=== PATIENT | female | born 1975 | race Caucasian/White ===

== ENCOUNTER → 2016-06-02 | Outpatient (CLI) | payer MEDICAID ==
[2016-06-02 13:28] LABS: ABSOLUTE BASOPHILS # (AUTO) 0.1 10^3/uL (0.0-0.2); ABSOLUTE EOSINOPHILS # (AUTO) 0.4 10^3/uL (0.0-0.6); ABSOLUTE LYMPHOCYTES (AUTO) 3.4 10^3/uL (0.5-4.7); ABSOLUTE MONOCYTES (AUTO) 0.5 10^3/uL (0.1-1.4); ABSOLUTE NEUT (AUTO) 9.7 10^3/uL (1.7-8.2); BASOPHILS % (AUTO) 0.6 % (0-2); EOSINOPHILS % (AUTO) 3.1 % (0-6); HEMOGLOBIN 16.4 g/dL (12.0-15.5); HGB HCT DIFFERENCE 1.2; LYMPHOCYTES % (AUTO) 24.1 % (13-45); MEAN CORPUSCULAR HEMOGLOBIN 29.2 pg (27.0-33.4); MEAN CORPUSCULAR HGB CONC 34.2 g/dL (32.0-36.0); MEAN CORPUSCULAR VOLUME 86 fl (80-97); MONOCYTES % (AUTO) 3.3 % (3-13); RED BLOOD COUNT 5.61 10^6/uL (3.72-5.28); RED CELL DISTRIBUTION WIDTH 12.8 % (11.5-14.0); SEGMENTED NEUTROPHILS % (AUTO) 68.9 % (42-78)
[2016-06-02 13:54] LABS: ALANINE AMINOTRANSFERASE 22 U/L (9-52); ALBUMIN 4.1 g/dL (3.5-5.0); ALKALINE PHOSPHATASE 110 U/L (38-126); ANION GAP 13 (5-19); ASPARTATE AMINO TRANSFERASE 19 U/L (14-36); BILIRUBIN,TOTAL 0.7 mg/dL (0.2-1.3); BLOOD UREA NITROGEN 10 mg/dL (7-20); C-REACTIVE PROTEIN 23.9 mg/L (<10.0); CALCIUM 9.7 mg/dL (8.4-10.2); CARBON DIOXIDE 27 mmol/L (22-30); CHLORIDE 99 mmol/L (98-107); CREATININE RESULT 0.47 mg/dL (0.52-1.25); GLUCOSE 275 mg/dL (75-110); POTASSIUM 4.2 mmol/L (3.6-5.0); TOTAL PROTEIN 7.5 g/dL (6.3-8.2)
[2016-06-02 14:06] LABS: ERYTHROCYTE SEDIMENTATION RATE 21 mm/hr (0-20)
== END ==
LOC: WC 12:36
PROVIDERS: ATTEND Surgery
DX: E11.621 Type 2 diabetes mellitus with foot ulcer (principal); L97.512 Non-pressure chronic ulcer of other part of right foot with fat layer exposed
CPT/HCPCS: 36415; 80053; 83036; 85025; 85652; 86140

== ENCOUNTER → 2016-12-25 | Outpatient (CLI) | payer MEDICAID ==
[2016-12-25 11:15] LABS: ABSOLUTE BASOPHILS # (AUTO) 0.2 10^3/uL (0.0-0.2); ABSOLUTE EOSINOPHILS # (AUTO) 0.1 10^3/uL (0.0-0.6); ABSOLUTE LYMPHOCYTES (AUTO) 2.8 10^3/uL (0.5-4.7); ABSOLUTE MONOCYTES (AUTO) 0.7 10^3/uL (0.1-1.4); ABSOLUTE NEUT (AUTO) 12.3 10^3/uL (1.7-8.2); EOSINOPHILS % (AUTO) 0.9 % (0-6); HEMATOCRIT 47.5 % (36.0-47.0); HEMOGLOBIN 16.4 g/dL (12.0-15.5); HGB HCT DIFFERENCE 1.7; LYMPHOCYTES % (AUTO) 17.2 % (13-45); MEAN CORPUSCULAR HEMOGLOBIN 30.4 pg (27.0-33.4); MEAN CORPUSCULAR HGB CONC 34.6 g/dL (32.0-36.0); MEAN CORPUSCULAR VOLUME 88 fl (80-97); MONOCYTES % (AUTO) 4.4 % (3-13); RED BLOOD COUNT 5.39 10^6/uL (3.72-5.28); RED CELL DISTRIBUTION WIDTH 13.4 % (11.5-14.0); SEGMENTED NEUTROPHILS % (AUTO) 76.5 % (42-78); WHITE BLOOD COUNT 16.1 10^3/uL (4.0-10.5)
[2016-12-25 11:46] LABS: ALANINE AMINOTRANSFERASE 26 U/L (9-52); ALBUMIN 4.1 g/dL (3.5-5.0); ALKALINE PHOSPHATASE 114 U/L (38-126); ANION GAP 17 (5-19); ASPARTATE AMINO TRANSFERASE 19 U/L (14-36); BILIRUBIN,DIRECT 0.4 mg/dL (0.0-0.4); BILIRUBIN,TOTAL 0.7 mg/dL (0.2-1.3); BLOOD UREA NITROGEN 9 mg/dL (7-20); C-REACTIVE PROTEIN 33.8 mg/L (<10.0); CALCIUM 9.7 mg/dL (8.4-10.2); CARBON DIOXIDE 21 mmol/L (22-30); CHLORIDE 101 mmol/L (98-107); CREATININE RESULT 0.47 mg/dL (0.52-1.25); GLUCOSE 319 mg/dL (75-110); POTASSIUM 4.3 mmol/L (3.6-5.0); SODIUM 138.6 mmol/L (137-145); TOTAL PROTEIN 7.1 g/dL (6.3-8.2)
[2016-12-25 11:58] LABS: ERYTHROCYTE SEDIMENTATION RATE 22 mm/hr (0-20)
--- NOTE | 2016-12-25 12:29 | RADIOLOGY REPORT (SQ) ---
EXAM DESCRIPTION: FOOT RIGHT COMPLETE COMPLETED DATE/TIME: 12/25/2016 12:00 pm REASON FOR STUDY: NON-PRS CHRONIC ULCER OTH PRT RIGHT FOOT W FAT LAYER EXPOSED L97.512 NON-PRS VICE [employer] FLOR ULCER OTH PRT RIGHT FOOT W FAT LAYER COMPARISON: 06/02/2016 NUMBER OF VIEWS: Three views. TECHNIQUE: AP, lateral and oblique radiographic images acquired of the right foot. LIMITATIONS: None. FINDINGS: MINERALIZATION: Normal. BONES: The forefoot is been amputated. There is no evidence of osteomyelitis. JOINTS: No effusions. SOFT TISSUES: An ulcer is present overlying the region of residual portion of 5th metatarsal. OTHER: No other significant finding. IMPRESSION: There is no evidence of osteomyelitis. TECHNICAL DOCUMENTATION: JOB ID: [id number] [employer]- All Rights Reserved
== END ==
LOC: OD 10:18
PROVIDERS: ATTEND Surgery
DX: E11.621 Type 2 diabetes mellitus with foot ulcer (principal); L97.512 Non-pressure chronic ulcer of other part of right foot with fat layer exposed
CPT/HCPCS: 36415; 80053; 83036; 85025; 85652; 86140

== ENCOUNTER 2017-03-27 15:23 | Emergency (ER) | payer MEDICAID ==
[2017-03-27 15:51] VITALS: BP 136/78
--- NOTE | 2017-03-27 17:14 | ER Document Report ---
HPI - HPI Patient complains to provider of: cast removal Pain Level: 4 Context: Patient is a 41-year-old female presents emergency department for cast removal. Patient states that she was due to follow-up with the wound clinic yesterday but they were close due to the weather she was told to come to the emergency department to have her cast removed. Patient has been going to wound care for a ulcer healing on the stump of her right foot from a previous amputation secondary to diabetes complications. She otherwise denies any other issues that she is here for cast to be removed. - CONSTITUTIONAL Constitutional: DENIES: Fever, Chills - REPRODUCTIVE Reproductive: DENIES: : - MUSCULOSKELETAL Musculoskeletal: REPORTS: Extremity pain - left leg cast removal Past Medical History - Social History Smoking Status: Current Every Day Smoker Chew tobacco use (# tins/day): No Frequency of alcohol use: None Drug Abuse: None Family History: Reviewed & Not Pertinent Patient has suicidal ideation: No Patient has homicidal ideation: No - Past Medical History Cardiac Medical History: Reports: Hx Hypercholesterolemia Pulmonary Medical History: Reports: Hx Bronchitis, Hx COPD Endocrine Medical History: Reports: Hx Diabetes Mellitus Type 1, Hx Diabetes Mellitus Type 2 Renal/ Medical History: Denies: Hx Peritoneal Dialysis GI Medical History: Reports: Hx Gastroesophageal Reflux Disease Musculoskeltal Medical History: Psychiatric Medical History: Reports: Hx Anxiety, Hx Bipolar Disorder, Hx Depression - anxiety, Hx Post Traumatic Stress Disorder Infectious Medical History: Past Surgical History: Reports: Hx Abdominal Surgery, Hx Appendectomy, Hx Section, Hx Cholecystectomy, Hx Orthopedic Surgery - Left toe amputation, right toe amputation with revision. Denies: Hx Pacemaker - Immunizations Hx Diphtheria, Pertussis, Tetanus Vaccination: Yes Vertical Provider Document - CONSTITUTIONAL Agree With Documented VS: Yes Notes: PHYSICAL EXAM GENERAL: Alert, interacts well. EXTREMITIES: Moves all 4 extremities spontaneously with a amputation of the right foot.. No edema, radial and dorsalis pedis pulses 2/4 bilaterally. No cyanosis. NEUROLOGICAL: Alert and oriented x4. Normal speech. PSYCH: Normal affect, normal mood. SKIN: Warm, dry, normal turgor. No rashes or lesions noted. Chronic healing ulcer on the distal end of the stump without any evidence of surrounding cellulitis. Nontender to palpation - INFECTION CONTROL TRAVEL OUTSIDE OF THE [place] IN LAST 30 DAYS: No - RESPIRATORY O2 Sat by Pulse Oximetry: 97 Course - Re-evaluation Re-evalutation: 03/27/17 17:15 patient is a 41-year-old female is hemodynamically stable, no acute distress and afebrile. Cast was removed at the bedside. chronic wound without any signs of purulent drainage or cellulitis. Patient to continue using her wet-to- dry dressings as instructed by the wound care clinic and will follow up with them as scheduled. - Vital Signs Vital signs: Temp Pulse Resp BP Pulse Ox 97.9 F 87 20 136/78 H 97 03/27/17 15:37 03/27/17 15:37 03/27/17 15:37 03/27/17 15:37 03/27/17 15:37 Discharge - Discharge Clinical Impression: Visit for cast removal Condition: Good Disposition: HOME, SELF-CARE Additional Instructions: Please dress your wound as instructed by the wound clinic and follow-up with them as scheduled. Please return to the emergency department with any worsening drainage, redness or pain. Referrals: Wound Care [Provider Group] - 03/29/17
== END 2017-03-27 18:15 | disposition home or self-care (01) ==
LOC: ER 15:23
DX: Z47.81 Encounter for orthopedic aftercare following surgical amputation (principal); F17.200 Nicotine dependence, unspecified, uncomplicated
CPT/HCPCS: 99282

== ENCOUNTER → 2017-04-12 | Outpatient (CLI) | payer MEDICAID ==
[2017-04-12 14:30] LABS: ABSOLUTE BASOPHILS # (AUTO) 0.1 10^3/uL (0.0-0.2); ABSOLUTE EOSINOPHILS # (AUTO) 0.2 10^3/uL (0.0-0.6); ABSOLUTE LYMPHOCYTES (AUTO) 4.7 10^3/uL (0.5-4.7); ABSOLUTE MONOCYTES (AUTO) 0.6 10^3/uL (0.1-1.4); ABSOLUTE NEUT (AUTO) 8.9 10^3/uL (1.7-8.2); BASOPHILS % (AUTO) 0.9 % (0-2); EOSINOPHILS % (AUTO) 1.5 % (0-6); HEMATOCRIT 45.9 % (36.0-47.0); HEMOGLOBIN 15.9 g/dL (12.0-15.5); LYMPHOCYTES % (AUTO) 32.6 % (13-45); MEAN CORPUSCULAR HEMOGLOBIN 30.2 pg (27.0-33.4); MEAN CORPUSCULAR HGB CONC 34.6 g/dL (32.0-36.0); MEAN CORPUSCULAR VOLUME 87 fl (80-97); PLATELET COUNT 201 10^3/uL (150-450); RED BLOOD COUNT 5.26 10^6/uL (3.72-5.28); TOTAL CELLS COUNTED % (AUTO) 100 %; WHITE BLOOD COUNT 14.6 10^3/uL (4.0-10.5)
--- NOTE | 2017-04-12 14:30 | RADIOLOGY REPORT (SQ) ---
EXAM DESCRIPTION: FOOT RIGHT COMPLETE COMPLETED DATE/TIME: 04/12/2017 1:45 pm REASON FOR STUDY: NON-PRESSURE ULCER RIGHT FOOT, FAT LAYER EXPOSED L97.512 NON-PRS CHRONIC ULCER OT H PRT RIGHT FOOT W FAT LAYER COMPARISON: Right foot plain films 11/22/2015, 06/02/2016, 12/25/2016 MRI right foot 02/24/2015 NUMBER OF VIEWS: Three views. TECHNIQUE: AP, lateral and oblique radiographic images acquired of the right foot. LIMITATIONS: Patient's right foot is immobilized in the fiberglass splint FINDINGS: MINERALIZATION: Osteopenic BONES: Patient is post transmetatarsal amputation of the forefoot. There is diffuse demineralization of the bones without definite periosteal new bone or gross areas of lytic destruction worrisome for osteomyelitis. JOINTS: No effusions. SOFT TISSUES: There is a soft tissue ulcer along the plantar aspect of the foot at about the level of the 3rd 4th and 5th metatarsals. OTHER: No other significant finding. IMPRESSION: Plantar ulcer without aggressive bony demineralization of the 3rd 4th or 5th metatarsal stumps TECHNICAL DOCUMENTATION: JOB ID: [id number]- All Rights Reserved
[2017-04-12 14:54] LABS: ALANINE AMINOTRANSFERASE 24 U/L (9-52); ALKALINE PHOSPHATASE 91 U/L (38-126); ANION GAP 10 (5-19); ASPARTATE AMINO TRANSFERASE 19 U/L (14-36); BILIRUBIN,DIRECT 0.3 mg/dL (0.0-0.4); BILIRUBIN,TOTAL 0.6 mg/dL (0.2-1.3); BLOOD UREA NITROGEN 10 mg/dL (7-20); C-REACTIVE PROTEIN 20.9 mg/L (<10.0); CALCIUM 9.4 mg/dL (8.4-10.2); CARBON DIOXIDE 24 mmol/L (22-30); CHLORIDE 102 mmol/L (98-107); GLUCOSE 239 mg/dL (75-110); POTASSIUM 4.3 mmol/L (3.6-5.0); SODIUM 136.4 mmol/L (137-145); TOTAL PROTEIN 6.8 g/dL (6.3-8.2)
[2017-04-12 15:17] LABS: ERYTHROCYTE SEDIMENTATION RATE 13 mm/hr (0-20)
== END ==
LOC: WC 12:59
PROVIDERS: ATTEND Surgery
DX: E11.621 Type 2 diabetes mellitus with foot ulcer (principal); L97.512 Non-pressure chronic ulcer of other part of right foot with fat layer exposed
CPT/HCPCS: 36415; 80053; 83036; 85025; 85652; 86140

== ENCOUNTER 2017-04-19 21:08 | Emergency (ER) | payer MEDICAID ==
[2017-04-19] MEDS ORDERED: ASPIRIN 81 MG TABLET, CHEWABLE PO ONE (23:39)
[2017-04-19] MEDS ORDERED: MAG HYDROX/AL HYDROX/SIMETH SUSP 30 ML UDCUP PO ONE (23:40)
[2017-04-19] MEDS ORDERED: METOCLOPRAMIDE HCL ORAL SOLN 10 MG/10 ML UDCUP PO ONE (23:40)
[2017-04-19] MEDS ORDERED: LIDOCAINE 2% VISCOUS SOLN 20 ML UDCUP PO ONE (23:40)
--- NOTE | 2017-04-19 23:40 | ER Document Report ---
ED General - General Chief Complaint: Chest Pain Stated Complaint: CHEST PAIN Time Seen by Provider: 04/19/17 23:11 Notes: Patient is a 41-year-old female who presents emergency department with a chief complaint of chest pain that started this morning. Patient states that she woke up and noticed epigastric discomfort that radiated up into her chest and the back of her throat. She states that it was a fleeting discomfort. She otherwise admits to dry cough with associated chest pressure throughout the day , this is with an associated productive cough for the past 3-4 days.. States that her pain is a 2 out of 5 in severity in her chest is an achy feeling. She denies any substernal pain, pressure, shortness of breath, dyspnea on exertion, orthopnea, left arm pain. She admits to one episode of emesis prior to arrival PCP is Dr. Villatoro Past medical history significant for Diabetes, GERD, COPD, anxiety, bipolar, PTSD, previous right foot amputation with osteomyelitis being managed by Dr. Jefferson. Patient currently on Augmentin for current infection. She follows up with him on Wednesday Social history significant for right foot amputation, seen section 1, appendectomy, cholecystectomy, Achilles tendon revisions, tubal ligation Social history significant for current tobacco user, marijuana use, denies any alcohol use. Home medications are Vicodin, aripiprazole, benztropine, Klonopin, Robaxin, prazosin, trazodone, Augmentin TRAVEL OUTSIDE OF THE [place] IN LAST 30 DAYS: No - Related Data Allergies/Adverse Reactions: adhesive [Adhesive] Allergy (Mild, Verified 04/20/17 01:36) skin breakdown, red, itching Past Medical History - Social History Smoking Status: Current Every Day Smoker Chew tobacco use (# tins/day): No Frequency of alcohol use: None Drug Abuse: None Family History: Reviewed & Not Pertinent Patient has suicidal ideation: No Patient has homicidal ideation: No - Past Medical History Cardiac Medical History: Reports: Hx Hypercholesterolemia Pulmonary Medical History: Reports: Hx Bronchitis, Hx COPD Endocrine Medical History: Reports: Hx Diabetes Mellitus Type 1, Hx Diabetes Mellitus Type 2 Renal/ Medical History: Denies: Hx Peritoneal Dialysis GI Medical History: Reports: Hx Gastroesophageal Reflux Disease Musculoskeltal Medical History: Psychiatric Medical History: Reports: Hx Anxiety, Hx Bipolar Disorder, Hx Depression - anxiety, Hx Post Traumatic Stress Disorder Infectious Medical History: Past Surgical History: Reports: Hx Abdominal Surgery, Hx Appendectomy, Hx Section, Hx Cholecystectomy, Hx Orthopedic Surgery - Left toe amputation, right toe amputation with revision. Denies: Hx Pacemaker - Immunizations Hx Diphtheria, Pertussis, Tetanus Vaccination: Yes Review of Systems - Review of Systems Constitutional: No symptoms reported Cardiovascular: See HPI Respiratory: See HPI Gastrointestinal: See HPI Genitourinary: No symptoms reported Musculoskeletal: No symptoms reported -: Yes All other systems reviewed and negative Physical Exam - Vital signs Vitals: Temp Pulse Resp BP Pulse Ox 98.5 F 70 24 H 114/70 97 04/19/17 21:48 04/19/17 21:48 04/19/17 21:48 04/19/17 21:48 04/19/17 21:48 - Notes Notes: PHYSICAL EXAM GENERAL: Alert, interacts well. HEAD: Normocephalic, atraumatic. EYES: Pupils equal, round, and reactive to light. Extraocular movements intact. ENT: Oral mucosa moist, tongue midline. NECK: Full range of motion. Supple. Trachea midline. LUNGS: Clear to auscultation bilaterally, no wheezes, rales, or rhonchi. No respiratory distress. HEART: Chest pain reproducible palpation at the anterior chest wall regular rate and rhythm. No murmurs, gallops, or rubs. ABDOMEN: Soft, nondistended, minimal tenderness palpation in the epigastric area. No guarding, rebound, or rigidity.. Bowel sounds present in all 4 quadrants. EXTREMITIES: Moves all 4 extremities spontaneously. No edema, radial and dorsalis pedis pulses 2/4 bilaterally. No cyanosis. NEUROLOGICAL: Alert and oriented x4. Face symmetric. Tongue protrudes midline. Extraocular motions intact. Pupils are 2 mm and equally reactive. Normal speech, normal gait. 5 out of 5 strength in both the distal and proximal upper and lower extremities bilaterally. Sensation is grossly intact throughout. Finger to nose testing normal. Pronator drift normal. PSYCH: Normal affect, normal mood. SKIN: Warm, dry, normal turgor. No rashes or lesions noted. Course - Re-evaluation Re-evalutation: 04/20/17 01:29 Patient is a 41-year-old female who is hemodynamically stable, no acute distress and afebrile. Patient is very well in appearance, vitals within normal limits. Low clinical suspicion for ACS given clinical history, exam, EKG without ST elevations or depressions, and negative initial troponin. HEART score less than or equal to 3. PE also seems unlikely given clinical history, absence of tachycardia or dyspnea. Well's score of 0. CXR without evidence of pneumothorax or pneumonia. No widened mediastinum. Aortic dissection also seems unlikely given history, symmetric pulses, CXR, and vitals. 04/20/17 02:05 Patient with complete chest heaviness resolution after 2 breathing treatments and a dose of her home Klonopin. At this time will discharge with return precautions and follow-up recommendations. Verbal discharge instructions given a the bedside and opportunity for questions given. Medication warnings reviewed. Patient is in agreement with this plan and has verbalized understanding of return precautions and the need for primary care follow-up in the next 24-72 hours. - Vital Signs Vital signs: Temp Pulse Resp BP Pulse Ox 97.8 F 88 16 110/59 L 97 04/20/17 03:13 04/20/17 03:13 04/20/17 03:13 04/20/17 03:13 04/20/17 03:13 - Laboratory Result Diagrams: 04/19/17 23:25 04/19/17 23:25 Laboratory results interpreted by wa: 04/19/17 04/19/17 23:25 23:25 WBC 18.3 H RBC 5.38 H Hgb 16.0 H Hct 47.1 H Absolute Neutrophils 13.5 H Creatinine 0.45 L Glucose 142 H - Diagnostic Test Radiology reviewed: Image reviewed, Reports reviewed - EKG Interpretation by Ms EKG shows normal: Sinus rhythm Rate: Normal Rhythm: NSR When compared to previous EKG there are: No significant change Discharge - Discharge Clinical Impression: Chest pain Qualifiers: Chest pain type: unspecified Qualified Code(s): R07.9 - Chest pain, unspecified Condition: Good Disposition: HOME, SELF-CARE Additional Instructions: BRONCHITIS WITH BRONCHOSPASM (WHEEZING): You have bronchitis with bronchospasm (wheezing). Sometimes people develop wheezing with a chest cold. This occurs either because of an underlying tendency toward asthma or because the virus itself irritates the bronchial tubes. This irritation causes cough, shortness of breath, and wheezing. Emergency treatment of bronchospasm may include adrenaline shots or bronchodilator aerosol. You may feel lightheaded and have a rapid pulse for an hour or two. Rest and get plenty of fluids. At home, we'll treat you with a bronchodilator inhaler. Corticosteroids may be required for some patients. Until you recover, avoid chemical fumes, dusts, pollens, and exercising in very cold or dry air. If you smoke, stop now! Most cases of bronchitis get better without antibiotics. We prescribe antibiotics when we believe bacteria are damaging your airways, or if there's high risk the bronchitis will worsen into pneumonia. Increase your fluid intake. A cool mist humidifier may make your lungs more comfortable. An expectorant (cough medicine that loosens phlegm) can help. Repeated episodes of bronchitis and bronchospasm may result in lung damage -- for example, chronic bronchitis, recurrent pneumonias, or emphysema. If you develop a fever, increased wheezing, chest pain, or severe shortness of breath, you should contact the doctor immediately. DECONGESTANT MEDICATION: A decongestant medicine has been prescribed. Often this medicine is combined in the same tablet with an antihistamine or expectorant. This type of medicine is helpful in treating a bad cold or sinus condition, as well as in treatment of the nasal congestion of hay fever. It is not of much benefit for lung infections. Decongestant medicines are related to stimulants. They can cause an increase in blood pressure and heart rate. Persons with heart disease and high blood pressure should not take decongestants without discussing this with the physician. If you develop palpitations, chest pain, headache, or tremors, stop the medicine and consult your physician. COUGH-SUPPRESSANT & EXPECTORANT MEDICATION: You are to use a cough medication as needed for relief of symptoms. This medicine is a combination of an expectorant (to make the mucous thinner and more easily "coughed up") and a cough suppressant (to reduce the frequency of coughing). The cough-suppressant medicine is related to narcotics. You may experience mild nausea and sleepiness. Some patients who are very sensitive to narcotics may have stomach pain from this medicine. Taking the medicine with food reduces these side effects. Do not drive or work with machinery until you know how this medicine affects you. The expectorant should have no side effects. Iodine-containing expectorants (such as organidin) should not be taken by persons with active thyroid disease unless approved by your doctor. Call the doctor if you develop shortness of breath, hives, rash, itching, lightheadedness, or severe nausea and vomiting. INHALED BRONCHODILATORS: You have received a treatment of and/or prescription for an inhaled bronchodilator -- a medication which stimulates the airways in the lung to dilate. This improves the flow of air in asthma, bronchitis, and emphysema. These medicines have some similarity to adrenaline, and can cause similar side effects: shakiness, racing heart, and a sense of nervousness. These side effects decrease with time. Contact your doctor if these side effects are severe. Do not over-use the medicine. Too-frequent use of the inhaler may make it ineffective. Call your doctor if the inhaler is not controlling your symptoms at the prescribed doses. USE OF ACETAMINOPHEN (Tylenol): Acetaminophen may be taken for pain relief or fever control. It's much safer than aspirin, offering a wider range of "safe" dosages. It is safe during . Some brand names are Tylenol, Panadol, Datril, Anacin 3, Tempra, and Liquiprin. Acetaminophen can be repeated every four hours. The following are maximum recommended dosages: >89 pounds or adults 650 mg to 900 mg Acetaminophen can be repeated every four hours. Maximum dose not to exceed 4000 mg a day. SMOKING: If you smoke, you should stop smoking. The tar and chemicals in cigarette smoke are harmful. Smoking has been shown to cause: emphysema chronic bronchitis lung cancer mouth and throat cancer stomach and pancreas cancer premature aging defects In addition, smoking increases ear and lung infections in children of smokers. FOLLOW-UP CARE: If you have been referred to a physician for follow-up care, call the physician s office for an appointment as you were instructed or within the next two days. If you experience worsening or a significant change in your symptoms, notify the physician immediately or return to the Emergency Department at any time for re-evaluation. Prescriptions: Albuterol Sulfate [Proair HFA Inhalation Aerosol 8.5 gm MDI] 2 puff IH Q4H PRN # 1 mdi PRN Reason: Omeprazole Magnesium [Prilosec Otc] 20 mg PO DAILY #30 tablet.dr Forms: Elevated Blood Pressure, Smoking Cessation Education Referrals: KWESI VILLATORO DO [Primary Care Provider] - Follow up in 1 week
[2017-04-19 23:50] LABS: ABSOLUTE BASOPHILS # (AUTO) 0.2 10^3/uL (0.0-0.2); ABSOLUTE EOSINOPHILS # (AUTO) 0.1 10^3/uL (0.0-0.6); ABSOLUTE MONOCYTES (AUTO) 0.6 10^3/uL (0.1-1.4); ABSOLUTE NEUT (AUTO) 13.5 10^3/uL (1.7-8.2); BASOPHILS % (AUTO) 0.9 % (0-2); EOSINOPHILS % (AUTO) 0.4 % (0-6); HEMATOCRIT 47.1 % (36.0-47.0); LYMPHOCYTES % (AUTO) 21.8 % (13-45); MEAN CORPUSCULAR HEMOGLOBIN 29.8 pg (27.0-33.4); MEAN CORPUSCULAR HGB CONC 34.1 g/dL (32.0-36.0); MEAN CORPUSCULAR VOLUME 87 fl (80-97); MONOCYTES % (AUTO) 3.5 % (3-13); PLATELET COUNT 217 10^3/uL (150-450); RED BLOOD COUNT 5.38 10^6/uL (3.72-5.28); RED CELL DISTRIBUTION WIDTH 13.3 % (11.5-14.0); SEGMENTED NEUTROPHILS % (AUTO) 73.4 % (42-78); TOTAL CELLS COUNTED % (AUTO) 100 %; WHITE BLOOD COUNT 18.3 10^3/uL (4.0-10.5)
[2017-04-20 00:05] LABS: ALANINE AMINOTRANSFERASE 22 U/L (9-52); ALBUMIN 4.4 g/dL (3.5-5.0); ALKALINE PHOSPHATASE 85 U/L (38-126); ANION GAP 13 (5-19); ASPARTATE AMINO TRANSFERASE 21 U/L (14-36); BILIRUBIN,DIRECT 0.4 mg/dL (0.0-0.4); BILIRUBIN,TOTAL 0.5 mg/dL (0.2-1.3); BLOOD UREA NITROGEN 10 mg/dL (7-20); CALCIUM 9.8 mg/dL (8.4-10.2); CARBON DIOXIDE 22 mmol/L (22-30); CHLORIDE 104 mmol/L (98-107); CREATINE KINASE 41 U/L (30-135); GLUCOSE 142 mg/dL (75-110); POTASSIUM 4.2 mmol/L (3.6-5.0); SODIUM 138.8 mmol/L (137-145); TOTAL PROTEIN 7.7 g/dL (6.3-8.2)
[2017-04-20 01:08] LABS: CREATINE KINASE MB < 0.22 ng/mL (<4.55); TROPONIN I < 0.012 ng/mL
[2017-04-20] MEDS ORDERED: ALBUTEROL SULFATE 0.083% NEB 2.5 MG/3 ML AMPUL NEB ONE ×2 (01:29→02:04)
[2017-04-20] MEDS ORDERED: CLONAZEPAM 1 MG TABLET PO ONE (02:05)
[2017-04-20 03:19] VITALS: BP 110/59
--- NOTE | 2017-04-20 07:50 | EKG REPORT ---
SEVERITY:- NORMAL ECG - SINUS RHYTHM : Confirmed by: Mandeep Rod MD 20-Apr-2017 07:49:26
--- NOTE | 2017-04-20 08:01 | RADIOLOGY REPORT (SQ) ---
EXAM DESCRIPTION: CHEST SINGLE VIEW COMPLETED DATE/TIME: 04/20/2017 12:04 am REASON FOR STUDY: chest pain COMPARISON: 02/19/2016. EXAM PARAMETERS: NUMBER OF VIEWS: One view. TECHNIQUE: Single frontal radiographic view of the chest acquired. RADIATION DOSE: NA LIMITATIONS: None. FINDINGS: LUNGS AND PLEURA: No infiltrate, masses or pneumothorax. No pleural effusion. MEDIASTINUM AND HILAR STRUCTURES: No masses. Contour normal. HEART AND VASCULAR STRUCTURES: Heart normal in size. Normal vasculature. BONES: No acute findings. HARDWARE: None in the chest. OTHER: Chest leads in place. IMPRESSION: NO ACUTE RADIOGRAPHIC FINDING IN THE CHEST. TECHNICAL DOCUMENTATION: JOB ID: [id number] [employer]- All Rights Reserved
== END 2017-04-20 03:15 | disposition home or self-care (01) ==
LOC: ER 21:08
DX: R07.9 Chest pain, unspecified (principal); R10.13 Epigastric pain; R05 Cough; F17.200 Nicotine dependence, unspecified, uncomplicated
CPT/HCPCS: 93005; 94640 ×2; 99285; 36415; 82553; 82550; 85025; 80053; 84484; 71045; 93010; J3490 ×4

== ENCOUNTER → 2017-10-04 | Outpatient (CLI) | payer MEDICAID ==
--- NOTE | 2017-10-04 16:49 | WOMENS IMAGING REPORT ---
EXAM DESCRIPTION: BILAT SCREENING MAMMO W/CAD COMPLETED DATE/TIME: 10/04/2017 11:57 am REASON FOR STUDY: BILATERAL SCREENING MAMMO/Z12.31 Z12.31 ENCNTR SCREEN MAMMOGRAM FOR MALIGNANT TRACEY PLASM OF BHAVANI COMPARISON: None. TECHNIQUE: Standard craniocaudal and mediolateral oblique views of each breast recorded using [place] l acquisition. LIMITATIONS: None. FINDINGS: No masses, calcifications or architectural distortion. No areas of suspicion. Read with the assistance of CAD. [facility] - R2 Cenova Version 1.3 .[facility] - R2 Cenova Version 1.3 .[facility] - R2 Cenova Version 2.4 .[facility] [place] R2 Cenova Version 2.4 .[facility] - R2 [place] Version 9.2 IMPRESSION: NORMAL MAMMOGRAM. BIRADS 1. BREAST DENSITY: b. There are scattered areas of fibroglandular density. BIRAD: 1 NEGATIVE RECOMMENDATION: ROUTINE SCREENING Please continue yearly bilateral screening mammography/tomosynthesis in September 2018 COMMENT: The patient has been notified of the results by letter per SA requirements. Additional no tification policies are in place for contacting patient with suspicious or incomplete findings. Quality ID #[id number]: The [employer] recommends an annual screening mammogram for women aged 40 years or over. This facility utilizes a reminder system to ensure that all patients receive reminder letters, and/or direct phone calls for appointments. This includes reminders for routine scr eening mammograms, diagnostic mammograms, or other Breast Imaging Interventions when appropriate. Th is patient will be placed in the appropriate reminder system. The [employer] (ACR) has developed recommendations for screening MRI of the breast s in certain patient populations, to be used in conjunction with mammography. Breast MRI surveillanc e may be appropriate for women with more than 20% lifetime risk of developing breast cancer as deter mined by genetic testing, significant family history of the disease, or history of mantle radiation f or Hodgkins Disease. ACR Practice Guidelines 2008. TECHNICAL DOCUMENTATION: FINDING NUMBER: (1) ASSESSMENT: (1) JOB ID: [id number] [employer]- All Rights Reserved Reading location - IP/workstation name: [email or web address]
== END ==
LOC: WI 11:41
PROVIDERS: ATTEND Family Medicine
DX: Z12.31 Encounter for screening mammogram for malignant neoplasm of breast (principal)
CPT/HCPCS: 77067

== ENCOUNTER → 2017-11-10 | Outpatient (CLI) | payer MEDICAID ==
--- NOTE | 2017-11-10 12:34 | RADIOLOGY REPORT (SQ) ---
EXAM DESCRIPTION: SACRUM AND COCCYX COMPLETED DATE/TIME: 11/10/2017 12:25 pm REASON FOR STUDY: COCCYGEAL PAIN,ACUTE M53.3 SACROCOCCYGEAL DISORDERS, NOT ELSEWHERE CLASSIFIED M25 .551 PAIN IN RIGHT HIP COMPARISON: None. NUMBER OF VIEWS: Three views. TECHNIQUE: AP, lateral, and tilt views of the sacrum and coccyx. LIMITATIONS: None. FINDINGS: MINERALIZATION: Normal. BONES: No acute fracture or dislocation. No worrisome bone lesions. SOFT TISSUES: No soft tissue swelling. No foreign body. OTHER: No other significant finding. IMPRESSION: NEGATIVE STUDY OF THE SACRUM AND COCCYX. TECHNICAL DOCUMENTATION: JOB ID: [id number] [employer]- All Rights Reserved Reading location - IP/workstation name: [email or web address]
--- NOTE | 2017-11-10 12:37 | RADIOLOGY REPORT (SQ) ---
EXAM DESCRIPTION: HIP RIGHT AP/LATERAL COMPLETED DATE/TIME: 11/10/2017 12:25 pm REASON FOR STUDY: COCCYGEAL PAIN,ACUTE; ACUTE RT HIP PAIN M53.3 SACROCOCCYGEAL DISORDERS, NOT ELSEW HERE CLASSIFIED M25.551 PAIN IN RIGHT HIP COMPARISON: None. NUMBER OF VIEWS: Two views. TECHNIQUE: AP pelvis and additional frog-leg view of the right hip. LIMITATIONS: None. FINDINGS: MINERALIZATION: Normal. RIGHT HIP: No fracture or dislocation. No worrisome bone lesions. No contour deformity. No joint sp gricelda narrowing. LEFT HIP: No fracture or dislocation. No worrisome bone lesions. PUBIS AND ISCHIUM: No fracture. PELVIS: No fracture. SACRUM: No fracture or dislocation. No worrisome bone lesions. LOWER LUMBAR SPINE: No fracture or dislocation. No worrisome bone lesions. No significant disc disea se. SOFT TISSUES: No findings. OTHER: No other significant finding. IMPRESSION: NEGATIVE STUDY OF THE RIGHT HIP. NO EXPLANATION FOR PAIN. TECHNICAL DOCUMENTATION: JOB ID: [id number] [employer]- All Rights Reserved Reading location - IP/workstation name: [facility][email or web address]
== END ==
LOC: OD 11:40
PROVIDERS: ATTEND Family Medicine
DX: M53.3 Sacrococcygeal disorders, not elsewhere classified (principal); M25.551 Pain in right hip
CPT/HCPCS: 72220

== ENCOUNTER 2017-11-18 19:44 | Inpatient (IN) | payer MEDICAID ==
--- NOTE | 2017-11-18 21:02 | ER Document Report ---
ED Medical Screen (RME) - General Chief Complaint: Wound Infection Stated Complaint: WOUND INFECTION Time Seen by Provider: 11/18/17 20:51 Mode of Arrival: Wheelchair Information source: Patient Notes: Patient is a 42-year-old diabetic female who presents with possible infection to her right foot. Patient reports she has been seen wound care for the last 24 months. Patient reports she was having the wound debrided today when they felt that they saw bone. Patient reports worsening pain through the day with increasing erythema. Patient reports that her ergonomic specialist advised her to come to the ER for possible "bone infection". Patient denies any fevers. Patient unsure if there is been increased drainage or foul odor as patient reports she has not taken off the bandage. Exam: Dressing in place to right foot, erythema across dorsal surface of foot. I have greeted and performed a rapid initial assessment of this patient. A comprehensive ED assessment and evaluation of the patient, analysis of test results and completion of the medical decision making process will be conducted by additional ED providers. Dictation of this chart was performed using voice recognition software; therefore, there may be some unintended grammatical errors. TRAVEL OUTSIDE OF THE [place] IN LAST 30 DAYS: No - Related Data Allergies/Adverse Reactions: adhesive [Adhesive] Allergy (Mild, Verified 04/20/17 01:36) skin breakdown, red, itching Past Medical History - Past Medical History Cardiac Medical History: Reports: Hx Hypercholesterolemia Pulmonary Medical History: Reports: Hx Bronchitis, Hx COPD Endocrine Medical History: Reports: Hx Diabetes Mellitus Type 1, Hx Diabetes Mellitus Type 2 Renal/ Medical History: Denies: Hx Peritoneal Dialysis GI Medical History: Reports: Hx Gastroesophageal Reflux Disease Musculoskeltal Medical History: Psychiatric Medical History: Reports: Hx Anxiety, Hx Bipolar Disorder, Hx Depression - anxiety, Hx Post Traumatic Stress Disorder Infectious Medical History: Past Surgical History: Reports: Hx Abdominal Surgery, Hx Appendectomy, Hx Section, Hx Cholecystectomy, Hx Orthopedic Surgery - Left toe amputation, right toe amputation with revision. Denies: Hx Pacemaker - Immunizations Hx Diphtheria, Pertussis, Tetanus Vaccination: Yes Physical Exam - Vital signs Vitals: Temp Pulse Resp BP Pulse Ox 99.2 F 81 17 117/73 96 11/18/17 19:54 11/18/17 19:54 11/18/17 19:54 11/18/17 19:54 11/18/17 19:54 Course - Vital Signs Vital signs: Temp Pulse Resp BP Pulse Ox 99.2 F 81 17 117/73 96 11/18/17 19:54 11/18/17 19:54 11/18/17 19:54 11/18/17 19:54 11/18/17 19:54 Doctor's Discharge - Discharge Referrals: KWESI BLOOM DO [Primary Care Provider] - Follow up as needed
--- NOTE | 2017-11-18 21:21 | RADIOLOGY REPORT (SQ) ---
EXAM DESCRIPTION: FOOT RIGHT COMPLETE COMPLETED DATE/TIME: 11/18/2017 9:12 pm REASON FOR STUDY: eval for osteomyelitis COMPARISON: 02/19/2016 NUMBER OF VIEWS: Three views. TECHNIQUE: AP, lateral and oblique radiographic images acquired of the right foot. LIMITATIONS: None. FINDINGS: MINERALIZATION: Normal. BONES: There is amputation of the forefoot. No acute osseous findings are seen. JOINTS: No effusions. SOFT TISSUES: No soft tissue swelling. No foreign body. OTHER: No other significant finding. IMPRESSION: Prior forefoot amputation. No evidence of osteomyelitis. TECHNICAL DOCUMENTATION: JOB ID: [id number] [employer]- All Rights Reserved Reading location - IP/workstation name: [email or web address]
[2017-11-18 21:55] LABS: ABSOLUTE BASOPHILS # (AUTO) 0.2 10^3/uL (0.0-0.2); ABSOLUTE EOSINOPHILS # (AUTO) 0.1 10^3/uL (0.0-0.6); ABSOLUTE LYMPHOCYTES (AUTO) 3.8 10^3/uL (0.5-4.7); ABSOLUTE NEUT (AUTO) 13.9 10^3/uL (1.7-8.2); BASOPHILS % (AUTO) 0.9 % (0-2); EOSINOPHILS % (AUTO) 0.5 % (0-6); HEMATOCRIT 45.4 % (36.0-47.0); HEMOGLOBIN 15.6 g/dL (12.0-15.5); LYMPHOCYTES % (AUTO) 20.2 % (13-45); MEAN CORPUSCULAR HEMOGLOBIN 30.2 pg (27.0-33.4); MEAN CORPUSCULAR HGB CONC 34.3 g/dL (32.0-36.0); MEAN CORPUSCULAR VOLUME 88 fl (80-97); MONOCYTES % (AUTO) 5.1 % (3-13); PLATELET COUNT 256 10^3/uL (150-450); RED BLOOD COUNT 5.16 10^6/uL (3.72-5.28); SEGMENTED NEUTROPHILS % (AUTO) 73.3 % (42-78); TOTAL CELLS COUNTED % (AUTO) 100 %
[2017-11-18 22:20] LABS: ALANINE AMINOTRANSFERASE 15 U/L (9-52); ALBUMIN 4.1 g/dL (3.5-5.0); ALKALINE PHOSPHATASE 99 U/L (38-126); ANION GAP 13 (5-19); ASPARTATE AMINO TRANSFERASE 26 U/L (14-36); BILIRUBIN,DIRECT 0.5 mg/dL (0.0-0.4); BILIRUBIN,TOTAL 0.6 mg/dL (0.2-1.3); BLOOD UREA NITROGEN 9 mg/dL (7-20); C-REACTIVE PROTEIN 51.5 mg/L (<10.0); CALCIUM 8.9 mg/dL (8.4-10.2); CARBON DIOXIDE 26 mmol/L (22-30); CHLORIDE 100 mmol/L (98-107); GLUCOSE 276 mg/dL (75-110); SODIUM 138.6 mmol/L (137-145); TOTAL PROTEIN 8.3 g/dL (6.3-8.2)
[2017-11-18 22:43] LABS: ERYTHROCYTE SEDIMENTATION RATE 46 mm/hr (0-20)
[2017-11-18] MEDS ORDERED: PIPERACILLIN/TAZOBACTAM 3.375 GM VIAL IV ONE (23:42)
[2017-11-18] MEDS ORDERED: ONDANSETRON HCL INJ/PF 4 MG/2 ML SDV IV ONE (23:42)
[2017-11-18] MEDS ORDERED: VANCOMYCIN HCL INJ 1000 MG VIAL IV ONE (23:53)
--- NOTE | 2017-11-18 23:57 | ER Document Report ---
ED General - General Chief Complaint: Wound Infection Stated Complaint: WOUND INFECTION Time Seen by Provider: 11/18/17 20:51 Mode of Arrival: Wheelchair Notes: Patient is a 42-year-old female with a past medical history of insulin- dependent diabetes, prior TMA of the right foot who presents with a rapidly spreading rash from her right foot up her right leg. The patient reports that the symptoms started approximately 24 hours ago and have rapidly worsened. She notes a throbbing, severe, aching pain to her right foot and the site of a chronic wound on the plantar surface of the foot. She has been following with wound management and was informed today that it appears that there has been development of an infection to the area. She was encouraged to come to the emergency department. She denies fever or constitutional symptoms. She denies a history of similar events in the past. Nothing improves or worsens her symptoms. TRAVEL OUTSIDE OF THE [place] IN LAST 30 DAYS: No - Related Data Allergies/Adverse Reactions: adhesive [Adhesive] Allergy (Mild, Verified 04/20/17 01:36) skin breakdown, red, itching Past Medical History - General Information source: Patient - Social History Smoking Status: Former Smoker Frequency of alcohol use: None Drug Abuse: None Lives with: Family Family History: Reviewed & Not Pertinent Patient has suicidal ideation: No Patient has homicidal ideation: No - Past Medical History Cardiac Medical History: Reports: Hx Hypercholesterolemia Pulmonary Medical History: Reports: Hx Bronchitis, Hx COPD Endocrine Medical History: Reports: Hx Diabetes Mellitus Type 1, Hx Diabetes Mellitus Type 2 Renal/ Medical History: Denies: Hx Peritoneal Dialysis GI Medical History: Reports: Hx Gastroesophageal Reflux Disease Musculoskeletal Medical History: Psychiatric Medical History: Reports: Hx Anxiety, Hx Bipolar Disorder, Hx Depression - anxiety, Hx Post Traumatic Stress Disorder Infectious Medical History: Past Surgical History: Reports: Hx Abdominal Surgery, Hx Appendectomy, Hx Section, Hx Cholecystectomy, Hx Orthopedic Surgery - Left toe amputation, right toe amputation with revision. Denies: Hx Pacemaker - Immunizations Hx Diphtheria, Pertussis, Tetanus Vaccination: Yes Review of Systems - Review of Systems Notes: Constitutional: Negative for fever. HENT: Negative for sore throat. Eyes: Negative for visual changes. Cardiovascular: Negative for chest pain. Respiratory: Negative for shortness of breath. Gastrointestinal: Negative for abdominal pain, vomiting or diarrhea. Genitourinary: Negative for dysuria. Musculoskeletal: Negative for back pain. Skin: Positive for right foot wound and rash Neurological: Negative for headaches, weakness or numbness. 10 point ROS negative except as marked above and in HPI. Physical Exam - Vital signs Vitals: Temp Pulse Resp BP Pulse Ox 99.2 F 81 17 117/73 96 11/18/17 19:54 11/18/17 19:54 11/18/17 19:54 11/18/17 19:54 11/18/17 19:54 Interpretation: Normal Notes: PHYSICAL EXAMINATION: GENERAL: Appears older than stated age but in no acute distress HEAD: Atraumatic, normocephalic. EYES: Pupils equal round and reactive to light, extraocular movements intact, sclera anicteric, conjunctiva are normal. ENT: nares patent, oropharynx clear without exudates. Moderately dry mucous membranes. NECK: Normal range of motion, supple without lymphadenopathy LUNGS: Breath sounds clear to auscultation bilaterally and equal. No wheezes rales or rhonchi. HEART: Regular rate and rhythm without murmurs ABDOMEN: Soft, nontender, normoactive bowel sounds. No guarding, no rebound. No masses appreciated. EXTREMITIES: Normal range of motion, no pitting or edema. No cyanosis. NEUROLOGICAL: No focal neurological deficits. Moves all extremities spontaneously and on command. PSYCH: Normal mood, normal affect. SKIN: Warm, Dry, normal turgor, there is a wound on the plantar surface below the level of where the great toe should be on the right foot that appears quite deep. There is a moderate amount of purulent drainage coming from the wound after removal of the dressing and packing. There is a trace of erythema over the entirety of the dorsum of the foot that extends up approximately one third the distance of the tibial plateau toward the knee. Course - Re-evaluation Re-evalutation: 11/18/17 23:53 Patient presents with a rapidly spreading cellulitis from her right foot that has had complete imitation of all digits. There is a deep 0.5 x 0.5 circular wound on the mid plantar surface below where the level of the great toe would be. The entirety of the remainder of the dorsum of the foot is erythematous, swollen with spreading erythema up to roughly 1/3 of the length of the distal lower extremity below the level of the knee. The patient has a marked leukocytosis, elevated ESR and CRP. X-ray without evidence of osteomyelitis although this is low sensitivity test. Patient was seen by her checker/stocker today Dr. Chang who reported to her that the bone appeared like "mush". Given the rapid spread of cellulitis, abnormalities in the labs, I have discussed with the surgeon patient coordinator front desk and will admit to the hospitalist. IV Zosyn, significant initiated. - Vital Signs Vital signs: Temp Pulse Resp BP Pulse Ox 98.1 F 95 16 119/71 98 11/19/17 01:26 11/19/17 02:45 11/19/17 02:45 11/19/17 01:26 11/19/17 02:45 - Laboratory Result Diagrams: 11/18/17 21:25 11/18/17 21:25 Laboratory results interpreted by me: 11/18/17 11/18/17 11/18/17 21:25 21:25 21:25 WBC 19.0 H Hgb 15.6 H Absolute Neutrophils 13.9 H ESR 46 H Glucose 276 H Hemoglobin A1c % 9.5 H Direct Bilirubin 0.5 H C-Reactive Protein 51.5 H Total Protein 8.3 H - Diagnostic Test Radiology reviewed: Reports reviewed Discharge - Discharge Clinical Impression: Right foot infection Sepsis Qualifiers: Sepsis type: sepsis due to unspecified organism Qualified Code(s): A41.9 - Sepsis, unspecified organism Foot ulcer, right Qualifiers: Non-pressure ulcer stage: with necrosis of muscle Qualified Code(s): L97.513 - Non-pressure chronic ulcer of other part of right foot with necrosis of muscle Condition: Fair Disposition: ADMITTED INPATIENT Admitting Provider: Hospitalist Unit Admitted: Medical Floor
[2017-11-19] MEDS ORDERED: DEXTROSE 50%-WATER 25 GM/50 ML DISP.SYRIN IV PRN ×2 (00:09)
[2017-11-19] MEDS ORDERED: IPRATROPIUM/ALBUTEROL 0.5-2.5 MG/3 ML AMPUL NEB PRN (00:09)
[2017-11-19] MEDS ORDERED: DEXTROSE 40% GEL 15 GM TUBE PO PRN ×2 (00:09)
[2017-11-19] MEDS ORDERED: MAG HYDROX/AL HYDROX/SIMETH SUSP 30 ML UDCUP PO PRN (00:09)
[2017-11-19] MEDS ORDERED: GLUCAGON,HUMAN RECOMB 1 MG INJ IM PRN (00:09)
[2017-11-19] MEDS ORDERED: VANCOMYCIN HCL 0 MG in DEXTROSE 5%-WATER 250 ML IV NR (00:15)
[2017-11-19] MEDS ORDERED: NORMAL SALINE 1000 ML 1,000 ML IV SCH (00:15)
[2017-11-19] MEDS: MORPHINE SULFATE 10 MG/ML INJ IV PRN ×5 (00:17→22:54)
--- NOTE | 2017-11-19 00:20 | PDOC CONSULTATION ---
Consultation Consult Date: 11/19/17 Consult reason:: right foot ulcer History of Present Illness Admission Date/PCP: KWESI BLOOM DO History of Present Illness: ALMITA WILLARD is a 42 year old female with diabetes, status post right TMA 9 years ago. According to the patient, she went to the [facility] the past week as she developed a small ulcer on the right TMA stump suture line; today she was seen by her Pool Technician who has explored the wound in the clinic and has identified exposed bone just below the TMA suture line. As the Pool Technician has become concerned about the exposed bone and the possibility of right foot osteomyelitis, she was recommended to come to the ER. Currently, she appears to be very frustrated with her condition, the necessary hospitalization, and her right foot TMA stump pain. Past Medical History Cardiac Medical History: Reports: Hyperlipidema Pulmonary Medical History: Reports: Bronchitis, Chronic Obstructive Pulmonary Disease (COPD) Endocrine Medical History: Reports: Diabetes Mellitus Type 1, Diabetes Mellitus Type 2 GI Medical History: Reports: Gastroesophageal Reflux Disease Psychiatric Medical History: Reports: Bipolar Disorder, Depression - anxiety, Post Traumatic Stress Disorder Hematology: Denies: Anemia Past Surgical History Past Surgical History: Reports: Amputation, Appendectomy, Section, Cholecystectomy, Orthopedic Surgery - Left toe amputation, right toe amputation with revision Denies: Pacemaker Social History Smoking Status: Former Smoker Frequency of Alcohol Use: None Hx Recreational Drug Use: Yes Drugs: Marijuana Hx Prescription Drug Abuse: No Family History Family History: Reviewed & Not Pertinent Parental Family History Reviewed: No Children Family History Reviewed: No Sibling(s) Family History Reviewed.: No Medication/Allergy Home Medications: Aripiprazole [Abilify 10 mg Tablet] 10 mg PO DAILY 07/23/11 Benzotropine 1 mg PO QHS 07/23/11 Zolpidem Tartrate [Ambien 10 mg Tablet] 10 mg PO QHS PRN 07/23/11 Clonazepam [Klonopin 1 mg Tablet] 1 mg PO TID 10/26/11 Insulin Lispro [Humalog] 1 unit SQ ASDIR PRN 06/22/14 Trazodone HCl 150 mg PO QHS 06/22/14 Cetirizine HCl [Zyrtec] 10 mg PO DAILY #7 tablet 12/22/14 Cephalexin Monohydrate [Keflex 500 mg Capsule] 500 mg PO QID #28 capsule Methocarbamol [Robaxin] 500 mg PO BID PRN #20 tablet 04/06/15 Albuterol Sulfate [Proair HFA Inhalation Aerosol 8.5 gm MDI] 2 puff IH Q4H PRN 11/23/15 Insulin Glargine,Hum.rec.anlog [Lantus Insulin 100 Unit/1 ml 10 ml] 14 unit SUBCUT QHS 11/23/15 Clindamycin HCl 300 mg PO Q6 #40 capsule 02/19/16 Hydrocodone/Acetaminophen [[place] 5-325 mg Tablet] 1 tab PO Q6 #10 tablet Albuterol Sulfate [Proair HFA Inhalation Aerosol 8.5 gm MDI] 2 puff IH Q4H PRN # 1 mdi 04/20/17 Omeprazole Magnesium [Prilosec Otc] 20 mg PO DAILY #30 tablet. 04/20/17 Allergies/Adverse Reactions: adhesive [Adhesive] Allergy (Mild, Verified 04/20/17 01:36) skin breakdown, red, itching Physical Exam Vital Signs: Temp Pulse Resp BP Pulse Ox 99.2 F 81 17 117/73 96 11/18/17 19:54 11/18/17 19:54 11/18/17 19:54 11/18/17 19:54 11/18/17 19:54 Intake & Output 11/17/17 11/18/17 11/19/17 06:59 06:59 06:59 Weight 84.368 kg General appearance: PRESENT: mild distress Head exam: PRESENT: atraumatic Eye exam: PRESENT: EOMI Mouth exam: PRESENT: moist, neck supple Neck exam: PRESENT: full ROM Respiratory exam: PRESENT: clear to auscultation too Cardiovascular exam: PRESENT: RRR Pulses: PRESENT: +1 pedal pulses bilateral GI/Abdominal exam: PRESENT: soft Rectal exam: PRESENT: deferred Musculoskeletal exam: PRESENT: deformity - at the right foot, with valgismus of right lokesh, other - 2 cm round deep ulcer of suture line of right TMA stump with some old bloos, surrounding redness Neurological exam: PRESENT: other - maintained sensation of both right and left foot Results Laboratory Results: 11/18/17 21:25 11/18/17 21:25 11/18/17 11/18/17 21:25 21:25 WBC 19.0 H RBC 5.16 Hgb 15.6 H Hct 45.4 MCV 88 MCH 30.2 MCHC 34.3 RDW 13.0 Plt Count 256 Seg Neutrophils % 73.3 Lymphocytes % 20.2 Monocytes % 5.1 Eosinophils % 0.5 Basophils % 0.9 Absolute Neutrophils 13.9 H Absolute Lymphocytes 3.8 Absolute Monocytes 1.0 Absolute Eosinophils 0.1 Absolute Basophils 0.2 Sodium 138.6 Potassium 4.0 Chloride 100 Carbon Dioxide 26 Anion Gap 13 BUN 9 Creatinine 0.56 Est GFR ( Amer) > 60 Est GFR (Non-Af Amer) > 60 Glucose 276 H Calcium 8.9 Total Bilirubin 0.6 AST 26 ALT 15 Alkaline Phosphatase 99 C-Reactive Protein 51.5 H Total Protein 8.3 H Albumin 4.1 Impressions: Foot X-Ray 11/18/17 21:00 IMPRESSION: Prior forefoot amputation. No evidence of osteomyelitis. Assessment & Plan - Diagnosis (1) Foot ulcer, right Qualifiers: Non-pressure ulcer stage: with necrosis of muscle Qualified Code(s): L97.513 - Non-pressure chronic ulcer of other part of right foot with necrosis of muscle Is this a current diagnosis for this admission?: Yes (2) Right foot infection Is this a current diagnosis for this admission?: Yes - Plan Summary Plan Summary: A/ Diabetic female with deep ulcer of old right TMA stump suture line Old blood draining from ulcer with surrounding cellulitis Leukocytosis (19k) P/ Keep NPO IVF Continue broad spectrum antibiotic coverage (Levaquin/Flagyl or Vanco/Zoayn are two good choices) MRI right foot with IV contrast to identify possible osteomyelitis Further debridment or amputation will depend on the MRI results and response to antibiotics.
[2017-11-19] MEDS ORDERED: VANCOMYCIN HCL INJ 1000 MG VIAL IV PRN (00:43)
[2017-11-19] MEDS ORDERED: ZOLPIDEM TARTRATE 5 MG TABLET PO PRN (00:45)
[2017-11-19] MEDS ORDERED: TRAZODONE HCL 50 MG TABLET PO ONE (01:00)
[2017-11-19] MEDS: IPRATROPIUM/ALBUTEROL 0.5-2.5 MG/3 ML AMPUL NEB SCH ×4 (02:46→20:09)
[2017-11-19] MEDS ORDERED: VANCOMYCIN HCL INJ 1000 MG VIAL ONE (03:58)
[2017-11-19] MEDS: INSULIN LISPRO 100 UNIT/ML 3 ML VIAL SUBCUT PRN ×3 (06:15→18:22)
--- NOTE | 2017-11-19 06:16 | PDOC H&P ---
History of Present Illness Admission Date/PCP: 11/19/17 00:18 KWESI BLOOM DO Patient complains of: Right foot cellulitis History of Present Illness: ALMITA WILLARD is a 42 year old female with a past medical history of tobacco, chronic bronchitis, COPD, GERD, bipolar disorder, poorly controlled insulin- dependent diabetes and prior transmetatarsal amputation of the right foot. She is a patient of lunchroom monitor Dr. Chang and the wound care clinic for chronic ulceration of the right foot wound. Over the last 24 hours she has had significant throbbing and pain prompting evaluation emergency room where she is found to have copious necrotic tissue with purulent drainage and erythema of the leg to the knee. She started on empiric antibiotics, evaluated by surgery, ordered MRI and refer to the hospitalist for admission. Patient admits ongoing poor hyperglycemic control. Past Medical History Cardiac Medical History: Reports: Hyperlipidema Pulmonary Medical History: Reports: Bronchitis, Chronic Obstructive Pulmonary Disease (COPD) Endocrine Medical History: Reports: Diabetes Mellitus Type 1, Diabetes Mellitus Type 2 GI Medical History: Reports: Gastroesophageal Reflux Disease Psychiatric Medical History: Reports: Bipolar Disorder, Depression - anxiety, Post Traumatic Stress Disorder, Tobacco Dependency Hematology: Denies: Anemia Past Surgical History Past Surgical History: Reports: Amputation, Appendectomy, Section, Cholecystectomy, Orthopedic Surgery - Left toe amputation, right toe amputation with revision Denies: Pacemaker Social History Information Source: Patient, [facility] Records Lives with: Family Smoking Status: Former Smoker Frequency of Alcohol Use: None Hx Recreational Drug Use: Yes Drugs: Marijuana Hx Prescription Drug Abuse: No - Advance Directive Resuscitation Status: Full Code Family History Family History: DM, Hypertension Parental Family History Reviewed: Yes Children Family History Reviewed: Yes Sibling(s) Family History Reviewed.: Yes Medication/Allergy Home Medications: Aripiprazole [Abilify 10 mg Tablet] 10 mg PO DAILY 07/23/11 Benzotropine 1 mg PO QHS 07/23/11 Zolpidem Tartrate [Ambien 10 mg Tablet] 10 mg PO QHS PRN 07/23/11 Clonazepam [Klonopin 1 mg Tablet] 1 mg PO TID 10/26/11 Insulin Lispro [Humalog] 1 unit SQ ASDIR PRN 06/22/14 Trazodone HCl 150 mg PO QHS 06/22/14 Cetirizine HCl [Zyrtec] 10 mg PO DAILY #7 tablet 12/22/14 Cephalexin Monohydrate [Keflex 500 mg Capsule] 500 mg PO QID #28 capsule Methocarbamol [Robaxin] 500 mg PO BID PRN #20 tablet 04/06/15 Albuterol Sulfate [Proair HFA Inhalation Aerosol 8.5 gm MDI] 2 puff IH Q4H PRN 11/23/15 Insulin Glargine,Hum.rec.anlog [Lantus Insulin 100 Unit/1 ml 10 ml] 14 unit SUBCUT QHS 11/23/15 Clindamycin HCl 300 mg PO Q6 #40 capsule 02/19/16 Hydrocodone/Acetaminophen [[place] 5-325 mg Tablet] 1 tab PO Q6 #10 tablet Albuterol Sulfate [Proair HFA Inhalation Aerosol 8.5 gm MDI] 2 puff IH Q4H PRN # 1 mdi 04/20/17 Omeprazole Magnesium [Prilosec Otc] 20 mg PO DAILY #30 tablet. 04/20/17 Allergies/Adverse Reactions: adhesive [Adhesive] Allergy (Mild, Verified 04/20/17 01:36) skin breakdown, red, itching Review of Systems Constitutional: PRESENT: as per HPI, chills, fatigue, weakness Eyes: ABSENT: visual disturbances Cardiovascular: ABSENT: chest pain, dyspnea on exertion, edema, orthropnea, palpitations Respiratory: ABSENT: cough, hemoptysis Gastrointestinal: ABSENT: abdominal pain, constipation, diarrhea, hematemesis, hematochezia, nausea, vomiting Genitourinary: ABSENT: dysuria, hematuria Musculoskeletal: PRESENT: as per HPI. ABSENT: back pain Integumentary: PRESENT: as per HPI, erythema, pruritus, wounds Neurological: ABSENT: abnormal gait, abnormal speech, confusion, dizziness, focal weakness, syncope Psychiatric: ABSENT: anxiety, depression, homidical ideation, suicidal ideation Endocrine: ABSENT: cold intolerance, heat intolerance, polydipsia, polyuria Hematologic/Lymphatic: ABSENT: easy bleeding, easy bruising Physical Exam Vital Signs: Temp Pulse Resp BP Pulse Ox 98.2 F 68 17 99/57 L 96 11/19/17 04:09 11/19/17 04:09 11/19/17 04:09 11/19/17 04:09 11/19/17 04:09 Intake & Output 11/17/17 11/18/17 11/19/17 11:59 11:59 11:59 Weight 67.1 kg General appearance: PRESENT: cooperative, mild distress. ABSENT: disheveled, hard of hearing, obese, severe distress Head exam: PRESENT: atraumatic, normocephalic Eye exam: PRESENT: conjunctiva pink, EOMI, PERRLA. ABSENT: scleral icterus Ear exam: PRESENT: normal external ear exam Mouth exam: PRESENT: moist, tongue midline Neck exam: ABSENT: carotid bruit, JVD, lymphadenopathy, thyromegaly Respiratory exam: PRESENT: clear to auscultation too. ABSENT: rales, rhonchi, wheezes Cardiovascular exam: PRESENT: RRR. ABSENT: diastolic murmur, rubs, systolic murmur Pulses: PRESENT: normal carotid pulses, normal radial pulses, normal femoral pulses. ABSENT: normal dorsalis pedis pul Vascular exam: PRESENT: pallor. ABSENT: normal capillary refill GI/Abdominal exam: PRESENT: normal bowel sounds, soft. ABSENT: distended, guarding, mass, organolmegaly, rebound, tenderness Rectal exam: PRESENT: deferred Extremities exam: PRESENT: joint swelling, pedal edema, tenderness, +1 edema, other - Right sided transmetatarsal wound open with necrotic and purulent drainage Neurological exam: PRESENT: alert, awake, oriented to person, oriented to place , oriented to time, oriented to situation, CN II-XII grossly intact. ABSENT: motor sensory deficit Psychiatric exam: PRESENT: appropriate affect, normal mood. ABSENT: homicidal ideation, suicidal ideation Skin exam: PRESENT: other - Right foot transmetatarsal wound with open ulcer and necrotic drainage Results Impressions: Foot X-Ray 11/18/17 21:00 IMPRESSION: Prior forefoot amputation. No evidence of osteomyelitis. Assessment & Plan - Diagnosis (1) Foot ulcer, right Qualifiers: Non-pressure ulcer stage: with necrosis of muscle Qualified Code(s): L97.513 - Non-pressure chronic ulcer of other part of right foot with necrosis of muscle Is this a current diagnosis for this admission?: Yes Plan: Empiric antibiotics initiated, follow-up CBC, blood culture, MRI and surgical consult (2) Sepsis Qualifiers: Sepsis type: sepsis due to unspecified organism Qualified Code(s): A41.9 - Sepsis, unspecified organism Is this a current diagnosis for this admission?: Yes Plan: Secondary to #1 (3) Diabetes Is this a current diagnosis for this admission?: Yes Plan: Outpatient regiment with Humalog sliding scale every 6 hours while n.p.o. - Time Time Spent: 50 to 70 Minutes - Inpatient Certification Medical Necessity: Need Close Monitoring Due to Risk of Patient Decompensation
[2017-11-19] MEDS: HEPARIN SOD (PORCINE) 5,000 UNIT/ML 1 ML SYRINGE SUBCUT SCH ×3 (06:17→21:07)
[2017-11-19] MEDS ORDERED: LORAZEPAM INJ 2 MG/1 ML VIAL IV PRN (08:57)
--- NOTE | 2017-11-19 09:04 | PDOC PROGRESS REPORT ---
Subjective Progress Note for:: 11/19/17 Subjective:: Patient is still complaining of pain and swelling in her right metatarsal stump Wound is still draining She is afebrile She is claustrophobic and anxious about the MRI and wants something for anxiety Reason For Visit: DM FOOT ULCER, CELLULITIS SIRS Physical Exam Vital Signs: Temp Pulse Resp BP Pulse Ox 98.2 F 68 17 99/57 L 96 11/19/17 04:09 11/19/17 04:09 11/19/17 04:09 11/19/17 04:09 11/19/17 04:09 Intake & Output 11/18/17 11/19/17 11/20/17 06:59 06:59 06:59 Weight 147 lb 14.883 oz General appearance: PRESENT: no acute distress, well-developed, well-nourished Head exam: PRESENT: atraumatic, normocephalic Eye exam: PRESENT: conjunctiva pink, EOMI, PERRLA. ABSENT: scleral icterus Ear exam: PRESENT: normal external ear exam Mouth exam: PRESENT: moist, tongue midline Neck exam: ABSENT: carotid bruit, JVD, lymphadenopathy, thyromegaly Respiratory exam: PRESENT: clear to auscultation too. ABSENT: rales, rhonchi, wheezes Cardiovascular exam: PRESENT: RRR. ABSENT: diastolic murmur, rubs, systolic murmur Pulses: PRESENT: normal radial pulses Vascular exam: PRESENT: normal capillary refill GI/Abdominal exam: PRESENT: normal bowel sounds, soft. ABSENT: distended, guarding, mass, organolmegaly, rebound, tenderness Rectal exam: PRESENT: deferred Extremities exam: PRESENT: full ROM, other - Right mid metatarsal amputation with infection at the stump and deep ulcer was drainage at the plantar surface. ABSENT: calf tenderness, clubbing, pedal edema Neurological exam: PRESENT: alert, awake, oriented to person, oriented to place , oriented to time, oriented to situation, CN II-XII grossly intact. ABSENT: motor sensory deficit Psychiatric exam: PRESENT: anxious. ABSENT: homicidal ideation, suicidal ideation Results Impressions: Foot X-Ray 11/18/17 21:00 IMPRESSION: Prior forefoot amputation. No evidence of osteomyelitis. Assessment & Plan - Diagnosis (1) Diabetes Qualifiers: Diabetes mellitus type: type 2 Diabetes mellitus damper fitter insulin use: with damper fitter use Is this a current diagnosis for this admission?: Yes Plan: Continue current insulin regimen Monitor glucose levels very carefully Adjust insulin dose as needed to maintain good blood glucose control (2) Foot ulcer, right Is this a current diagnosis for this admission?: Yes Plan: Deep ulcer surrounded with severe cellulitis Questionable osteomyelitis MRI ordered for today Surgery and podiatry consult (3) Right foot infection Is this a current diagnosis for this admission?: Yes Plan: Continue IV vancomycin and IV Zosyn Very high suspicious of osteomyelitis Very high risk of amputation Patient is very nervous about amputation and likely would not agree to it She prefers medical treatment which may not be sufficient (4) Sepsis Qualifiers: Sepsis type: sepsis due to unspecified organism Qualified Code(s): A41.9 - Sepsis, unspecified organism Is this a current diagnosis for this admission?: Yes Plan: Continue IV vancomycin and IV Zosyn This is a high risk very sick patient
--- NOTE | 2017-11-19 12:10 | RADIOLOGY REPORT (SQ) ---
EXAM DESCRIPTION: MRI RT LOWER EXTREMITY COMBO COMPLETED DATE/TIME: 11/19/2017 11:00 am REASON FOR STUDY: r/o osteomyelitis of right TMA stump COMPARISON: Right foot films 11/18/2017 Right foot MRI 02/25/2016 TECHNIQUE: Multiplanar imaging of the right foot to include T1-weighted, postcontrast T1-weighted, a nd T2-weighted images. CONTRAST TYPE AND DOSE: 15 mL Dotarem. RENAL FUNCTION: GFR > 60. LIMITATIONS: None. FINDINGS: Patient is post prior transmetatarsal amputation of the foot. Along the plantar/lateral a spect of the foot, a 4 cm transverse by 4 cm AP x 1.5 cm craniocaudad ulcer is present with periphera l rim enhancement. Air bubbles are present in the soft tissues along the anterior edge of the ulcer. Adjacent edema and abnormal enhancement of the base 5th metatarsal and cuboid bone adjacent to the ulcer is present worrisome for osteomyelitis. These changes are best shown on sagittal images 10-14. There is diffuse skin thickening and subcutaneous edema with mild contrast enhancement from celluliti s. No well circumscribed abscess is identified. No ankle joint effusion or subtalar joint effusion IMPRESSION: Left plantar/lateral ulcer at the level of the 5th metatarsal amputation. There is ester cent enhancement and edema at the base of the 5th metatarsal and cuboid bone worrisome for osteomyeli tis. No well circumscribed abscess. TECHNICAL DOCUMENTATION: JOB ID: [id number] [employer]- All Rights Reserved Reading location - IP/workstation name: [email or web address]
[2017-11-19] MEDS: PIPERACILLIN SODIUM/TAZOBACTAM 3.375 GM in NORMAL SALINE 100 ML IV SCH ×3 (12:42→21:11)
[2017-11-19] MEDS: ARIPIPRAZOLE 5 MG TABLET PO SCH (12:57)
[2017-11-19] MEDS: CETIRIZINE 10 MG TABLET PO SCH (12:58)
--- NOTE | 2017-11-19 13:45 | PDOC PROGRESS REPORT ---
Subjective Progress Note for:: 11/19/17 Subjective:: This is a 42-year-old diabetic female with a long-standing history of an open ulcer to her right TMA site. She reports pain in the area after bedside debridement was performed several days ago at the wound clinic. She presents with cellulitis, pain, and swelling of the foot. The patient denies chest pain , shortness of breath, abdominal pain, headache, dizziness, fatigue, malaise. Reason For Visit: DM FOOT ULCER, CELLULITIS SIRS Physical Exam Vital Signs: Temp Pulse Resp BP Pulse Ox 98.1 F 70 16 96/56 L 98 11/19/17 08:00 11/19/17 08:46 11/19/17 08:46 11/19/17 08:00 11/19/17 08:46 Intake & Output 11/18/17 11/19/17 11/20/17 06:59 06:59 06:59 Weight 67.1 kg General appearance: PRESENT: no acute distress Head exam: PRESENT: atraumatic, normocephalic Eye exam: PRESENT: EOMI, PERRLA Mouth exam: PRESENT: neck supple Teeth exam: PRESENT: poor dentation Neck exam: ABSENT: lymphadenopathy, meningismus, tenderness, thyromegaly, tracheal deviation Respiratory exam: PRESENT: clear to auscultation too. ABSENT: accessory muscle use, chest wall tenderness Cardiovascular exam: PRESENT: RRR Pulses: PRESENT: normal radial pulses GI/Abdominal exam: PRESENT: soft. ABSENT: distended, tenderness Rectal exam: PRESENT: deferred Extremities exam: PRESENT: other - Ulcer to the right TMA site. No active purulence. There is erythema and tenderness present. Musculoskeletal exam: PRESENT: tenderness - At right TMA site. Neurological exam: PRESENT: alert, awake, oriented to person, oriented to place , oriented to time, oriented to situation, CN II-XII grossly intact Psychiatric exam: PRESENT: agitated. ABSENT: anxious, depressed Focused psych exam: ABSENT: delusional Skin exam: PRESENT: erythema - Right TMA site.. ABSENT: jaundice Results Impressions: Foot X-Ray 11/18/17 21:00 IMPRESSION: Prior forefoot amputation. No evidence of osteomyelitis. Lower Extremity MRI 11/19/17 00:00 IMPRESSION: Left plantar/lateral ulcer at the level of the 5th metatarsal amputation. There is adjacent enhancement and edema at the base of the 5th metatarsal and cuboid bone worrisome for osteomyelitis. No well circumscribed abscess. Assessment & Plan - Diagnosis (1) Osteomyelitis due to type 2 diabetes mellitus Is this a current diagnosis for this admission?: Yes (2) Diabetes Qualifiers: Diabetes mellitus type: type 2 Diabetes mellitus prison insulin use: with termite renewal inspector use Diabetes mellitus complication status: with skin complications Diabetes mellitus complication detail: with foot ulcer Qualified Code(s): E11.621 - Type 2 diabetes mellitus with foot ulcer; L97.509 - Non-pressure chronic ulcer of other part of unspecified foot with unspecified severity; L97.509 - Non-pressure chronic ulcer of other part of unspecified foot with unspecified severity; L97.509 - Non-pressure chronic ulcer of other part of unspecified foot with unspecified severity; L97.509 - Non-pressure chronic ulcer of other part of unspecified foot with unspecified severity; Z79.4 - [facility]PC (current) use of insulin; Z79.4 - equipment operator intermodal yard (current) use of insulin; Z79.4 - [facility] (current) use of insulin; Z79.4 - equipment operator intermodal yard (current ) use of insulin Is this a current diagnosis for this admission?: Yes (3) Foot ulcer, right Qualifiers: Non-pressure ulcer stage: with necrosis of bone Qualified Code(s): L97.514 - Non-pressure chronic ulcer of other part of right foot with necrosis of bone Is this a current diagnosis for this admission?: Yes - Plan Summary Plan Summary: This is a 42-year-old female with an ulcer of her right TMA site. Patient had an MRI today that is consistent with osteomyelitis. Patient is distrustful of surgeons and has refused any and all surgical intervention. The patient reports that her wound care doctor is caring for her foot. She does not want any further amputations. She wishes to use antibiotics to treat her osteomyelitis. I will see the patient again on an as-needed basis. Please renotify with any questions or concerns.
[2017-11-19] MEDS: DOCUSATE SODIUM 100 MG CAPSULE PO SCH ×2 (14:04→18:08)
[2017-11-19] MEDS: CLONAZEPAM 1 MG TABLET PO SCH ×2 (14:04→18:09)
[2017-11-19] MEDS: VANCOMYCIN HCL 750 MG in DEXTROSE 5%-WATER 250 ML IV SCH ×2 (15:35→22:54)
--- NOTE | 2017-11-19 16:53 | PDOC CONSULTATION ---
Consultation Consult Date: 11/18/17 Attending physician:: JASMYNE SUE Consult reason:: Diabetic foot ulcer with Osteomyelitis of the right foot. History of Present Illness Admission Date/PCP: 11/19/17 00:18 KWESI BLOOM DO Patient complains of: Pain in the right foot with ulceration on plantar aspect. History of Present Illness: NIKKI WILLARD is a 42 year old female diabetic, with re-ulceration of plantar aspect of the right foot. Patient had a previous trans-metatarsal amputation of this foot several years ago. She has had recurrent ulcerations of this foot the last few years. This current ulceration has been present approximately 4 months and she was progressing well until recent exacerbation in this past week. She was seen at the wound care center on 11/18/2017 which time a bone debridement was performed and a bone biopsy was obtained from the protruding bone presumably the fifth metatarsal. Biopsy was sent to microbiology for culture. Past Medical History Cardiac Medical History: Reports: Hyperlipidema Pulmonary Medical History: Reports: Bronchitis, Chronic Obstructive Pulmonary Disease (COPD) Endocrine Medical History: Reports: Diabetes Mellitus Type 1, Diabetes Mellitus Type 2 GI Medical History: Reports: Gastroesophageal Reflux Disease Psychiatric Medical History: Reports: Bipolar Disorder, Depression - anxiety, Post Traumatic Stress Disorder, Tobacco Dependency Hematology: Denies: Anemia Past Surgical History Past Surgical History: Reports: Amputation, Appendectomy, Section, Cholecystectomy, Orthopedic Surgery - Left toe amputation, right toe amputation with revision Denies: Pacemaker Social History Lives with: Family Smoking Status: Former Smoker Frequency of Alcohol Use: None Hx Recreational Drug Use: Yes Drugs: Marijuana Hx Prescription Drug Abuse: No - Advance Directive Resuscitation Status: Full Code Family History Family History: DM, Hypertension Parental Family History Reviewed: Yes Children Family History Reviewed: Yes Sibling(s) Family History Reviewed.: Yes Medication/Allergy Home Medications: Albuterol Sulfate [Proair HFA] 2 puff IH Q6HP PRN 11/19/17 Aripiprazole [Abilify 15 mg Tablet] 15 mg PO Q12 11/19/17 Atorvastatin Calcium [Lipitor 20 mg Tablet] 20 mg PO DAILY 11/19/17 Benztropine Mesylate [Cogentin 1 mg Tablet] 1 mg PO Q12 11/19/17 Diazepam [Valium 5 mg Tablet] 5 mg PO Q8HP PRN 11/19/17 Doxepin HCl 50 mg PO QHS 11/19/17 Gabapentin [Neurontin 300 mg Capsule] 900 mg PO Q8 11/19/17 Hydrocodone Bit/Acetaminophen [Hydrocodon-Acetaminophen 5-325] 1 each PO Q6HP PRN 11/19/17 Insulin Aspart [Novolog Flexpen] 6 unit SUBCUT AC 11/19/17 Insulin Glargine,Hum.rec.anlog [Lantus Solostar] 40 unit SQ QHS 11/19/17 Oxcarbazepine [Trileptal] 600 mg PO Q12 11/19/17 Prazosin HCl [Minipress] 2 mg PO QHS 11/19/17 Allergies/Adverse Reactions: adhesive [Adhesive] Allergy (Mild, Verified 04/20/17 01:36) skin breakdown, red, itching Physical Exam Vital Signs: Temp Pulse Resp BP Pulse Ox 98.1 F 60 14 96/56 L 100 11/19/17 08:00 11/19/17 14:08 11/19/17 14:08 11/19/17 08:00 11/19/17 14:08 Intake & Output 11/18/17 11/19/17 11/20/17 06:59 06:59 06:59 Intake Total 100 Balance 100 Weight 147 lb 14.883 oz Cardiovascular exam: PRESENT: other - Pedal pulses are palpable on the right. Neurological exam: PRESENT: other - Diabetic neuropathy of both feet with partial loss of protective sensation. Patient does have some nerve pain in the plantar aspect of the right foot. Skin exam: PRESENT: other - There is ulceration on the plantar lateral aspect of the patient's right forefoot that measures 1.7 cm x 1.5 cm x 2 cm deep. There is mild cellulitis, serosanguineous drainage, no necrotic tissue because wound was debrided yesterday. There is persistent mild edema in the right rearfoot. Results Impressions: Foot X-Ray 11/18/17 21:00 IMPRESSION: Prior forefoot amputation. No evidence of osteomyelitis. Lower Extremity MRI 11/19/17 00:00 IMPRESSION: Left plantar/lateral ulcer at the level of the 5th metatarsal amputation. There is adjacent enhancement and edema at the base of the 5th metatarsal and cuboid bone worrisome for osteomyelitis. No well circumscribed abscess. Reviewed MRI with Dr. Maldonado, I concur the remaining portion of the fifth metatarsal is grossly infected and needs to be removed. Things are less dramatic in the cuboid bone which could be left in place and treated with IV antibiotics, hyperbaric oxygen therapy and local wound care. Assessment & Plan - Diagnosis (1) Diabetes Qualifiers: Diabetes mellitus type: type 2 Diabetes mellitus mcfp insulin use: with mcfp use Diabetes mellitus complication status: with skin complications Diabetes mellitus complication detail: with foot ulcer Qualified Code(s): E11.621 - Type 2 diabetes mellitus with foot ulcer; L97.509 - Non-pressure chronic ulcer of other part of unspecified foot with unspecified severity; L97.509 - Non-pressure chronic ulcer of other part of unspecified foot with unspecified severity; L97.509 - Non-pressure chronic ulcer of other part of unspecified foot with unspecified severity; L97.509 - Non-pressure chronic ulcer of other part of unspecified foot with unspecified severity; Z79.4 - half-way (current) use of insulin; Z79.4 - half-way (current) use of insulin; Z79.4 - half-way (current) use of insulin; Z79.4 - half-way (current ) use of insulin Is this a current diagnosis for this admission?: Yes (2) Foot ulcer, right Qualifiers: Non-pressure ulcer stage: with necrosis of bone Qualified Code(s): L97.514 - Non-pressure chronic ulcer of other part of right foot with necrosis of bone Is this a current diagnosis for this admission?: Yes (3) Osteomyelitis due to type 2 diabetes mellitus Is this a current diagnosis for this admission?: Yes (4) Right foot infection Is this a current diagnosis for this admission?: Yes (5) Sepsis Qualifiers: Sepsis type: sepsis due to unspecified organism Qualified Code(s): A41.9 - Sepsis, unspecified organism Is this a current diagnosis for this admission?: Yes - Plan Summary Plan Summary: I examined the wound, measured, felt no debridement was required at this time. I packed the wound with Acticoat Flex and cover with 4 x 4 gauze Kerlix and Coban. Plan to continue the IV antibiotics and no weightbearing on the right foot. Will start local wound care to include packing wound with Acticoat flex and changing every three days. Plan to excise remaining portion of the fifth metatarsal bone. However I would like to wait until bacteria is identified from the bone culture so the appropriate antibiotics can be incorporated into antibiotic beads which can be inserted into the wound when the remaining portion of the fifth metatarsal is excised in the OR. I discussed this treatment plan with Nikki at length and the need for a PICC line and long- term IV antibiotics, wound vac, hyperbaric oxygen therapy and aggressive offloading. She is amenable to this treatment would like to try and keep her foot and leg as long as possible. Also I explained the if this plan of treatment fails, and the cuboid becomes grossly infected that a BK amputation would be required.
[2017-11-19 19:29] LABS: URINE AMPHETAMINES SCREEN NEGATIVE; URINE BARBITURATES SCREEN NEGATIVE; URINE COCAINE SCREEN NEGATIVE; URINE METHADONE SCREEN NEGATIVE; URINE PHENCYCLIDINE SCREEN NEGATIVE
[2017-11-19 19:43] LABS: URINE BENZODIAZEPINES SCREEN UNCONFIRMED POSITIVE; URINE MARIJUANA (THC) SCREEN UNCONFIRMED POSITIVE
[2017-11-19] MEDS: TRAZODONE HCL 50 MG TABLET PO SCH (21:11)
[2017-11-19] MEDS ORDERED: INSULIN GLARGINE,HUM.REC.ANLOG 1,000 UNIT/10 ML UNIT SUBCUT SCH ×2 (22:00)
[2017-11-20] MEDS: IPRATROPIUM/ALBUTEROL 0.5-2.5 MG/3 ML AMPUL NEB SCH ×4 (01:58→20:09)
[2017-11-20] MEDS: PIPERACILLIN SODIUM/TAZOBACTAM 3.375 GM in NORMAL SALINE 100 ML IV SCH ×4 (03:53→21:57)
[2017-11-20] MEDS: HEPARIN SOD (PORCINE) 5,000 UNIT/ML 1 ML SYRINGE SUBCUT SCH ×3 (05:10→21:55)
[2017-11-20] MEDS: VANCOMYCIN HCL 750 MG in DEXTROSE 5%-WATER 250 ML IV SCH (05:55)
[2017-11-20 06:45] LABS: ABSOLUTE BASOPHILS # (AUTO) 0.1 10^3/uL (0.0-0.2); ABSOLUTE EOSINOPHILS # (AUTO) 0.2 10^3/uL (0.0-0.6); ABSOLUTE MONOCYTES (AUTO) 0.6 10^3/uL (0.1-1.4); ABSOLUTE NEUT (AUTO) 8.9 10^3/uL (1.7-8.2); BASOPHILS % (AUTO) 0.7 % (0-2); EOSINOPHILS % (AUTO) 1.2 % (0-6); HEMATOCRIT 39.4 % (36.0-47.0); LYMPHOCYTES % (AUTO) 23.8 % (13-45); MEAN CORPUSCULAR HEMOGLOBIN 29.6 pg (27.0-33.4); MEAN CORPUSCULAR HGB CONC 33.5 g/dL (32.0-36.0); MEAN CORPUSCULAR VOLUME 89 fl (80-97); MONOCYTES % (AUTO) 4.5 % (3-13); PLATELET COUNT 211 10^3/uL (150-450); RED BLOOD COUNT 4.45 10^6/uL (3.72-5.28); RED CELL DISTRIBUTION WIDTH 12.8 % (11.5-14.0); SEGMENTED NEUTROPHILS % (AUTO) 69.8 % (42-78); TOTAL CELLS COUNTED % (AUTO) 100 %; WHITE BLOOD COUNT 12.8 10^3/uL (4.0-10.5)
[2017-11-20 07:00] LABS: HEMOGLOBIN 13.2 g/dL (12.0-15.5)
[2017-11-20 07:02] LABS: ANION GAP 9 (5-19); BLOOD UREA NITROGEN 7 mg/dL (7-20); CALCIUM 8.6 mg/dL (8.4-10.2); CARBON DIOXIDE 26 mmol/L (22-30); CHLORIDE 103 mmol/L (98-107); GLUCOSE 263 mg/dL (75-110); POTASSIUM 3.6 mmol/L (3.6-5.0); SODIUM 138.1 mmol/L (137-145)
[2017-11-20 07:06] LABS: VANCOMYCIN,TROUGH 9.2 ug/mL (5.0-20.0)
[2017-11-20] MEDS ORDERED: INSULIN GLARGINE,HUM.REC.ANLOG 1,000 UNIT/10 ML UNIT SUBCUT SCH (08:38)
--- NOTE | 2017-11-20 09:02 | PDOC PROGRESS REPORT ---
Subjective Progress Note for:: 11/20/17 Subjective:: Patient is afebrile White count improved MRI is suspicious for osteomyelitis Wound culture still pending Glucose levels are elevated Reason For Visit: DM FOOT ULCER, CELLULITIS SIRS Physical Exam Vital Signs: Temp Pulse Resp BP Pulse Ox 98.2 F 68 16 135/67 H 96 11/20/17 00:00 11/20/17 02:00 11/20/17 02:00 11/20/17 00:00 11/20/17 02:00 Intake & Output 11/19/17 11/20/17 11/21/17 06:59 06:59 06:59 Intake Total 2063 250 Output Total 1500 Balance 563 250 Weight 147 lb 14.883 oz 150 lb 2.157 oz General appearance: PRESENT: no acute distress, well-developed, well-nourished Head exam: PRESENT: atraumatic, normocephalic Eye exam: PRESENT: conjunctiva pink, EOMI, PERRLA. ABSENT: scleral icterus Ear exam: PRESENT: normal external ear exam Mouth exam: PRESENT: moist, tongue midline Neck exam: ABSENT: carotid bruit, JVD, lymphadenopathy, thyromegaly Respiratory exam: PRESENT: clear to auscultation too. ABSENT: rales, rhonchi, wheezes Cardiovascular exam: PRESENT: RRR. ABSENT: diastolic murmur, rubs, systolic murmur Pulses: PRESENT: normal dorsalis pedis pul Vascular exam: PRESENT: normal capillary refill GI/Abdominal exam: PRESENT: normal bowel sounds, soft. ABSENT: distended, guarding, mass, organolmegaly, rebound, tenderness Rectal exam: PRESENT: deferred Extremities exam: PRESENT: full ROM, other - Status post right mid metatarsal amputation. Wound stump is covered with dressing.. ABSENT: calf tenderness, clubbing, pedal edema Neurological exam: PRESENT: alert, awake, oriented to person, oriented to place , oriented to time, oriented to situation, CN II-XII grossly intact. ABSENT: motor sensory deficit Psychiatric exam: PRESENT: appropriate affect, normal mood. ABSENT: homicidal ideation, suicidal ideation Results Laboratory Results: 11/20/17 05:48 11/20/17 05:48 11/20/17 11/20/17 05:48 05:48 WBC 12.8 H RBC 4.45 Hgb 13.2 D Hct 39.4 MCV 89 MCH 29.6 MCHC 33.5 RDW 12.8 Plt Count 211 Seg Neutrophils % 69.8 Lymphocytes % 23.8 Monocytes % 4.5 Eosinophils % 1.2 Basophils % 0.7 Absolute Neutrophils 8.9 H Absolute Lymphocytes 3.0 Absolute Monocytes 0.6 Absolute Eosinophils 0.2 Absolute Basophils 0.1 Sodium 138.1 Potassium 3.6 Chloride 103 Carbon Dioxide 26 Anion Gap 9 BUN 7 Creatinine 0.48 L Est GFR ( Amer) > 60 Est GFR (Non-Af Amer) > 60 Glucose 263 H Calcium 8.6 Impressions: Foot X-Ray 11/18/17 21:00 IMPRESSION: Prior forefoot amputation. No evidence of osteomyelitis. Lower Extremity MRI 11/19/17 00:00 IMPRESSION: Left plantar/lateral ulcer at the level of the 5th metatarsal amputation. There is adjacent enhancement and edema at the base of the 5th metatarsal and cuboid bone worrisome for osteomyelitis. No well circumscribed abscess. Assessment & Plan - Diagnosis (1) Diabetes Qualifiers: Diabetes mellitus type: type 2 Diabetes mellitus care home insulin use: with termite technician use Diabetes mellitus complication status: with skin complications Diabetes mellitus complication detail: with foot ulcer Qualified Code(s): E11.621 - Type 2 diabetes mellitus with foot ulcer; L97.509 - Non-pressure chronic ulcer of other part of unspecified foot with unspecified severity; L97.509 - Non-pressure chronic ulcer of other part of unspecified foot with unspecified severity; L97.509 - Non-pressure chronic ulcer of other part of unspecified foot with unspecified severity; L97.509 - Non-pressure chronic ulcer of other part of unspecified foot with unspecified severity; Z79.4 - emt intermediate (current) use of insulin; Z79.4 - [facility] (current) use of insulin; Z79.4 - emt intermediate (current) use of insulin; Z79.4 - emt intermediate (current ) use of insulin Is this a current diagnosis for this admission?: Yes Plan: Increase Lantus from 14-25 units Monitor glucose levels very carefully Continue insulin scale (2) Foot ulcer, right Qualifiers: Non-pressure ulcer stage: with necrosis of bone Qualified Code(s): L97.514 - Non-pressure chronic ulcer of other part of right foot with necrosis of bone Is this a current diagnosis for this admission?: Yes Plan: Deep ulcer surrounded with severe cellulitis and osteomyelitis Continue IV vancomycin and Zosyn Follow wound culture Plans for bone and wound debridement once culture results are finalized (3) Sepsis Qualifiers: Sepsis type: sepsis due to unspecified organism Qualified Code(s): A41.9 - Sepsis, unspecified organism Is this a current diagnosis for this admission?: Yes (4) Osteomyelitis Qualifiers: Osteomyelitis location: foot Is this a current diagnosis for this admission?: Yes Plan: To new IV antibiotics Follow wound culture Bone debridement when culture is finalized
[2017-11-20] MEDS: DOCUSATE SODIUM 100 MG CAPSULE PO SCH ×2 (09:48→17:26)
[2017-11-20] MEDS: CLONAZEPAM 1 MG TABLET PO SCH ×3 (09:48→21:56)
[2017-11-20] MEDS: ARIPIPRAZOLE 5 MG TABLET PO SCH (09:49)
[2017-11-20] MEDS: CETIRIZINE 10 MG TABLET PO SCH (09:49)
[2017-11-20] MEDS: MORPHINE SULFATE 10 MG/ML INJ IV PRN ×3 (10:45→19:36)
[2017-11-20] MEDS: VANCOMYCIN HCL 1,000 MG in DEXTROSE 5%-WATER 250 ML IV SCH ×2 (15:35→22:50)
[2017-11-20] MEDS: INSULIN LISPRO 100 UNIT/ML 3 ML VIAL SUBCUT PRN ×2 (17:27→22:02)
[2017-11-20] MEDS: TRAZODONE HCL 50 MG TABLET PO SCH (22:01)
[2017-11-21] MEDS: MORPHINE SULFATE 10 MG/ML INJ IV PRN ×3 (00:59→20:36)
[2017-11-21] MEDS: IPRATROPIUM/ALBUTEROL 0.5-2.5 MG/3 ML AMPUL NEB SCH ×4 (02:02→20:17)
[2017-11-21] MEDS: PIPERACILLIN SODIUM/TAZOBACTAM 3.375 GM in NORMAL SALINE 100 ML IV SCH (02:03)
[2017-11-21] MEDS: HEPARIN SOD (PORCINE) 5,000 UNIT/ML 1 ML SYRINGE SUBCUT SCH ×3 (05:24→22:01)
[2017-11-21 06:08] LABS: ABSOLUTE BASOPHILS # (AUTO) 0.1 10^3/uL (0.0-0.2); ABSOLUTE EOSINOPHILS # (AUTO) 0.2 10^3/uL (0.0-0.6); ABSOLUTE LYMPHOCYTES (AUTO) 3.3 10^3/uL (0.5-4.7); ABSOLUTE MONOCYTES (AUTO) 0.6 10^3/uL (0.1-1.4); ABSOLUTE NEUT (AUTO) 5.4 10^3/uL (1.7-8.2); BASOPHILS % (AUTO) 0.8 % (0-2); EOSINOPHILS % (AUTO) 1.8 % (0-6); HEMOGLOBIN 12.9 g/dL (12.0-15.5); LYMPHOCYTES % (AUTO) 34.6 % (13-45); MEAN CORPUSCULAR VOLUME 88 fl (80-97); MONOCYTES % (AUTO) 5.9 % (3-13); PLATELET COUNT 215 10^3/uL (150-450); RED BLOOD COUNT 4.31 10^6/uL (3.72-5.28); RED CELL DISTRIBUTION WIDTH 12.6 % (11.5-14.0); SEGMENTED NEUTROPHILS % (AUTO) 56.9 % (42-78); TOTAL CELLS COUNTED % (AUTO) 100 %; WHITE BLOOD COUNT 9.5 10^3/uL (4.0-10.5)
[2017-11-21] MEDS: VANCOMYCIN HCL 1,000 MG in DEXTROSE 5%-WATER 250 ML IV SCH (06:15)
[2017-11-21] MEDS: CLONAZEPAM 1 MG TABLET PO SCH (06:17)
[2017-11-21 06:21] LABS: ANION GAP 8 (5-19); BLOOD UREA NITROGEN 7 mg/dL (7-20); CALCIUM 8.6 mg/dL (8.4-10.2); CARBON DIOXIDE 28 mmol/L (22-30); CHLORIDE 105 mmol/L (98-107); GLUCOSE 221 mg/dL (75-110); POTASSIUM 3.8 mmol/L (3.6-5.0); SODIUM 140.8 mmol/L (137-145)
[2017-11-21] MEDS: INSULIN LISPRO 100 UNIT/ML 3 ML VIAL SUBCUT PRN ×2 (07:30→12:28)
--- NOTE | 2017-11-21 08:30 | PDOC PROGRESS REPORT ---
Subjective Progress Note for:: 11/21/17 Subjective:: Patient is afebrile White count normalized MRI is suspicious for osteomyelitis Wound culture positive for MSSA Glucose levels are still elevated above 200 Reason For Visit: DM FOOT ULCER, CELLULITIS SIRS Physical Exam Vital Signs: Temp Pulse Resp BP Pulse Ox 97.7 F 74 16 138/58 H 99 11/21/17 08:00 11/21/17 08:00 11/21/17 08:00 11/21/17 08:00 11/21/17 08:00 Intake & Output 11/20/17 11/21/17 11/22/17 06:59 06:59 06:59 Intake Total 2063 2407 Output Total 1500 2500 Balance 563 -93 Weight 150 lb 2.157 oz 152 lb 5.431 oz General appearance: PRESENT: no acute distress, well-developed, well-nourished Head exam: PRESENT: atraumatic, normocephalic Eye exam: PRESENT: conjunctiva pink, EOMI, PERRLA. ABSENT: scleral icterus Ear exam: PRESENT: normal external ear exam Mouth exam: PRESENT: moist, tongue midline Throat exam: ABSENT: tonsillar exudate, tonsillogmegaly Neck exam: ABSENT: carotid bruit, JVD, lymphadenopathy, thyromegaly Respiratory exam: PRESENT: clear to auscultation too. ABSENT: rales, rhonchi, wheezes Cardiovascular exam: PRESENT: RRR. ABSENT: diastolic murmur, rubs, systolic murmur Pulses: PRESENT: normal radial pulses Vascular exam: PRESENT: normal capillary refill GI/Abdominal exam: PRESENT: normal bowel sounds, soft. ABSENT: distended, guarding, mass, organolmegaly, rebound, tenderness Rectal exam: PRESENT: deferred Extremities exam: PRESENT: other - Right foot is status post mid metatarsal amputation and covered with dressing Neurological exam: PRESENT: alert, awake, oriented to person, oriented to place , oriented to time, oriented to situation, CN II-XII grossly intact. ABSENT: motor sensory deficit Psychiatric exam: PRESENT: appropriate affect, normal mood. ABSENT: homicidal ideation, suicidal ideation Results Laboratory Results: 11/21/17 04:36 11/21/17 04:36 11/21/17 11/21/17 04:36 04:36 WBC 9.5 RBC 4.31 Hgb 12.9 Hct 38.0 MCV 88 MCH 30.0 MCHC 34.0 RDW 12.6 Plt Count 215 Seg Neutrophils % 56.9 Lymphocytes % 34.6 Monocytes % 5.9 Eosinophils % 1.8 Basophils % 0.8 Absolute Neutrophils 5.4 Absolute Lymphocytes 3.3 Absolute Monocytes 0.6 Absolute Eosinophils 0.2 Absolute Basophils 0.1 Sodium 140.8 Potassium 3.8 Chloride 105 Carbon Dioxide 28 Anion Gap 8 BUN 7 Creatinine 0.49 L Est GFR ( Amer) > 60 Est GFR (Non-Af Amer) > 60 Glucose 221 H Calcium 8.6 Impressions: Foot X-Ray 11/18/17 21:00 IMPRESSION: Prior forefoot amputation. No evidence of osteomyelitis. Lower Extremity MRI 11/19/17 00:00 IMPRESSION: Left plantar/lateral ulcer at the level of the 5th metatarsal amputation. There is adjacent enhancement and edema at the base of the 5th metatarsal and cuboid bone worrisome for osteomyelitis. No well circumscribed abscess. Assessment & Plan - Diagnosis (1) Diabetes Qualifiers: Diabetes mellitus type: type 2 Diabetes mellitus long-term insulin use: with long-term use Diabetes mellitus complication status: with skin complications Diabetes mellitus complication detail: with foot ulcer Qualified Code(s): E11.621 - Type 2 diabetes mellitus with foot ulcer; L97.509 - Non-pressure chronic ulcer of other part of unspecified foot with unspecified severity; L97.509 - Non-pressure chronic ulcer of other part of unspecified foot with unspecified severity; L97.509 - Non-pressure chronic ulcer of other part of unspecified foot with unspecified severity; L97.509 - Non-pressure chronic ulcer of other part of unspecified foot with unspecified severity; Z79.4 - correction (current) use of insulin; Z79.4 - watermaster (current) use of insulin; Z79.4 - correction (current) use of insulin; Z79.4 - correction (current ) use of insulin Is this a current diagnosis for this admission?: Yes Plan: Glucose levels are still elevated above 200 Increase Lantus to 40 units and start scheduled NovoLog 7 units before meals Monitor glucose levels very carefully Continue with insulin scale (2) Foot ulcer, right Qualifiers: Non-pressure ulcer stage: with necrosis of bone Qualified Code(s): L97.514 - Non-pressure chronic ulcer of other part of right foot with necrosis of bone Is this a current diagnosis for this admission?: Yes Plan: Deep ulcer surrounded with severe cellulitis and osteomyelitis Wound culture positive for MSSA Switch from IV Vanco and Zosyn to IV Unasyn Plans for bone and wound debridement per podiatry (3) Sepsis Qualifiers: Sepsis type: sepsis due to unspecified organism Qualified Code(s): A41.9 - Sepsis, unspecified organism Is this a current diagnosis for this admission?: Yes Plan: Continue IV antibiotics (4) Osteomyelitis Qualifiers: Osteomyelitis location: foot Is this a current diagnosis for this admission?: Yes Plan: Continue IV antibiotics Bone debridement planned Will likely need prolonged course of IV antibiotics May need PICC line
[2017-11-21] MEDS ORDERED: AMPICILLIN SOD/SULBACTAM 3 GM VIAL IV SCH (09:00)
[2017-11-21] MEDS: AMPICILLIN SODIUM/SULBACTAM NA 3 GM in NORMAL SALINE 100 ML IV SCH ×3 (09:49→20:17)
[2017-11-21] MEDS: KETOROLAC TROMETHAMINE INJ/PF 30 MG/1 ML SDV IV PRN ×2 (09:49→17:35)
[2017-11-21] MEDS: INSULIN GLARGINE,HUM.REC.ANLOG 1,000 UNIT/10 ML UNIT SUBCUT SCH (09:52)
[2017-11-21] MEDS: DOCUSATE SODIUM 100 MG CAPSULE PO SCH ×2 (10:55→19:21)
[2017-11-21] MEDS: CETIRIZINE 10 MG TABLET PO SCH (10:55)
[2017-11-21] MEDS: ARIPIPRAZOLE 5 MG TABLET PO SCH (10:55)
[2017-11-21] MEDS: INSULIN LISPRO 100 UNIT/ML 3 ML VIAL SUBCUT SCH ×2 (12:27→17:35)
[2017-11-21] MEDS ORDERED: INSULIN GLARGINE,HUM.REC.ANLOG 1,000 UNIT/10 ML UNIT SUBCUT ONE (22:00)
[2017-11-21] MEDS: TRAZODONE HCL 50 MG TABLET PO SCH (22:01)
[2017-11-22] MEDS: IPRATROPIUM/ALBUTEROL 0.5-2.5 MG/3 ML AMPUL NEB SCH ×3 (02:23→14:17)
[2017-11-22] MEDS: AMPICILLIN SODIUM/SULBACTAM NA 3 GM in NORMAL SALINE 100 ML IV SCH ×4 (02:38→22:11)
[2017-11-22] MEDS: HEPARIN SOD (PORCINE) 5,000 UNIT/ML 1 ML SYRINGE SUBCUT SCH ×3 (05:00→22:12)
[2017-11-22] MEDS: MORPHINE SULFATE 10 MG/ML INJ IV PRN ×3 (06:12→20:05)
[2017-11-22 06:43] LABS: ABSOLUTE BASOPHILS # (AUTO) 0.1 10^3/uL (0.0-0.2); ABSOLUTE EOSINOPHILS # (AUTO) 0.2 10^3/uL (0.0-0.6); ABSOLUTE MONOCYTES (AUTO) 0.5 10^3/uL (0.1-1.4); ABSOLUTE NEUT (AUTO) 7.4 10^3/uL (1.7-8.2); BASOPHILS % (AUTO) 1.3 % (0-2); EOSINOPHILS % (AUTO) 1.4 % (0-6); HEMATOCRIT 39.5 % (36.0-47.0); HEMOGLOBIN 13.5 g/dL (12.0-15.5); LYMPHOCYTES % (AUTO) 26.7 % (13-45); MEAN CORPUSCULAR HGB CONC 34.2 g/dL (32.0-36.0); MEAN CORPUSCULAR VOLUME 88 fl (80-97); MONOCYTES % (AUTO) 4.5 % (3-13); PLATELET COUNT 206 10^3/uL (150-450); RED CELL DISTRIBUTION WIDTH 12.9 % (11.5-14.0); SEGMENTED NEUTROPHILS % (AUTO) 66.1 % (42-78); TOTAL CELLS COUNTED % (AUTO) 100 %; WHITE BLOOD COUNT 11.2 10^3/uL (4.0-10.5)
[2017-11-22 07:02] LABS: ANION GAP 10 (5-19); BLOOD UREA NITROGEN 9 mg/dL (7-20); CALCIUM 8.4 mg/dL (8.4-10.2); CARBON DIOXIDE 24 mmol/L (22-30); CHLORIDE 105 mmol/L (98-107); GLUCOSE 183 mg/dL (75-110); SODIUM 138.8 mmol/L (137-145)
[2017-11-22] MEDS: KETOROLAC TROMETHAMINE INJ/PF 30 MG/1 ML SDV IV PRN ×3 (08:26→23:41)
[2017-11-22] MEDS: INSULIN LISPRO 100 UNIT/ML 3 ML VIAL SUBCUT SCH ×3 (08:27→16:56)
[2017-11-22] MEDS: INSULIN LISPRO 100 UNIT/ML 3 ML VIAL SUBCUT PRN ×2 (08:28→22:12)
[2017-11-22] MEDS: CETIRIZINE 10 MG TABLET PO SCH (09:51)
[2017-11-22] MEDS: ARIPIPRAZOLE 5 MG TABLET PO SCH (09:51)
[2017-11-22] MEDS: ACETAMINOPHEN 325 MG TABLET PO PRN (09:51)
[2017-11-22] MEDS: DOCUSATE SODIUM 100 MG CAPSULE PO SCH ×3 (09:53→20:05)
[2017-11-22] MEDS ORDERED: IPRATROPIUM/ALBUTEROL 0.5-2.5 MG/3 ML AMPUL NEB PRN (14:31)
--- NOTE | 2017-11-22 15:19 | PDOC PROGRESS REPORT ---
Subjective Progress Note for:: 11/22/17 - seen on rounds this morning Reason For Visit: DM FOOT ULCER, CELLULITIS SIRS Physical Exam Vital Signs: Temp Pulse Resp BP Pulse Ox 97.9 F 69 16 145/75 H 96 11/22/17 11:34 11/22/17 14:17 11/22/17 14:17 11/22/17 11:34 11/22/17 14:17 Intake & Output 11/21/17 11/22/17 11/23/17 06:59 06:59 06:59 Intake Total 2407 1991 Output Total 2500 1800 Balance -93 1991 -110 Weight 152 lb 5.431 oz 153 lb 0.013 oz General appearance: PRESENT: mild distress Head exam: PRESENT: atraumatic, normocephalic Eye exam: PRESENT: EOMI, PERRLA Ear exam: PRESENT: normal external ear exam Mouth exam: PRESENT: tongue midline Neck exam: ABSENT: tracheal deviation Respiratory exam: PRESENT: clear to auscultation too, symmetrical Cardiovascular exam: PRESENT: +S1, +S2 GI/Abdominal exam: PRESENT: normal bowel sounds, soft. ABSENT: tenderness Extremities exam: PRESENT: tenderness - Right lower extremity is wrapped in dressing-it was just wrapped after surgery had evaluated. Tender to touch on the dressing but otherwise clean/dry/intact-I did not unwrap the dressing today Skin exam: PRESENT: dry, warm Results Laboratory Results: 11/22/17 06:26 11/22/17 06:26 11/22/17 11/22/17 06:26 06:26 WBC 11.2 H RBC 4.50 Hgb 13.5 Hct 39.5 MCV 88 MCH 30.0 MCHC 34.2 RDW 12.9 Plt Count 206 Seg Neutrophils % 66.1 Lymphocytes % 26.7 Monocytes % 4.5 Eosinophils % 1.4 Basophils % 1.3 Absolute Neutrophils 7.4 Absolute Lymphocytes 3.0 Absolute Monocytes 0.5 Absolute Eosinophils 0.2 Absolute Basophils 0.1 Sodium 138.8 Potassium 4.0 Chloride 105 Carbon Dioxide 24 Anion Gap 10 BUN 9 Creatinine 0.43 L Est GFR ( Amer) > 60 Est GFR (Non-Af Amer) > 60 Glucose 183 H Calcium 8.4 Impressions: Foot X-Ray 11/18/17 21:00 IMPRESSION: Prior forefoot amputation. No evidence of osteomyelitis. Lower Extremity MRI 11/19/17 00:00 IMPRESSION: Left plantar/lateral ulcer at the level of the 5th metatarsal amputation. There is adjacent enhancement and edema at the base of the 5th metatarsal and cuboid bone worrisome for osteomyelitis. No well circumscribed abscess. Assessment & Plan - Diagnosis (1) Osteomyelitis due to type 2 diabetes mellitus Is this a current diagnosis for this admission?: Yes Plan: Right foot bone biopsy was done outpatient by podiatry along with foot biopsy. Iraheta sensitivity for the most part. Currently she is on IV Unasyn every 6 hours. Patient is very upset and wants to go home. Patient states that she has done IV antibiotics at home many many times in the past. States she knows all about it. She would like to get a PICC line and go home. I spoke with pharmacy and plan is to have IV antibiotics for at least 6 weeks. She will follow up outpatient with her stripping machine operator. I spoken with the surgeon that evaluated her and they do not recommend any debridement at this time. Dressing changes and wound care is recommended by surgery and recommendations are left in the chart on the prognosis. We will get her a PICC line tomorrow and I will talk with case management/discharge planning about IV antibiotics at home. (2) Sepsis Qualifiers: Sepsis type: sepsis due to unspecified organism Qualified Code(s): A41.9 - Sepsis, unspecified organism Is this a current diagnosis for this admission?: Yes Plan: Likely secondary to her osteomyelitis. Blood cultures remain negative. See plan above. (3) Right foot infection Is this a current diagnosis for this admission?: Yes Plan: See plan above for osteomyelitis - Plan Summary Plan Summary: If he can get a PICC line and talk with case management about IV antibiotics at home we can discharge patient with 6 weeks of IV antibiotic for her ostia follow -up with podiatry
--- NOTE | 2017-11-22 16:30 | PDOC PROGRESS REPORT ---
Subjective Progress Note for:: 11/22/17 Subjective:: Patient is resting comfortably, no complaint of pain in her right foot. She does have questions about planned treatment from here. Reason For Visit: DM FOOT ULCER, CELLULITIS SIRS Physical Exam Vital Signs: Temp Pulse Resp BP Pulse Ox 97.9 F 69 16 145/75 H 96 11/22/17 11:34 11/22/17 14:17 11/22/17 14:17 11/22/17 11:34 11/22/17 14:17 Intake & Output 11/21/17 11/22/17 11/23/17 06:59 06:59 06:59 Intake Total 2407 1991 69 Output Total 2500 1800 Balance -93 1991 -1107 Weight 152 lb 5.431 oz 153 lb 0.013 oz Skin exam: PRESENT: other - Diabetic foot ulcer plantar lateral aspect of the right foot. Cellulitis is is minimal, drainage is serous greatly decreased from prior visit. Wound measurements are improved at 1.4 cm in length by 0.8 cm width by 1.8 cm in depth. Temperature is normal and edema has decreased. The remainder of the fifth metatarsal is palpable in the wound. Results Laboratory Results: 11/22/17 06:26 11/22/17 06:26 11/22/17 11/22/17 06:26 06:26 WBC 11.2 H RBC 4.50 Hgb 13.5 Hct 39.5 MCV 88 MCH 30.0 MCHC 34.2 RDW 12.9 Plt Count 206 Seg Neutrophils % 66.1 Lymphocytes % 26.7 Monocytes % 4.5 Eosinophils % 1.4 Basophils % 1.3 Absolute Neutrophils 7.4 Absolute Lymphocytes 3.0 Absolute Monocytes 0.5 Absolute Eosinophils 0.2 Absolute Basophils 0.1 Sodium 138.8 Potassium 4.0 Chloride 105 Carbon Dioxide 24 Anion Gap 10 BUN 9 Creatinine 0.43 L Est GFR ( Amer) > 60 Est GFR (Non-Af Amer) > 60 Glucose 183 H Calcium 8.4 Impressions: Foot X-Ray 11/18/17 21:00 IMPRESSION: Prior forefoot amputation. No evidence of osteomyelitis. Lower Extremity MRI 11/19/17 00:00 IMPRESSION: Left plantar/lateral ulcer at the level of the 5th metatarsal amputation. There is adjacent enhancement and edema at the base of the 5th metatarsal and cuboid bone worrisome for osteomyelitis. No well circumscribed abscess. Assessment & Plan - Diagnosis (1) Diabetes Qualifiers: Diabetes mellitus type: type 2 Diabetes mellitus half-way insulin use: with oven drier tender use Diabetes mellitus complication status: with skin complications Diabetes mellitus complication detail: with foot ulcer Qualified Code(s): E11.621 - Type 2 diabetes mellitus with foot ulcer; L97.509 - Non-pressure chronic ulcer of other part of unspecified foot with unspecified severity; L97.509 - Non-pressure chronic ulcer of other part of unspecified foot with unspecified severity; L97.509 - Non-pressure chronic ulcer of other part of unspecified foot with unspecified severity; L97.509 - Non-pressure chronic ulcer of other part of unspecified foot with unspecified severity; Z79.4 - senior care (current) use of insulin; Z79.4 - net software developer (current) use of insulin; Z79.4 - senior care (current) use of insulin; Z79.4 - senior care (current ) use of insulin Is this a current diagnosis for this admission?: Yes (2) Foot ulcer, right Qualifiers: Non-pressure ulcer stage: with necrosis of bone Qualified Code(s): L97.514 - Non-pressure chronic ulcer of other part of right foot with necrosis of bone Is this a current diagnosis for this admission?: Yes (3) Osteomyelitis due to type 2 diabetes mellitus Is this a current diagnosis for this admission?: Yes (4) Right foot infection Is this a current diagnosis for this admission?: Yes (5) Sepsis Qualifiers: Sepsis type: sepsis due to unspecified organism Qualified Code(s): A41.9 - Sepsis, unspecified organism Is this a current diagnosis for this admission?: Yes - Plan Summary Plan Summary: Patient will be scheduled for debridement and excision of fifth metatarsal bone in the OR for Wednesday evening or Wednesday afternoon whenever surgery department can accommodate. Patient will need a PICC line. Would anticipate discharge on or Wednesday if patient is doing okay post debridement. The plan would include home infusion of antibiotics on a daily basis for 6 weeks and refer patient back to the wound center for follow-up wound care and possibly hyperbaric oxygen treatment. We discussed surgical debridement and anticipated results and the fact the patient may require [id number] amputation of this procedure fails to eradicate her infection. Consent was explained and signed all questions were answered.
--- NOTE | 2017-11-22 19:23 | Progress Note ---
Provider Note Provider Note: spoke with Dr Chang later in the day about patient. Plan is to have PICC line placed- then have surgical intervention Wednesday or Wednesday based on OR time- then possible d/c on Wednesday to home on IV antibiotics for [address] Chang's note for full assessment and plan. I appreciate his assistance
[2017-11-22] MEDS: INSULIN GLARGINE,HUM.REC.ANLOG 1,000 UNIT/10 ML UNIT SUBCUT SCH (22:11)
[2017-11-22] MEDS: TRAZODONE HCL 50 MG TABLET PO SCH (22:12)
[2017-11-23] MEDS: AMPICILLIN SODIUM/SULBACTAM NA 3 GM in NORMAL SALINE 100 ML IV SCH ×4 (03:51→20:34)
[2017-11-23] MEDS: MORPHINE SULFATE 10 MG/ML INJ IV PRN ×4 (04:04→22:34)
[2017-11-23] MEDS: HEPARIN SOD (PORCINE) 5,000 UNIT/ML 1 ML SYRINGE SUBCUT SCH ×3 (05:05→22:24)
[2017-11-23] MEDS: INSULIN LISPRO 100 UNIT/ML 3 ML VIAL SUBCUT SCH ×3 (08:52→17:47)
[2017-11-23] MEDS: INSULIN LISPRO 100 UNIT/ML 3 ML VIAL SUBCUT PRN ×2 (08:53→17:48)
[2017-11-23] MEDS: DOCUSATE SODIUM 100 MG CAPSULE PO SCH ×2 (09:59→17:49)
[2017-11-23] MEDS: ARIPIPRAZOLE 5 MG TABLET PO SCH (10:00)
[2017-11-23] MEDS: CETIRIZINE 10 MG TABLET PO SCH (10:00)
--- NOTE | 2017-11-23 10:38 | RADIOLOGY REPORT (SQ) ---
EXAM DESCRIPTION: PICC INSERTION; FLUORO/CV PLACEMENT; U/S GUIDE FOR VASCULAR ACCESS COMPLETED DATE/TIME: 11/23/2017 9:54 am REASON FOR STUDY: HOME ANTIBIOTIC USE; ABX COMPARISON: 04/20/2017 FLUOROSCOPY TIME: 1 minutes 30 seconds Foot digital fluoro and 1 ultrasound image saved to PACS. TECHNIQUE: Fluoroscopic and ultrasound guided PICC placement. LIMITATIONS: None. PROCEDURE: After written consent and assessment were obtained, the patient was brought into the fluo roscopy room and place supine on the table. Ultrasound evaluation of potential access sites were perf ormed. After successfully identifying a patent left basilic vein, the left arm was prepped and draped in a sterile fashion along with the ultrasound probe. The entry site was anesthetized with 1% lidoca ine. A 21 gauge 7 cm needle was advanced through the skin and into the basilic vein under live ultras ound guidance. An ultrasound image was saved to PACS confirming access site. A .018 guide wire was then inserted through the needle and into the venous system. The needle was the removed and an 11 terri de scalpel was used to make a 1cm skin incision. A 5 fr peel-away sheath was advanced over the wire and into the venous system. A measurement was then made using the existing wire and live fluoroscopic guidance. The wire was then removed and the trimmed. The PICC was advanced through the peel-away she ath and into the venous system. The peel-away sheath was removed and the catheter was adhered to the patients arm with a stat lock. The catheter was then aspirated and flushed and a sterile bandage was placed over the access site. A fluoroscopic spot image was saved to PACS confirming the catheter tip within the superior vena cava. IMPRESSION: SUCCESSFUL PLACEMENT OF A 5 FR DUAL LUMEN 40 CM PICC IN THE LEFT BASILIC VEIN. COMMENT: Patient medication list reviewed: Yes- Quality ID# 130:Eligible professional attests to doc umenting in the medical record they obtained, updated, or reviewed the patient's current medications. . Quality ID 145: Final reports for procedures using fluoroscopy that document radiation exposure lalo maureen, or exposure time and number of fluorographic images (if radiation exposure indices are not avail able) Quality ID #76: The patient was prepped and draped using maximum sterile barrier technique including cap, mask, sterile gown, sterile gloves, a large sterile sheet, hand hygiene, and 2% Chlorhexidine fo r cutaneous antisepsis. When ultrasound is used, sterile ultrasound techniques are followed requiring sterile gel and sterile probes. TECHNICAL DOCUMENTATION: JOB ID: [id number] [employer]- All Rights Reserved rev-08/06 Reading location - IP/workstation name: [email or web address]
--- NOTE | 2017-11-23 14:34 | PDOC PROGRESS REPORT ---
Subjective Progress Note for:: 11/23/17 - Seen on rounds this morning Subjective:: Patient apologized today for being very rude to me yesterday. States she is very frustrated with her situation and hence she was upset yesterday. She tells me she still has some pain but is tolerable. She is awaiting plans for surgery/debridement today versus tomorrow dependent on surgical OR openings 42-year-old female with past medical history of diabetes and multiple episodes of osteomyelitis in the past-admitted for recurrent episode of osteomyelitis of the right foot. Started on IV antibiotics and later switched to Unasyn IV currently. She does follow-up with wound center outside hospital with Dr. Chang. Dr. Chang has agreed to take her to the OR possibly today versus tomorrow. Outpatient bone biopsy done at the end of October prior to admission shows Enterococcus faecalis and staph aureus-sensitivities are on chart. Currently she is on Unasyn. After her surgical procedure she will need likely 6 weeks of IV antibiotics-case management is aware. Reason For Visit: DM FOOT ULCER, CELLULITIS SIRS Physical Exam Vital Signs: Temp Pulse Resp BP Pulse Ox 97.9 F 70 16 138/73 H 94 11/23/17 11:15 11/23/17 11:15 11/23/17 11:15 11/23/17 11:15 11/23/17 11:15 Intake & Output 11/22/17 11/23/17 11/24/17 06:59 06:59 06:59 Intake Total 1991 2011 100 Output Total 2592 Balance 1991 -580 100 Weight 153 lb 0.013 oz 150 lb 12.739 oz General appearance: PRESENT: no acute distress Head exam: PRESENT: atraumatic, normocephalic Eye exam: PRESENT: EOMI, PERRLA. ABSENT: scleral icterus Ear exam: PRESENT: normal external ear exam Mouth exam: PRESENT: tongue midline Teeth exam: PRESENT: poor dentation Neck exam: ABSENT: tracheal deviation Respiratory exam: PRESENT: clear to auscultation too, symmetrical Cardiovascular exam: PRESENT: +S1, +S2 Pulses: PRESENT: other - Unable to palpate right pedal pulse GI/Abdominal exam: PRESENT: normal bowel sounds, soft. ABSENT: tenderness Extremities exam: PRESENT: tenderness - right foot completely wrapped with dressing by surgeon- did not unwrap it- TTP- unable to assess pulses Neurological exam: PRESENT: alert, awake, oriented to person, oriented to place , oriented to time, oriented to situation, CN II-XII grossly intact Results Laboratory Results: 11/22/17 06:26 11/22/17 06:26 Impressions: Foot X-Ray 11/18/17 21:00 IMPRESSION: Prior forefoot amputation. No evidence of osteomyelitis. Lower Extremity MRI 11/19/17 00:00 IMPRESSION: Left plantar/lateral ulcer at the level of the 5th metatarsal amputation. There is adjacent enhancement and edema at the base of the 5th metatarsal and cuboid bone worrisome for osteomyelitis. No well circumscribed abscess. Guidance Fluoroscopy 11/23/17 00:00 IMPRESSION: SUCCESSFUL PLACEMENT OF A 5 FR DUAL LUMEN 40 CM PICC IN THE LEFT BASILIC VEIN. Interventional Vascular Procedure 11/23/17 00:00 IMPRESSION: SUCCESSFUL PLACEMENT OF A 5 FR DUAL LUMEN 40 CM PICC IN THE LEFT BASILIC VEIN. PICC Line Insertion 11/23/17 00:00 IMPRESSION: SUCCESSFUL PLACEMENT OF A 5 FR DUAL LUMEN 40 CM PICC IN THE LEFT BASILIC VEIN. Assessment & Plan - Diagnosis (1) Osteomyelitis due to type 2 diabetes mellitus Is this a current diagnosis for this admission?: Yes Plan: Right foot bone biopsy was done outpatient by podiatry along with foot biopsy. Iraheta sensitivity for the most part. Currently she is on IV Unasyn every 6 hours. Patient states that she has done IV antibiotics at home many many times in the past. States she knows all about it. She would like to get a PICC line and go home. She will follow up outpatient with her water technician Dr Chang. Evaluated by Dr Chang yesterday night- she plans to take patient to OR for surgical intervention and/or debridement. Likely she will be discharged on IV antibiotics after that. after her procedure we need to call ID at [facility] to discuss appropriate antibiotic choice- we need to wait and see what Dr Chang has to say after his procedure. (2) Sepsis Qualifiers: Sepsis type: sepsis due to unspecified organism Qualified Code(s): A41.9 - Sepsis, unspecified organism Is this a current diagnosis for this admission?: Yes Plan: Likely secondary to her osteomyelitis. Blood cultures remain negative. See plan above. (3) Right foot infection Is this a current diagnosis for this admission?: Yes Plan: See plan above for osteomyelitis - Plan Summary Plan Summary: planned intervention by Dr Chang for surgery/debridement of the right foot- need to call [facility] ID tomorrow to talk about Antibiotic choice for next 6 weeks
[2017-11-23] MEDS: KETOROLAC TROMETHAMINE INJ/PF 30 MG/1 ML SDV IV PRN (20:33)
[2017-11-23] MEDS: INSULIN GLARGINE,HUM.REC.ANLOG 1,000 UNIT/10 ML UNIT SUBCUT SCH (22:24)
[2017-11-23] MEDS: NORMAL SALINE 10 ML SDV (SCHEDULED) IV SCH (22:26)
[2017-11-23] MEDS: NORMAL SALINE 10 ML SDV (AFTER EACH USE) IV PRN (22:27)
[2017-11-24] MEDS: TRAZODONE HCL 50 MG TABLET PO SCH ×2 (00:18→21:53)
[2017-11-24] MEDS: AMPICILLIN SODIUM/SULBACTAM NA 3 GM in NORMAL SALINE 100 ML IV SCH ×4 (03:07→22:04)
[2017-11-24] MEDS: MORPHINE SULFATE 10 MG/ML INJ IV PRN ×5 (04:42→23:54)
[2017-11-24] MEDS: HEPARIN SOD (PORCINE) 5,000 UNIT/ML 1 ML SYRINGE SUBCUT SCH ×3 (06:10→22:08)
[2017-11-24] MEDS: ACETAMINOPHEN 325 MG TABLET PO PRN ×2 (06:12→17:07)
[2017-11-24] MEDS: INSULIN LISPRO 100 UNIT/ML 3 ML VIAL SUBCUT SCH ×3 (08:25→17:10)
[2017-11-24] MEDS: DOCUSATE SODIUM 100 MG CAPSULE PO SCH ×2 (10:01→18:26)
[2017-11-24] MEDS: ARIPIPRAZOLE 5 MG TABLET PO SCH (10:02)
[2017-11-24] MEDS: NORMAL SALINE 10 ML SDV (SCHEDULED) IV SCH ×2 (10:03→22:04)
[2017-11-24] MEDS: CETIRIZINE 10 MG TABLET PO SCH (10:05)
[2017-11-24] MEDS ORDERED: FENTANYL CITRATE INJ/PF 100 MCG/2 ML AMPUL ONE (12:02)
[2017-11-24] MEDS ORDERED: MIDAZOLAM 2 MG/2 ML INJ ONE (12:02)
[2017-11-24] MEDS ORDERED: PROPOFOL INJ 200 MG/20 ML VIAL IV ONE (12:03)
[2017-11-24] MEDS ORDERED: LIDOCAINE 0.5% INJ-PF (5 MG/ML) 50 ML SDV ONE (13:34)
[2017-11-24] MEDS ORDERED: BUPIVACAINE HCL 0.5 % INJ/PF 30 ML SDV ONE (13:34)
--- NOTE | 2017-11-24 17:07 | XCELERA REPORT ---
[address] [address] Lower Extremity Arterial Evaluation Name: ALMITA WILLARD Age: 42 yrs Gender: Female : 1975 Patient Status: Inpatient Patient Location: [address] [place], [place] [address] Study Date: 11/23/2017 10:13 AM Procedure: A color flow and duplex scan of the lower extremity arteries was performed on the right with velocity and waveform anaylsis. Reason For Study: DIABETIC FOOT ULCER Ordering Physician: DES MUNGUIA Performed By: Yasmin Ledesma Measurements and Calculations Right Left Prox PFA PSV 141.2 cm/sec Prox SFA PSV 145.2 cm/sec Mid SFA PSV 93.4 cm/sec Dist SFA PSV 162.6 cm/sec Mid KYREE PSV 46.1 cm/sec Mid INVESTIGATOR PSV 87.3 cm/sec Right Side Arterial Evaluation Normal velocity and triphasic waveforms noted from the Common Femoral artery to the Popliteal. Biphasic with reduced velocities in infrageniculate vessels. 20-49 % stenosis at the infrageniculate level. Ankle Brachial index not done due to dressings in place. Interpretation Summary Moderate hemodynamically significant lesions in the right lower extremity only, on duplex imaging, at rest. : DES MUNGUIA > Mat Jefferson
--- NOTE | 2017-11-24 18:16 | PDOC PROGRESS REPORT ---
Subjective Progress Note for:: 11/24/17 Subjective:: Nikki states that she has been doing quite well today. She feels that she will be ready to go home on Wednesday per her current plan. She will require numerous things including a prescription for her IV antibiotics in including an inscription for medical equipment and lab testing per the protocol of the home health agency. She states that all things are going well for her right now and she is quite anxious to return home for her recovery. Reason For Visit: DM FOOT ULCER, CELLULITIS SIRS Physical Exam Vital Signs: Temp Pulse Resp BP Pulse Ox 97.8 F 70 16 132/70 H 99 11/24/17 15:28 11/24/17 16:57 11/24/17 16:57 11/24/17 15:28 11/24/17 16:57 Intake & Output 11/23/17 11/24/17 11/25/17 06:59 06:59 06:59 Intake Total 2011 1612 1785 Output Total 2592 Balance -580 1612 1785 Weight 68.4 kg 68.8 kg General appearance: PRESENT: no acute distress, cooperative, well-developed, well-nourished Head exam: PRESENT: atraumatic, normocephalic Eye exam: PRESENT: conjunctiva pink. ABSENT: nystagmus, scleral icterus Ear exam: PRESENT: normal external ear exam. ABSENT: bleeding, drainage Mouth exam: PRESENT: moist, neck supple, tongue midline Respiratory exam: PRESENT: clear to auscultation too, symmetrical, unlabored Cardiovascular exam: PRESENT: RRR. ABSENT: clicks, diastolic murmur, gallop, rubs, systolic murmur Pulses: PRESENT: +1 pedal pulses bilateral Vascular exam: PRESENT: normal capillary refill. ABSENT: pallor GI/Abdominal exam: PRESENT: normal bowel sounds, soft. ABSENT: distended, tenderness Extremities exam: PRESENT: full ROM, other - Status post amputation of the right forefoot. ABSENT: clubbing, joint swelling Musculoskeletal exam: PRESENT: full ROM. ABSENT: deformity, dislocation Neurological exam: PRESENT: alert, awake, oriented to person, oriented to place , oriented to time, oriented to situation, CN II-XII grossly intact. ABSENT: motor sensory deficit Psychiatric exam: PRESENT: appropriate affect, normal mood Skin exam: ABSENT: jaundice, rash, urticaria Results Laboratory Results: 11/22/17 06:26 09/03/18 06:26 Impressions: Foot X-Ray 11/18/17 21:00 IMPRESSION: Prior forefoot amputation. No evidence of osteomyelitis. Lower Extremity MRI 11/19/17 00:00 IMPRESSION: Left plantar/lateral ulcer at the level of the 5th metatarsal amputation. There is adjacent enhancement and edema at the base of the 5th metatarsal and cuboid bone worrisome for osteomyelitis. No well circumscribed abscess. Guidance Fluoroscopy 11/23/17 00:00 IMPRESSION: SUCCESSFUL PLACEMENT OF A 5 FR DUAL LUMEN 40 CM PICC IN THE LEFT BASILIC VEIN. Interventional Vascular Procedure 11/23/17 00:00 IMPRESSION: SUCCESSFUL PLACEMENT OF A 5 FR DUAL LUMEN 40 CM PICC IN THE LEFT BASILIC VEIN. PICC Line Insertion 11/23/17 00:00 IMPRESSION: SUCCESSFUL PLACEMENT OF A 5 FR DUAL LUMEN 40 CM PICC IN THE LEFT BASILIC VEIN. Assessment & Plan - Diagnosis (1) Diabetes Qualifiers: Diabetes mellitus type: type 2 Diabetes mellitus chcf insulin use: with chcf use Diabetes mellitus complication status: with skin complications Diabetes mellitus complication detail: with foot ulcer Qualified Code(s): E11.621 - Type 2 diabetes mellitus with foot ulcer; L97.509 - Non-pressure chronic ulcer of other part of unspecified foot with unspecified severity; L97.509 - Non-pressure chronic ulcer of other part of unspecified foot with unspecified severity; L97.509 - Non-pressure chronic ulcer of other part of unspecified foot with unspecified severity; L97.509 - Non-pressure chronic ulcer of other part of unspecified foot with unspecified severity; Z79.4 - detention (current) use of insulin; Z79.4 - detention (current) use of insulin; Z79.4 - security intern (current) use of insulin; Z79.4 - detention (current ) use of insulin Is this a current diagnosis for this admission?: Yes Plan: Current plan is to continue her medications as presently ordered. (2) Foot ulcer, right Qualifiers: Non-pressure ulcer stage: with necrosis of bone Qualified Code(s): L97.514 - Non-pressure chronic ulcer of other part of right foot with necrosis of bone Is this a current diagnosis for this admission?: Yes Plan: Right foot ulcer is essentially been resolved by the surgical intervention to amputate the right forefoot. (3) Osteomyelitis Qualifiers: Osteomyelitis location: foot Is this a current diagnosis for this admission?: Yes Plan: Continue current antibiotic therapy even after discharge per recommendations of her surgeon. - Time Time Spent with patient: 35 or more minutes
[2017-11-24] MEDS ORDERED: LIDOCAINE 2% INJ (20 MG/ML) 20 ML MDV ONE (19:50)
[2017-11-24] MEDS ORDERED: LIDOCAINE 1%/EPINEPHRINE INJ 20 ML VIAL ONE (19:56)
[2017-11-24] MEDS ORDERED: LIDOCAINE 1% INJ-PF (10 MG/ML) 30 ML SDV ONE (19:56)
[2017-11-24] MEDS ORDERED: PROMETHAZINE HCL INJ 25 MG/1 ML VIAL IV PRN (20:25)
[2017-11-24] MEDS ORDERED: ONDANSETRON HCL INJ/PF 4 MG/2 ML SDV IV PRN (20:25)
[2017-11-24] MEDS ORDERED: DIPHENHYDRAMINE HCL 50 MG/ML VIAL IV PRN (20:25)
[2017-11-24] MEDS ORDERED: FENTANYL CITRATE INJ/PF 100 MCG/2 ML AMPUL IV PRN ×2 (20:25)
--- NOTE | 2017-11-24 21:19 | Operative Report ---
Operative Report DATE OF SURGERY: 11/24/17 Operative Report: Excision of fifth metatarsal metatarsal stump and debridement of diabetic foot ulcer. PREOPERATIVE DIAGNOSIS: Osteomyelitis of the fifth metatarsal stump of the right foot. POSTOPERATIVE DIAGNOSIS: Same. OPERATION: Procedure: Following induction of sedation with local anesthesia patient's right foot and leg were prepped and draped in a sterile manner. Surgical timeout was performed. Attention is directed to the dorsal aspect of the patient's right foot, There is a 2 cm diameter diabetic foot ulcer on the distal plantar aspect of the right foot. Fluoroscopic study was used to identify a proper surgical incision location. At that time incision made over the dorsal lateral aspect of the patient's right foot approximately 5 cm in length and connecting to the dorsal aspect of the wound. The incision was deepened through subcutaneous tissue and superficial fascia, all bleeding vessels were clamped ligated and bovied as necessary for hemostasis. The incision was further deepened via sharp and blunt dissection down to the remaining fifth metatarsal stump which is identified and freed from the surrounding soft tissue attachments and removed from the wound in toto. Specimen was preserved and sent to microbiology. The wound was debrided of all remaining necrotic tissue to include any tendon and capsular tissue. Wound was further palpated for any remaining bony fragments which were identified and removed from the wound in toto. Additional fluoroscopic study was performed to ensure all bony fragments were removed. The wound was then flushed with copious amounts of sterile saline all bleeding vessels were cauterized as needed. It was felt that adequate debridement had been performed at this time. The incision was then coaptated and maintained with interrupted horizontal mattress suture of 4-0 nylon. The distal wound could not be closed primarily and the wound was packed with Surgicel and Betadine gauze and covered with Xeroform 4x4 gauze, Kerlix and Coban. Patient tolerated anesthesia and surgery well and was taken to recovery room further by by anesthesia department. SURGEON: DES MUNGUIA ANESTHESIA: LMAC TISSUE REMOVED OR ALTERED: Fifth metatarsal bone. COMPLICATIONS: None
[2017-11-24] MEDS: INSULIN GLARGINE,HUM.REC.ANLOG 1,000 UNIT/10 ML UNIT SUBCUT SCH (22:07)
[2017-11-25] MEDS: AMPICILLIN SODIUM/SULBACTAM NA 3 GM in NORMAL SALINE 100 ML IV SCH ×5 (03:29→21:40)
[2017-11-25] MEDS: MORPHINE SULFATE 10 MG/ML INJ IV PRN ×2 (03:29→21:39)
[2017-11-25] MEDS: ACETAMINOPHEN 325 MG TABLET PO PRN ×2 (08:20→18:59)
--- NOTE | 2017-11-25 08:27 | RADIOLOGY REPORT (SQ) ---
EXAM DESCRIPTION: FOOT RIGHT 2 VIEWS; NO CHG FLUORO COMPLETED DATE/TIME: 11/24/2017 8:58 pm REASON FOR STUDY: RT FOOT DEBRIDEMENT COMPARISON: Plain films 11/18/2017, 04/12/2017 MRI right foot 11/19/2017 FLUOROSCOPY TIME: 12 seconds 3 digital C-arm images saved to PACS. TECHNIQUE: Intra-operative images acquired during surgical procedure to evaluate progress. NUMBER OF IMAGES: 3 digital C-arm images LIMITATIONS: None. FINDINGS: Intraoperative fluoro and imaging during removal of the remnant, base 5th metatarsal from the right foot. Soft tissue wound over the cuboid is noted. IMPRESSION: Intra procedural imaging and fluoro. COMMENT: Quality ID 145: Final reports for procedures using fluoroscopy that document radiation exp osure indices, or exposure time and number of fluorographic images (if radiation exposure indices are not available) Please consult full operative report of the attending physician for description of the procedure. TECHNICAL DOCUMENTATION: JOB ID: [id number] [employer]- All Rights Reserved Reading location - IP/workstation name: [email or web address]
--- NOTE | 2017-11-25 08:27 | RADIOLOGY REPORT (SQ) ---
EXAM DESCRIPTION: FOOT RIGHT 2 VIEWS; NO CHG FLUORO COMPLETED DATE/TIME: 11/24/2017 8:58 pm REASON FOR STUDY: RT FOOT DEBRIDEMENT COMPARISON: Plain films 11/18/2017, 04/12/2017 MRI right foot 11/19/2017 FLUOROSCOPY TIME: 12 seconds 3 digital C-arm images saved to PACS. TECHNIQUE: Intra-operative images acquired during surgical procedure to evaluate progress. NUMBER OF IMAGES: 3 digital C-arm images LIMITATIONS: None. FINDINGS: Intraoperative fluoro and imaging during removal of the remnant, base 5th metatarsal from the right foot. Soft tissue wound over the cuboid is noted. IMPRESSION: Intra procedural imaging and fluoro. COMMENT: Quality ID 145: Final reports for procedures using fluoroscopy that document radiation exp osure indices, or exposure time and number of fluorographic images (if radiation exposure indices are not available) Please consult full operative report of the attending physician for description of the procedure. TECHNICAL DOCUMENTATION: JOB ID: [id number] [employer]- All Rights Reserved Reading location - IP/workstation name: [email or web address]
[2017-11-25] MEDS: HEPARIN SOD (PORCINE) 5,000 UNIT/ML 1 ML SYRINGE SUBCUT SCH ×3 (09:22→21:39)
[2017-11-25] MEDS: INSULIN LISPRO 100 UNIT/ML 3 ML VIAL SUBCUT SCH ×3 (09:27→17:14)
[2017-11-25] MEDS: CETIRIZINE 10 MG TABLET PO SCH (09:30)
[2017-11-25] MEDS: ARIPIPRAZOLE 5 MG TABLET PO SCH (09:30)
[2017-11-25] MEDS: DOCUSATE SODIUM 100 MG CAPSULE PO SCH ×2 (09:30→17:14)
[2017-11-25] MEDS: NORMAL SALINE 10 ML SDV (SCHEDULED) IV SCH ×2 (09:31→21:40)
[2017-11-25] MEDS: KETOROLAC TROMETHAMINE INJ/PF 30 MG/1 ML SDV IV PRN ×2 (11:31→18:17)
[2017-11-25] MEDS: NORMAL SALINE 10 ML SDV (AFTER EACH USE) IV PRN ×2 (12:11→18:27)
--- NOTE | 2017-11-25 16:39 | PDOC PROGRESS REPORT ---
Subjective Progress Note for:: 11/25/17 Subjective:: Patient is resting comfortably, no complaint of pain in her right foot. She did say that she banged her foot while going to the bathroom but not on the surgical site area. Reason For Visit: DM FOOT ULCER, CELLULITIS SIRS Physical Exam Vital Signs: Temp Pulse Resp BP Pulse Ox 98.5 F 73 16 123/53 L 95 11/25/17 11:30 11/25/17 11:30 11/25/17 11:30 11/25/17 11:30 11/25/17 11:30 Intake & Output 11/24/17 11/25/17 11/26/17 06:59 06:59 06:59 Intake Total 1612 2696 200 Output Total 110 Balance 1612 2586 200 Weight 151 lb 10.848 oz 158 lb 15.253 oz Skin exam: PRESENT: other - Removed surgical dressing from the right foot, minimal drainage noted, cellulitis is about resolved. Capillary refill is normal in the periwound area. Site is warm and appears to be well perfused. Wound packing intact. The packing was removed from the wound, which was inspected, no pus, minimal drainage. Sutures are dry and intact. No pain with palpation of the surgical area. Impression is a normal surgical postop course. New dressing consisting of Acticoat flex was packed into the wound, which was then covered with 4 x 4's, Kerlix and Coban. Results Laboratory Results: 11/22/17 06:26 11/22/17 06:26 Impressions: Lower Extremity MRI 11/19/17 00:00 IMPRESSION: Left plantar/lateral ulcer at the level of the 5th metatarsal amputation. There is adjacent enhancement and edema at the base of the 5th metatarsal and cuboid bone worrisome for osteomyelitis. No well circumscribed abscess. Guidance Fluoroscopy 11/23/17 00:00 IMPRESSION: SUCCESSFUL PLACEMENT OF A 5 FR DUAL LUMEN 40 CM PICC IN THE LEFT BASILIC VEIN. Interventional Vascular Procedure 11/23/17 00:00 IMPRESSION: SUCCESSFUL PLACEMENT OF A 5 FR DUAL LUMEN 40 CM PICC IN THE LEFT BASILIC VEIN. PICC Line Insertion 11/23/17 00:00 IMPRESSION: SUCCESSFUL PLACEMENT OF A 5 FR DUAL LUMEN 40 CM PICC IN THE LEFT BASILIC VEIN. Fluoroscopy 11/24/17 00:00 IMPRESSION: Intra procedural imaging and fluoro. Foot X-Ray 11/24/17 00:00 IMPRESSION: Intra procedural imaging and fluoro. Assessment & Plan - Diagnosis (1) Diabetes Qualifiers: Diabetes mellitus type: type 2 Diabetes mellitus custodial insulin use: with long distance operator use Diabetes mellitus complication status: with skin complications Diabetes mellitus complication detail: with foot ulcer Qualified Code(s): E11.621 - Type 2 diabetes mellitus with foot ulcer; L97.509 - Non-pressure chronic ulcer of other part of unspecified foot with unspecified severity; L97.509 - Non-pressure chronic ulcer of other part of unspecified foot with unspecified severity; L97.509 - Non-pressure chronic ulcer of other part of unspecified foot with unspecified severity; L97.509 - Non-pressure chronic ulcer of other part of unspecified foot with unspecified severity; Z79.4 - salvage determiner (current) use of insulin; Z79.4 - salvage determiner (current) use of insulin; Z79.4 - salvage determiner (current) use of insulin; Z79.4 - [facility] (current ) use of insulin Is this a current diagnosis for this admission?: Yes (2) Foot ulcer, right Qualifiers: Non-pressure ulcer stage: with necrosis of bone Qualified Code(s): L97.514 - Non-pressure chronic ulcer of other part of right foot with necrosis of bone Is this a current diagnosis for this admission?: Yes (3) Osteomyelitis due to type 2 diabetes mellitus Is this a current diagnosis for this admission?: Yes (4) Right foot infection Is this a current diagnosis for this admission?: Yes (5) Sepsis Qualifiers: Sepsis type: sepsis due to unspecified organism Qualified Code(s): A41.9 - Sepsis, unspecified organism Is this a current diagnosis for this admission?: Yes - Plan Summary Plan Summary: Plan is to follow patient in the wound care center for continued diabetic foot ulcer care. Patient is to leave the current bandage on her right foot until she is seen at the wound care center. She is to keep the bandage dry. Patient has a PICC line placed and will receive home infusion of antibiotics for the next 6 weeks. Patient has a Darco wedge shoe which needs to be worn whenever she is ambulating and she needs to be careful to only place weight on her heel whenever she is up. Patient is cleared from a podiatry standpoint for discharge from [facility]. Patient has a appointment scheduled the wound care center for Wednesday, November 29, 2017. Please contact wound center verify what time her appointment is.
--- NOTE | 2017-11-25 21:14 | PDOC PROGRESS REPORT ---
Subjective Progress Note for:: 11/25/17 Subjective:: Nikki states that she has been doing quite well again today. She feels that she will be ready to go home tomorrow per her current plan. She will require numerous things including a prescription for her IV antibiotics in including an inscription for medical equipment and lab testing per the protocol of the home health agency. She states that all things are going well for her right now and she is quite anxious to return home for her recovery. She reports that her surgery yesterday went well and that the surgeon has commented that she should still be able to go home tomorrow. Reason For Visit: DM FOOT ULCER, CELLULITIS SIRS Physical Exam Vital Signs: Temp Pulse Resp BP Pulse Ox 98.5 F 78 17 136/76 H 100 11/25/17 14:49 11/25/17 14:49 11/25/17 14:49 11/25/17 14:49 11/25/17 14:49 Intake & Output 11/24/17 11/25/17 11/26/17 06:59 06:59 06:59 Intake Total 1612 2696 300 Output Total 110 Balance 1612 2586 300 Weight 68.8 kg 72.1 kg General appearance: PRESENT: no acute distress, cooperative Head exam: PRESENT: atraumatic, normocephalic Eye exam: PRESENT: conjunctiva pink. ABSENT: nystagmus, scleral icterus Ear exam: PRESENT: normal external ear exam. ABSENT: drainage Mouth exam: PRESENT: neck supple, tongue midline Neck exam: PRESENT: full ROM. ABSENT: tracheal deviation Respiratory exam: PRESENT: clear to auscultation too, symmetrical, unlabored Cardiovascular exam: PRESENT: RRR. ABSENT: clicks, gallop, rubs Pulses: PRESENT: normal carotid pulses, normal radial pulses Vascular exam: PRESENT: normal capillary refill, pallor GI/Abdominal exam: PRESENT: normal bowel sounds, soft. ABSENT: distended, mass , tenderness Rectal exam: PRESENT: deferred Extremities exam: ABSENT: joint swelling, pedal edema Musculoskeletal exam: PRESENT: full ROM, other - There is post amputation of the right forefoot. Neurological exam: PRESENT: alert, awake, oriented to person, oriented to place , oriented to time, oriented to situation, CN II-XII grossly intact. ABSENT: motor sensory deficit Psychiatric exam: PRESENT: appropriate affect, normal mood Skin exam: ABSENT: jaundice, rash, urticaria Results Laboratory Results: 11/22/17 06:26 11/22/17 06:26 Impressions: Lower Extremity MRI 11/19/17 00:00 IMPRESSION: Left plantar/lateral ulcer at the level of the 5th metatarsal amputation. There is adjacent enhancement and edema at the base of the 5th metatarsal and cuboid bone worrisome for osteomyelitis. No well circumscribed abscess. Guidance Fluoroscopy 11/23/17 00:00 IMPRESSION: SUCCESSFUL PLACEMENT OF A 5 FR DUAL LUMEN 40 CM PICC IN THE LEFT BASILIC VEIN. Interventional Vascular Procedure 11/23/17 00:00 IMPRESSION: SUCCESSFUL PLACEMENT OF A 5 FR DUAL LUMEN 40 CM PICC IN THE LEFT BASILIC VEIN. PICC Line Insertion 11/23/17 00:00 IMPRESSION: SUCCESSFUL PLACEMENT OF A 5 FR DUAL LUMEN 40 CM PICC IN THE LEFT BASILIC VEIN. Fluoroscopy 11/24/17 00:00 IMPRESSION: Intra procedural imaging and fluoro. Foot X-Ray 11/24/17 00:00 IMPRESSION: Intra procedural imaging and fluoro. Assessment & Plan - Diagnosis (1) Diabetes Qualifiers: Diabetes mellitus type: type 2 Diabetes mellitus computer terminal operator insulin use: with custodial use Diabetes mellitus complication status: with skin complications Diabetes mellitus complication detail: with foot ulcer Qualified Code(s): E11.621 - Type 2 diabetes mellitus with foot ulcer; L97.509 - Non-pressure chronic ulcer of other part of unspecified foot with unspecified severity; L97.509 - Non-pressure chronic ulcer of other part of unspecified foot with unspecified severity; L97.509 - Non-pressure chronic ulcer of other part of unspecified foot with unspecified severity; L97.509 - Non-pressure chronic ulcer of other part of unspecified foot with unspecified severity; Z79.4 - assisted (current) use of insulin; Z79.4 - computer terminal operator (current) use of insulin; Z79.4 - computer terminal operator (current) use of insulin; Z79.4 - computer terminal operator (current ) use of insulin Is this a current diagnosis for this admission?: Yes Plan: Current plan is to continue her medications as presently ordered. Continue monitoring with before meals and at bedtime blood sugars and sliding scale for correction. 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 (3) Osteomyelitis Qualifiers: Osteomyelitis location: foot Is this a current diagnosis for this admission?: Yes Plan: Continue current antibiotic therapy even after discharge per recommendations of her surgeon. - Time Time Spent with patient: 25-34 minutes Medications reviewed and adjusted accordingly: Yes Within: within 24 hours
[2017-11-25] MEDS: TRAZODONE HCL 50 MG TABLET PO SCH (21:22)
[2017-11-25] MEDS: INSULIN GLARGINE,HUM.REC.ANLOG 1,000 UNIT/10 ML UNIT SUBCUT SCH (21:41)
[2017-11-26] MEDS: AMPICILLIN SODIUM/SULBACTAM NA 3 GM in NORMAL SALINE 100 ML IV SCH ×3 (03:25→14:41)
[2017-11-26] MEDS: MORPHINE SULFATE 10 MG/ML INJ IV PRN ×2 (03:25→10:54)
[2017-11-26] MEDS: HEPARIN SOD (PORCINE) 5,000 UNIT/ML 1 ML SYRINGE SUBCUT SCH ×2 (05:14→14:44)
[2017-11-26] MEDS: KETOROLAC TROMETHAMINE INJ/PF 30 MG/1 ML SDV IV PRN ×2 (06:30→13:33)
[2017-11-26] MEDS: ACETAMINOPHEN 325 MG TABLET PO PRN (08:30)
[2017-11-26] MEDS: INSULIN LISPRO 100 UNIT/ML 3 ML VIAL SUBCUT SCH ×3 (08:31→16:56)
[2017-11-26] MEDS: CETIRIZINE 10 MG TABLET PO SCH (09:35)
[2017-11-26] MEDS: DOCUSATE SODIUM 100 MG CAPSULE PO SCH (09:35)
[2017-11-26] MEDS: ARIPIPRAZOLE 5 MG TABLET PO SCH (09:35)
[2017-11-26] MEDS: NORMAL SALINE 10 ML SDV (AFTER EACH USE) IV PRN ×3 (10:11→16:50)
[2017-11-26] MEDS: NORMAL SALINE 10 ML SDV (SCHEDULED) IV SCH (10:11)
[2017-11-26] MEDS ORDERED: ERTAPENEM SODIUM INJ 1 GM VIAL IV ONE (13:10)
[2017-11-26] MEDS ORDERED: ERTAPENEM SODIUM 1 GM in NORMAL SALINE 50 ML IV ONE (15:00)
[2017-11-26 16:01] VITALS: BP 132/60
--- NOTE | 2017-11-26 22:31 | PDOC DISCHARGE SUMMARY ---
General - Admit/Disc Date/PCP Admission Date/Primary Care Provider: 11/19/17 00:18 KWESI BLOOM, DO Discharge Date: 11/26/17 - Discharge Diagnosis (1) Diabetes Is this a current diagnosis for this admission?: Yes Summary: Chronic problem without significant complication during this hospital course. (2) Foot ulcer, right Is this a current diagnosis for this admission?: Yes Summary: The ulceration has been debrided several times during her course and is showing adequate response to treatment at the time if her discharge. (3) Osteomyelitis Is this a current diagnosis for this admission?: Yes Summary: Present in the right cuboid bone of the ankle on MRI. treatment with IV antibiotics is continuing post hospitalization woith infusion therapy. - Additional Information Resuscitation Status: Full Code Discharge Diet: Diabetic Discharge Activity: Activity As Tolerated, Balance Activity w/Rest Prescriptions: Ertapenem Sodium [Ertapenem] 1 gm IV-INFUSE DAILY 14 Days #14 vial MDD 1 gram Insulin Glargine,Hum.rec.anlog [Lantus Solostar] 40 unit SQ QHS 30 Days #4 insuln.pen Insulin Aspart [Novolog Flexpen] 6 unit SUBCUT AC 30 Days #2 insuln.pen Trazodone HCl [Desyrel 50 mg Tablet] 150 mg PO QHS 30 Days #30 tablet Home Medications: Albuterol Sulfate [Proair HFA] 2 puff IH Q6HP PRN 11/19/17 Atorvastatin Calcium [Lipitor 20 mg Tablet] 20 mg PO DAILY 11/19/17 Diazepam [Valium 5 mg Tablet] 5 mg PO Q8HP PRN 11/19/17 Aripiprazole [Abilify 15 mg Tablet] 15 mg PO DAILY #0 11/26/17 Cetirizine HCl [Zyrtec 10 mg Tablet] 10 mg PO DAILY tablet 11/26/17 Docusate Sodium [Colace 100 mg Capsule] 100 mg PO BID capsule 11/26/17 Ertapenem Sodium [Ertapenem] 1 gm IV-INFUSE DAILY 14 Days #14 vial MDD 1 gram Insulin Aspart [Novolog Flexpen] 6 unit SUBCUT AC 30 Days #2 insuln.pen Insulin Glargine,Hum.rec.anlog [Lantus Solostar] 40 unit SQ QHS 30 Days #4 insuln.pen 11/26/17 Trazodone HCl [Desyrel 50 mg Tablet] 150 mg PO QHS 30 Days #30 tablet 11/26/17 History of Present Illness History of Present Illness: NIKKI WILLARD is a 42 year old female with a past medical history of tobacco, chronic bronchitis, COPD, GERD, bipolar disorder, poorly controlled insulin- dependent diabetes and prior transmetatarsal amputation of the right foot. She is a patient of responder Dr. Chang and the wound care clinic for chronic ulceration of the right foot wound. Over the last 24 hours she has had significant throbbing and pain prompting evaluation emergency room where she was found to have copious necrotic tissue with purulent drainage and erythema of the leg to the knee. She started on empiric antibiotics, evaluated by surgery, ordered MRI and referred to the hospitalist for admission. Hospital Course Hospital Course: Nikki was treated with broad spectrum antibiotic therapy during her hospital course and this will be continued on an outpatient basis with infusion therapy. She underwent several debridement procedures of her right foot ulcer and her surgeon felt that her wound appeared satisfactory and showed evidence of healing thus allowing for discharge to outpatient wound clinic and infusion therapy follow up. Her chronic multiple chronic medical problems were managed by the hospitalist service throughout the hospitalization. Physical Exam Vital Signs: Temp Pulse Resp BP Pulse Ox 97.9 F 73 16 132/60 H 99 11/26/17 17:04 11/26/17 17:04 11/26/17 17:04 11/26/17 17:04 11/26/17 17:04 Intake & Output 11/25/17 11/26/17 11/27/17 06:59 06:59 06:59 Intake Total 2696 1000 100 Output Total 110 Balance 2586 1000 100 Weight 72.1 kg 71.5 kg General appearance: PRESENT: no acute distress, cooperative Head exam: PRESENT: atraumatic, normocephalic Eye exam: PRESENT: conjunctiva pink. ABSENT: scleral icterus Ear exam: PRESENT: normal external ear exam. ABSENT: bleeding Mouth exam: PRESENT: neck supple, tongue midline Neck exam: PRESENT: full ROM. ABSENT: tracheal deviation Respiratory exam: PRESENT: clear to auscultation too, symmetrical, unlabored Cardiovascular exam: PRESENT: RRR. ABSENT: clicks, diastolic murmur, gallop, rubs, systolic murmur Vascular exam: PRESENT: normal capillary refill. ABSENT: pallor GI/Abdominal exam: PRESENT: distended, normal bowel sounds, soft. ABSENT: tenderness Extremities exam: PRESENT: other - S/P right forefoot amputation. ABSENT: clubbing, joint swelling Musculoskeletal exam: ABSENT: deformity, dislocation Neurological exam: PRESENT: alert, awake, oriented to person, oriented to place , oriented to time, oriented to situation, CN II-XII grossly intact. ABSENT: motor sensory deficit Psychiatric exam: PRESENT: appropriate affect, normal mood Skin exam: ABSENT: jaundice, rash, urticaria Results Laboratory Results: 11/22/17 06:26 11/22/17 06:26 Impressions: Lower Extremity MRI 11/19/17 00:00 IMPRESSION: Left plantar/lateral ulcer at the level of the 5th metatarsal amputation. There is adjacent enhancement and edema at the base of the 5th metatarsal and cuboid bone worrisome for osteomyelitis. No well circumscribed abscess. Guidance Fluoroscopy 11/23/17 00:00 IMPRESSION: SUCCESSFUL PLACEMENT OF A 5 FR DUAL LUMEN 40 CM PICC IN THE LEFT BASILIC VEIN. Interventional Vascular Procedure 11/23/17 00:00 IMPRESSION: SUCCESSFUL PLACEMENT OF A 5 FR DUAL LUMEN 40 CM PICC IN THE LEFT BASILIC VEIN. PICC Line Insertion 11/23/17 00:00 IMPRESSION: SUCCESSFUL PLACEMENT OF A 5 FR DUAL LUMEN 40 CM PICC IN THE LEFT BASILIC VEIN. Fluoroscopy 11/24/17 00:00 IMPRESSION: Intra procedural imaging and fluoro. Foot X-Ray 11/24/17 00:00 IMPRESSION: Intra procedural imaging and fluoro. Qualifiers - * PATIENT BEING DISCHARGED WITH ANY OF THE FOLLOWING DIAGNOSIS: No Plan Time Spent: Greater than 30 Minutes
== END 2017-11-26 17:25 | disposition home health service (06) | DRG 854 ==
LOC: ER 19:44 → EH 11-19 00:18 → 2N 11-19 01:05 → 4S 11-19 04:15
PROVIDERS: ADMIT Internal Medicine; ATTEND Internal Medicine
PROC: 02HV33Z Insertion of Infusion Device into Superior Vena Cava, Percutaneous Approach (ICD-10-PCS; 2017-11-23)
PROC: B518ZZA Fluoroscopy of Superior Vena Cava, Guidance (ICD-10-PCS; 2017-11-23)
PROC: B548ZZA Ultrasonography of Superior Vena Cava, Guidance (ICD-10-PCS; 2017-11-23)
PROC: 0QBN0ZZ Excision of Right Metatarsal, Open Approach (ICD-10-PCS; principal; 2017-11-24 20:30)
DX: A41.9 Sepsis, unspecified organism (principal); L03.115 Cellulitis of right lower limb; M86.9 Osteomyelitis, unspecified; T87.43 Infection of amputation stump, right lower extremity; E11.621 Type 2 diabetes mellitus with foot ulcer; L97.513 Non-pressure chronic ulcer of other part of right foot with necrosis of muscle; E11.69 Type 2 diabetes mellitus with other specified complication; E11.628 Type 2 diabetes mellitus with other skin complications; J44.9 Chronic obstructive pulmonary disease, unspecified; F31.9 Bipolar disorder, unspecified; E78.5 Hyperlipidemia, unspecified; K21.9 Gastro-esophageal reflux disease without esophagitis; E11.40 Type 2 diabetes mellitus with diabetic neuropathy, unspecified; B95.61 Methicillin susceptible Staphylococcus aureus infection as the cause of diseases classified elsewhere; F43.10 Post-traumatic stress disorder, unspecified; Z90.49 Acquired absence of other specified parts of digestive tract; Z89.422 Acquired absence of other left toe(s); Z87.891 Personal history of nicotine dependence; Z83.3 Family history of diabetes mellitus; Z82.49 Family history of ischemic heart disease and other diseases of the circulatory system; Z79.4 Long term (current) use of insulin; Z89.421 Acquired absence of other right toe(s)
CPT/HCPCS: 01480; 36415; 36569; 76937; 77001; 80048; 80053; 80202; 80307; 82962; 83036; 85025; 85652; 86140; 87040; 87070; 87075; 87205; 93926; 94640; 96374; 99285; A9576; C1769; J0295; J1335; J1642; J1644; J1815; J1885; J2060; J2250; J2270; J2405; J2543; J2704; J3010; J3370; J3490; J7060; J7620

== ENCOUNTER 2018-06-22 09:17 | Day surgery (SDC) | payer MEDICAID ==
[~2018-06-22 09:17] MED LIST: KETOROLAC TROMETHAMINE 0.45% 4 DROP/0.4 ML DROPERETTE OD PRN
[2018-06-22] MEDS: TROPICAMIDE 1% OPH SOLN 3 ML OD PRN ×3 (10:03→10:26)
[2018-06-22] MEDS: CYCLOPENTOLATE 0.2%/PHENYLEPHRINE 1% OPH SOLN 2 ML OD PRN ×3 (10:03→10:26)
[2018-06-22] MEDS: BESIFLOXACIN HCL 0.6% OPH SUSP 5 ML BOTTLE OD PRN ×4 (10:04→10:47)
[2018-06-22] MEDS: TETRACAINE HCL 0.5% OPH SOLN 0.6 ML DROPERETTE OD PRN ×3 (10:05→10:29)
[2018-06-22] MEDS ORDERED: MIDAZOLAM 2 MG/2 ML INJ ONE (10:24)
[2018-06-22] MEDS: LIDOCAINE 1% INJ-PF (10 MG/ML) 30 ML SDV ONE ×2 (10:38)
[2018-06-22] MEDS: EPINEPHRINE INJ/PF 1 MG/1 ML AMPULE ONE ×2 (10:38)
[2018-06-22] MEDS: CHONDR SU A NA/HYALUR INTRAOC KIT (SURGICARE) ONE ×2 (10:38)
[2018-06-22] MEDS: TOBRAMYCIN SULFATE/DEXAMETH OPH OINTMENT 3.5 GM ONE ×2 (10:47)
== END 2018-06-22 11:12 | disposition home or self-care (01) ==
LOC: SC 09:17
PROVIDERS: ATTEND Ophthalmology
DX: H25.11 Age-related nuclear cataract, right eye (principal); H40.1131 Primary open-angle glaucoma, bilateral, mild stage; E11.9 Type 2 diabetes mellitus without complications; I10 Essential (primary) hypertension; J44.9 Chronic obstructive pulmonary disease, unspecified; F17.210 Nicotine dependence, cigarettes, uncomplicated; Z86.73 Personal history of transient ischemic attack (TIA), and cerebral infarction without residual deficits; Z79.51 Long term (current) use of inhaled steroids; Z79.899 Other long term (current) drug therapy; Z79.4 Long term (current) use of insulin
CPT/HCPCS: 66984; 82962; V2632; J2250; J3490 ×5; J0171; 142

== ENCOUNTER 2018-07-06 11:08 | Day surgery (SDC) | payer MEDICAID ==
[~2018-07-06 11:08] MED LIST changes: -KETOROLAC TROMETHAMINE 0.45% 4 DROP/0.4 ML DROPERETTE OD PRN; +KETOROLAC TROMETHAMINE 0.45% 4 DROP/0.4 ML DROPERETTE OS PRN
[2018-07-06] MEDS: BESIFLOXACIN HCL 0.6% OPH SUSP 5 ML BOTTLE OS PRN ×4 (11:40→12:32)
[2018-07-06] MEDS: CYCLOPENTOLATE 0.2%/PHENYLEPHRINE 1% OPH SOLN 2 ML OS PRN ×3 (11:40→12:00)
[2018-07-06] MEDS: TROPICAMIDE 1% OPH SOLN 3 ML OS PRN ×3 (11:40→12:00)
[2018-07-06] MEDS: TETRACAINE HCL 0.5% OPH SOLN 0.6 ML DROPERETTE OS PRN ×3 (11:41→12:17)
[2018-07-06] MEDS ORDERED: MIDAZOLAM 2 MG/2 ML INJ ONE (12:07)
[2018-07-06] MEDS: EPINEPHRINE INJ/PF 1 MG/1 ML AMPULE ONE ×2 (12:24)
[2018-07-06] MEDS: LIDOCAINE 1% INJ-PF (10 MG/ML) 30 ML SDV ONE ×2 (12:24)
[2018-07-06] MEDS: CHONDR SU A NA/HYALUR INTRAOC KIT (SURGICARE) ONE ×2 (12:24)
[2018-07-06] MEDS: TOBRAMYCIN SULFATE/DEXAMETH OPH OINTMENT 3.5 GM ONE ×2 (12:32)
== END 2018-07-06 13:05 | disposition home or self-care (01) ==
LOC: SC 11:08
PROVIDERS: ATTEND Ophthalmology
DX: H25.12 Age-related nuclear cataract, left eye (principal); Z98.41 Cataract extraction status, right eye; E11.9 Type 2 diabetes mellitus without complications; I10 Essential (primary) hypertension; F17.210 Nicotine dependence, cigarettes, uncomplicated; E66.9 Obesity, unspecified; Z79.51 Long term (current) use of inhaled steroids; Z79.4 Long term (current) use of insulin; Z79.899 Other long term (current) drug therapy; Z68.30 Body mass index [BMI] 30.0-30.9, adult; Z86.14 Personal history of Methicillin resistant Staphylococcus aureus infection
CPT/HCPCS: 82962; 66984; V2632; J2250; J3490 ×5; J0171; 142

== ENCOUNTER 2018-07-18 15:42 | Inpatient (IN) | payer MEDICAID ==
--- NOTE | 2018-07-18 17:10 | ER Document Report ---
ED Medical Screen (RME) - General Chief Complaint: Foot Pain Stated Complaint: FOOT PAIN Time Seen by Provider: 07/18/18 16:59 Primary Care Provider: KWESI BLOOM DO [Primary Care Provider] - Follow up as needed Mode of Arrival: Wheelchair Information source: Patient Notes: Patient is a 42-year-old female emergency department with a wound to the plantar surface of her right foot. Patient reports that she had all 5 toes amputated and was in wound therapy up until February when she lost her transportation so she stopped going. Patient states today she went to see the wound care doctor who directed her to the ER as he states that her foot has gangrene. Patient denies any fevers but reports some nausea and diarrhea. Exam: Patient alert, answering all questions appropriately. Wound is wrapped extensively, will defer until patient is in room to have patient unwrap this wound. I have greeted and performed a rapid initial assessment of this patient. A co mprehensive ED assessment and evaluation of the patient, analysis of test results and completion of the medical decision making process will be conducted by additional ED providers. Dictation of this chart was performed using voice recognition software; therefore, there may be some unintended grammatical errors. TRAVEL OUTSIDE OF THE [place] IN LAST 30 DAYS: No - Related Data Allergies/Adverse Reactions: adhesive [Adhesive] Allergy (Mild, Verified 07/18/18 15:57) skin breakdown, red, itching Past Medical History - Social History Frequency of alcohol use: None Drug Abuse: Marijuana - Past Medical History Cardiac Medical History: Reports: Hx Hypercholesterolemia Denies: Hx Heart Attack, Hx Hypertension Pulmonary Medical History: Reports: Hx Bronchitis, Hx COPD Denies: Hx Asthma Neurological Medical History: Denies: Hx Cerebrovascular Accident, Hx Seizures Endocrine Medical History: Reports: Hx Diabetes Mellitus Type 1, Hx Diabetes Mellitus Type 2 Renal/ Medical History: Denies: Hx Peritoneal Dialysis GI Medical History: Reports: Hx Gastroesophageal Reflux Disease, Hx Ulcer. Denies: Hx Hepatitis, Hx Hiatal Hernia Musculoskeltal Medical History: Psychiatric Medical History: Reports: Hx Anxiety, Hx Bipolar Disorder, Hx Depression - anxiety, Hx Post Traumatic Stress Disorder Infectious Medical History: Denies: Hx Hepatitis Past Surgical History: Reports: Hx Abdominal Surgery, Hx Appendectomy, Hx Section, Hx Cholecystectomy, Hx Orthopedic Surgery - right foot 5 toes amputation, 3 toes amputation left foot. Denies: Hx Mastectomy, Hx Open Heart Surgery, Hx Pacemaker - Immunizations Hx Diphtheria, Pertussis, Tetanus Vaccination: Yes Physical Exam - Vital signs Vitals: Temp Pulse Resp BP Pulse Ox 98.2 F 99 16 118/67 97 07/18/18 16:07 07/18/18 16:07 07/18/18 16:07 07/18/18 16:07 07/18/18 16:07 Course - Vital Signs Vital signs: Temp Pulse Resp BP Pulse Ox 98.2 F 99 16 118/67 97 07/18/18 16:07 07/18/18 16:07 07/18/18 16:07 07/18/18 16:07 07/18/18 16:07 Doctor's Discharge - Discharge Referrals: KWESI BLOOM DO [Primary Care Provider] - Follow up as needed
--- NOTE | 2018-07-18 17:44 | RADIOLOGY REPORT (SQ) ---
EXAM DESCRIPTION: FOOT RIGHT COMPLETE COMPLETED DATE/TIME: 07/18/2018 5:22 pm REASON FOR STUDY: eval for osteomyelitis COMPARISON: None. NUMBER OF VIEWS: Three views. TECHNIQUE: AP, lateral and oblique radiographic images acquired of the right foot. LIMITATIONS: None. FINDINGS: MINERALIZATION: Normal. BONES: Forefoot amputation. Anterior wound. No evidence of osteomyelitis. JOINTS: No effusions. SOFT TISSUES: No soft tissue swelling. No foreign body. OTHER: No other significant finding. IMPRESSION: No evidence of osteomyelitis. TECHNICAL DOCUMENTATION: JOB ID: [id number] [employer]- All Rights Reserved Reading location - IP/workstation name: [email or web address]
[2018-07-18 18:08] LABS: ABSOLUTE BASOPHILS # (AUTO) 0.1 10^3/uL (0.0-0.2); ABSOLUTE EOSINOPHILS # (AUTO) 0.2 10^3/uL (0.0-0.6); ABSOLUTE MONOCYTES (AUTO) 0.8 10^3/uL (0.1-1.4); ABSOLUTE NEUT (AUTO) 11.2 10^3/uL (1.7-8.2); BASOPHILS % (AUTO) 0.9 % (0-2); EOSINOPHILS % (AUTO) 0.9 % (0-6); HEMATOCRIT 46.3 % (36.0-47.0); HEMOGLOBIN 15.8 g/dL (12.0-15.5); LYMPHOCYTES % (AUTO) 24.5 % (13-45); MEAN CORPUSCULAR HEMOGLOBIN 29.7 pg (27.0-33.4); MEAN CORPUSCULAR HGB CONC 34.1 g/dL (32.0-36.0); MEAN CORPUSCULAR VOLUME 87 fl (80-97); MONOCYTES % (AUTO) 4.7 % (3-13); PLATELET COUNT 255 10^3/uL (150-450); RED BLOOD COUNT 5.33 10^6/uL (3.72-5.28); TOTAL CELLS COUNTED % (AUTO) 100 %; WHITE BLOOD COUNT 16.3 10^3/uL (4.0-10.5)
[2018-07-18] MEDS ORDERED: VANCOMYCIN HCL INJ 1000 MG VIAL IV ONE (18:38)
[2018-07-18] MEDS ORDERED: PIPERACILLIN/TAZOBACTAM 3.375 GM VIAL IV ONE (18:38)
[2018-07-18] MEDS ORDERED: HYDROMORPHONE HCL INJ/PF 2 MG/ML AMPULE IV ONE (18:38)
[2018-07-18] MEDS ORDERED: RINGERS SOLUTION,LACTATED 1,000 ML IV ONE (18:39)
[2018-07-18 18:40] LABS: ALANINE AMINOTRANSFERASE 11 U/L (9-52); ALBUMIN 3.7 g/dL (3.5-5.0); ALKALINE PHOSPHATASE 128 U/L (38-126); ANION GAP 11 (5-19); ASPARTATE AMINO TRANSFERASE 11 U/L (14-36); BILIRUBIN,DIRECT 0.2 mg/dL (0.0-0.4); BILIRUBIN,TOTAL 0.5 mg/dL (0.2-1.3); BLOOD UREA NITROGEN 9 mg/dL (7-20); C-REACTIVE PROTEIN 59.8 mg/L (<10.0); CALCIUM 9.2 mg/dL (8.4-10.2); CARBON DIOXIDE 28 mmol/L (22-30); CHLORIDE 98 mmol/L (98-107); GLUCOSE 327 mg/dL (75-110); POTASSIUM 4.2 mmol/L (3.6-5.0); SODIUM 136.8 mmol/L (137-145); TOTAL PROTEIN 7.2 g/dL (6.3-8.2)
[2018-07-18 18:47] LABS: ERYTHROCYTE SEDIMENTATION RATE 72 mm/hr (0-20)
--- NOTE | 2018-07-18 20:49 | ER Document Report ---
ED General - General Chief Complaint: Foot Pain Stated Complaint: FOOT PAIN Time Seen by Provider: 07/18/18 16:59 Primary Care Provider: KWESI BLOOM DO [Primary Care Provider] - Follow up as needed Mode of Arrival: Wheelchair Information source: Patient, Relative, [facility] Records Notes: 42-year-old female with type 1 diabetes,, COPD, history of right toe amputation presents with concern for infected diabetic foot wound. Patient states that she has been undergoing wound management for several years and when she saw Dr. Chnag today he stated that he was concerned that the patient's foot was now infected. Patient denies any fever, chills, nausea, vomiting. She does admit to increased pain in the right foot. TRAVEL OUTSIDE OF THE [place] IN LAST 30 DAYS: No - HPI Onset: Other Onset/Duration: Gradual, Persistent, Worse Quality of pain: Throbbing Severity: Moderate Associated symptoms: Body/muscle aches. denies: Chest pain, Fever, Nausea, Vomiting, Shortness of breath Exacerbated by: Walking Relieved by: Denies Similar symptoms previously: Yes Recently seen / treated by doctor: Yes - Dr. Chang at wound care - Related Data Allergies/Adverse Reactions: adhesive [Adhesive] Allergy (Mild, Verified 07/18/18 15:57) skin breakdown, red, itching Past Medical History - General Information source: Patient - Social History Smoking Status: Current Every Day Smoker Frequency of alcohol use: None Drug Abuse: Marijuana Lives with: Family Family History: DM, Hypertension Patient has suicidal ideation: No Patient has homicidal ideation: No - Past Medical History Cardiac Medical History: Reports: Hx Hypercholesterolemia Denies: Hx Heart Attack, Hx Hypertension Pulmonary Medical History: Reports: Hx Bronchitis, Hx COPD Denies: Hx Asthma Neurological Medical History: Denies: Hx Cerebrovascular Accident, Hx Seizures Endocrine Medical History: Reports: Hx Diabetes Mellitus Type 1, Hx Diabetes Mellitus Type 2 Renal/ Medical History: Denies: Hx Peritoneal Dialysis GI Medical History: Reports: Hx Gastroesophageal Reflux Disease, Hx Ulcer. Denies: Hx Hepatitis, Hx Hiatal Hernia Musculoskeletal Medical History: Psychiatric Medical History: Reports: Hx Anxiety, Hx Bipolar Disorder, Hx Depression - anxiety, Hx Post Traumatic Stress Disorder Infectious Medical History: Denies: Hx Hepatitis Past Surgical History: Reports: Hx Abdominal Surgery, Hx Appendectomy, Hx Section, Hx Cholecystectomy, Hx Orthopedic Surgery - right foot 5 toes amputation, 3 toes amputation left foot. Denies: Hx Mastectomy, Hx Open Heart Surgery, Hx Pacemaker - Immunizations Hx Diphtheria, Pertussis, Tetanus Vaccination: Yes Review of Systems - Review of Systems Notes: REVIEW OF SYSTEMS: CONSTITUTIONAL : Denies fever, chills, or sweats. Denies recent illness. Denies weight loss, recent hospitalizations. EENT: Denies visual changes, eye pain. Denies sore throat, oral lesions, difficulty swallowing. CARDIOVASCULAR: Denies chest pain. Denies palpitations. Denies lower extremity edema. RESPIRATORY: Denies cough. Denies shortness of breath, wheezing. GASTROINTESTINAL: Denies abdominal pain or distention. Denies vomiting, or diarrhea. Denies blood in vomitus, stools, or per rectum. Denies black, tarry stools. Denies constipation. GENITOURINARY: Denies difficulty urinating, painful urination, frequency, blood in urine, or vaginal discharge. MUSCULOSKELETAL: Denies back or neck pain or stiffness. SKIN: Denies rash, lesions + right foot wound. HEMATOLOGIC : Denies easy bruising or bleeding. LYMPHATIC: Denies swollen glands. NEUROLOGICAL: Denies confusion or altered mental status. Denies loss of consciousness. Denies dizziness or lightheadedness. Denies headache. Denies weakness or paralysis. Denies problems difficulty with ambulation, slurred speech. Denies sensory loss, numbness, or tingling. Denies seizures. PSYCHIATRIC: Denies anxiety or stress. Denies depression, suicidal ideation, or homicidal ideation. Denies visual or auditory hallucinations. Physical Exam - Vital signs Vitals: Temp Pulse Resp BP Pulse Ox 98.2 F 99 16 118/67 97 07/18/18 16:07 07/18/18 16:07 07/18/18 16:07 07/18/18 16:07 07/18/18 16:07 - Notes Notes: PHYSICAL EXAMINATION: GENERAL: Well-appearing, well-nourished and in no acute distress. HEAD: Atraumatic, normocephalic. EYES: Pupils equal round and reactive to light, extraocular movements intact, conjunctiva are normal. ENT: Nares patent, oropharynx clear without exudates. Moist mucous membranes. NECK: Normal range of motion, supple without lymphadenopathy LUNGS: Breath sounds clear to auscultation bilaterally and equal. No wheezes rales or rhonchi. HEART: Regular rate and rhythm without murmurs ABDOMEN: Soft, nontender, nondistended abdomen. No guarding, no rebound. No masses appreciated. Female : deferred Musculoskeletal: Normal range of motion, no pitting or edema. No cyanosis. Right foot with all toes amputated and a large 5 x 5 cm wound on the plantar aspect of the right foot with foul smelling purulent drainage. NEUROLOGICAL: Cranial nerves grossly intact. Normal speech, normal gait. Normal sensory, motor exams PSYCH: Normal mood, normal affect. SKIN: 5 x 5 cm wound on the plantar aspect of the right foot with foul smelling purulent drainage. Course - Re-evaluation Re-evalutation: 07/18/18 21:00 Laboratory 07/18/18 07/18/18 17:40 17:40 WBC 16.3 H RBC 5.33 H Hgb 15.8 H Hct 46.3 MCV 87 MCH 29.7 MCHC 34.1 RDW 13.0 Plt Count 255 Seg Neutrophils % 69.0 Lymphocytes % 24.5 Monocytes % 4.7 Eosinophils % 0.9 Basophils % 0.9 Absolute Neutrophils 11.2 H Absolute Lymphocytes 4.0 Absolute Monocytes 0.8 Absolute Eosinophils 0.2 Absolute Basophils 0.1 ESR 72 H Sodium 136.8 L Potassium 4.2 Chloride 98 Carbon Dioxide 28 Anion Gap 11 BUN 9 Creatinine 0.46 L Est GFR ( Amer) > 60 Est GFR (Non-Af Amer) > 60 Glucose 327 H Calcium 9.2 Total Bilirubin 0.5 Direct Bilirubin 0.2 Neonat Total Bilirubin Not Reportable Neonat Direct Bilirubin Not Reportable Neonat Indirect Bili Not Reportable AST 11 L ALT 11 Alkaline Phosphatase 128 H C-Reactive Protein 59.8 H Total Protein 7.2 Albumin 3.7 Foot X-Ray 07/18/18 17:03 IMPRESSION: No evidence of osteomyelitis. Temp Pulse Resp BP Pulse Ox 98.2 F 99 16 118/67 97 07/18/18 16:07 07/18/18 16:07 07/18/18 16:07 07/18/18 16:07 07/18/18 16:07 42-year-old female with type 1 diabetes presents with concern for infection of h er right foot. Vital signs reviewed and patient is afebrile, normotensive. Patient does not appear toxic or dehydrated. She is in no acute distress. Previous medical records and nursing notes reviewed. CBC shows a leukocytosis of 16. CRP, ESR are elevated. X-rays of the right foot were obtained and showed no evidence of osteomyelitis. Patient was started on Vanco, Zosyn. Surgery consulted for debridement and agreed to be consulted but would like a medicine admission. Dr. Becerra consulted and is refusing admission but has agreed to consult. Dr. Bustos made aware of his refusal of admission but states that this needs to be a medical admission. Nursing trash collector supervisor contacted help assist with the the patient's disposition. 07/18/18 21:52 Per nursing trash collector supervisor patient will be held in the emergency department until surgery takes her to the OR. - Vital Signs Vital signs: Temp Pulse Resp BP Pulse Ox 98.2 F 99 16 118/67 97 07/18/18 16:07 07/18/18 16:07 07/18/18 16:07 07/18/18 16:07 07/18/18 16:07 - Laboratory Result Diagrams: 07/18/18 17:40 07/18/18 17:40 Laboratory results interpreted by me: 07/18/18 07/18/18 17:40 17:40 WBC 16.3 H RBC 5.33 H Hgb 15.8 H Absolute Neutrophils 11.2 H ESR 72 H Sodium 136.8 L Creatinine 0.46 L Glucose 327 H AST 11 L Alkaline Phosphatase 128 H C-Reactive Protein 59.8 H - Diagnostic Test Radiology reviewed: Image reviewed, Reports reviewed Discharge - Discharge Clinical Impression: Right foot infection Foot ulcer, right Qualifiers: Non-pressure ulcer stage: unspecified non-pressure ulcer stage Qualified Code(s): L97.519 - Non-pressure chronic ulcer of other part of right foot with unspecified severity Diabetes Qualifiers: Diabetes mellitus type: type 1 Diabetes mellitus complication status: with unspecified complications Qualified Code(s): E10.8 - Type 1 diabetes mellitus with unspecified complications Condition: Good Disposition: OTHER Unit Admitted: OR Referrals: KWESI BLOOM DO [Primary Care Provider] - Follow up as needed
[2018-07-18] MEDS ORDERED: DEXTROSE 50%-WATER 25 GM/50 ML DISP.SYRIN IV PRN ×2 (20:53)
[2018-07-18] MEDS ORDERED: HYDRALAZINE HCL INJ/PF 20 MG/1 ML SDV IV PRN (20:53)
[2018-07-18] MEDS ORDERED: GLUCAGON,HUMAN RECOMB 1 MG INJ IM PRN (20:53)
[2018-07-18] MEDS ORDERED: DEXTROSE 40% GEL 15 GM TUBE PO PRN ×2 (20:53)
[2018-07-18] MEDS ORDERED: IPRATROPIUM/ALBUTEROL 0.5-2.5 MG/3 ML AMPUL NEB PRN (20:53)
[2018-07-18] MEDS: INSULIN LISPRO 100 UNIT/ML 3 ML VIAL SUBCUT SCH (22:07)
[2018-07-19] MEDS: INSULIN GLARGINE,HUM.REC.ANLOG 1,000 UNIT/10 ML VIAL SUBCUT SCH ×2 (00:08→21:30)
[2018-07-19] MEDS: GABAPENTIN 300 MG CAPSULE PO SCH ×4 (00:08→21:30)
[2018-07-19] MEDS: INSULIN LISPRO 100 UNIT/ML 3 ML VIAL SUBCUT SCH ×5 (00:08→21:28)
--- NOTE | 2018-07-19 02:14 | PDOC CONSULTATION ---
Consultation Consult Date: 07/18/18 Attending physician:: KAEL BUSTOS Consult reason:: COPD and diabetes History of Present Illness Admission Date/PCP: KWESI BLOOM DO Patient complains of: Right foot necrosis History of Present Illness: ALMITA WILLARD is a 42 year old female with a past medical history of tobacco, COPD with chronic bronchitis, bipolar disorder, insulin-dependent diabetes with peripheral vascular disease, status post transmetatarsal amputation with persistent nonhealing ulcer. Patient was seen by her shoe repair supervisor Dr. Chang and referred to the emergency department for worsening infection and debridement. Emergency department attending Dr. So consults general surgeon Dr. Bustos for admission with planned "surgery in the morning", hospitalist consulted for medical management. Patient seen in the emergency room with mild distress and a pprehension to surgery otherwise without sepsis, decompensated COPD or metabolic derangement. She admits compliance with diabetic regiment home Accu-Cheks ranging from 130-200, using nebulizers on a regular basis. Unfortunately admits to persistent tobacco dependence but declines transdermal nicotine. Past Medical History Cardiac Medical History: Reports: Hyperlipidema Denies: Myocardial Infarction, Hypertension Pulmonary Medical History: Reports: Bronchitis, Chronic Obstructive Pulmonary Disease (COPD) Denies: Asthma Neurological Medical History: Denies: Seizures Endocrine Medical History: Reports: Diabetes Mellitus Type 1, Diabetes Mellitus Type 2 GI Medical History: Reports: Gastroesophageal Reflux Disease Denies: Hepatitis, Hiatal Hernia Psychiatric Medical History: Reports: Bipolar Disorder, Depression - anxiety, Post Traumatic Stress Disorder, Tobacco Dependency Hematology: Denies: Anemia, Sickle Cell Disease Past Surgical History Past Surgical History: Reports: Amputation - TOES ON RT FEET, 3 ON LEFT FOOT, Appendectomy, Section, Cholecystectomy, Orthopedic Surgery - right foot 5 toes amputation, 3 toes amputation left foot Denies: Mastectomy, Pacemaker Social History Information Source: Patient Lives with: Family Smoking Status: Current Every Day Smoker Frequency of Alcohol Use: None Hx Recreational Drug Use: Yes Drugs: Marijuana Hx Prescription Drug Abuse: No Family History Family History: DM, Hypertension Parental Family History Reviewed: Yes Children Family History Reviewed: Yes Sibling(s) Family History Reviewed.: Yes Medication/Allergy Home Medications: Albuterol Sulfate [Proair HFA] 2 puff IH Q6HP PRN 11/19/17 Diazepam [Valium 5 mg Tablet] 5 mg PO Q8HP PRN 11/19/17 Insulin Aspart [Novolog Flexpen] 6 unit SUBCUT AC 30 Days #2 insuln.pen 11/26/17 Insulin Glargine,Hum.rec.anlog [Lantus Solostar] 40 unit SQ QHS 30 Days #4 insuln.pen 11/26/17 Gabapentin [Neurontin 300 mg Capsule] 900 mg PO Q8 06/17/18 Allergies/Adverse Reactions: adhesive [Adhesive] Allergy (Mild, Verified 07/18/18 15:57) skin breakdown, red, itching Physical Exam Vital Signs: Temp Pulse Resp BP Pulse Ox 100.4 F 96 19 115/57 L 96 07/19/18 00:11 07/19/18 00:11 07/19/18 00:11 07/19/18 00:11 07/19/18 00:11 Intake & Output 07/17/18 07/18/18 07/19/18 11:59 11:59 11:59 Weight 80.9 kg General appearance: PRESENT: cooperative, mild distress, well-developed, well- nourished. ABSENT: disheveled Head exam: PRESENT: atraumatic, normocephalic Eye exam: PRESENT: conjunctiva pink, EOMI, PERRLA. ABSENT: scleral icterus Ear exam: PRESENT: normal external ear exam Mouth exam: PRESENT: moist, tongue midline Neck exam: ABSENT: carotid bruit, JVD, lymphadenopathy, thyromegaly Respiratory exam: PRESENT: clear to auscultation too. ABSENT: rales, rhonchi, w heezes Cardiovascular exam: PRESENT: RRR. ABSENT: diastolic murmur, rubs, systolic murmur Pulses: PRESENT: normal dorsalis pedis pul Vascular exam: PRESENT: normal capillary refill GI/Abdominal exam: PRESENT: normal bowel sounds, soft. ABSENT: distended, guarding, mass, organolmegaly, rebound, tenderness Rectal exam: PRESENT: deferred Extremities exam: PRESENT: full ROM, other - Right sided transmetatarsal ulcer with malodorous, serosanguineous and necrotic discharge.. ABSENT: calf tenderness, clubbing, pedal edema Neurological exam: PRESENT: alert, awake, oriented to person, oriented to place, oriented to time, oriented to situation, CN II-XII grossly intact. ABSENT: motor sensory deficit Psychiatric exam: PRESENT: appropriate affect, normal mood. ABSENT: homicidal ideation, suicidal ideation Skin exam: PRESENT: dry, intact, warm. ABSENT: cyanosis, rash Results Laboratory Results: 07/18/18 17:40 07/18/18 17:40 07/18/18 07/18/18 17:40 17:40 WBC 16.3 H RBC 5.33 H Hgb 15.8 H Hct 46.3 MCV 87 MCH 29.7 MCHC 34.1 RDW 13.0 Plt Count 255 Seg Neutrophils % 69.0 Lymphocytes % 24.5 Monocytes % 4.7 Eosinophils % 0.9 Basophils % 0.9 Absolute Neutrophils 11.2 H Absolute Lymphocytes 4.0 Absolute Monocytes 0.8 Absolute Eosinophils 0.2 Absolute Basophils 0.1 Sodium 136.8 L Potassium 4.2 Chloride 98 Carbon Dioxide 28 Anion Gap 11 BUN 9 Creatinine 0.46 L Est GFR ( Amer) > 60 Est GFR (Non-Af Amer) > 60 Glucose 327 H Calcium 9.2 Total Bilirubin 0.5 AST 11 L ALT 11 Alkaline Phosphatase 128 H C-Reactive Protein 59.8 H Total Protein 7.2 Albumin 3.7 Impressions: Foot X-Ray 07/18/18 17:03 IMPRESSION: No evidence of osteomyelitis. Assessment and Plan - Diagnosis (1) Foot ulcer, right Qualifiers: Non-pressure ulcer stage: unspecified non-pressure ulcer stage Qualified Code(s): L97.519 - Non-pressure chronic ulcer of other part of right foot with unspecified severity Is this a current diagnosis for this admission?: Yes Plan: Defer to surgery (2) Osteomyelitis Qualifiers: Osteomyelitis location: foot Is this a current diagnosis for this admission?: Yes Plan: Defer to surgery (3) COPD (chronic obstructive pulmonary disease) Is this a current diagnosis for this admission?: Yes Plan: Compensated, incentive spirometry, flutter valve, scheduled DuoNeb. (4) Diabetes Qualifiers: Diabetes mellitus type: type 1 Diabetes mellitus complication status: with unspecified complications Qualified Code(s): E10.8 - Type 1 diabetes mellitus with unspecified complications Is this a current diagnosis for this admission?: Yes Plan: Resume one half long-acting insulin dose with Humalog sliding scale coverage as needed (5) Tobacco abuse Is this a current diagnosis for this admission?: Yes Plan: Tobacco Dependence patient received tobacco cessation counseling and offered nicotine replacement options
[2018-07-19] MEDS: KETOROLAC TROMETHAMINE INJ/PF 30 MG/1 ML SDV IV PRN ×4 (02:42→20:35)
--- NOTE | 2018-07-19 06:44 | CONSULTATION REPORT E ---
Consultation Report NAME: ALMITA WILLARD : 1975 AGE: 42Y DATE: 07/18/2018 TO: KAEL BUSTOS M.D. FROM: Bennett RAMSAY, Requesting Physician The patient is seen at the request of the emergency department at approximately 9 p.m. CHIEF COMPLAINT: Infected right foot. HISTORY OF PRESENT ILLNESS: The patient is a 42-year-old white female, well known to the general surgeons of [facility] with a long history of smoking abuse, uncontrolled diabetes mellitus, noncompliance, status post right transmetatarsal amputation and left toe amputations 1 through 3. The patient is seen in the emergency department at the request of Jerrod Chang, ethnology professor, who has been caring for the patient at the [facility] for years. The patient is felt to have an infected right transmetatarsal stump and was evaluated in the emergency department and found to have a foul-smelling right foot, uncontrolled diabetes, and smelled of cigarette smoke. Surgery and hospitalist services were consulted. The patient was evaluated by Dr. Bustos, felt to require admission to the hospital for intravenous antibiotics, and a serious discussion regarding the definitive management of her right leg. PAST MEDICAL AND SURGICAL HISTORY: Can be found on the history and physical document as well as previous medical records. REVIEW OF SYSTEMS: As per HPI; The patient has been in her usual state of fair health. She has been wearing surgical sandals, but due to noncompliance, poor transportation, social situation, ongoing smoking, and inadequate diabetes care, the patient has a chronic nonhealing right hemifoot. ALLERGIES: ADHESIVE TAPE. PHYSICAL EXAMINATION: GENERAL: Patient seen in the emergency department. She is in no acute distress. She does smell of cigarette smoke. PSYCHIATRIC: Alert and oriented x4. NEUROLOGIC: Grossly intact in upper and lower extremities. HEENT: Eyes without icterus. NECK: No adenopathy. LUNGS: Diminished in the bases bilaterally with expiratory wheezes. ABDOMEN: Soft. HEART: Without murmur or gallop. EXTREMITIES: Lower extremity is examined. The patient does have femoral, popliteal pulses bilaterally. Difficult to palpate pulses of the right foot. The left foot has a dorsalis pedis pulse. Toes 1, 2, and 3 on the left side are surgically absent. There are no active wounds on the left foot. The right foot is half a foot consistent with transmetatarsal amputation with a heaped up area of granulation tissue, chronic biofilm, and a thick callus on the perimeter of the amputation site. There is erythema to the forefoot. LABORATORY PROFILE: Significant for a sodium of 136, blood sugar of 327, C-reactive protein of 59. White blood cell count is 16,000, hemoglobin of 15.8. IMPRESSION: Chronic diabetic right foot infection, with thick biofilm, nonhealing x3 years and noncompliance, smoking, diabetic female. RECOMMENDATIONS: The patient deserves admission to the hospitalist service for intravenous antibiotics, IV fluids, management of hyperglycemia. With regards to her right foot, a serious discussion will be conducted regarding the nonviability of her right and the eventuality of her needing a right [id number] amputation. DICTATING PHYSICIAN: KAEL BUSTOS M.D. [id number] PHY#: [id number] ID: [id number] JOB#: [id number] ACCT: [id number] cc:KAEL BUSTOS M.D. >
[2018-07-19] MEDS: IPRATROPIUM/ALBUTEROL 0.5-2.5 MG/3 ML AMPUL NEB SCH ×2 (08:56→19:52)
[2018-07-19] MEDS: FLUTICASONE/VILANTEROL 100-25 MCG/DOSE IH SCH (10:02)
[2018-07-19] MEDS: ACETAMINOPHEN 325 MG TABLET PO PRN (11:26)
[2018-07-19] MEDS: HEPARIN SOD (PORCINE) 5,000 UNIT/ML 1 ML SYRINGE SUBCUT SCH ×2 (13:08→21:30)
--- NOTE | 2018-07-19 18:47 | PDOC PROGRESS REPORT ---
Subjective Progress Note for:: 07/19/18 Subjective:: This is a 42-year-old diabetic, noncompliant female with a large, necrotic ulcer on the right foot. The patient reports that she has not been seeing her doctors for many months. She reports that she began to notice a foul smell and increasing redness of the right foot. She has had a previous transmetatarsal amputation on the right. She has also undergone amputations on the left foot as well. Currently the patient denies chest pain, shortness of breath, nausea, vomiting, fevers, chills. She does report pain in the right lower extremity. Reason For Visit: NECROTIC TMA SITE Physical Exam Vital Signs: Temp Pulse Resp BP Pulse Ox 97.8 F 78 16 118/59 L 94 07/19/18 16:21 07/19/18 16:21 07/19/18 16:21 07/19/18 16:21 07/19/18 16:21 Intake & Output 07/18/18 07/19/18 07/20/18 06:59 06:59 06:59 Intake Total 1000 360 Balance 1000 360 Weight 80.9 kg 80.9 kg General appearance: PRESENT: no acute distress Head exam: PRESENT: atraumatic, normocephalic Eye exam: PRESENT: EOMI, PERRLA Mouth exam: PRESENT: moist, neck supple Neck exam: ABSENT: meningismus, tenderness, thyromegaly, tracheal deviation Respiratory exam: PRESENT: unlabored. ABSENT: chest wall tenderness, tachypnea GI/Abdominal exam: PRESENT: soft. ABSENT: distended, firm, tenderness Rectal exam: PRESENT: deferred Extremities exam: PRESENT: other - Large, necrotic appearing ulcer to the right plantar foot. There is exposed fatty tissue. There is no exposed bone. Neurological exam: PRESENT: alert, awake, oriented to person, oriented to place Psychiatric exam: PRESENT: agitated, anxious Focused psych exam: ABSENT: delusional Skin exam: PRESENT: erythema. ABSENT: cyanosis, jaundice Results Laboratory Results: 07/18/18 17:40 07/18/18 17:40 07/18/18 17:40 Sodium 136.8 L Potassium 4.2 Chloride 98 Carbon Dioxide 28 Anion Gap 11 BUN 9 Creatinine 0.46 L Est GFR ( Amer) > 60 Est GFR (Non-Af Amer) > 60 Glucose 327 H Calcium 9.2 Total Bilirubin 0.5 AST 11 L ALT 11 Alkaline Phosphatase 128 H C-Reactive Protein 59.8 H Total Protein 7.2 Albumin 3.7 Impressions: Foot X-Ray 07/18/18 17:03 IMPRESSION: No evidence of osteomyelitis. Assessment & Plan - Diagnosis (1) Diabetes Qualifiers: Diabetes mellitus type: type 1 Diabetes mellitus complication status: with unspecified complications Qualified Code(s): E10.8 - Type 1 diabetes mellitus with unspecified complications Is this a current diagnosis for this admission?: Yes (2) Foot ulcer, right Qualifiers: Non-pressure ulcer stage: unspecified non-pressure ulcer stage Qualified Code(s): L97.519 - Non-pressure chronic ulcer of other part of right foot with unspecified severity Is this a current diagnosis for this admission?: Yes (3) Right foot infection Is this a current diagnosis for this admission?: Yes - Plan Summary Plan Summary: This is a 42-year-old female with a large, necrotic, foul-smelling, erythematous ulcer to the right foot. She has had a previous transmetatarsal amputation. There appears to be reasonably significant amount of infection. The patient is a noncompliant diabetic. I have recommended below-knee amputation, and she has refused. The patient is demanding an MRI of the foot to "look for osteomyelitis". The patient reports that she has been cured from osteomyelitis in the past, and is refusing surgical intervention. I will order this MRI for the patient. My professional medical opinion has not changed. The patient has a nonsalvageable right foot, and will require a below-knee amputation. At present she does not exhibit systemic sepsis, and no emergent surgical intervention is necessary. Will follow.
[2018-07-19] MEDS: DIAZEPAM 5 MG TABLET PO PRN (21:31)
[2018-07-19] MEDS: MONTELUKAST SODIUM 10 MG TABLET PO SCH (21:31)
--- NOTE | 2018-07-19 23:32 | RADIOLOGY REPORT (SQ) ---
EXAM DESCRIPTION: MR LOWER EXTREMITY WITHOUT IV CONTRAST COMPLETED DATE/TME: 07/19/2018 00:00 CLINICAL HISTORY: 42 years, Female, right foot infection, possible osteo COMPARISON: Prior MRI 11/19/2017 TECHNIQUE: 177 Images stored on PACS. LIMITATIONS: None. FINDINGS: Motion artifact degrades image quality and limits the exam. There is resection of the distal foot, as before. Subcutaneous edema and inflammation consistent with cellulitis. A more focal fluid collection measuring 2.27 x 1.39 x 1.54 cm along the lateral aspect of the foot is suspicious for abscess. There is some underlying bone marrow edema and irregularity of the cuboid bone, suspicious for osteomyelitis. Ankle mortise appears intact. IMPRESSION: Findings suspicious for abscess along the distal lateral aspect of the remaining foot with underlying bone marrow edema and cortical irregularity of the cuboid bone, suspicious for osteomyelitis at this site. Diffuse subcutaneous edema consistent with cellulitis copyright 2010 [employer]- All Rights Reserved
[2018-07-20] MEDS: KETOROLAC TROMETHAMINE INJ/PF 30 MG/1 ML SDV IV PRN ×3 (03:28→22:03)
[2018-07-20] MEDS: HEPARIN SOD (PORCINE) 5,000 UNIT/ML 1 ML SYRINGE SUBCUT SCH ×3 (06:23→22:02)
[2018-07-20] MEDS: GABAPENTIN 300 MG CAPSULE PO SCH ×3 (06:24→22:02)
[2018-07-20 06:58] LABS: ABSOLUTE BASOPHILS # (AUTO) 0.1 10^3/uL (0.0-0.2); ABSOLUTE EOSINOPHILS # (AUTO) 0.3 10^3/uL (0.0-0.6); ABSOLUTE LYMPHOCYTES (AUTO) 4.1 10^3/uL (0.5-4.7); ABSOLUTE MONOCYTES (AUTO) 0.7 10^3/uL (0.1-1.4); ABSOLUTE NEUT (AUTO) 6.4 10^3/uL (1.7-8.2); BASOPHILS % (AUTO) 1.3 % (0-2); HEMATOCRIT 43.2 % (36.0-47.0); HEMOGLOBIN 14.6 g/dL (12.0-15.5); LYMPHOCYTES % (AUTO) 34.9 % (13-45); MEAN CORPUSCULAR HEMOGLOBIN 29.2 pg (27.0-33.4); MEAN CORPUSCULAR HGB CONC 33.8 g/dL (32.0-36.0); MEAN CORPUSCULAR VOLUME 86 fl (80-97); PLATELET COUNT 205 10^3/uL (150-450); RED BLOOD COUNT 5.01 10^6/uL (3.72-5.28); RED CELL DISTRIBUTION WIDTH 12.7 % (11.5-14.0); SEGMENTED NEUTROPHILS % (AUTO) 54.8 % (42-78); TOTAL CELLS COUNTED % (AUTO) 100 %; WHITE BLOOD COUNT 11.7 10^3/uL (4.0-10.5)
[2018-07-20 07:19] LABS: ANION GAP 10 (5-19); BLOOD UREA NITROGEN 11 mg/dL (7-20); CARBON DIOXIDE 28 mmol/L (22-30); CHLORIDE 101 mmol/L (98-107); GLUCOSE 190 mg/dL (75-110); POTASSIUM 3.7 mmol/L (3.6-5.0); SODIUM 138.5 mmol/L (137-145)
[2018-07-20] MEDS: INSULIN LISPRO 100 UNIT/ML 3 ML VIAL SUBCUT SCH ×4 (07:44→22:01)
[2018-07-20] MEDS: IPRATROPIUM/ALBUTEROL 0.5-2.5 MG/3 ML AMPUL NEB SCH ×2 (08:00→21:27)
[2018-07-20] MEDS ORDERED: PIPERACILLIN/TAZOBACTAM 3.375 GM VIAL IV ONE (09:02)
--- NOTE | 2018-07-20 09:02 | PDOC PROGRESS REPORT ---
Subjective Progress Note for:: 07/20/18 Subjective:: osteomylitis and diabetic foot infection rt foot Reason For Visit: NECROTIC TMA SITE Physical Exam Vital Signs: Temp Pulse Resp BP Pulse Ox 97.9 F 68 18 141/81 H 96 07/19/18 23:00 07/20/18 08:04 07/20/18 08:04 07/19/18 23:00 07/20/18 08:04 Intake & Output 07/19/18 07/20/18 07/21/18 06:59 06:59 06:59 Intake Total 1000 1210 Balance 1000 1210 Weight 80.9 kg 83.1 kg General appearance: PRESENT: no acute distress Head exam: PRESENT: normocephalic Eye exam: PRESENT: EOMI Neck exam: PRESENT: full ROM Respiratory exam: PRESENT: clear to auscultation too Cardiovascular exam: PRESENT: RRR Pulses: PRESENT: normal radial pulses, normal femoral pulses, +1 pedal pulses bilateral GI/Abdominal exam: PRESENT: soft Rectal exam: PRESENT: deferred Extremities exam: PRESENT: other - rt foot with posterior lateral abscess with necrosis extending to midfoot with purulent drainage lateral foot swollen with obvious abscess Skin exam: PRESENT: dry Results Laboratory Results: 07/20/18 06:40 07/20/18 06:40 07/20/18 07/20/18 06:40 06:40 WBC 11.7 H RBC 5.01 Hgb 14.6 Hct 43.2 MCV 86 MCH 29.2 MCHC 33.8 RDW 12.7 Plt Count 205 Seg Neutrophils % 54.8 Lymphocytes % 34.9 Monocytes % 6.0 Eosinophils % 3.0 Basophils % 1.3 Absolute Neutrophils 6.4 Absolute Lymphocytes 4.1 Absolute Monocytes 0.7 Absolute Eosinophils 0.3 Absolute Basophils 0.1 Sodium 138.5 Potassium 3.7 Chloride 101 Carbon Dioxide 28 Anion Gap 10 BUN 11 Creatinine 0.49 L Est GFR ( Amer) > 60 Est GFR (Non-Af Amer) > 60 Glucose 190 H Calcium 9.0 Impressions: Foot X-Ray 07/18/18 17:03 IMPRESSION: No evidence of osteomyelitis. Lower Extremity MRI 07/19/18 00:00 IMPRESSION: Findings suspicious for abscess along the distal lateral aspect of the remaining foot with underlying bone marrow edema and cortical irregularity of the cuboid bone, suspicious for osteomyelitis at this site. Diffuse subcutaneous edema consistent with cellulitis copyright 2010 [employer]- All Rights Reserved Assessment & Plan - Plan Summary Plan Summary: nonhealing diabetic foot with open wound on plantar aspect approx 1.3 of foot with open wound now with lateral plantar abscess and osteo Recommended rt BKA after long discussion with pt and discussing mri findings pt seems more willing to undergo a bka pt will discuss with her daughter. I explained we could do surgery in next couple of days when she feels ready would not wait more than a two days as she currenlty has an abscess will restart iv abx.
[2018-07-20] MEDS ORDERED: VANCOMYCIN HCL 0 MG in DEXTROSE 5%-WATER 250 ML IV NR (09:15)
[2018-07-20] MEDS: FLUTICASONE/VILANTEROL 100-25 MCG/DOSE IH SCH (10:29)
[2018-07-20] MEDS: VANCOMYCIN HCL 1,250 MG in DEXTROSE 5%-WATER 250 ML IV SCH ×2 (10:38→17:39)
[2018-07-20] MEDS: DIAZEPAM 5 MG TABLET PO PRN (11:27)
[2018-07-20] MEDS: PIPERACILLIN SODIUM/TAZOBACTAM 3.375 GM in NORMAL SALINE 100 ML IV SCH ×2 (13:01→17:04)
[2018-07-20] MEDS ORDERED: DIPHENHYDRAMINE HCL 25 MG CAPSULE PO PRN (18:25)
[2018-07-20] MEDS ORDERED: DIPHENHYDRAMINE HCL 25 MG CAPSULE ONE (18:28)
[2018-07-20] MEDS: INSULIN GLARGINE,HUM.REC.ANLOG 1,000 UNIT/10 ML VIAL SUBCUT SCH (22:02)
[2018-07-20] MEDS: MONTELUKAST SODIUM 10 MG TABLET PO SCH (22:02)
[2018-07-21] MEDS: PIPERACILLIN SODIUM/TAZOBACTAM 3.375 GM in NORMAL SALINE 100 ML IV SCH ×4 (00:12→20:49)
[2018-07-21] MEDS: VANCOMYCIN HCL 1,250 MG in DEXTROSE 5%-WATER 250 ML IV SCH ×3 (01:08→20:50)
[2018-07-21] MEDS: KETOROLAC TROMETHAMINE INJ/PF 30 MG/1 ML SDV IV PRN ×3 (06:18→21:41)
[2018-07-21] MEDS: GABAPENTIN 300 MG CAPSULE PO SCH ×3 (06:19→21:42)
[2018-07-21] MEDS: HEPARIN SOD (PORCINE) 5,000 UNIT/ML 1 ML SYRINGE SUBCUT SCH ×3 (06:19→21:41)
[2018-07-21 06:48] LABS: ABSOLUTE BASOPHILS # (AUTO) 0.1 10^3/uL (0.0-0.2); ABSOLUTE EOSINOPHILS # (AUTO) 0.3 10^3/uL (0.0-0.6); ABSOLUTE LYMPHOCYTES (AUTO) 3.5 10^3/uL (0.5-4.7); ABSOLUTE MONOCYTES (AUTO) 0.5 10^3/uL (0.1-1.4); ABSOLUTE NEUT (AUTO) 3.8 10^3/uL (1.7-8.2); BASOPHILS % (AUTO) 1.3 % (0-2); EOSINOPHILS % (AUTO) 3.4 % (0-6); HEMATOCRIT 40.4 % (36.0-47.0); HEMOGLOBIN 13.6 g/dL (12.0-15.5); LYMPHOCYTES % (AUTO) 42.7 % (13-45); MEAN CORPUSCULAR HEMOGLOBIN 29.1 pg (27.0-33.4); MEAN CORPUSCULAR HGB CONC 33.6 g/dL (32.0-36.0); MEAN CORPUSCULAR VOLUME 87 fl (80-97); MONOCYTES % (AUTO) 6.2 % (3-13); PLATELET COUNT 190 10^3/uL (150-450); RED BLOOD COUNT 4.67 10^6/uL (3.72-5.28); RED CELL DISTRIBUTION WIDTH 12.9 % (11.5-14.0); SEGMENTED NEUTROPHILS % (AUTO) 46.4 % (42-78); TOTAL CELLS COUNTED % (AUTO) 100 %; WHITE BLOOD COUNT 8.3 10^3/uL (4.0-10.5)
[2018-07-21 07:38] LABS: ANION GAP 10 (5-19); BLOOD UREA NITROGEN 11 mg/dL (7-20); CALCIUM 8.7 mg/dL (8.4-10.2); CARBON DIOXIDE 26 mmol/L (22-30); CHLORIDE 105 mmol/L (98-107); GLUCOSE 174 mg/dL (75-110); POTASSIUM 3.9 mmol/L (3.6-5.0); SODIUM 141.4 mmol/L (137-145)
[2018-07-21] MEDS: INSULIN LISPRO 100 UNIT/ML 3 ML VIAL SUBCUT SCH ×4 (08:41→21:42)
[2018-07-21] MEDS: IPRATROPIUM/ALBUTEROL 0.5-2.5 MG/3 ML AMPUL NEB SCH ×2 (09:29→20:22)
[2018-07-21] MEDS: FLUTICASONE/VILANTEROL 100-25 MCG/DOSE IH SCH (10:17)
[2018-07-21 10:20] LABS: VANCOMYCIN,TROUGH 15.2 ug/mL (5.0-20.0)
--- NOTE | 2018-07-21 15:13 | PDOC PROGRESS REPORT ---
Subjective Progress Note for:: 07/21/18 Subjective:: Patient eating has no new complaints. Patient is excepted right below the knee amputation this weekend. Reason For Visit: NECROTIC TMA SITE Physical Exam Vital Signs: Temp Pulse Resp BP Pulse Ox 97.7 F 60 12 141/83 H 100 07/21/18 12:07 07/21/18 12:07 07/21/18 12:07 07/21/18 12:07 07/21/18 12:07 Intake & Output 07/20/18 07/21/18 07/22/18 06:59 06:59 06:59 Intake Total 1210 4306 Output Total 650 Balance 1210 3656 Weight 83.1 kg 87.8 kg General appearance: PRESENT: no acute distress Musculoskeletal exam: PRESENT: other - The right foot is wrapped. Results Laboratory Results: 07/21/18 05:40 07/21/18 05:40 07/21/18 07/21/18 05:40 05:40 WBC 8.3 RBC 4.67 Hgb 13.6 Hct 40.4 MCV 87 MCH 29.1 MCHC 33.6 RDW 12.9 Plt Count 190 Seg Neutrophils % 46.4 Lymphocytes % 42.7 Monocytes % 6.2 Eosinophils % 3.4 Basophils % 1.3 Absolute Neutrophils 3.8 Absolute Lymphocytes 3.5 Absolute Monocytes 0.5 Absolute Eosinophils 0.3 Absolute Basophils 0.1 Sodium 141.4 Potassium 3.9 Chloride 105 Carbon Dioxide 26 Anion Gap 10 BUN 11 Creatinine 0.50 L Est GFR ( Amer) > 60 Est GFR (Non-Af Amer) > 60 Glucose 174 H Calcium 8.7 Impressions: Foot X-Ray 07/18/18 17:03 IMPRESSION: No evidence of osteomyelitis. Lower Extremity MRI 07/19/18 00:00 IMPRESSION: Findings suspicious for abscess along the distal lateral aspect of the remaining foot with underlying bone marrow edema and cortical irregularity of the cuboid bone, suspicious for osteomyelitis at this site. Diffuse subcutaneous edema consistent with cellulitis copyright 2010 [employer]- All Rights Reserved Assessment & Plan - Diagnosis (1) Right foot infection Is this a current diagnosis for this admission?: Yes Plan: Impression: Stabilizing right foot sepsis secondary to transmetatarsal amputation site; patient growing gram-negative rods. Leukocytosis has normalized. Recommendations 1. Continue local wound care, IV antibiotics. 2. Plan for right below the knee amputation [address] Fink
[2018-07-21] MEDS: INSULIN GLARGINE,HUM.REC.ANLOG 1,000 UNIT/10 ML VIAL SUBCUT SCH (21:42)
[2018-07-21] MEDS: MONTELUKAST SODIUM 10 MG TABLET PO SCH (21:42)
[2018-07-22] MEDS: PIPERACILLIN SODIUM/TAZOBACTAM 3.375 GM in NORMAL SALINE 100 ML IV SCH ×5 (00:24→23:01)
[2018-07-22] MEDS: KETOROLAC TROMETHAMINE INJ/PF 30 MG/1 ML SDV IV PRN ×3 (03:46→20:03)
[2018-07-22] MEDS: VANCOMYCIN HCL 1,250 MG in DEXTROSE 5%-WATER 250 ML IV SCH ×3 (03:46→17:03)
[2018-07-22] MEDS: GABAPENTIN 300 MG CAPSULE PO SCH ×3 (06:21→21:41)
[2018-07-22] MEDS: HEPARIN SOD (PORCINE) 5,000 UNIT/ML 1 ML SYRINGE SUBCUT SCH ×2 (06:21→14:05)
[2018-07-22 07:06] LABS: ABSOLUTE BASOPHILS # (AUTO) 0.1 10^3/uL (0.0-0.2); ABSOLUTE EOSINOPHILS # (AUTO) 0.3 10^3/uL (0.0-0.6); ABSOLUTE LYMPHOCYTES (AUTO) 3.8 10^3/uL (0.5-4.7); ABSOLUTE MONOCYTES (AUTO) 0.6 10^3/uL (0.1-1.4); ABSOLUTE NEUT (AUTO) 6.4 10^3/uL (1.7-8.2); EOSINOPHILS % (AUTO) 2.5 % (0-6); HEMATOCRIT 40.1 % (36.0-47.0); HEMOGLOBIN 13.6 g/dL (12.0-15.5); LYMPHOCYTES % (AUTO) 33.6 % (13-45); MEAN CORPUSCULAR HEMOGLOBIN 29.3 pg (27.0-33.4); MEAN CORPUSCULAR VOLUME 86 fl (80-97); MONOCYTES % (AUTO) 5.6 % (3-13); PLATELET COUNT 129 10^3/uL (150-450); RED BLOOD COUNT 4.65 10^6/uL (3.72-5.28); RED CELL DISTRIBUTION WIDTH 12.8 % (11.5-14.0); SEGMENTED NEUTROPHILS % (AUTO) 57.3 % (42-78); TOTAL CELLS COUNTED % (AUTO) 100 %; WHITE BLOOD COUNT 11.2 10^3/uL (4.0-10.5)
[2018-07-22 07:15] LABS: ANION GAP 7 (5-19); BLOOD UREA NITROGEN 18 mg/dL (7-20); CALCIUM 8.8 mg/dL (8.4-10.2); CARBON DIOXIDE 27 mmol/L (22-30); CHLORIDE 103 mmol/L (98-107); GLUCOSE 218 mg/dL (75-110); POTASSIUM 4.6 mmol/L (3.6-5.0); SODIUM 136.9 mmol/L (137-145)
[2018-07-22] MEDS: IPRATROPIUM/ALBUTEROL 0.5-2.5 MG/3 ML AMPUL NEB SCH ×2 (08:40→20:04)
--- NOTE | 2018-07-22 08:40 | PDOC H&P ---
History of Present Illness Admission Date/PCP: 07/19/18 09:18 KWESI BLOOM DO Patient complains of: Nonhealing gangrenous foot ulcer History of Present Illness: See Dr. Becerra's consult note for history of present illness Past Medical History Cardiac Medical History: Reports: Hyperlipidema Denies: Myocardial Infarction, Hypertension Pulmonary Medical History: Reports: Bronchitis, Chronic Obstructive Pulmonary Disease (COPD) Denies: Asthma Neurological Medical History: Denies: Seizures Endocrine Medical History: Reports: Diabetes Mellitus Type 1, Diabetes Mellitus Type 2 GI Medical History: Reports: Gastroesophageal Reflux Disease Denies: Hepatitis, Hiatal Hernia Psychiatric Medical History: Reports: Bipolar Disorder, Depression - anxiety, Post Traumatic Stress Disorder, Tobacco Dependency Hematology: Denies: Anemia, Sickle Cell Disease Past Surgical History Past Surgical History: Reports: Amputation - TOES ON RT FEET, 3 ON LEFT FOOT, Appendectomy, Section, Cholecystectomy, Orthopedic Surgery - right foot 5 toes amputation, 3 toes amputation left foot Denies: Mastectomy, Pacemaker Social History Information Source: Patient, [facility] Records Lives with: Family Smoking Status: Former Smoker Frequency of Alcohol Use: None Hx Recreational Drug Use: Yes Drugs: Marijuana Hx Prescription Drug Abuse: No - Advance Directive Resuscitation Status: Full Code Surrogate healthcare decision maker:: No healthcare proxy documentation in place Family History Family History: DM, Hypertension Parental Family History Reviewed: Yes Children Family History Reviewed: Yes Sibling(s) Family History Reviewed.: Yes Medication/Allergy Home Medications: Albuterol Sulfate [Proair HFA] 2 puff IH Q6HP PRN 11/19/17 Diazepam [Valium 5 mg Tablet] 5 mg PO Q8HP PRN 11/19/17 Insulin Aspart [Novolog Flexpen] 6 unit SUBCUT AC 30 Days #2 insuln.pen 11/26/17 Gabapentin [Neurontin 300 mg Capsule] 900 mg PO Q8 06/17/18 Aripiprazole [Abilify 15 mg Tablet] 15 mg PO BID 07/19/18 Benztropine Mesylate [Cogentin 1 mg Tablet] 1 tab PO BID 07/19/18 Doxepin HCl 1 - 2 cap PO QHS 07/19/18 Insulin Glargine,Hum.rec.anlog [Lantus Solostar] 45 unit SQ QHS 07/19/18 Oxcarbazepine [Trileptal] 600 mg PO BID 07/19/18 Prazosin HCl [Minipress] 2 mg PO QHS 07/19/18 Allergies/Adverse Reactions: adhesive [Adhesive] Allergy (Mild, Verified 07/18/18 15:57) skin breakdown, red, itching Review of Systems All systems: reviewed and no additional remarkable complaints except as stated Constitutional: PRESENT: weakness Musculoskeletal: PRESENT: deformity - Right transmetatarsal amputation with dressing in place Integumentary: PRESENT: wounds - As above Neurological: PRESENT: abnormal gait Psychiatric: PRESENT: anxiety Physical Exam Vital Signs: Temp Pulse Resp BP Pulse Ox 97.9 F 68 18 141/81 H 96 07/19/18 23:00 07/20/18 08:04 07/20/18 08:04 07/19/18 23:00 07/20/18 08:04 Intake & Output 07/19/18 07/20/18 07/21/18 06:59 06:59 06:59 Intake Total 1000 1210 Balance 1000 1210 Weight 80.9 kg 83.1 kg General appearance: PRESENT: cooperative, mild distress, well-developed Head exam: PRESENT: atraumatic Eye exam: PRESENT: conjunctiva pink. ABSENT: scleral icterus Ear exam: PRESENT: normal external ear exam Mouth exam: PRESENT: moist, tongue midline Teeth exam: PRESENT: poor dentation Respiratory exam: PRESENT: clear to auscultation too, symmetrical, unlabored. ABSENT: rales, rhonchi, tachypnea, wheezes Cardiovascular exam: PRESENT: RRR, +S1, +S2. ABSENT: diastolic murmur, systolic murmur, tachycardia GI/Abdominal exam: PRESENT: normal bowel sounds, soft. ABSENT: distended, tende rness Rectal exam: PRESENT: deferred Gentrourinary exam: ABSENT: indwelling catheter Extremities exam: PRESENT: other - Dressing on right foot. Transmetatarsal amputation. Musculoskeletal exam: PRESENT: normal inspection - Other than right foot Neurological exam: PRESENT: alert, awake, oriented to person, oriented to place, oriented to time, oriented to situation, CN II-XII grossly intact Psychiatric exam: PRESENT: anxious. ABSENT: agitated Focused psych exam: ABSENT: delusional, restlessness Skin exam: PRESENT: dry, warm, other - Foot ulceration. Dressing in place.. ABSENT: rash Results Laboratory Results: 07/20/18 06:40 07/20/18 06:40 07/20/18 07/20/18 06:40 06:40 WBC 11.7 H RBC 5.01 Hgb 14.6 Hct 43.2 MCV 86 MCH 29.2 MCHC 33.8 RDW 12.7 Plt Count 205 Seg Neutrophils % 54.8 Lymphocytes % 34.9 Monocytes % 6.0 Eosinophils % 3.0 Basophils % 1.3 Absolute Neutrophils 6.4 Absolute Lymphocytes 4.1 Absolute Monocytes 0.7 Absolute Eosinophils 0.3 Absolute Basophils 0.1 Sodium 138.5 Potassium 3.7 Chloride 101 Carbon Dioxide 28 Anion Gap 10 BUN 11 Creatinine 0.49 L Est GFR ( Amer) > 60 Est GFR (Non-Af Amer) > 60 Glucose 190 H Calcium 9.0 Impressions: Foot X-Ray 07/18/18 17:03 IMPRESSION: No evidence of osteomyelitis. Lower Extremity MRI 07/19/18 00:00 IMPRESSION: Findings suspicious for abscess along the distal lateral aspect of the remaining foot with underlying bone marrow edema and cortical irregularity of the cuboid bone, suspicious for osteomyelitis at this site. Diffuse subcutaneous edema consistent with cellulitis copyright 2010 [employer]- All Rights Reserved Assessment and Plan - Diagnosis (1) Foot ulcer, right Qualifiers: Non-pressure ulcer stage: with necrosis of bone Qualified Code(s): L97.519 - Non-pressure chronic ulcer of other part of right foot with unspecified severity Is this a current diagnosis for this admission?: Yes Plan: Surgery consulted. Below-knee amputation recommended. Patient struggling with decision. Antibiotic therapy for now. (2) Osteomyelitis Qualifiers: Osteomyelitis type: subacute Osteomyelitis location: foot Is this a current diagnosis for this admission?: Yes Plan: This wound has been a problem for some time. I believe the skin broke down not long after the transmetatarsal amputation. With ambulation there is direct pressure on the area. Antibiotic therapy at this point however below-knee amputation is recommended. (3) COPD (chronic obstructive pulmonary disease) Is this a current diagnosis for this admission?: Yes Plan: Continue inhaler regimen at this time. Incentive spirometer and flutter valve. 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 Fingerstick glucose checks with sliding scale Humalog. Adjust Lantus based on sliding scale requirements. (5) Tobacco abuse Is this a current diagnosis for this admission?: Yes - Time Time Spent with patient: 35 or more minutes Smoking Cessation Education: 3 to 10 minutes Medications reviewed and adjusted accordingly: Yes - Inpatient Certification Based on my medical assessment, after consideration of the patient's comorbidities, presenting symptoms, or acuity I expect that the services needed warrant INPATIENT care.: Yes I certify that my determination is in accordance with my understanding of Medicare's requirements for reasonable and necessary INPATIENT services [42 CFR 412.3e].: Yes Medical Necessity: Failure to Improve With Outpatient Therapy, Significant Comorbidiites Make Outpatient Treatment Too Risky, Need for Pain Control, Need for IV Antibiotics, Need for Surgery
--- NOTE | 2018-07-22 08:44 | PDOC PROGRESS REPORT ---
Subjective Progress Note for:: 07/20/18 Subjective:: The patient is upset this morning. She had a discussion with surgery. She does realize that she needs a below-knee amputation. Upon entry into the room she is speaking with her daughter about this subject. Reason For Visit: NECROTIC TMA SITE Physical Exam Vital Signs: Temp Pulse Resp BP Pulse Ox 97.9 F 68 18 133/64 H 96 07/20/18 07:00 07/20/18 08:04 07/20/18 08:04 07/20/18 07:00 07/20/18 08:04 Intake & Output 07/19/18 07/20/18 07/21/18 06:59 06:59 06:59 Intake Total 1000 1210 Balance 1000 1210 Weight 80.9 kg 83.1 kg General appearance: PRESENT: cooperative, severe distress - Very shaken. Just made decision for right below-knee amputation, well-developed Head exam: PRESENT: atraumatic, normocephalic Ear exam: PRESENT: normal external ear exam Neck exam: ABSENT: carotid bruit, JVD Respiratory exam: PRESENT: clear to auscultation too, symmetrical, unlabored. ABSENT: accessory muscle use, rales, rhonchi, tachypnea, wheezes Cardiovascular exam: PRESENT: RRR, +S1, +S2 Extremities exam: PRESENT: other - Right foot dressing Musculoskeletal exam: ABSENT: ambulatory Neurological exam: PRESENT: alert, oriented to person, oriented to place, oriented to time, oriented to situation, CN II-XII grossly intact Psychiatric exam: PRESENT: anxious, other - Very stressed and anxious about the decision. She realizes that it is necessary but is still struggling with the thought of the amputation.. ABSENT: agitated Focused psych exam: ABSENT: delusional, restlessness Skin exam: PRESENT: other - Dressing on right foot. Results Laboratory Results: 07/20/18 06:40 07/20/18 06:40 07/20/18 07/20/18 06:40 06:40 WBC 11.7 H RBC 5.01 Hgb 14.6 Hct 43.2 MCV 86 MCH 29.2 MCHC 33.8 RDW 12.7 Plt Count 205 Seg Neutrophils % 54.8 Lymphocytes % 34.9 Monocytes % 6.0 Eosinophils % 3.0 Basophils % 1.3 Absolute Neutrophils 6.4 Absolute Lymphocytes 4.1 Absolute Monocytes 0.7 Absolute Eosinophils 0.3 Absolute Basophils 0.1 Sodium 138.5 Potassium 3.7 Chloride 101 Carbon Dioxide 28 Anion Gap 10 BUN 11 Creatinine 0.49 L Est GFR ( Amer) > 60 Est GFR (Non-Af Amer) > 60 Glucose 190 H Calcium 9.0 Impressions: Foot X-Ray 07/18/18 17:03 IMPRESSION: No evidence of osteomyelitis. Lower Extremity MRI 07/19/18 00:00 IMPRESSION: Findings suspicious for abscess along the distal lateral aspect of the remaining foot with underlying bone marrow edema and cortical irregularity of the cuboid bone, suspicious for osteomyelitis at this site. Diffuse subcutaneous edema consistent with cellulitis copyright 2010 [employer]- All Rights Reserved Assessment and Plan - Diagnosis (1) Foot ulcer, right Qualifiers: Non-pressure ulcer stage: with necrosis of bone Qualified Code(s): L97.519 - Non-pressure chronic ulcer of other part of right foot with unspecified severity Is this a current diagnosis for this admission?: Yes Plan: She was seen by Dr. Fink today. She in fact reports to this provider that she agrees to surgery. She is struggling with the date. She is trying to coordinate so that family can be here and supportive. (2) Osteomyelitis Qualifiers: Osteomyelitis type: subacute Osteomyelitis location: foot Is this a current diagnosis for this admission?: Yes Plan: Continue antibiotic therapy until and shortly after surgery. (3) COPD (chronic obstructive pulmonary disease) Is this a current diagnosis for this admission?: Yes Plan: Breathing is stable. Continue current regimen. 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 Adjust Lantus based on sliding scale. Diabetic diet. (5) Tobacco abuse Is this a current diagnosis for this admission?: Yes Plan: Discussed the significant adverse effects of smoking especially with her current situation. Nicotine patch available. - Time Time Spent with patient: 25-34 minutes Smoking Cessation Education: 3 to 10 minutes Medications reviewed and adjusted accordingly: Yes Anticipated discharge: SNF - Will need SNF after amputation.
[2018-07-22] MEDS ORDERED: NICOTINE 14 MG/24 HR PATCH.TD24 TD PRN (08:49)
--- NOTE | 2018-07-22 08:50 | PDOC PROGRESS REPORT ---
Subjective Progress Note for:: 07/21/18 Subjective:: Still having difficulty accepting the amputation. Reason For Visit: NECROTIC TMA SITE Physical Exam Vital Signs: Temp Pulse Resp BP Pulse Ox 98.4 F 62 18 131/81 H 99 07/21/18 19:32 07/21/18 20:25 07/21/18 20:25 07/21/18 19:32 07/21/18 20:25 Intake & Output 07/21/18 07/22/18 07/23/18 06:59 06:59 06:59 Intake Total 4306 1150 Output Total 650 Balance 3656 1150 Weight 87.8 kg 60.6 kg General appearance: PRESENT: cooperative, mild distress, well-developed Head exam: PRESENT: normocephalic Ear exam: PRESENT: normal external ear exam Respiratory exam: PRESENT: clear to auscultation too, symmetrical, unlabored. ABSENT: rales, rhonchi, tachypnea, wheezes Cardiovascular exam: PRESENT: RRR, +S1, +S2, systolic murmur - 1/6 systolic murmur GI/Abdominal exam: PRESENT: normal bowel sounds, soft. ABSENT: distended, tenderness Rectal exam: PRESENT: deferred Gentrourinary exam: ABSENT: indwelling catheter Extremities exam: PRESENT: other - Dressing on right foot. Transmetatarsal amputation. Neurological exam: PRESENT: alert, awake, oriented to person, oriented to place, oriented to time, oriented to situation, CN II-XII grossly intact Psychiatric exam: PRESENT: anxious - Still anxious about her medical situation, appropriate affect. ABSENT: agitated Focused psych exam: ABSENT: delusional, restlessness Results Laboratory Results: 07/22/18 06:10 07/22/18 06:10 07/22/18 07/22/18 06:10 06:10 WBC 11.2 H RBC 4.65 Hgb 13.6 Hct 40.1 MCV 86 MCH 29.3 MCHC 34.0 RDW 12.8 Plt Count 129 L Seg Neutrophils % 57.3 Lymphocytes % 33.6 Monocytes % 5.6 Eosinophils % 2.5 Basophils % 1.0 Absolute Neutrophils 6.4 Absolute Lymphocytes 3.8 Absolute Monocytes 0.6 Absolute Eosinophils 0.3 Absolute Basophils 0.1 Sodium 136.9 L Potassium 4.6 Chloride 103 Carbon Dioxide 27 Anion Gap 7 BUN 18 Creatinine 0.55 Est GFR ( Amer) > 60 Est GFR (Non-Af Amer) > 60 Glucose 218 H Calcium 8.8 Impressions: Foot X-Ray 07/18/18 17:03 IMPRESSION: No evidence of osteomyelitis. Lower Extremity MRI 07/19/18 00:00 IMPRESSION: Findings suspicious for abscess along the distal lateral aspect of the remaining foot with underlying bone marrow edema and cortical irregularity of the cuboid bone, suspicious for osteomyelitis at this site. Diffuse subcutaneous edema consistent with cellulitis copyright 2011 [employer]- All Rights Reserved Assessment and Plan - Diagnosis (1) Foot ulcer, right Qualifiers: Non-pressure ulcer stage: with necrosis of bone Qualified Code(s): L97.519 - Non-pressure chronic ulcer of other part of right foot with unspecified severity Is this a current diagnosis for this admission?: Yes Plan: She has agreed to surgery. I believe the surgery will be on Wednesday. Continue antibiotics for now. (2) Osteomyelitis Qualifiers: Osteomyelitis type: subacute Osteomyelitis location: foot Is this a current diagnosis for this admission?: Yes Plan: Continue antibiotics for now. These will likely be discontinued several days postop. (3) COPD (chronic obstructive pulmonary disease) Is this a current diagnosis for this admission?: Yes Plan: Stable on current regimen. Continue same. (4) Diabetes Qualifiers: Diabetes mellitus type: type 1 Diabetes mellitus complication status: with circulatory complication Diabetes mellitus complication detail: with peripheral angiopathy with gangrene Qualified Code(s): E10.52 - Type 1 diabetes mellitus with diabetic peripheral angiopathy with gangrene Is this a current diagnosis for this admission?: Yes Plan: Continue to monitor Accu-Cheks. Adjust Lantus based on sliding scale requirements. Continue diabetic diet. (5) Tobacco abuse Is this a current diagnosis for this admission?: Yes Plan: Nicotine patch available. - Time Time Spent with patient: 15-24 minutes Medications reviewed and adjusted accordingly: Yes Anticipated discharge: SNF
[2018-07-22] MEDS ORDERED: DEXTROSE 40% GEL 15 GM TUBE PO PRN ×2 (09:02)
[2018-07-22] MEDS ORDERED: DEXTROSE 50%-WATER 25 GM/50 ML DISP.SYRIN IV PRN (09:02)
--- NOTE | 2018-07-22 09:02 | PDOC PROGRESS REPORT ---
Subjective Progress Note for:: 07/22/18 Subjective:: rt foot infection Reason For Visit: NECROTIC TMA SITE Physical Exam Vital Signs: Temp Pulse Resp BP Pulse Ox 98.4 F 62 18 131/81 H 99 07/21/18 19:32 07/21/18 20:25 07/21/18 20:25 07/21/18 19:32 07/21/18 20:25 Intake & Output 07/21/18 07/22/18 07/23/18 06:59 06:59 06:59 Intake Total 4306 1150 Output Total 650 Balance 3656 1150 Weight 87.8 kg 60.6 kg General appearance: PRESENT: no acute distress Head exam: PRESENT: normocephalic Eye exam: PRESENT: EOMI Mouth exam: PRESENT: moist Teeth exam: PRESENT: poor dentation Neck exam: PRESENT: full ROM Respiratory exam: PRESENT: clear to auscultation too Cardiovascular exam: PRESENT: RRR Pulses: PRESENT: normal femoral pulses Vascular exam: PRESENT: normal capillary refill GI/Abdominal exam: PRESENT: soft Rectal exam: PRESENT: deferred Extremities exam: PRESENT: full ROM, +1 edema Musculoskeletal exam: PRESENT: full ROM Neurological exam: PRESENT: alert, awake, oriented to person, oriented to place Psychiatric exam: PRESENT: appropriate affect Skin exam: PRESENT: dry Results Laboratory Results: 07/22/18 06:10 07/22/18 06:10 07/22/18 07/22/18 06:10 06:10 WBC 11.2 H RBC 4.65 Hgb 13.6 Hct 40.1 MCV 86 MCH 29.3 MCHC 34.0 RDW 12.8 Plt Count 129 L Seg Neutrophils % 57.3 Lymphocytes % 33.6 Monocytes % 5.6 Eosinophils % 2.5 Basophils % 1.0 Absolute Neutrophils 6.4 Absolute Lymphocytes 3.8 Absolute Monocytes 0.6 Absolute Eosinophils 0.3 Absolute Basophils 0.1 Sodium 136.9 L Potassium 4.6 Chloride 103 Carbon Dioxide 27 Anion Gap 7 BUN 18 Creatinine 0.55 Est GFR ( Amer) > 60 Est GFR (Non-Af Amer) > 60 Glucose 218 H Calcium 8.8 Impressions: Foot X-Ray 07/18/18 17:03 IMPRESSION: No evidence of osteomyelitis. Lower Extremity MRI 07/19/18 00:00 IMPRESSION: Findings suspicious for abscess along the distal lateral aspect of the remaining foot with underlying bone marrow edema and cortical irregularity of the cuboid bone, suspicious for osteomyelitis at this site. Diffuse subcutaneous edema consistent with cellulitis copyright 2010 [email or web address]- All Rights Reserved Assessment & Plan - Diagnosis (1) Foot ulcer, right Qualifiers: Non-pressure ulcer stage: with necrosis of bone Qualified Code(s): L97.519 - Non-pressure chronic ulcer of other part of right foot with unspecified severity Is this a current diagnosis for this admission?: Yes (2) Right foot infection Is this a current diagnosis for this admission?: Yes - Plan Summary Plan Summary: pt will have surgery tomorrow for right bka does not want surgery due to family issues will plan on right bka in am discussed risks and benifits including bleeding, infection, cva,PE. . mi, non healing stump need for additional surgery, phamtom pain pt understands and agrees to proceed.
[2018-07-22] MEDS: INSULIN LISPRO 100 UNIT/ML 3 ML VIAL SUBCUT SCH ×4 (09:06→21:43)
[2018-07-22] MEDS: FLUTICASONE/VILANTEROL 100-25 MCG/DOSE IH SCH (09:07)
[2018-07-22] MEDS: DIAZEPAM 5 MG TABLET PO PRN ×2 (14:06→23:45)
--- NOTE | 2018-07-22 15:28 | PDOC PROGRESS REPORT ---
Subjective Progress Note for:: 07/22/18 Subjective:: Patient is sitting on the edge of the bed. She states that she is still anxious but she looks less anxious than yesterday. Reason For Visit: NECROTIC TMA SITE Physical Exam Vital Signs: Temp Pulse Resp BP Pulse Ox 97.8 F 59 L 16 127/76 H 99 07/22/18 11:16 07/22/18 11:16 07/22/18 11:16 07/22/18 11:16 07/22/18 11:16 Intake & Output 07/21/18 07/22/18 07/23/18 06:59 06:59 06:59 Intake Total 4306 1150 350 Output Total 650 Balance 3656 1150 350 Weight 87.8 kg 60.6 kg General appearance: PRESENT: no acute distress, cooperative, well-developed Head exam: PRESENT: atraumatic, normocephalic Respiratory exam: PRESENT: clear to auscultation too, symmetrical, unlabored. ABSENT: rales, rhonchi, tachypnea, wheezes Cardiovascular exam: PRESENT: RRR, +S1, +S2 GI/Abdominal exam: PRESENT: normal bowel sounds, soft, other - Ecchymotic lesion right side of abdomen. ABSENT: distended, tenderness Rectal exam: PRESENT: deferred Extremities exam: PRESENT: other - Dressing on right foot covering foot ulcer.. ABSENT: pedal edema Neurological exam: PRESENT: alert, awake, oriented to person, oriented to place, oriented to time, oriented to situation, CN II-XII grossly intact Psychiatric exam: PRESENT: appropriate affect. ABSENT: agitated, anxious Focused psych exam: ABSENT: delusional, restlessness Results Laboratory Results: 07/22/18 06:10 07/22/18 06:10 07/22/18 07/22/18 06:10 06:10 WBC 11.2 H RBC 4.65 Hgb 13.6 Hct 40.1 MCV 86 MCH 29.3 MCHC 34.0 RDW 12.8 Plt Count 129 L Seg Neutrophils % 57.3 Lymphocytes % 33.6 Monocytes % 5.6 Eosinophils % 2.5 Basophils % 1.0 Absolute Neutrophils 6.4 Absolute Lymphocytes 3.8 Absolute Monocytes 0.6 Absolute Eosinophils 0.3 Absolute Basophils 0.1 Sodium 136.9 L Potassium 4.6 Chloride 103 Carbon Dioxide 27 Anion Gap 7 BUN 18 Creatinine 0.55 Est GFR ( Amer) > 60 Est GFR (Non-Af Amer) > 60 Glucose 218 H Calcium 8.8 07/20/18 06:12 Foot - Diabetic Ulcer Gram Stain - Final 07/20/18 06:12 Foot - Diabetic Ulcer Wound Culture - Final Proteus Mirabilis Bacteroides Fragilis Group Skin Lia Impressions: Foot X-Ray 07/18/18 17:03 IMPRESSION: No evidence of osteomyelitis. Lower Extremity MRI 07/19/18 00:00 IMPRESSION: Findings suspicious for abscess along the distal lateral aspect of the remaining foot with underlying bone marrow edema and cortical irregularity of the cuboid bone, suspicious for osteomyelitis at this site. Diffuse subcutaneous edema consistent with cellulitis copyright 2011 [employer]- All Rights Reserved Assessment and Plan - Diagnosis (1) Foot ulcer, right Qualifiers: Non-pressure ulcer stage: with necrosis of bone Qualified Code(s): L97.519 - Non-pressure chronic ulcer of other part of right foot with unspecified severity Is this a current diagnosis for this admission?: Yes Plan: Continue antibiotics. Below-knee amputation tomorrow. (2) Osteomyelitis Qualifiers: Osteomyelitis type: subacute Osteomyelitis location: foot Is this a current diagnosis for this admission?: Yes Plan: As above. (3) COPD (chronic obstructive pulmonary disease) Is this a current diagnosis for this admission?: Yes Plan: Stable on current treatment regimen. Continue same. 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 after midnight. I will give her 20 units of Lantus tonight. Postoperatively I am going to increase the Lantus to likely 36 or 38 units. Her fingerstick glucoses are mostly above 200 still. (5) Tobacco abuse Is this a current diagnosis for this admission?: Yes Plan: Encourage tobacco cessation - Time Time Spent with patient: 15-24 minutes Medications reviewed and adjusted accordingly: Yes
--- NOTE | 2018-07-22 15:53 | RADIOLOGY REPORT (SQ) ---
EXAM DESCRIPTION: FLUORO/CV PLACEMENT; PICC INSERTION; U/S GUIDE FOR VASCULAR ACCESS COMPLETED DATE/TIME: 07/22/2018 3:20 pm REASON FOR STUDY: IV ACCESS; Poor venous access. COMPARISON: None. FLUOROSCOPY TIME: 0.6 minutes of fluoroscopy was used 1 images saved to PACS. TECHNIQUE: Fluoroscopic and ultrasound guided PICC placement. LIMITATIONS: None. PROCEDURE: After written consent and assessment were obtained, the patient was brought into the fluo roscopy room and placed supine on the table. Ultrasound evaluation of potential access sites were per formed. After successfully identifying a patent left basilic vein, the left arm was prepped and drape d in a sterile fashion along with the ultrasound probe. The entry site was anesthetized with 1% lidoc jnaet. A 21 gauge 7 cm needle was advanced through the skin and into the basilic vein under live ultra sound guidance. An ultrasound image was saved to PACS confirming access site. A .018 guide wire was then inserted through the needle and into the venous system. The needle was then removed and an 11 b lade scalpel was used to make a 1cm skin incision. A 5 fr peel-away sheath was advanced over the wir e and into the venous system. A measurement was then made using the existing wire and live fluoroscop ic guidance. The wire was then removed and trimmed. The PICC was advanced through the peel-away sheat h and into the venous system. The peel-away sheath was removed and the catheter was adhered to the pa tients arm with a stat lock. The catheter was then aspirated and flushed and a sterile bandage was pl aced over the access site. A fluoroscopic spot image was saved to PACS confirming the catheter tip w ithin the superior vena cava. IMPRESSION: SUCCESSFUL PLACEMENT OF A 5 FR DUAL LUMEN 40 CM PICC IN THE LEFT BASILIC VEIN. COMMENT: Patient medication list reviewed: Yes- Quality ID# [id number]:Eligible professional attests to doc umenting in the medical record they obtained, updated, or reviewed the patient's current medications. . Quality ID 145: Final reports for procedures using fluoroscopy that document radiation exposure lalo maureen, or exposure time and number of fluorographic images (if radiation exposure indices are not avail able) Quality ID #76: The patient was prepped and draped using maximum sterile barrier technique including cap, mask, sterile gown, sterile gloves, a large sterile sheet, hand hygiene, and 2% Chlorhexidine fo r cutaneous antisepsis. When ultrasound is used, sterile ultrasound techniques are followed requiring sterile gel and sterile probes. TECHNICAL DOCUMENTATION: JOB ID: [id number] [employer]- All Rights Reserved rev-08/06 Reading location - IP/workstation name: [email or web address] [id number]
[2018-07-22] MEDS ORDERED: NORMAL SALINE 10 ML SDV (AFTER EACH USE) IV PRN (16:00)
[2018-07-22] MEDS: MONTELUKAST SODIUM 10 MG TABLET PO SCH (21:42)
[2018-07-22] MEDS: NORMAL SALINE 10 ML SDV (SCHEDULED) IV SCH (21:43)
[2018-07-22] MEDS ORDERED: INSULIN GLARGINE,HUM.REC.ANLOG 1,000 UNIT/10 ML VIAL SUBCUT SCH (22:00)
[2018-07-23] MEDS: VANCOMYCIN HCL 1,250 MG in DEXTROSE 5%-WATER 250 ML IV SCH ×3 (02:10→18:03)
[2018-07-23] MEDS: KETOROLAC TROMETHAMINE INJ/PF 30 MG/1 ML SDV IV PRN ×2 (02:55→13:27)
[2018-07-23] MEDS: GABAPENTIN 300 MG CAPSULE PO SCH ×3 (05:11→22:22)
[2018-07-23 05:16] LABS: ABSOLUTE BASOPHILS # (AUTO) 0.1 10^3/uL (0.0-0.2); ABSOLUTE EOSINOPHILS # (AUTO) 0.3 10^3/uL (0.0-0.6); ABSOLUTE LYMPHOCYTES (AUTO) 3.5 10^3/uL (0.5-4.7); ABSOLUTE MONOCYTES (AUTO) 0.5 10^3/uL (0.1-1.4); ABSOLUTE NEUT (AUTO) 5.5 10^3/uL (1.7-8.2); BASOPHILS % (AUTO) 1.3 % (0-2); HEMATOCRIT 38.1 % (36.0-47.0); LYMPHOCYTES % (AUTO) 35.1 % (13-45); MEAN CORPUSCULAR HEMOGLOBIN 29.7 pg (27.0-33.4); MEAN CORPUSCULAR VOLUME 87 fl (80-97); MONOCYTES % (AUTO) 4.9 % (3-13); PLATELET COUNT 194 10^3/uL (150-450); RED BLOOD COUNT 4.37 10^6/uL (3.72-5.28); RED CELL DISTRIBUTION WIDTH 12.5 % (11.5-14.0); SEGMENTED NEUTROPHILS % (AUTO) 55.7 % (42-78); TOTAL CELLS COUNTED % (AUTO) 100 %; WHITE BLOOD COUNT 9.8 10^3/uL (4.0-10.5)
[2018-07-23] MEDS: PIPERACILLIN SODIUM/TAZOBACTAM 3.375 GM in NORMAL SALINE 100 ML IV SCH ×3 (05:22→17:26)
[2018-07-23 05:35] LABS: ANION GAP 8 (5-19); BLOOD UREA NITROGEN 16 mg/dL (7-20); CALCIUM 8.6 mg/dL (8.4-10.2); CARBON DIOXIDE 28 mmol/L (22-30); CHLORIDE 102 mmol/L (98-107); GLUCOSE 269 mg/dL (75-110); POTASSIUM 4.5 mmol/L (3.6-5.0); SODIUM 137.5 mmol/L (137-145)
[2018-07-23] MEDS: INSULIN LISPRO 100 UNIT/ML 3 ML VIAL SUBCUT SCH ×4 (08:15→22:19)
[2018-07-23] MEDS: IPRATROPIUM/ALBUTEROL 0.5-2.5 MG/3 ML AMPUL NEB SCH ×2 (08:18→19:33)
[2018-07-23] MEDS ORDERED: FENTANYL CITRATE INJ/PF 100 MCG/2 ML AMPUL ONE (08:25)
[2018-07-23] MEDS ORDERED: KETOROLAC TROMETHAMINE 60 MG/2 ML SDV ONE (08:25)
[2018-07-23] MEDS ORDERED: DEXAMETHASONE SOD PHOSPHATE INJ 4 MG/1 ML VIAL ONE (08:26)
[2018-07-23] MEDS ORDERED: MIDAZOLAM 2 MG/2 ML INJ ONE (08:26)
[2018-07-23] MEDS ORDERED: PROPOFOL INJ 200 MG/20 ML VIAL IV ONE ×2 (08:26→08:47)
[2018-07-23] MEDS ORDERED: ACETAMINOPHEN 1,000 MG/100 ML RTUPB IV ONE (08:26)
[2018-07-23] MEDS ORDERED: ONDANSETRON HCL INJ/PF 4 MG/2 ML SDV ONE (08:26)
[2018-07-23] MEDS ORDERED: LIDOCAINE 1% INJ-PF (10 MG/ML) 30 ML SDV ONE (08:27)
[2018-07-23] MEDS ORDERED: FENTANYL CITRATE INJ/PF 100 MCG/2 ML AMPUL IV PRN ×3 (09:36)
[2018-07-23] MEDS ORDERED: MORPHINE SULFATE 10 MG/ML INJ IV PRN (09:36)
[2018-07-23] MEDS ORDERED: PROMETHAZINE HCL INJ 25 MG/1 ML VIAL IV PRN ×2 (09:36)
[2018-07-23] MEDS ORDERED: MEPERIDINE HCL/PF INJ 25 MG/1 ML DISP.SYRIN IV PRN (09:36)
[2018-07-23] MEDS ORDERED: DIPHENHYDRAMINE HCL 50 MG/ML VIAL IV PRN (09:36)
[2018-07-23] MEDS ORDERED: OXYCODONE-ACETAMINOPHEN 5-325 MG TABLET PO PRN ×2 (09:36)
[2018-07-23] MEDS ORDERED: ONDANSETRON HCL INJ/PF 4 MG/2 ML SDV IV PRN (09:36)
[2018-07-23] MEDS ORDERED: GLYCOPYRROLATE 1 MG/5 ML SYRINGE ONE (10:06)
[2018-07-23] MEDS: FLUTICASONE/VILANTEROL 100-25 MCG/DOSE IH SCH (11:41)
[2018-07-23] MEDS: NORMAL SALINE 10 ML SDV (SCHEDULED) IV SCH ×2 (11:42→22:22)
[2018-07-23] MEDS: OXYCODONE-ACETAMINOPHEN 5-325 MG TABLET PO PRN ×2 (15:46→20:25)
--- NOTE | 2018-07-23 16:48 | OPERATIVE REPORT E ---
Operative Report NAME: ALMITA WILLARD : 1975 AGE: 42Y DATE OF SURGERY: 07/23/2018 ROOM: 414 PREOPERATIVE DIAGNOSES: 1. DEEP SOFT TISSUE INFECTION RIGHT FOOT. 2. DIABETES. 3. OSTEOMYELITIS. POSTOPERATIVE DIAGNOSES: 1. DEEP SOFT TISSUE INFECTION RIGHT FOOT. 2. DIABETES. 3. OSTEOMYELITIS. OPERATION: Right below the knee amputation. SURGEON: PIERRE LEONARD M.D. PROCEDURE IN DETAIL: The patient was brought to the operating in an awake, alert, and stable condition. Placed on the operating room table. A spinal anesthetic was placed. The right lower extremity was prepped and draped in the usual sterile fashion. After appropriate time out and site verification, markings were made on the right mid thigh for below the knee amputation. The skin was incised with a 10 blade and superficial veins were ligated with 2-0 and 0-Vicryl sutures. Muscles were divided with Bovie cautery laterally and medially. The anterior tibia artery and vein were isolated, ligated with 0-Vicryl sutures. We then used a periosteal elevator to lift the periosteum off the tibia and divided it on a slight bias proximal to the wound site. Similarly the fibula was divided. We continued our dissection down through the gastrocnemius muscle and soleus muscle with Bovie cautery. Small bleeders were controlled with 2-0 and 3-0 Vicryl suture or the Bovie cautery. Once we reached the soleus muscle we divided that with Bovie cautery on a BioSeal, used that for the flap. After the specimen was then removed we obtained hemostasis with small suture ligatures of 2-0 Vicryl suture or Bovie cautery. Once the hemostasis was intact we closed the wound in 2 layers. The first layer was a single closure between the soleus muscle and the anterior fascial layer with interrupted 2-0 Vicryl sutures. We then closed the second layer subcutaneous layer with interrupted 3-0 Vicryl sutures and then closed the skin with standard skin clips. Xeroform dressing was applied and the leg was wrapped with a Conform dressing, which completed the procedure. Estimated blood loss was 150 mL. Sponge and needle counts were correct x2. The patient was transferred to the recovery room in stable condition. DICTATING PHYSICIAN: PIERRE LEONARD M.D. [id number] PHY#: [id number] ID: [id number] JOB#: [id number] ACCT: [id number] cc:PIERRE LEONARD M.D. >
[2018-07-23] MEDS ORDERED: MORPHINE SULFATE 10 MG/ML INJ ONE (17:17)
--- NOTE | 2018-07-23 20:34 | PDOC PROGRESS REPORT ---
Subjective Progress Note for:: 07/23/18 Subjective:: The patient had her right below-knee amputation this morning. She had an epidural. She is quite comfortable. Reason For Visit: NECROTIC TMA SITE Physical Exam Vital Signs: Temp Pulse Resp BP Pulse Ox 97.5 F 74 16 116/58 L 98 07/23/18 11:25 07/23/18 11:25 07/23/18 11:25 07/23/18 11:25 07/23/18 11:25 Intake & Output 07/22/18 07/23/18 07/24/18 06:59 06:59 06:59 Intake Total 1150 1400 1700 Output Total 650 Balance 1150 1400 1050 Weight 60.6 kg 80.739 kg General appearance: PRESENT: no acute distress, cooperative, well-developed Head exam: PRESENT: atraumatic, normocephalic Eye exam: PRESENT: conjunctiva pink Ear exam: PRESENT: normal external ear exam Mouth exam: PRESENT: moist, tongue midline Teeth exam: PRESENT: poor dentation Respiratory exam: PRESENT: clear to auscultation too, symmetrical, unlabored. ABSENT: accessory muscle use, rales, rhonchi, tachypnea, wheezes Cardiovascular exam: PRESENT: RRR, +S1, +S2 GI/Abdominal exam: PRESENT: normal bowel sounds, soft. ABSENT: distended, guar ding, tenderness Rectal exam: PRESENT: deferred Gentrourinary exam: ABSENT: indwelling catheter Extremities exam: ABSENT: joint swelling, pedal edema Musculoskeletal exam: PRESENT: other - New right below-knee amputation Neurological exam: PRESENT: alert, awake, oriented to person, oriented to place, oriented to time, oriented to situation, CN II-XII grossly intact Psychiatric exam: PRESENT: appropriate affect. ABSENT: agitated, anxious Focused psych exam: ABSENT: delusional, restlessness Skin exam: PRESENT: other - Dressing on right stump Results Laboratory Results: 07/23/18 04:40 07/23/18 04:40 07/23/18 07/23/18 07/23/18 04:40 04:40 07:42 WBC 9.8 RBC 4.37 Hgb 13.0 Hct 38.1 MCV 87 MCH 29.7 MCHC 34.0 RDW 12.5 Plt Count 194 Seg Neutrophils % 55.7 Lymphocytes % 35.1 Monocytes % 4.9 Eosinophils % 3.0 Basophils % 1.3 Absolute Neutrophils 5.5 Absolute Lymphocytes 3.5 Absolute Monocytes 0.5 Absolute Eosinophils 0.3 Absolute Basophils 0.1 Sodium 137.5 Potassium 4.5 Chloride 102 Carbon Dioxide 28 Anion Gap 8 BUN 16 Creatinine 0.55 Est GFR ( Amer) > 60 Est GFR (Non-Af Amer) > 60 Glucose 269 H Calcium 8.6 Serum HCG, Qual NEGATIVE 07/20/18 06:12 Foot - Diabetic Ulcer Gram Stain - Final 07/20/18 06:12 Foot - Diabetic Ulcer Wound Culture - Final Proteus Mirabilis Bacteroides Fragilis Group Skin Lia Impressions: Foot X-Ray 07/18/18 17:03 IMPRESSION: No evidence of osteomyelitis. Lower Extremity MRI 07/19/18 00:00 IMPRESSION: Findings suspicious for abscess along the distal lateral aspect of the remaining foot with underlying bone marrow edema and cortical irregularity of the cuboid bone, suspicious for osteomyelitis at this site. Diffuse subcutaneous edema consistent with cellulitis copyright 2010 [employer]- All Rights Reserved Guidance Fluoroscopy 07/22/18 00:00 IMPRESSION: SUCCESSFUL PLACEMENT OF A 5 FR DUAL LUMEN 40 CM PICC IN THE LEFT BASILIC VEIN. Interventional Vascular Procedure 07/22/18 00:00 IMPRESSION: SUCCESSFUL PLACEMENT OF A 5 FR DUAL LUMEN 40 CM PICC IN THE LEFT BASILIC VEIN. PICC Line Insertion 07/22/18 00:00 IMPRESSION: SUCCESSFUL PLACEMENT OF A 5 FR DUAL LUMEN 40 CM PICC IN THE LEFT BASILIC VEIN. Assessment and Plan - Diagnosis (1) Foot ulcer, right Qualifiers: Non-pressure ulcer stage: with necrosis of bone Qualified Code(s): L97.514 - Non-pressure chronic ulcer of other part of right foot with necrosis of bone Is this a current diagnosis for this admission?: Yes Plan: Status post successful right below-knee amputation this morning. No reported adverse issues during her surgery. She tolerated the epidural anesthesia without difficulty. We will likely continue the antibiotics for 1 or 2 more days and then discontinue since the infected necrotic tissue is now removed. (2) Osteomyelitis Qualifiers: Osteomyelitis type: subacute Osteomyelitis location: foot Is this a current diagnosis for this admission?: Yes Plan: As above (3) COPD (chronic obstructive pulmonary disease) Is this a current diagnosis for this admission?: Yes Plan: Continue current nebulizer regimen. 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 I told her I will return to 40 units for tonight and continue sliding scale. She likely has a better diabetic diet as an inpatient also. (5) Tobacco abuse Is this a current diagnosis for this admission?: Yes Plan: Continue to encourage tobacco cessation. - Time Time Spent with patient: 15-24 minutes Medications reviewed and adjusted accordingly: Yes Anticipated discharge: Acute Rehab - For new amputation
[2018-07-23] MEDS ORDERED: (PENDING PHARMACY ID) (Prazosin Hcl [Minipress] 2 MG) PO SCH (22:00)
[2018-07-23] MEDS: INSULIN GLARGINE,HUM.REC.ANLOG 1,000 UNIT/10 ML VIAL SUBCUT SCH (22:20)
[2018-07-23] MEDS: HEPARIN SOD (PORCINE) 5,000 UNIT/ML 1 ML SYRINGE SUBCUT SCH (22:21)
[2018-07-23] MEDS: MONTELUKAST SODIUM 10 MG TABLET PO SCH (22:22)
[2018-07-23] MEDS: MORPHINE SULFATE 10 MG/ML INJ IV PRN (23:09)
[2018-07-23] MEDS: DIAZEPAM 5 MG TABLET PO PRN (23:10)
[2018-07-24] MEDS: PIPERACILLIN SODIUM/TAZOBACTAM 3.375 GM in NORMAL SALINE 100 ML IV SCH ×4 (00:44→17:37)
[2018-07-24] MEDS: OXYCODONE-ACETAMINOPHEN 5-325 MG TABLET PO PRN ×3 (02:31→22:06)
[2018-07-24] MEDS: VANCOMYCIN HCL 1,250 MG in DEXTROSE 5%-WATER 250 ML IV SCH ×3 (02:32→18:11)
[2018-07-24] MEDS: GABAPENTIN 300 MG CAPSULE PO SCH ×3 (05:35→22:04)
[2018-07-24] MEDS: HEPARIN SOD (PORCINE) 5,000 UNIT/ML 1 ML SYRINGE SUBCUT SCH ×3 (05:36→22:04)
[2018-07-24 06:51] LABS: ABSOLUTE BASOPHILS # (AUTO) 0.1 10^3/uL (0.0-0.2); ABSOLUTE EOSINOPHILS # (AUTO) 0.4 10^3/uL (0.0-0.6); ABSOLUTE LYMPHOCYTES (AUTO) 3.1 10^3/uL (0.5-4.7); ABSOLUTE MONOCYTES (AUTO) 0.7 10^3/uL (0.1-1.4); ABSOLUTE NEUT (AUTO) 7.4 10^3/uL (1.7-8.2); BASOPHILS % (AUTO) 0.9 % (0-2); EOSINOPHILS % (AUTO) 3.3 % (0-6); HEMATOCRIT 37.4 % (36.0-47.0); HEMOGLOBIN 12.3 g/dL (12.0-15.5); LYMPHOCYTES % (AUTO) 26.7 % (13-45); MEAN CORPUSCULAR HGB CONC 32.8 g/dL (32.0-36.0); MEAN CORPUSCULAR VOLUME 88 fl (80-97); MONOCYTES % (AUTO) 6.2 % (3-13); PLATELET COUNT 206 10^3/uL (150-450); RED BLOOD COUNT 4.23 10^6/uL (3.72-5.28); RED CELL DISTRIBUTION WIDTH 13.1 % (11.5-14.0); SEGMENTED NEUTROPHILS % (AUTO) 62.9 % (42-78); TOTAL CELLS COUNTED % (AUTO) 100 %; WHITE BLOOD COUNT 11.7 10^3/uL (4.0-10.5)
[2018-07-24 07:15] LABS: ANION GAP 9 (5-19); BLOOD UREA NITROGEN 14 mg/dL (7-20); CALCIUM 8.4 mg/dL (8.4-10.2); CARBON DIOXIDE 26 mmol/L (22-30); CHLORIDE 102 mmol/L (98-107); GLUCOSE 201 mg/dL (75-110); POTASSIUM 4.4 mmol/L (3.6-5.0); SODIUM 136.8 mmol/L (137-145)
[2018-07-24] MEDS: INSULIN LISPRO 100 UNIT/ML 3 ML VIAL SUBCUT SCH ×4 (08:12→22:03)
[2018-07-24] MEDS: MORPHINE SULFATE 10 MG/ML INJ IV PRN ×3 (08:13→18:11)
[2018-07-24] MEDS: IPRATROPIUM/ALBUTEROL 0.5-2.5 MG/3 ML AMPUL NEB SCH (08:31)
--- NOTE | 2018-07-24 08:51 | PDOC PROGRESS REPORT ---
Subjective Progress Note for:: 07/24/18 Reason For Visit: NECROTIC TMA SITE feels ok Physical Exam Vital Signs: Temp Pulse Resp BP Pulse Ox 97.8 F 72 17 141/88 H 100 07/24/18 08:00 07/24/18 08:00 07/24/18 08:00 07/24/18 08:00 07/24/18 08:00 Intake & Output 07/23/18 07/24/18 07/25/18 06:59 06:59 06:59 Intake Total 1400 5418 350 Output Total 650 Balance 1400 4768 350 Weight 61 kg General appearance: PRESENT: no acute distress Head exam: PRESENT: normocephalic Eye exam: PRESENT: EOMI Mouth exam: PRESENT: moist Neck exam: PRESENT: full ROM Respiratory exam: PRESENT: clear to auscultation too Cardiovascular exam: PRESENT: RRR Pulses: PRESENT: normal radial pulses, normal femoral pulses Vascular exam: PRESENT: normal capillary refill GI/Abdominal exam: PRESENT: soft Rectal exam: PRESENT: deferred Extremities exam: PRESENT: full ROM, other - rt bka stump dressing dry' some flexion at knee on rt lower ext Neurological exam: PRESENT: alert, awake, oriented to person Psychiatric exam: PRESENT: appropriate affect Skin exam: PRESENT: dry Results Laboratory Results: 07/24/18 05:40 07/24/18 05:40 07/24/18 07/24/18 05:40 05:40 WBC 11.7 H RBC 4.23 Hgb 12.3 Hct 37.4 MCV 88 MCH 29.0 MCHC 32.8 RDW 13.1 Plt Count 206 Seg Neutrophils % 62.9 Lymphocytes % 26.7 Monocytes % 6.2 Eosinophils % 3.3 Basophils % 0.9 Absolute Neutrophils 7.4 Absolute Lymphocytes 3.1 Absolute Monocytes 0.7 Absolute Eosinophils 0.4 Absolute Basophils 0.1 Sodium 136.8 L Potassium 4.4 Chloride 102 Carbon Dioxide 26 Anion Gap 9 BUN 14 Creatinine 0.62 Est GFR ( Amer) > 60 Est GFR (Non-Af Amer) > 60 Glucose 201 H Calcium 8.4 07/18/18 21:50 Blood Blood Culture - Final NO GROWTH IN 5 DAYS 07/18/18 20:18 Blood Blood Culture - Final NO GROWTH IN 5 DAYS Impressions: Foot X-Ray 07/18/18 17:03 IMPRESSION: No evidence of osteomyelitis. Lower Extremity MRI 07/19/18 00:00 IMPRESSION: Findings suspicious for abscess along the distal lateral aspect of the remaining foot with underlying bone marrow edema and cortical irregularity of the cuboid bone, suspicious for osteomyelitis at this site. Diffuse subcutaneous edema consistent with cellulitis copyright 2010 [employer]- All Rights Reserved Guidance Fluoroscopy 07/22/18 00:00 IMPRESSION: SUCCESSFUL PLACEMENT OF A 5 FR DUAL LUMEN 40 CM PICC IN THE LEFT BASILIC VEIN. Interventional Vascular Procedure 07/22/18 00:00 IMPRESSION: SUCCESSFUL PLACEMENT OF A 5 FR DUAL LUMEN 40 CM PICC IN THE LEFT BASILIC VEIN. PICC Line Insertion 07/22/18 00:00 IMPRESSION: SUCCESSFUL PLACEMENT OF A 5 FR DUAL LUMEN 40 CM PICC IN THE LEFT BASILIC VEIN. Assessment & Plan - Diagnosis (1) Foot ulcer, right Qualifiers: Non-pressure ulcer stage: with necrosis of bone Qualified Code(s): L97.514 - Non-pressure chronic ulcer of other part of right foot with necrosis of bone Is this a current diagnosis for this admission?: Yes (2) Right foot infection Is this a current diagnosis for this admission?: Yes - Plan Summary Plan Summary: s/p rt bka doing well 'min pain some flexion at rt knee will as pt to eval knee immobilizer.
[2018-07-24] MEDS: ARIPIPRAZOLE 5 MG TABLET PO SCH ×2 (09:56→17:38)
[2018-07-24] MEDS: BENZTROPINE MESYLATE 1 MG TABLET PO SCH ×2 (09:56→17:38)
[2018-07-24] MEDS: FLUTICASONE/VILANTEROL 100-25 MCG/DOSE IH SCH (09:56)
[2018-07-24] MEDS: OXCARBAZEPINE 150 MG TABLET PO SCH ×2 (09:56→17:38)
[2018-07-24] MEDS: NORMAL SALINE 10 ML SDV (SCHEDULED) IV SCH ×2 (09:57→22:05)
[2018-07-24] MEDS: ONDANSETRON HCL INJ/PF 4 MG/2 ML SDV IV PRN ×2 (13:39→20:46)
[2018-07-24] MEDS: DIAZEPAM 5 MG TABLET PO PRN (16:46)
[2018-07-24] MEDS ORDERED: IPRATROPIUM/ALBUTEROL 0.5-2.5 MG/3 ML AMPUL NEB PRN (17:03)
--- NOTE | 2018-07-24 17:08 | PDOC PROGRESS REPORT ---
Subjective Progress Note for:: 07/24/18 Subjective:: The patient is reporting of severe foot pain. I explained that this is phantom pain. The pain is also at the stump site. Reason For Visit: NECROTIC TMA SITE Physical Exam Vital Signs: Temp Pulse Resp BP Pulse Ox 97.8 F 72 17 141/88 H 100 07/24/18 08:00 07/24/18 08:00 07/24/18 08:00 07/24/18 08:00 07/24/18 08:00 Intake & Output 07/23/18 07/24/18 07/25/18 06:59 06:59 06:59 Intake Total 1400 5418 600 Output Total 650 Balance 1400 4768 600 Weight 61 kg General appearance: PRESENT: cooperative, mild distress, well-developed Head exam: PRESENT: atraumatic, normocephalic Teeth exam: PRESENT: poor dentation Respiratory exam: PRESENT: clear to auscultation too, symmetrical, unlabored. ABSENT: rales, rhonchi, tachypnea, wheezes Cardiovascular exam: PRESENT: RRR, +S1, +S2 GI/Abdominal exam: PRESENT: normal bowel sounds, soft. ABSENT: distended, tenderness Rectal exam: PRESENT: deferred Musculoskeletal exam: PRESENT: other - New right below-knee amputation Neurological exam: PRESENT: alert, awake, oriented to person, oriented to place, oriented to time, oriented to situation, CN II-XII grossly intact Psychiatric exam: PRESENT: flat affect. ABSENT: agitated, anxious Focused psych exam: ABSENT: delusional, restlessness Results Laboratory Results: 07/24/18 05:40 07/24/18 05:40 07/24/18 07/24/18 05:40 05:40 WBC 11.7 H RBC 4.23 Hgb 12.3 Hct 37.4 MCV 88 MCH 29.0 MCHC 32.8 RDW 13.1 Plt Count 206 Seg Neutrophils % 62.9 Lymphocytes % 26.7 Monocytes % 6.2 Eosinophils % 3.3 Basophils % 0.9 Absolute Neutrophils 7.4 Absolute Lymphocytes 3.1 Absolute Monocytes 0.7 Absolute Eosinophils 0.4 Absolute Basophils 0.1 Sodium 136.8 L Potassium 4.4 Chloride 102 Carbon Dioxide 26 Anion Gap 9 BUN 14 Creatinine 0.62 Est GFR ( Amer) > 60 Est GFR (Non-Af Amer) > 60 Glucose 201 H Calcium 8.4 07/18/18 21:50 Blood Blood Culture - Final NO GROWTH IN 5 DAYS 07/18/18 20:18 Blood Blood Culture - Final NO GROWTH IN 5 DAYS Impressions: Foot X-Ray 07/18/18 17:03 IMPRESSION: No evidence of osteomyelitis. Lower Extremity MRI 07/19/18 00:00 IMPRESSION: Findings suspicious for abscess along the distal lateral aspect of the remaining foot with underlying bone marrow edema and cortical irregularity of the cuboid bone, suspicious for osteomyelitis at this site. Diffuse subcutaneous edema consistent with cellulitis copyright 2010 [employer]- All Rights Reserved Guidance Fluoroscopy 07/22/18 00:00 IMPRESSION: SUCCESSFUL PLACEMENT OF A 5 FR DUAL LUMEN 40 CM PICC IN THE LEFT BASILIC VEIN. Interventional Vascular Procedure 07/22/18 00:00 IMPRESSION: SUCCESSFUL PLACEMENT OF A 5 FR DUAL LUMEN 40 CM PICC IN THE LEFT BASILIC VEIN. PICC Line Insertion 07/22/18 00:00 IMPRESSION: SUCCESSFUL PLACEMENT OF A 5 FR DUAL LUMEN 40 CM PICC IN THE LEFT BASILIC VEIN. Assessment and Plan - Diagnosis (1) Foot ulcer, right Qualifiers: Non-pressure ulcer stage: with necrosis of bone Qualified Code(s): L97.514 - Non-pressure chronic ulcer of other part of right foot with necrosis of bone Is this a current diagnosis for this admission?: Yes Plan: Underwent successful right below-knee amputation yesterday. Will likely be able to discontinue antibiotics in another 24 hours. (2) Osteomyelitis Qualifiers: Osteomyelitis type: subacute Osteomyelitis location: foot Is this a current diagnosis for this admission?: Yes Plan: Amputation has removed the infected damaged tissue. Consider discontinuing antibiotics in the next 24 to 48 hours. (3) COPD (chronic obstructive pulmonary disease) Is this a current diagnosis for this admission?: Yes Plan: The patient has been stable. She is on minimal as scheduled meds. She was not on any inhaler therapy at home. I will change her nebulized treatments to as needed only as she is tolerating the Brio Ellipta.. (4) Diabetes Qualifiers: Diabetes mellitus type: type 1 Diabetes mellitus complication status: with circulatory complication Diabetes mellitus complication detail: with peripheral angiopathy with gangrene Qualified Code(s): E10.52 - Type 1 diabetes mellitus with diabetic peripheral angiopathy with gangrene Is this a current diagnosis for this admission?: Yes Plan: Patient informed me that she normally takes 45 units of Lantus at home. Postop I administered 40 units and the sliding scale. Most glucose readings are below 200. She is on a carbohydrate consistent diet. No changes in treatment at this time. (5) Phantom pain after amputation of lower extremity Is this a current diagnosis for this admission?: Yes Plan: The patient reported gabapentin 300 mg 3 times a day however she is actually on gabapentin 900 mg 3 times a day. I will hold on increasing the dose at this time. She also has analgesia available as well. If the phantom pain persists consider 1200 mg of gabapentin 3 times a day. (6) Tobacco abuse Is this a current diagnosis for this admission?: Yes Plan: Continue to encourage tobacco cessation. - Time Time Spent with patient: 25-34 minutes Medications reviewed and adjusted accordingly: Yes - Plan Summary Plan Summary: Increase Neurontin
[2018-07-24] MEDS: INSULIN GLARGINE,HUM.REC.ANLOG 1,000 UNIT/10 ML VIAL SUBCUT SCH (22:03)
[2018-07-24] MEDS: MONTELUKAST SODIUM 10 MG TABLET PO SCH (22:04)
[2018-07-25] MEDS: PIPERACILLIN SODIUM/TAZOBACTAM 3.375 GM in NORMAL SALINE 100 ML IV SCH ×2 (01:45→06:04)
[2018-07-25] MEDS: VANCOMYCIN HCL 1,250 MG in DEXTROSE 5%-WATER 250 ML IV SCH (04:33)
[2018-07-25] MEDS: MORPHINE SULFATE 10 MG/ML INJ IV PRN ×4 (04:51→20:14)
[2018-07-25] MEDS: GABAPENTIN 300 MG CAPSULE PO SCH ×3 (06:03→22:03)
[2018-07-25] MEDS: HEPARIN SOD (PORCINE) 5,000 UNIT/ML 1 ML SYRINGE SUBCUT SCH ×3 (06:04→22:03)
[2018-07-25 06:44] LABS: ABSOLUTE BASOPHILS # (AUTO) 0.1 10^3/uL (0.0-0.2); ABSOLUTE EOSINOPHILS # (AUTO) 0.1 10^3/uL (0.0-0.6); ABSOLUTE LYMPHOCYTES (AUTO) 2.9 10^3/uL (0.5-4.7); ABSOLUTE MONOCYTES (AUTO) 0.6 10^3/uL (0.1-1.4); ABSOLUTE NEUT (AUTO) 9.4 10^3/uL (1.7-8.2); BASOPHILS % (AUTO) 0.7 % (0-2); HEMATOCRIT 36.4 % (36.0-47.0); HEMOGLOBIN 12.3 g/dL (12.0-15.5); LYMPHOCYTES % (AUTO) 21.9 % (13-45); MEAN CORPUSCULAR HEMOGLOBIN 29.6 pg (27.0-33.4); MEAN CORPUSCULAR HGB CONC 33.8 g/dL (32.0-36.0); MEAN CORPUSCULAR VOLUME 87 fl (80-97); MONOCYTES % (AUTO) 4.5 % (3-13); PLATELET COUNT 197 10^3/uL (150-450); RED BLOOD COUNT 4.17 10^6/uL (3.72-5.28); SEGMENTED NEUTROPHILS % (AUTO) 71.9 % (42-78); TOTAL CELLS COUNTED % (AUTO) 100 %; WHITE BLOOD COUNT 13.1 10^3/uL (4.0-10.5)
[2018-07-25 06:45] LABS: ANION GAP 9 (5-19); BLOOD UREA NITROGEN 7 mg/dL (7-20); CALCIUM 8.7 mg/dL (8.4-10.2); CARBON DIOXIDE 30 mmol/L (22-30); CHLORIDE 100 mmol/L (98-107); GLUCOSE 132 mg/dL (75-110); SODIUM 138.8 mmol/L (137-145)
[2018-07-25] MEDS: INSULIN LISPRO 100 UNIT/ML 3 ML VIAL SUBCUT SCH ×4 (09:09→22:02)
[2018-07-25] MEDS: ARIPIPRAZOLE 5 MG TABLET PO SCH ×2 (09:10→17:14)
[2018-07-25] MEDS: BENZTROPINE MESYLATE 1 MG TABLET PO SCH ×2 (09:11→17:15)
[2018-07-25] MEDS: OXCARBAZEPINE 150 MG TABLET PO SCH ×2 (09:11→17:15)
[2018-07-25] MEDS: FLUTICASONE/VILANTEROL 100-25 MCG/DOSE IH SCH (09:11)
[2018-07-25] MEDS: NORMAL SALINE 10 ML SDV (SCHEDULED) IV SCH ×2 (09:12→22:04)
--- NOTE | 2018-07-25 11:24 | PDOC PROGRESS REPORT ---
Subjective Progress Note for:: 07/25/18 Subjective:: Patient doing well,, getting up with assistance. Reason For Visit: NECROTIC TMA SITE Physical Exam Vital Signs: Temp Pulse Resp BP Pulse Ox 97.7 F 75 17 151/55 H 100 07/25/18 08:00 07/25/18 08:00 07/25/18 08:00 07/25/18 08:00 07/25/18 08:00 Intake & Output 07/24/18 07/25/18 07/26/18 06:59 06:59 06:59 Intake Total 5418 4046 Output Total 650 1000 Balance 4768 3046 Weight 61 kg 63.8 kg General appearance: PRESENT: no acute distress Musculoskeletal exam: PRESENT: other - Dressing right BKA stump removed. Flaps look good, warm, well-perfused. No evidence of infection, hematoma Results Laboratory Results: 07/25/18 04:30 07/25/18 04:30 07/25/18 07/25/18 04:30 04:30 WBC 13.1 H RBC 4.17 Hgb 12.3 Hct 36.4 MCV 87 MCH 29.6 MCHC 33.8 RDW 13.0 Plt Count 197 Seg Neutrophils % 71.9 Lymphocytes % 21.9 Monocytes % 4.5 Eosinophils % 1.0 Basophils % 0.7 Absolute Neutrophils 9.4 H Absolute Lymphocytes 2.9 Absolute Monocytes 0.6 Absolute Eosinophils 0.1 Absolute Basophils 0.1 Sodium 138.8 Potassium 4.0 Chloride 100 Carbon Dioxide 30 Anion Gap 9 BUN 7 Creatinine 0.51 L Est GFR ( Amer) > 60 Est GFR (Non-Af Amer) > 60 Glucose 132 H Calcium 8.7 Magnesium 2.1 Impressions: Foot X-Ray 07/18/18 17:03 IMPRESSION: No evidence of osteomyelitis. Lower Extremity MRI 07/19/18 00:00 IMPRESSION: Findings suspicious for abscess along the distal lateral aspect of the remaining foot with underlying bone marrow edema and cortical irregularity of the cuboid bone, suspicious for osteomyelitis at this site. Diffuse subcutaneous edema consistent with cellulitis copyright 2011 [employer]- All Rights Reserved Guidance Fluoroscopy 07/22/18 00:00 IMPRESSION: SUCCESSFUL PLACEMENT OF A 5 FR DUAL LUMEN 40 CM PICC IN THE LEFT BASILIC VEIN. Interventional Vascular Procedure 07/22/18 00:00 IMPRESSION: SUCCESSFUL PLACEMENT OF A 5 FR DUAL LUMEN 40 CM PICC IN THE LEFT BASILIC VEIN. PICC Line Insertion 07/22/18 00:00 IMPRESSION: SUCCESSFUL PLACEMENT OF A 5 FR DUAL LUMEN 40 CM PICC IN THE LEFT BASILIC VEIN. Assessment & Plan - Diagnosis (1) Right foot infection Is this a current diagnosis for this admission?: Yes Plan: Impression: Patient is 2 days status post right below the knee amputation, doing well, no immediate problems. Recommendations: 1. We will dressing changes which can be performed every other day 2. Suggest PT and rehab consultation. 3. We will sign off for now; can return to [facility] in 1 to 2 weeks for progressive staple removal. 4. Can discontinue intravenous antibiotics.
[2018-07-25] MEDS: OXYCODONE-ACETAMINOPHEN 5-325 MG TABLET PO PRN (16:33)
--- NOTE | 2018-07-25 18:19 | PDOC PROGRESS REPORT ---
Subjective Progress Note for:: 07/25/18 Subjective:: This is 42 years old female patient was past medical history of hyperlipidemia, hypertension, COPD, tobacco dependence, type 2 diabetes mellitus, gastroesophageal reflux disease, bipolar depression presented with persistent nonhealing right foot ulcer. Patient referred to [facility] ER by her primary statistical geneticist Dr. Chang since her wound is worsening. Her MRI of right foot reported as findings suspicious for abscess along the distal lateral aspect of the remaining foot with underlying bone marrow edema and cortical irregularity of the cuboid bone which is suspicious for osteomyelitis. Surgical consultation was made to Dr. Fink who performed which right BKA. Also managed with antibiotics including Zosyn and vancomycin. This morning patient reevaluated by Dr. Bustos who cleared her for discharge to rehab. Antibiotics are discontinued. This morning I seen patient resting on recliner. She is awake alert oriented and she is not in pain or distress. Reason For Visit: NECROTIC TMA SITE Physical Exam Vital Signs: Temp Pulse Resp BP Pulse Ox 98.0 F 87 17 135/68 H 97 07/25/18 16:00 07/25/18 16:00 07/25/18 16:00 07/25/18 16:00 07/25/18 16:00 Intake & Output 07/24/18 07/25/18 07/26/18 06:59 06:59 06:59 Intake Total 5418 4046 Output Total 650 1000 Balance 4768 3046 Weight 61 kg 63.8 kg General appearance: PRESENT: no acute distress Head exam: PRESENT: atraumatic Eye exam: PRESENT: conjunctiva pink Neck exam: ABSENT: carotid bruit, JVD, lymphadenopathy, thyromegaly Respiratory exam: PRESENT: clear to auscultation too. ABSENT: rales, rhonchi, wheezes Cardiovascular exam: PRESENT: RRR. ABSENT: diastolic murmur, rubs, systolic m urmur Pulses: PRESENT: normal dorsalis pedis pul GI/Abdominal exam: PRESENT: normal bowel sounds, soft. ABSENT: distended, guarding, mass, organolmegaly, rebound, tenderness Neurological exam: PRESENT: alert, awake, oriented to time, oriented to situation Results Laboratory Results: 07/25/18 04:30 07/25/18 04:30 07/25/18 07/25/18 04:30 04:30 WBC 13.1 H RBC 4.17 Hgb 12.3 Hct 36.4 MCV 87 MCH 29.6 MCHC 33.8 RDW 13.0 Plt Count 197 Seg Neutrophils % 71.9 Lymphocytes % 21.9 Monocytes % 4.5 Eosinophils % 1.0 Basophils % 0.7 Absolute Neutrophils 9.4 H Absolute Lymphocytes 2.9 Absolute Monocytes 0.6 Absolute Eosinophils 0.1 Absolute Basophils 0.1 Sodium 138.8 Potassium 4.0 Chloride 100 Carbon Dioxide 30 Anion Gap 9 BUN 7 Creatinine 0.51 L Est GFR ( Amer) > 60 Est GFR (Non-Af Amer) > 60 Glucose 132 H Calcium 8.7 Magnesium 2.1 Impressions: Foot X-Ray 07/18/18 17:03 IMPRESSION: No evidence of osteomyelitis. Lower Extremity MRI 07/19/18 00:00 IMPRESSION: Findings suspicious for abscess along the distal lateral aspect of the remaining foot with underlying bone marrow edema and cortical irregularity of the cuboid bone, suspicious for osteomyelitis at this site. Diffuse subcutaneous edema consistent with cellulitis copyright 2011 [employer]- All Rights Reserved Guidance Fluoroscopy 07/22/18 00:00 IMPRESSION: SUCCESSFUL PLACEMENT OF A 5 FR DUAL LUMEN 40 CM PICC IN THE LEFT BASILIC VEIN. Interventional Vascular Procedure 07/22/18 00:00 IMPRESSION: SUCCESSFUL PLACEMENT OF A 5 FR DUAL LUMEN 40 CM PICC IN THE LEFT BASILIC VEIN. PICC Line Insertion 07/22/18 00:00 IMPRESSION: SUCCESSFUL PLACEMENT OF A 5 FR DUAL LUMEN 40 CM PICC IN THE LEFT BASILIC VEIN. Assessment and Plan - Diagnosis (1) Nonhealing right diabetic foot ulcer Is this a current diagnosis for this admission?: Yes Plan: Status post right BKA. Patient qualified for inpatient short-term acute rehab. Lives in 30 days. (2) Subacute osteomyelitis of right foot Is this a current diagnosis for this admission?: Yes Plan: Dalila patient has been treated with antibiotics and lethargy under good right BKA. Antibiotics discontinued after 24 hours. (3) COPD (chronic obstructive pulmonary disease) Qualifiers: Emphysema type: unspecified Is this a current diagnosis for this admission?: Yes Plan: PRN bronchodilators. (4) Type 2 diabetes mellitus Is this a current diagnosis for this admission?: Yes Plan: Continue current regimen. (5) Tobacco dependence Is this a current diagnosis for this admission?: Yes Plan: Patient encouraged and counseled to quit smoking. (6) Hyperlipidemia and hypertension Is this a current diagnosis for this admission?: Yes Plan: Continue current regimen.
[2018-07-25] MEDS: INSULIN GLARGINE,HUM.REC.ANLOG 1,000 UNIT/10 ML VIAL SUBCUT SCH (22:03)
[2018-07-25] MEDS: MONTELUKAST SODIUM 10 MG TABLET PO SCH (22:03)
[2018-07-26] MEDS: OXYCODONE-ACETAMINOPHEN 5-325 MG TABLET PO PRN ×4 (02:44→21:09)
[2018-07-26] MEDS: ACETAMINOPHEN 325 MG TABLET PO PRN ×2 (06:59→17:17)
[2018-07-26] MEDS: GABAPENTIN 300 MG CAPSULE PO SCH ×3 (06:59→21:10)
[2018-07-26] MEDS: INSULIN LISPRO 100 UNIT/ML 3 ML VIAL SUBCUT SCH ×4 (08:41→21:37)
[2018-07-26] MEDS: BENZTROPINE MESYLATE 1 MG TABLET PO SCH ×2 (09:33→17:17)
[2018-07-26] MEDS: ARIPIPRAZOLE 5 MG TABLET PO SCH ×2 (09:34→17:17)
[2018-07-26] MEDS: OXCARBAZEPINE 150 MG TABLET PO SCH ×2 (09:35→17:17)
[2018-07-26] MEDS: FLUTICASONE/VILANTEROL 100-25 MCG/DOSE IH SCH (09:35)
[2018-07-26] MEDS: NORMAL SALINE 10 ML SDV (SCHEDULED) IV SCH ×2 (09:36→21:40)
--- NOTE | 2018-07-26 13:19 | Physical Med & Rehab Consult ---
Consultation Consult Date: 07/26/18 Consult reason:: Evaluation for admission to acute inpatient rehabilitation History of Present Illness Admission Date/PCP: 07/19/18 09:18 KWESI BLOOM DO Patient complains of: Right lower extremity pain History of Present Illness: NIKKI QUINTERO is a 42-year-old female with past medical history of tobacco abuse, COPD with chronic bronchitis, bipolar disorder, insulin-dependent diabetes mellitus, peripheral vascular disease, hyperlipidemia, GERD, transmetatarsal amputation with persistent nonhealing ulcer on the right, recent bilateral cataract surgery, and multiple toe amputations on the left admitted to [facility] on 07/18/2018 after being evaluated by second operator Dr. Chang as an outpatient and referred to the emergency department. The patient was evaluated by general surgery Dr. Mauri Bustos, who determined that the patient had a right foot ulcer and osteomyelitis and ultimately performed a right below the knee amputation on or about 07/23/2018. There is no operative report available in the chart. Physical medicine and rehabilitation consultation was requested to evaluate the patient for admission to acute inpatient rehabilitation. Today, the patient was seen and examined in her room. She complains of right lower extremity pain, especially with active range of motion, as well as phantom sensation and pain. Her last bowel movement was this morning, and she denies trouble with urination. Past Medical History Cardiac Medical History: Reports: Hyperlipidema Denies: Myocardial Infarction, Hypertension Pulmonary Medical History: Reports: Bronchitis, Chronic Obstructive Pulmonary Disease (COPD) Denies: Asthma Neurological Medical History: Denies: Seizures Endocrine Medical History: Reports: Diabetes Mellitus Type 1, Diabetes Mellitus Type 2 GI Medical History: Reports: Gastroesophageal Reflux Disease Denies: Hepatitis, Hiatal Hernia Psychiatric Medical History: Reports: Bipolar Disorder, Depression - anxiety, Post Traumatic Stress Disorder, Tobacco Dependency Hematology: Denies: Anemia, Sickle Cell Disease Past Surgical History Past Surgical History: Reports: Amputation - TOES ON RT FEET, 3 ON LEFT FOOT, Appendectomy, Section, Cholecystectomy, Orthopedic Surgery - right foot 5 toes amputation, 3 toes amputation left foot Denies: Mastectomy, Pacemaker Social History Lives with: Family Smoking Status: Former Smoker Frequency of Alcohol Use: None Hx Recreational Drug Use: Yes Drugs: Marijuana Hx Prescription Drug Abuse: No Past Social History Note: Nikki Quintero lives with her 17-year-old daughter in a 1 level home with 4 steps to enter and 0 steps to the bedroom and bathroom. She admits to smoking cigarettes occasionally and smoking marijuana on a regular basis. She reports that she was homeless until recently and is living in a trailer that her friend is allowing her to stay in. She states that the 4 steps to enter are not secure, and her daughter works during the daytime. She does not have any other support. Prior Functional Status: She was mostly at the wheelchair level for mobility with a power wheelchair inside the home and a manual wheelchair outside the home. She did ambulate short household distances. Current Functional Status: Per therapy notes, the patient currently requires standby assistance for bed mobility, contact-guard assistance for transfers, minimum assistance for hopping 35 feet +25 feet with a rolling walker, minimum assistance for lower body dressing, and moderate assistance for bathing. - Advance Directive Resuscitation Status: Full Code Family History Family History: DM, Hypertension Parental Family History Reviewed: Yes Children Family History Reviewed: No Sibling(s) Family History Reviewed.: No Medication/Allergy Home Medications: Albuterol Sulfate [Proair HFA] 2 puff IH Q6HP PRN 11/19/17 Diazepam [Valium 5 mg Tablet] 5 mg PO Q8HP PRN 11/19/17 Insulin Aspart [Novolog Flexpen] 6 unit SUBCUT AC 30 Days #2 insuln.pen 11/26/17 Gabapentin [Neurontin 300 mg Capsule] 900 mg PO Q8 06/17/18 Aripiprazole [Abilify 15 mg Tablet] 15 mg PO BID 07/19/18 Benztropine Mesylate [Cogentin 1 mg Tablet] 1 tab PO BID 07/19/18 Doxepin HCl 1 - 2 cap PO QHS 07/19/18 Insulin Glargine,Hum.rec.anlog [Lantus Solostar] 45 unit SQ QHS 07/19/18 Oxcarbazepine [Trileptal] 600 mg PO BID 07/19/18 Prazosin HCl [Minipress] 2 mg PO QHS 07/19/18 Allergies/Adverse Reactions: adhesive [Adhesive] Allergy (Mild, Verified 07/18/18 15:57) skin breakdown, red, itching Review of Systems Review of Systems: Constitutional: No fevers, chills, sweats, weight loss Eye: No recent visual problems, no blurry vision, no double vision ENMT: No ear pain, nasal congestion, sore throat Respiratory: No shortness of breath, cough, sputum production Cardiovascular: No chest pain, palpitations, syncope Gastrointestinal: No nausea, vomiting, diarrhea, abdominal pain Genitourinary: No hematuria, dysuria, flank or suprapubic pain Madan/Lymph: Negative for bruising tendency, swollen lymph glands Endocrine: Negative for excessive thirst, excessive hunger, extreme fatigue Musculoskeletal: Positive for right lower extremity pain. Integumentary: No rash, pruritus, abrasions Neurologic: No headaches, focal weakness, numbness, speech problems. Psychiatric: Positive for history of bipolar disorder. Physical Exam Vital Signs: Temp Pulse Resp BP Pulse Ox 97.4 F 86 21 H 148/84 H 96 07/26/18 12:00 07/26/18 12:00 07/26/18 12:00 07/26/18 12:00 07/26/18 12:00 Intake & Output 07/25/18 07/26/18 07/27/18 06:59 06:59 06:59 Intake Total 4046 3480 Output Total 1000 Balance 3046 3480 Weight 63.8 kg 65.7 kg Exam: General: Awake and Alert. No acute distress. Resting comfortably in chair. Head: Normocephalic. Atraumatic. Eyes: Pupils equal, round, and reactive to light. EOMI. Sclera white. Ears: No drainage noted. Nose: Nares normal & without exudate. Oropharynx: Moist mucous membranes. Neck: Supple movements. Cardiovascular: Regular rate & rhythm. No murmurs, rubs, or gallops appreciated. Pulmonary: Lungs clear to auscultation bilaterally. No increased work of breathing. Gastrointestinal: Abdomen soft, non-tender, non-distended. Normoactive bowel sounds. Skin: Texture and turgor normal. Warm and dry. Surgical dressing on the right lower extremity is clean, dry, and intact. Status post amputation of the first 3 digits on the left foot. Psychiatric: Judgement and insight appear to be good. Patient is oriented to date, location, and situation. Affect appropriate. Extremities: Status post right BKA. Neurological: CN III-XII grossly intact. Sensation to light touch is grossly intact. Speech is fluent with good content and without dysarthria. Muscle Strength: Full 5/5 strength in all available major muscle groups of the 4 extremities; right knee flexors/extensors were not tested. Results Laboratory Results: 07/25/18 04:30 07/25/18 04:30 Impressions: Foot X-Ray 07/18/18 17:03 IMPRESSION: No evidence of osteomyelitis. Lower Extremity MRI 07/19/18 00:00 IMPRESSION: Findings suspicious for abscess along the distal lateral aspect of the remaining foot with underlying bone marrow edema and cortical irregularity of the cuboid bone, suspicious for osteomyelitis at this site. Diffuse subcutaneous edema consistent with cellulitis copyright 2010 [employer]- All Rights Reserved Guidance Fluoroscopy 07/22/18 00:00 IMPRESSION: SUCCESSFUL PLACEMENT OF A 5 FR DUAL LUMEN 40 CM PICC IN THE LEFT BASILIC VEIN. Interventional Vascular Procedure 07/22/18 00:00 IMPRESSION: SUCCESSFUL PLACEMENT OF A 5 FR DUAL LUMEN 40 CM PICC IN THE LEFT BASILIC VEIN. PICC Line Insertion 07/22/18 00:00 IMPRESSION: SUCCESSFUL PLACEMENT OF A 5 FR DUAL LUMEN 40 CM PICC IN THE LEFT BASILIC VEIN. Assessment and Plan - Plan Summary Plan Summary: 42-year-old female with osteomyelitis status post right below the knee amputation. 1. Gait and ADL Dysfunction secondary to osteomyelitis status post right below the knee amputation. - Continue PT and OT to maximize mobility, safety, endurance, and self-care. 2. Osteomyelitis status post right below the knee amputation - Performed on 07/23/2018 - Nonweightbearing on the right lower extremity Recommend continued PT & OT for pre-prosthetic training including: - ROM of joints proximal to amputation (avoid pillow behind knee to prevent knee flexion contracture) - Strengthening gluteus brittnee & medius as well as hamstrings & quads - Mobility, transfers, and ADLs. - Consult Bottle Washer for evaluation and teaching. Post-Prosthetic Training will include: - ROM of joints proximal to amputation - strengthen gluteus brittnee & medius as well as hamstrings & quads - mobility, transfers, ADLS - gait with prosthesis on all surfaces - improving balance on all surfaces - ascending/descending stairs, curbs & ramps - prosthetic & skin care - proper donning & doffing of prosthesis Pain Management - For post-operative pain, use narcotics as tolerated. - For phantom pain, use Gabapentin, topical anesthetics, Beta Blockers, or a rigging slinger. 3. Diabetes mellitus type 2 - Continue management per hospitalist medicine 4. COPD with chronic bronchitis - Appears to be stable - Continue management per hospitalist medicine 5. Disposition - Based on the patient's diagnosis, medical co-morbidities, and current functional status, she is not a candidate for Acute Inpatient Rehabilitation as she does not have an appropriate disposition for after a short course of intensive rehabilitation. The patient would benefit from a prolonged, less intensive rehabilitation course that can be provided at the subacute level prior to transitioning home with her daughter. She may follow-up with the amputee clinic at [facility] in [place] after she is cleared for weightbearing on the right lower extremity. This case was discussed with the patient's acute care therapists, nurse on the floor, and materials planner/production planner. Thank you for allowing us to participate in the care of this patient. Please call with any questions. A total of 70 minutes was spent on [id number] communication with the patient and coordination of care.
[2018-07-26] MEDS: HEPARIN SOD (PORCINE) 5,000 UNIT/ML 1 ML SYRINGE SUBCUT SCH ×3 (14:11→21:39)
--- NOTE | 2018-07-26 15:42 | PDOC PROGRESS REPORT ---
Subjective Progress Note for:: 07/26/18 Subjective:: I seen patient sitting on recliner. She reports this is that she is able to participate with physical therapy. Patient evaluated by Dr. Ferguson and states "Based on the patient's diagnosis, medical co-morbidities, and current functional status, she is not a candidate for Acute Inpatient Rehabilitation as she does not have an appropriate disposition for after a short course of intensive rehabilitation. The patient would benefit from a prolonged, less intensive rehabilitation course that can be provided at the subacute level prior to transitioning home with her daughter. She may follow-up with the amputee clinic at [facility] in [place] after she is cleared for weightbearing on the right lower extremity". Reason For Visit: NECROTIC TMA SITE Physical Exam Vital Signs: Temp Pulse Resp BP Pulse Ox 97.4 F 86 21 H 148/84 H 96 07/26/18 12:00 07/26/18 12:00 07/26/18 12:00 07/26/18 12:00 07/26/18 12:00 Intake & Output 07/25/18 07/26/18 07/27/18 06:59 06:59 06:59 Intake Total 4046 3480 837 Output Total 1000 Balance 3046 3480 837 Weight 63.8 kg 65.7 kg General appearance: PRESENT: no acute distress Eye exam: PRESENT: conjunctiva pink Neck exam: ABSENT: carotid bruit, JVD, lymphadenopathy, thyromegaly Respiratory exam: PRESENT: clear to auscultation too. ABSENT: rales, rhonchi, wheezes Cardiovascular exam: PRESENT: RRR. ABSENT: diastolic murmur, rubs, systolic murmur GI/Abdominal exam: PRESENT: normal bowel sounds, soft. ABSENT: distended, guarding, mass, organolmegaly, rebound, tenderness Extremities exam: PRESENT: other - Right BKA. Surgical sites clean Neurological exam: PRESENT: alert, awake, oriented to time, oriented to situation Results Laboratory Results: 07/25/18 04:30 07/25/18 04:30 Impressions: Foot X-Ray 07/18/18 17:03 IMPRESSION: No evidence of osteomyelitis. Lower Extremity MRI 07/19/18 00:00 IMPRESSION: Findings suspicious for abscess along the distal lateral aspect of the remaining foot with underlying bone marrow edema and cortical irregularity of the cuboid bone, suspicious for osteomyelitis at this site. Diffuse subcutaneous edema consistent with cellulitis copyright 2010 [employer]- All Rights Reserved Guidance Fluoroscopy 07/22/18 00:00 IMPRESSION: SUCCESSFUL PLACEMENT OF A 5 FR DUAL LUMEN 40 CM PICC IN THE LEFT BASILIC VEIN. Interventional Vascular Procedure 07/22/18 00:00 IMPRESSION: SUCCESSFUL PLACEMENT OF A 5 FR DUAL LUMEN 40 CM PICC IN THE LEFT BASILIC VEIN. PICC Line Insertion 07/22/18 00:00 IMPRESSION: SUCCESSFUL PLACEMENT OF A 5 FR DUAL LUMEN 40 CM PICC IN THE LEFT BASILIC VEIN. Assessment and Plan - Diagnosis (1) Nonhealing right diabetic foot ulcer Is this a current diagnosis for this admission?: Yes Plan: Status post right BKA. Patient qualified for inpatient short-term acute rehab. Lives in 30 days. (2) Subacute osteomyelitis of right foot Is this a current diagnosis for this admission?: Yes Plan: Dalila patient has been treated with antibiotics and lethargy under good right BKA. Antibiotics discontinued after 24 hours. (3) COPD (chronic obstructive pulmonary disease) Qualifiers: Emphysema type: unspecified Is this a current diagnosis for this admission?: Yes Plan: PRN bronchodilators. (4) Type 2 diabetes mellitus Is this a current diagnosis for this admission?: Yes Plan: Continue current regimen. (5) Tobacco dependence Is this a current diagnosis for this admission?: Yes Plan: Patient encouraged and counseled to quit smoking. (6) Hyperlipidemia and hypertension Is this a current diagnosis for this admission?: Yes Plan: Continue current regimen.
[2018-07-26] MEDS: MONTELUKAST SODIUM 10 MG TABLET PO SCH (21:09)
[2018-07-26] MEDS: MORPHINE SULFATE 10 MG/ML INJ IV PRN (21:36)
[2018-07-26] MEDS: INSULIN GLARGINE,HUM.REC.ANLOG 1,000 UNIT/10 ML VIAL SUBCUT SCH (21:40)
[2018-07-27] MEDS: GABAPENTIN 300 MG CAPSULE PO SCH ×3 (05:59→21:26)
[2018-07-27] MEDS: ACETAMINOPHEN 325 MG TABLET PO PRN ×2 (06:10→19:46)
[2018-07-27] MEDS: HEPARIN SOD (PORCINE) 5,000 UNIT/ML 1 ML SYRINGE SUBCUT SCH ×3 (07:13→21:20)
--- NOTE | 2018-07-27 07:32 | PDOC PROGRESS REPORT ---
Subjective Progress Note for:: 07/27/18 Reason For Visit: NECROTIC TMA SITE Physical Exam Vital Signs: Temp Pulse Resp BP Pulse Ox 97.8 F 78 16 134/64 H 98 07/26/18 23:27 07/26/18 23:27 07/26/18 23:27 07/26/18 23:27 07/26/18 23:27 Intake & Output 07/26/18 07/27/18 07/28/18 06:59 06:59 06:59 Intake Total 3480 1554 Balance 3480 1554 Weight 65.7 kg 65.7 kg General appearance: PRESENT: no acute distress Eye exam: PRESENT: EOMI Mouth exam: PRESENT: moist Neck exam: PRESENT: full ROM Respiratory exam: PRESENT: clear to auscultation too Cardiovascular exam: PRESENT: RRR Pulses: PRESENT: normal femoral pulses GI/Abdominal exam: PRESENT: soft Rectal exam: PRESENT: deferred Extremities exam: PRESENT: full ROM Musculoskeletal exam: PRESENT: full ROM Neurological exam: PRESENT: alert, awake, oriented to person, oriented to place Psychiatric exam: PRESENT: appropriate affect Skin exam: PRESENT: dry Results Laboratory Results: 07/25/18 04:30 07/25/18 04:30 Impressions: Foot X-Ray 07/18/18 17:03 IMPRESSION: No evidence of osteomyelitis. Lower Extremity MRI 07/19/18 00:00 IMPRESSION: Findings suspicious for abscess along the distal lateral aspect of the remaining foot with underlying bone marrow edema and cortical irregularity of the cuboid bone, suspicious for osteomyelitis at this site. Diffuse subcutaneous edema consistent with cellulitis copyright 2011 [employer]- All Rights Reserved Guidance Fluoroscopy 07/22/18 00:00 IMPRESSION: SUCCESSFUL PLACEMENT OF A 5 FR DUAL LUMEN 40 CM PICC IN THE LEFT BA SILIC VEIN. Interventional Vascular Procedure 07/22/18 00:00 IMPRESSION: SUCCESSFUL PLACEMENT OF A 5 FR DUAL LUMEN 40 CM PICC IN THE LEFT BASILIC VEIN. PICC Line Insertion 07/22/18 00:00 IMPRESSION: SUCCESSFUL PLACEMENT OF A 5 FR DUAL LUMEN 40 CM PICC IN THE LEFT BASILIC VEIN. Assessment & Plan - Diagnosis (1) Foot ulcer, right Qualifiers: Non-pressure ulcer stage: with necrosis of bone Qualified Code(s): L97.514 - Non-pressure chronic ulcer of other part of right foot with necrosis of bone Is this a current diagnosis for this admission?: Yes (2) Right foot infection Is this a current diagnosis for this admission?: Yes - Plan Summary Plan Summary: s/p rt bka wound clean dry pt recieving pt able to amblate and pivot iwth walker ok from surgery stanpt for discharge.
[2018-07-27] MEDS: INSULIN LISPRO 100 UNIT/ML 3 ML VIAL SUBCUT SCH ×4 (08:29→21:36)
[2018-07-27] MEDS: OXYCODONE-ACETAMINOPHEN 5-325 MG TABLET PO PRN ×3 (08:30→21:26)
[2018-07-27] MEDS: FLUTICASONE/VILANTEROL 100-25 MCG/DOSE IH SCH (10:34)
[2018-07-27] MEDS: OXCARBAZEPINE 150 MG TABLET PO SCH ×2 (10:34→17:14)
[2018-07-27] MEDS: BENZTROPINE MESYLATE 1 MG TABLET PO SCH ×2 (10:34→17:13)
[2018-07-27] MEDS: ARIPIPRAZOLE 5 MG TABLET PO SCH ×2 (10:34→17:13)
[2018-07-27] MEDS: NORMAL SALINE 10 ML SDV (SCHEDULED) IV SCH ×2 (10:35→21:29)
--- NOTE | 2018-07-27 15:03 | PDOC PROGRESS REPORT ---
Subjective Progress Note for:: 07/27/18 Subjective:: Patient seen sitting up in bed. She complains of pain at her BKA stump which is most probably phantom pain. Patient has been awaiting placement to [facility]. Reason For Visit: NECROTIC TMA SITE Physical Exam Vital Signs: Temp Pulse Resp BP Pulse Ox 97.9 F 85 18 129/81 H 100 07/27/18 12:46 07/27/18 12:46 07/27/18 12:46 07/27/18 12:46 07/27/18 12:46 Intake & Output 07/26/18 07/27/18 07/28/18 06:59 06:59 06:59 Intake Total 3480 1554 673 Balance 3480 1554 673 Weight 65.7 kg 65.7 kg General appearance: PRESENT: no acute distress Eye exam: PRESENT: conjunctiva pink Neck exam: ABSENT: carotid bruit, JVD, lymphadenopathy, thyromegaly Respiratory exam: PRESENT: clear to auscultation too. ABSENT: rales, rhonchi, wheezes Cardiovascular exam: PRESENT: RRR. ABSENT: diastolic murmur, rubs, systolic m urmur GI/Abdominal exam: PRESENT: normal bowel sounds, soft. ABSENT: distended, guarding, mass, organolmegaly, rebound, tenderness Neurological exam: PRESENT: alert, awake, oriented to time, oriented to situation Results Laboratory Results: 07/25/18 04:30 07/25/18 04:30 Impressions: Foot X-Ray 07/18/18 17:03 IMPRESSION: No evidence of osteomyelitis. Lower Extremity MRI 07/19/18 00:00 IMPRESSION: Findings suspicious for abscess along the distal lateral aspect of the remaining foot with underlying bone marrow edema and cortical irregularity of the cuboid bone, suspicious for osteomyelitis at this site. Diffuse subcutaneous edema consistent with cellulitis copyright 2010 [employer]- All Rights Reserved Guidance Fluoroscopy 07/22/18 00:00 IMPRESSION: SUCCESSFUL PLACEMENT OF A 5 FR DUAL LUMEN 40 CM PICC IN THE LEFT BASILIC VEIN. Interventional Vascular Procedure 07/22/18 00:00 IMPRESSION: SUCCESSFUL PLACEMENT OF A 5 FR DUAL LUMEN 40 CM PICC IN THE LEFT BASILIC VEIN. PICC Line Insertion 07/22/18 00:00 IMPRESSION: SUCCESSFUL PLACEMENT OF A 5 FR DUAL LUMEN 40 CM PICC IN THE LEFT BASILIC VEIN. Assessment and Plan - Diagnosis (1) Nonhealing right diabetic foot ulcer Is this a current diagnosis for this admission?: Yes Plan: Status post right BKA. Patient qualified for inpatient short-term acute rehab. Lives in 30 days. (2) Subacute osteomyelitis of right foot Is this a current diagnosis for this admission?: Yes Plan: Dalila patient has been treated with antibiotics and lethargy under good right BKA. Antibiotics discontinued after 24 hours. (3) COPD (chronic obstructive pulmonary disease) Qualifiers: Emphysema type: unspecified Is this a current diagnosis for this admission?: Yes Plan: PRN bronchodilators. (4) Type 2 diabetes mellitus Is this a current diagnosis for this admission?: Yes Plan: Continue current regimen. (5) Tobacco dependence Is this a current diagnosis for this admission?: Yes Plan: Patient encouraged and counseled to quit smoking. (6) Hyperlipidemia and hypertension Is this a current diagnosis for this admission?: Yes Plan: Continue current regimen.
[2018-07-27] MEDS: MORPHINE SULFATE 10 MG/ML INJ IV PRN (17:14)
[2018-07-27] MEDS: MONTELUKAST SODIUM 10 MG TABLET PO SCH (21:26)
[2018-07-27] MEDS: INSULIN GLARGINE,HUM.REC.ANLOG 1,000 UNIT/10 ML VIAL SUBCUT SCH (21:27)
[2018-07-28] MEDS: MORPHINE SULFATE 10 MG/ML INJ IV PRN ×2 (02:31→15:50)
[2018-07-28] MEDS: HEPARIN SOD (PORCINE) 5,000 UNIT/ML 1 ML SYRINGE SUBCUT SCH ×3 (05:58→22:13)
[2018-07-28] MEDS: GABAPENTIN 300 MG CAPSULE PO SCH ×3 (06:09→22:14)
[2018-07-28] MEDS: OXYCODONE-ACETAMINOPHEN 5-325 MG TABLET PO PRN ×4 (06:10→22:15)
[2018-07-28] MEDS: OXCARBAZEPINE 150 MG TABLET PO SCH ×2 (09:09→17:19)
[2018-07-28] MEDS: ARIPIPRAZOLE 5 MG TABLET PO SCH ×2 (09:09→17:20)
[2018-07-28] MEDS: FLUTICASONE/VILANTEROL 100-25 MCG/DOSE IH SCH (09:09)
[2018-07-28] MEDS: BENZTROPINE MESYLATE 1 MG TABLET PO SCH ×2 (09:09→17:20)
[2018-07-28] MEDS: INSULIN LISPRO 100 UNIT/ML 3 ML VIAL SUBCUT SCH ×4 (09:10→22:16)
[2018-07-28] MEDS: NORMAL SALINE 10 ML SDV (SCHEDULED) IV SCH ×2 (09:30→22:18)
--- NOTE | 2018-07-28 15:02 | PDOC PROGRESS REPORT ---
Subjective Progress Note for:: 07/28/18 Subjective:: Patient seen while sitting up in bed. She reports her BKA stump pain is subsiding. Patient has been awaiting placement to detention. Reason For Visit: NECROTIC TMA SITE Physical Exam Vital Signs: Temp Pulse Resp BP Pulse Ox 98.6 F 83 16 122/70 98 07/28/18 11:06 07/28/18 11:06 07/28/18 11:06 07/28/18 11:06 07/28/18 11:06 Intake & Output 07/27/18 07/28/18 07/29/18 06:59 06:59 06:59 Intake Total 1554 1764 1080 Balance 1554 1764 1080 Weight 65.7 kg 65.7 kg General appearance: PRESENT: no acute distress Neck exam: ABSENT: carotid bruit, JVD, lymphadenopathy, thyromegaly Respiratory exam: PRESENT: clear to auscultation too. ABSENT: rales, rhonchi, wheezes Neurological exam: PRESENT: alert, awake, oriented to time, oriented to situation Results Laboratory Results: 07/25/18 04:30 07/25/18 04:30 Impressions: Foot X-Ray 07/18/18 17:03 IMPRESSION: No evidence of osteomyelitis. Lower Extremity MRI 07/19/18 00:00 IMPRESSION: Findings suspicious for abscess along the distal lateral aspect of the remaining foot with underlying bone marrow edema and cortical irregularity of the cuboid bone, suspicious for osteomyelitis at this site. Diffuse subcutaneous edema consistent with cellulitis copyright 2010 [employer]- All Rights Reserved Guidance Fluoroscopy 07/22/18 00:00 IMPRESSION: SUCCESSFUL PLACEMENT OF A 5 FR DUAL LUMEN 40 CM PICC IN THE LEFT BASILIC VEIN. Interventional Vascular Procedure 07/22/18 00:00 IMPRESSION: SUCCESSFUL PLACEMENT OF A 5 FR DUAL LUMEN 40 CM PICC IN THE LEFT BASILIC VEIN. PICC Line Insertion 07/22/18 00:00 IMPRESSION: SUCCESSFUL PLACEMENT OF A 5 FR DUAL LUMEN 40 CM PICC IN THE LEFT BASILIC VEIN. Assessment and Plan - Diagnosis (1) Nonhealing right diabetic foot ulcer Is this a current diagnosis for this admission?: Yes Plan: Status post right BKA. Patient qualified for inpatient short-term acute rehab. Lives in 30 days. (2) Subacute osteomyelitis of right foot Is this a current diagnosis for this admission?: Yes Plan: Dalila patient has been treated with antibiotics and lethargy under good right BKA. Antibiotics discontinued after 24 hours. (3) COPD (chronic obstructive pulmonary disease) Qualifiers: Emphysema type: unspecified Is this a current diagnosis for this admission?: Yes Plan: PRN bronchodilators. (4) Type 2 diabetes mellitus Is this a current diagnosis for this admission?: Yes Plan: Continue current regimen. (5) Tobacco dependence Is this a current diagnosis for this admission?: Yes Plan: Patient encouraged and counseled to quit smoking. (6) Hyperlipidemia and hypertension Is this a current diagnosis for this admission?: Yes Plan: Continue current regimen.
[2018-07-28] MEDS: ONDANSETRON HCL INJ/PF 4 MG/2 ML SDV IV PRN (17:19)
--- NOTE | 2018-07-28 17:41 | PDOC PROGRESS REPORT ---
Subjective Progress Note for:: 07/28/18 Subjective:: pains right BKA stump Reason For Visit: NECROTIC TMA SITE Physical Exam Vital Signs: Temp Pulse Resp BP Pulse Ox 97.1 F 71 18 101/68 98 07/28/18 16:00 07/28/18 16:00 07/28/18 16:00 07/28/18 16:00 07/28/18 16:00 Intake & Output 07/27/18 07/28/18 07/29/18 06:59 06:59 06:59 Intake Total 1554 1764 1320 Balance 1554 1764 1320 Weight 65.7 kg 65.7 kg Exam: Right BKA stump erythematous on medial upper flap but no drainage Results Laboratory Results: 07/25/18 04:30 07/25/18 04:30 Impressions: Foot X-Ray 07/18/18 17:03 IMPRESSION: No evidence of osteomyelitis. Lower Extremity MRI 07/19/18 00:00 IMPRESSION: Findings suspicious for abscess along the distal lateral aspect of the remaining foot with underlying bone marrow edema and cortical irregularity of the cuboid bone, suspicious for osteomyelitis at this site. Diffuse subcutaneous edema consistent with cellulitis copyright 2011 [employer]- All Rights Reserved Guidance Fluoroscopy 07/22/18 00:00 IMPRESSION: SUCCESSFUL PLACEMENT OF A 5 FR DUAL LUMEN 40 CM PICC IN THE LEFT BASILIC VEIN. Interventional Vascular Procedure 07/22/18 00:00 IMPRESSION: SUCCESSFUL PLACEMENT OF A 5 FR DUAL LUMEN 40 CM PICC IN THE LEFT BASILIC VEIN. PICC Line Insertion 07/22/18 00:00 IMPRESSION: SUCCESSFUL PLACEMENT OF A 5 FR DUAL LUMEN 40 CM PICC IN THE LEFT BASILIC VEIN. Assessment & Plan - Time Time Spent with patient: 15-24 minutes - Inpatient Certification Medical Necessity: Need for IV Antibiotics - Plan Summary Plan Summary: Resume IV Cipro for developing cellulitis BKA stump OK to recheck WBC in am
[2018-07-28] MEDS: MONTELUKAST SODIUM 10 MG TABLET PO SCH (22:14)
[2018-07-28] MEDS: INSULIN GLARGINE,HUM.REC.ANLOG 1,000 UNIT/10 ML VIAL SUBCUT SCH (22:16)
[2018-07-28] MEDS: CIPROFLOXACIN 400 MG/D5W RTU 400 MG/200 ML RTUPB IV SCH (22:19)
[2018-07-29] MEDS: OXYCODONE-ACETAMINOPHEN 5-325 MG TABLET PO PRN ×3 (03:31→20:39)
[2018-07-29] MEDS: HEPARIN SOD (PORCINE) 5,000 UNIT/ML 1 ML SYRINGE SUBCUT SCH ×2 (05:54→13:43)
[2018-07-29] MEDS: GABAPENTIN 300 MG CAPSULE PO SCH ×2 (05:57→13:47)
[2018-07-29 06:39] LABS: ABSOLUTE BASOPHILS # (AUTO) 0.2 10^3/uL (0.0-0.2); ABSOLUTE EOSINOPHILS # (AUTO) 0.4 10^3/uL (0.0-0.6); ABSOLUTE LYMPHOCYTES (AUTO) 5.1 10^3/uL (0.5-4.7); ABSOLUTE MONOCYTES (AUTO) 0.9 10^3/uL (0.1-1.4); ABSOLUTE NEUT (AUTO) 6.7 10^3/uL (1.7-8.2); BASOPHILS % (AUTO) 1.3 % (0-2); EOSINOPHILS % (AUTO) 2.7 % (0-6); HEMATOCRIT 40.2 % (36.0-47.0); LYMPHOCYTES % (AUTO) 38.5 % (13-45); MEAN CORPUSCULAR HGB CONC 34.7 g/dL (32.0-36.0); MEAN CORPUSCULAR VOLUME 87 fl (80-97); MONOCYTES % (AUTO) 6.7 % (3-13); PLATELET COUNT 255 10^3/uL (150-450); RED BLOOD COUNT 4.65 10^6/uL (3.72-5.28); RED CELL DISTRIBUTION WIDTH 13.1 % (11.5-14.0); SEGMENTED NEUTROPHILS % (AUTO) 50.8 % (42-78); TOTAL CELLS COUNTED % (AUTO) 100 %; WHITE BLOOD COUNT 13.3 10^3/uL (4.0-10.5)
[2018-07-29] MEDS: MORPHINE SULFATE 10 MG/ML INJ IV PRN ×3 (06:42→16:00)
[2018-07-29] MEDS: INSULIN LISPRO 100 UNIT/ML 3 ML VIAL SUBCUT SCH ×3 (07:48→16:28)
--- NOTE | 2018-07-29 08:17 | PDOC TRANSFER SUMMARY ---
General - Admit/Disc Date/PCP Admission Date/Primary Care Provider: 07/19/18 09:18 KWESI BLOOM DO Discharge Date: 07/29/18 - Discharge Diagnosis (1) Nonhealing right diabetic foot ulcer Is this a current diagnosis for this admission?: Yes (2) Subacute osteomyelitis of right foot Is this a current diagnosis for this admission?: Yes (3) COPD (chronic obstructive pulmonary disease) Is this a current diagnosis for this admission?: Yes (4) Type 2 diabetes mellitus Is this a current diagnosis for this admission?: Yes (5) Tobacco dependence Is this a current diagnosis for this admission?: Yes (6) Hyperlipidemia and hypertension Is this a current diagnosis for this admission?: Yes - Additional Information Resuscitation Status: Full Code Home Medications: Albuterol Sulfate [Proair HFA] 2 puff IH Q6HP PRN 11/19/17 Diazepam [Valium 5 mg Tablet] 5 mg PO Q8HP PRN 11/19/17 Insulin Aspart [Novolog Flexpen] 6 unit SUBCUT AC 30 Days #2 insuln.pen 11/26/17 Gabapentin [Neurontin 300 mg Capsule] 900 mg PO Q8 06/17/18 Aripiprazole [Abilify 15 mg Tablet] 15 mg PO BID 07/19/18 Benztropine Mesylate [Cogentin 1 mg Tablet] 1 tab PO BID 07/19/18 Doxepin HCl 1 - 2 cap PO QHS 07/19/18 Insulin Glargine,Hum.rec.anlog [Lantus Solostar] 45 unit SQ QHS 07/19/18 Oxcarbazepine [Trileptal] 600 mg PO BID 07/19/18 Prazosin HCl [Minipress] 2 mg PO QHS 07/19/18 History of Present Illness Admission Date/PCP: 07/19/18 09:18 KWESI BLOOM DO History of Present Illness: ALMITA WILLARD is a 42 year old female with a past medical history of tobacco, COPD with chronic bronchitis, bipolar disorder, insulin-dependent diabetes with peripheral vascular disease, status post transmetatarsal amputation with persistent nonhealing ulcer. Patient was seen by her central scheduler Dr. Chang and referred to the emergency department for worsening infection and debridement. Emergency department attending Dr. So consults general surgeon Dr. Bustos for admission with planned "surgery in the morning", hospitalist consulted for medical management. Patient seen in the emergency room with mild distress and apprehension to surgery otherwise without sepsis, decompensated COPD or metabolic derangement. She admits compliance with diabetic regiment home Accu- Cheks ranging from 130-200, using nebulizers on a regular basis. Unfortunately admits to persistent tobacco dependence but declines transdermal nicotine. Hospital Course Hospital Course: This is 42 years old female patient was past medical history of hyperlipidemia, hypertension, COPD, tobacco dependence, type 2 diabetes mellitus, gastroesophageal reflux disease, bipolar depression presented with persistent nonhealing right foot ulcer. [facility] by her primary central scheduler Dr. Chang since her wound is worsening. Her MRI of right foot reported as findings suspicious for abscess along the distal lateral aspect of the remaining foot with underlying bone marrow edema a nd cortical irregularity of the cuboid bone which is suspicious for osteomyelitis. Surgical consultation was made to Dr. Fink who performed which right BKA. Also managed with antibiotics including Zosyn and vancomycin. This morning patient reevaluated by Dr. Bustos who cleared her for discharge to rehab. Antibiotics are discontinued. This morning I seen patient resting on recliner. She is awake alert oriented and she is not in pain or distress. Physical Exam Vital Signs: Temp Pulse Resp BP Pulse Ox 98.2 F 68 15 99/55 L 99 07/28/18 23:46 07/28/18 23:46 07/28/18 23:46 07/28/18 23:46 07/28/18 23:46 Intake & Output 07/28/18 07/29/18 07/30/18 06:59 06:59 06:59 Intake Total 1764 2160 Balance 1764 2160 Weight 65.7 kg 64.2 kg General appearance: PRESENT: no acute distress Head exam: PRESENT: atraumatic Eye exam: PRESENT: conjunctiva pink Teeth exam: PRESENT: dental caries Neck exam: ABSENT: carotid bruit, JVD, lymphadenopathy, thyromegaly Respiratory exam: PRESENT: clear to auscultation too. ABSENT: rales, rhonchi, wheezes Cardiovascular exam: PRESENT: RRR. ABSENT: diastolic murmur, rubs, systolic murmur GI/Abdominal exam: PRESENT: normal bowel sounds, soft. ABSENT: distended, guarding, mass, organolmegaly, rebound, tenderness Neurological exam: PRESENT: alert, awake, oriented to time, oriented to situation Results Laboratory Results: 07/29/18 06:30 07/25/18 04:30 07/29/18 06:30 WBC 13.3 H RBC 4.65 Hgb 14.0 Hct 40.2 MCV 87 MCH 30.0 MCHC 34.7 RDW 13.1 Plt Count 255 Seg Neutrophils % 50.8 Lymphocytes % 38.5 Monocytes % 6.7 Eosinophils % 2.7 Basophils % 1.3 Absolute Neutrophils 6.7 Absolute Lymphocytes 5.1 H Absolute Monocytes 0.9 Absolute Eosinophils 0.4 Absolute Basophils 0.2 Impressions: Foot X-Ray 07/18/18 17:03 IMPRESSION: No evidence of osteomyelitis. Lower Extremity MRI 07/19/18 00:00 IMPRESSION: Findings suspicious for abscess along the distal lateral aspect of the remaining foot with underlying bone marrow edema and cortical irregularity of the cuboid bone, suspicious for osteomyelitis at this site. Diffuse subcutaneous edema consistent with cellulitis copyright 2011 [employer]- All Rights Reserved Guidance Fluoroscopy 07/22/18 00:00 IMPRESSION: SUCCESSFUL PLACEMENT OF A 5 FR DUAL LUMEN 40 CM PICC IN THE LEFT BASILIC VEIN. Interventional Vascular Procedure 07/22/18 00:00 IMPRESSION: SUCCESSFUL PLACEMENT OF A 5 FR DUAL LUMEN 40 CM PICC IN THE LEFT BASILIC VEIN. PICC Line Insertion 07/22/18 00:00 IMPRESSION: SUCCESSFUL PLACEMENT OF A 5 FR DUAL LUMEN 40 CM PICC IN THE LEFT BASILIC VEIN. Qualifiers - * PATIENT BEING DISCHARGED WITH ANY OF THE FOLLOWING DIAGNOSIS: No Acute Heart Failure Is this a Heart Failure Patient?: No
[2018-07-29] MEDS: BENZTROPINE MESYLATE 1 MG TABLET PO SCH ×2 (09:39→17:05)
[2018-07-29] MEDS: ARIPIPRAZOLE 5 MG TABLET PO SCH ×2 (09:39→17:04)
[2018-07-29] MEDS: FLUTICASONE/VILANTEROL 100-25 MCG/DOSE IH SCH (09:39)
[2018-07-29] MEDS: OXCARBAZEPINE 150 MG TABLET PO SCH ×2 (09:39→17:04)
[2018-07-29] MEDS: CIPROFLOXACIN 400 MG/D5W RTU 400 MG/200 ML RTUPB IV SCH (09:40)
[2018-07-29] MEDS: NORMAL SALINE 10 ML SDV (SCHEDULED) IV SCH (09:54)
[2018-07-29] MEDS ORDERED: ALPRAZOLAM 0.5 MG TABLET PO ONE (10:00)
--- NOTE | 2018-07-29 12:29 | PDOC PROGRESS REPORT ---
Subjective Progress Note for:: 07/29/18 Reason For Visit: NECROTIC TMA SITE Physical Exam Vital Signs: Temp Pulse Resp BP Pulse Ox 97.5 F 67 18 129/84 H 97 07/29/18 07:44 07/29/18 07:44 07/29/18 07:44 07/29/18 07:44 07/29/18 07:44 Intake & Output 07/28/18 07/29/18 07/30/18 06:59 06:59 06:59 Intake Total 1764 2160 Balance 1764 2160 Weight 65.7 kg 64.2 kg Exam: Right BKA stump still with erythema on the lateral upper flap. Apparently fell on her stump yesterday. C/O pain and mild tenderness at the bottom of the stump. Results Laboratory Results: 07/29/18 06:30 07/25/18 04:30 07/29/18 06:30 WBC 13.3 H RBC 4.65 Hgb 14.0 Hct 40.2 MCV 87 MCH 30.0 MCHC 34.7 RDW 13.1 Plt Count 255 Seg Neutrophils % 50.8 Lymphocytes % 38.5 Monocytes % 6.7 Eosinophils % 2.7 Basophils % 1.3 Absolute Neutrophils 6.7 Absolute Lymphocytes 5.1 H Absolute Monocytes 0.9 Absolute Eosinophils 0.4 Absolute Basophils 0.2 Impressions: Foot X-Ray 07/18/18 17:03 IMPRESSION: No evidence of osteomyelitis. Lower Extremity MRI 07/19/18 00:00 IMPRESSION: Findings suspicious for abscess along the distal lateral aspect of the remaining foot with underlying bone marrow edema and cortical irregularity of the cuboid bone, suspicious for osteomyelitis at this site. Diffuse subcutaneous edema consistent with cellulitis copyright 2011 [employer]- All Rights Reserved Guidance Fluoroscopy 07/22/18 00:00 IMPRESSION: SUCCESSFUL PLACEMENT OF A 5 FR DUAL LUMEN 40 CM PICC IN THE LEFT BASILIC VEIN. Interventional Vascular Procedure 07/22/18 00:00 IMPRESSION: SUCCESSFUL PLACEMENT OF A 5 FR DUAL LUMEN 40 CM PICC IN THE LEFT BASILIC VEIN. PICC Line Insertion 07/22/18 00:00 IMPRESSION: SUCCESSFUL PLACEMENT OF A 5 FR DUAL LUMEN 40 CM PICC IN THE LEFT BASILIC VEIN. Assessment & Plan - Time Time Spent with patient: 15-24 minutes - Plan Summary Plan Summary: OK to transfer to Rehab Gave a prescription for Cipro 500 mgs BID x 5 days. F/U surgical clinic in 2 weeks
--- NOTE | 2018-07-29 14:28 | PDOC PROGRESS REPORT ---
Subjective Progress Note for:: 07/29/18 Subjective:: Patient seen awake alert oriented. She asks for sedative for her anxiety. Reason For Visit: NECROTIC TMA SITE Physical Exam Vital Signs: Temp Pulse Resp BP Pulse Ox 97.8 F 77 18 113/68 98 07/29/18 11:40 07/29/18 11:40 07/29/18 11:40 07/29/18 11:40 07/29/18 11:40 Intake & Output 07/28/18 07/29/18 07/30/18 06:59 06:59 06:59 Intake Total 1764 2160 200 Balance 1764 2160 200 Weight 65.7 kg 64.2 kg General appearance: PRESENT: no acute distress Head exam: PRESENT: atraumatic Eye exam: PRESENT: conjunctiva pink Respiratory exam: PRESENT: clear to auscultation too. ABSENT: rales, rhonchi, wheezes Cardiovascular exam: PRESENT: RRR. ABSENT: diastolic murmur, rubs, systolic murmur Neurological exam: PRESENT: alert, awake, oriented to time, oriented to situation Results Laboratory Results: 07/29/18 06:30 07/25/18 04:30 07/29/18 06:30 WBC 13.3 H RBC 4.65 Hgb 14.0 Hct 40.2 MCV 87 MCH 30.0 MCHC 34.7 RDW 13.1 Plt Count 255 Seg Neutrophils % 50.8 Lymphocytes % 38.5 Monocytes % 6.7 Eosinophils % 2.7 Basophils % 1.3 Absolute Neutrophils 6.7 Absolute Lymphocytes 5.1 H Absolute Monocytes 0.9 Absolute Eosinophils 0.4 Absolute Basophils 0.2 Impressions: Foot X-Ray 07/18/18 17:03 IMPRESSION: No evidence of osteomyelitis. Lower Extremity MRI 07/19/18 00:00 IMPRESSION: Findings suspicious for abscess along the distal lateral aspect of the remaining foot with underlying bone marrow edema and cortical irregularity of the cuboid bone, suspicious for osteomyelitis at this site. Diffuse subcutaneous edema consistent with cellulitis copyright 2011 [employer]- All Rights Reserved Guidance Fluoroscopy 07/22/18 00:00 IMPRESSION: SUCCESSFUL PLACEMENT OF A 5 FR DUAL LUMEN 40 CM PICC IN THE LEFT BASILIC VEIN. Interventional Vascular Procedure 07/22/18 00:00 IMPRESSION: SUCCESSFUL PLACEMENT OF A 5 FR DUAL LUMEN 40 CM PICC IN THE LEFT BASILIC VEIN. PICC Line Insertion 07/22/18 00:00 IMPRESSION: SUCCESSFUL PLACEMENT OF A 5 FR DUAL LUMEN 40 CM PICC IN THE LEFT BASILIC VEIN. Assessment and Plan - Diagnosis (1) Nonhealing right diabetic foot ulcer Is this a current diagnosis for this admission?: Yes Plan: Status post right BKA. Patient qualified for inpatient short-term acute rehab. Lives in 30 days. (2) Subacute osteomyelitis of right foot Is this a current diagnosis for this admission?: Yes Plan: Dalila patient has been treated with antibiotics and lethargy under good right BKA. Antibiotics discontinued after 24 hours. (3) COPD (chronic obstructive pulmonary disease) Qualifiers: Emphysema type: unspecified Is this a current diagnosis for this admission?: Yes Plan: PRN bronchodilators. (4) Type 2 diabetes mellitus Is this a current diagnosis for this admission?: Yes Plan: Continue current regimen. (5) Tobacco dependence Is this a current diagnosis for this admission?: Yes Plan: Patient encouraged and counseled to quit smoking. (6) Hyperlipidemia and hypertension Is this a current diagnosis for this admission?: Yes Plan: Continue current regimen.
[2018-07-29 16:46] VITALS: BP 149/82
--- NOTE | 2018-08-12 16:26 | Physician Advisory Note ---
Physician Advisor ProgressNote .: Pursuant to the plan for Tim Vazquez, I have reviewed the medical record for this patient. Physician Advisor Statement: Need clarification of dx OM (osteomyelitis) in DCS to explain/clarify what some could consider "conflicting documentation" - need to indicate: 1. whether or not attending is aware of the conflicting documentation & how he resolves their apparent contradiction, 2. based on review of all the evidence available,does attg feel pt had OM or that OM was ruled out, & 3. explanation of how final dx (of whether OM was ruled in or out) was achieved : Points for & against: H&P, PNs state (+)OM. xray 07/18 states no OM. MRI 07/19 states "suspicious for OM". BKA 07/21/18 Op Report states (+)OM & deep soft tissue infxn Rt foot. Pathol report of 07/27 states "no OM seen; (+) ulcer w/granulation tissue ..." DCS states "(+) OM" & "nonhealing Rt diabetic foot ulcer", tx'd w/abx x 24 hrs (& amputation of affected leg), doesn't make it clear what the attg thought of the negative path report results, or whether they were noticed. Thx, CK
== END 2018-07-29 21:45 | DRG 617 ==
LOC: ER 15:42 → EH 07-19 09:18 → 4N 07-19 11:21
PROVIDERS: ADMIT Hospitalist; ATTEND Hospitalist
PROC: 02HV33Z Insertion of Infusion Device into Superior Vena Cava, Percutaneous Approach (ICD-10-PCS; 2018-07-22)
PROC: 3E0F3GC Introduction of Other Therapeutic Substance into Respiratory Tract, Percutaneous Approach (ICD-10-PCS; 2018-07-23)
PROC: 0Y6H0Z2 Detachment at Right Lower Leg, Mid, Open Approach (ICD-10-PCS; principal; 2018-07-23 09:00)
DX: E10.621 Type 1 diabetes mellitus with foot ulcer (principal); M86.271 Subacute osteomyelitis, right ankle and foot; E10.52 Type 1 diabetes mellitus with diabetic peripheral angiopathy with gangrene; L97.414 Non-pressure chronic ulcer of right heel and midfoot with necrosis of bone; G54.6 Phantom limb syndrome with pain; E10.69 Type 1 diabetes mellitus with other specified complication; Z79.4 Long term (current) use of insulin; J44.9 Chronic obstructive pulmonary disease, unspecified; E78.5 Hyperlipidemia, unspecified; I10 Essential (primary) hypertension; K21.9 Gastro-esophageal reflux disease without esophagitis; F31.9 Bipolar disorder, unspecified; F41.9 Anxiety disorder, unspecified; F43.10 Post-traumatic stress disorder, unspecified; B96.4 Proteus (mirabilis) (morganii) as the cause of diseases classified elsewhere; F12.10 Cannabis abuse, uncomplicated; F17.210 Nicotine dependence, cigarettes, uncomplicated; Z89.422 Acquired absence of other left toe(s); Z89.421 Acquired absence of other right toe(s); Z91.048 Other nonmedicinal substance allergy status; Z91.19 Patient's noncompliance with other medical treatment and regimen; Z71.6 Tobacco abuse counseling; Z83.3 Family history of diabetes mellitus; Z82.49 Family history of ischemic heart disease and other diseases of the circulatory system
CPT/HCPCS: 01482; 36415; 36569; 76937; 77001; 80048; 80053; 80202; 82962; 83735; 84703; 85025; 85652; 86140; 87040; 87070; 87075; 87077; 87186; 87205; 88307; 88311; 94640; 94667; 94668; 94799; 96361; 96365; 96366; 96367; 96375; 99284; C1769; J0131; J0744; J1100; J1170; J1642; J1644; J1815; J1885; J2250; J2270; J2405; J2543; J2704; J3010; J3370; J3490; J7050; J7060; J7120; J7620

== ENCOUNTER 2018-11-28 15:10 | Inpatient (IN) | payer MEDICAID ==
--- NOTE | 2018-11-28 15:38 | ER Document Report ---
ED Medical Screen (RME) - General Chief Complaint: Wound Infection Stated Complaint: LEFT FOOT PAIN Time Seen by Provider: 11/28/18 15:35 Primary Care Provider: NIKUNJ THURSTON MD [Primary Care Provider] - Follow up as needed Mode of Arrival: Carried Information source: Patient Notes: 43-year-old female presented to ED for an infection to the left foot behind the toes. She states she is a diabetic. She she had this wound for about a month and a half. She states she is not sure how long it is been infected she states that her leg has been swollen and the foot is been throbbing for the last few days. She is a right below the knee amputation. She states she is being treated by the wound clinic. She states she has been at [facility] since her amputation and it took a while for them to let her go to see the wound clinic for the wounds. She states she had a fever today. She states he did not take her temperature at [facility] so she does not know if she had one before now. She was seen by Dr. Chang today and he sent her to the emergency room. I have greeted and performed a rapid initial assessment of this patient. A comprehensive ED assessment and evaluation of the patient, analysis of test results and completion of medical decision making process will be conducted by an additional ED providers. TRAVEL OUTSIDE OF THE [place] IN LAST 30 DAYS: No - Related Data Allergies/Adverse Reactions: adhesive [Adhesive] Allergy (Mild, Verified 11/28/18 15:10) skin breakdown, red, itching Past Medical History - Past Medical History Cardiac Medical History: Reports: Hx Hypercholesterolemia Denies: Hx Heart Attack, Hx Hypertension Pulmonary Medical History: Reports: Hx Bronchitis, Hx COPD Denies: Hx Asthma Neurological Medical History: Denies: Hx Cerebrovascular Accident, Hx Seizures Endocrine Medical History: Reports: Hx Diabetes Mellitus Type 1, Hx Diabetes Mellitus Type 2 Renal/ Medical History: Denies: Hx Peritoneal Dialysis GI Medical History: Reports: Hx Gastroesophageal Reflux Disease, Hx Ulcer. Denies: Hx Hepatitis, Hx Hiatal Hernia Musculoskeltal Medical History: Psychiatric Medical History: Reports: Hx Anxiety, Hx Bipolar Disorder, Hx Depression - anxiety, Hx Post Traumatic Stress Disorder Infectious Medical History: Denies: Hx Hepatitis Past Surgical History: Reports: Hx Abdominal Surgery, Hx Appendectomy, Hx Section, Hx Cholecystectomy, Hx Orthopedic Surgery - right foot 5 toes amputation, 3 toes amputation left foot. Denies: Hx Mastectomy, Hx Open Heart Surgery, Hx Pacemaker - Immunizations Hx Diphtheria, Pertussis, Tetanus Vaccination: Yes Physical Exam - Vital signs Vitals: Temp Pulse Resp BP Pulse Ox 99.1 F 102 H 20 118/60 96 11/28/18 15:21 11/28/18 15:21 11/28/18 15:21 11/28/18 15:21 11/28/18 15:21 Course - Vital Signs Vital signs: Temp Pulse Resp BP Pulse Ox 99.1 F 102 H 20 118/60 96 11/28/18 15:21 11/28/18 15:21 11/28/18 15:21 11/28/18 15:21 11/28/18 15:21 Doctor's Discharge - Discharge Referrals: NIKUNJ THURSTON MD [Primary Care Provider] - Follow up as needed
--- NOTE | 2018-11-28 16:43 | RADIOLOGY REPORT (SQ) ---
EXAM DESCRIPTION: FOOT LEFT COMPLETE COMPLETED DATE/TIME: 11/28/2018 4:23 pm REASON FOR STUDY: left foot infection COMPARISON: 11/18/2015 EXAM PARAMETERS: NUMBER OF VIEWS: Three views. TECHNIQUE: AP, lateral and oblique radiographic images acquired of the left foot. LIMITATIONS: None. FINDINGS: MINERALIZATION: Normal. BONES: There has been interval fracture of the proximal phalanx of the left 5th digit, chronic appear ing. Similar medial dislocation of the 4th digit MTP joint. No definite acute osseous finding. JOINTS: No effusion. SOFT TISSUES: Distal soft tissue swelling. No radiopaque foreign body. OTHER: No other significant finding. IMPRESSION: There has been interval fracture of the proximal phalanx of the left 5th digit, chronic appearing. Similar medial dislocation of the 4th digit MTP joint. No definite acute osseous finding . Distal soft tissue swelling. No radiopaque foreign body. TECHNICAL DOCUMENTATION: JOB ID: [id number] [id number] 2010 [employer]- All Rights Reserved Reading location - IP/workstation name: [employer]
[2018-11-28 17:13] LABS: ABSOLUTE BASOPHILS # (AUTO) 0.2 10^3/uL (0.0-0.2); ABSOLUTE LYMPHOCYTES (AUTO) 2.5 10^3/uL (0.5-4.7); ABSOLUTE MONOCYTES (AUTO) 1.2 10^3/uL (0.1-1.4); ABSOLUTE NEUT (AUTO) 14.7 10^3/uL (1.7-8.2); EOSINOPHILS % (AUTO) 0.2 % (0-6); HEMATOCRIT 36.3 % (36.0-47.0); HEMOGLOBIN 12.3 g/dL (12.0-15.5); LYMPHOCYTES % (AUTO) 13.2 % (13-45); MEAN CORPUSCULAR HEMOGLOBIN 29.4 pg (27.0-33.4); MEAN CORPUSCULAR HGB CONC 33.9 g/dL (32.0-36.0); MEAN CORPUSCULAR VOLUME 87 fl (80-97); MONOCYTES % (AUTO) 6.3 % (3-13); PLATELET COUNT 228 10^3/uL (150-450); RED BLOOD COUNT 4.19 10^6/uL (3.72-5.28); RED CELL DISTRIBUTION WIDTH 13.1 % (11.5-14.0); SEGMENTED NEUTROPHILS % (AUTO) 79.3 % (42-78); TOTAL CELLS COUNTED % (AUTO) 100 %; WHITE BLOOD COUNT 18.6 10^3/uL (4.0-10.5)
[2018-11-28 17:39] LABS: ALBUMIN 3.9 g/dL (3.5-5.0); ALKALINE PHOSPHATASE 111 U/L (38-126); ANION GAP 10 (5-19); ASPARTATE AMINO TRANSFERASE 43 U/L (14-36); BILIRUBIN,DIRECT 0.1 mg/dL (0.0-0.4); BILIRUBIN,TOTAL 0.5 mg/dL (0.2-1.3); BLOOD UREA NITROGEN 8 mg/dL (7-20); CALCIUM 9.4 mg/dL (8.4-10.2); CARBON DIOXIDE 30 mmol/L (22-30); CHLORIDE 96 mmol/L (98-107); GLUCOSE 191 mg/dL (75-110); POTASSIUM 4.1 mmol/L (3.6-5.0)
[2018-11-28 20:17] LABS: APPEARANCE,URINE CLEAR; BILIRUBIN,URINE NEGATIVE (NEGATIVE); COLOR,URINE YELLOW; GLUCOSE, URINE >=500 mg/dL (NEGATIVE); KETONES,URINE NEGATIVE (NEGATIVE); LEUKOCYTE ESTERASE,URINE TRACE (NEGATIVE); NITRITE,URINE NEGATIVE (NEGATIVE); PROTEIN,URINE NEGATIVE (NEGATIVE); URINE SPECIFIC GRAVITY 1.007; UROBILINOGEN,URINE NEGATIVE mg/dL (<2.0)
[2018-11-28] MEDS ORDERED: VANCOMYCIN HCL INJ 1000 MG VIAL IV ONE (20:43)
[2018-11-28] MEDS ORDERED: MORPHINE SULFATE 10 MG/ML INJ IV ONE (20:45)
--- NOTE | 2018-11-28 20:51 | ER Document Report ---
ED Wound - General Chief Complaint: Wound Infection Stated Complaint: LEFT FOOT PAIN Time Seen by Provider: 11/28/18 20:15 Mode of Arrival: Carried Information source: Patient, Relative Notes: HISTORY OF PRESENT ILLNESS: Patient is a 43-year-old female with a past medical history of diabetes and prior history of osteomyelitis status post right below the knee dictation who presents with worsening diabetic ulcer to the left foot that first began 2 months ago. Patient reports that she is currently attending the wound care clinic and was referred to come to the hospital today after debridement revealed "the infection was close to the bone." Mechanism of injury: Diabetic ulcer Location: Left foot Onset: Gradual Provocation: Movement Quality: Aching, throbbing Radiation: Up the left leg Severity: Severe Timing: Instant Numbness/Tingling: Yes, at baseline secondary to diabetic neuropathy Associated symptoms: Denies fevers or chills, no cough or congestion, does report increased swelling to the left leg as well as redness that goes up the leg as well REVIEW OF SYSTEMS: CONSTITUTIONAL : Denies fever or chills, no sweats. Denies recent illness. EENT: Denies eye, ear, throat, or mouth pain or symptoms. Denies nasal or sinus congestion. CARDIOVASCULAR: Denies chest pain. RESPIRATORY: Denies cough, cold, or chest congestion. Denies shortness of breath, difficulty breathing, or wheezing. GASTROINTESTINAL: Denies abdominal pain. Denies nausea, vomiting, or diarrhea. Denies constipation. GENITOURINARY: Denies difficulty urinating, painful urination, burning, frequency, or blood in urine. FEMALE GENITOURINARY: Denies vaginal bleeding, abnormal or irregular periods. Last menstrual period MUSCULOSKELETAL: Positive for left foot wound and infection. SKIN: Denies rash or skin lesions. HEMATOLOGIC : Denies easy bruising or bleeding. LYMPHATIC: Denies swollen, enlarged glands. NEUROLOGICAL: Denies weakness or paralysis or loss of use of either side. Denies problems with gait or speech. Denies sensory or motor loss. PSYCHIATRIC: Denies anxiety or stress or depression. All other systems reviewed and negative. PHYSICAL EXAMINATION: GENERAL: Well-appearing, well-nourished and in no acute distress. HEAD: Atraumatic, normocephalic. No scalp deformity, depression, or crepitance. EYES: Pupils are 3 mm and equal/round/reactive to light, extraocular movements intact, sclera anicteric, conjunctiva are normal. ENT: Nares patent bilaterally, oropharynx clear without exudates or palatal petechia. Moist mucous membranes. No tonsil hypertrophy. NECK: Normal range of motion, supple without lymphadenopathy. LUNGS: Breath sounds present, equal, and clear to auscultation bilaterally. No wheezes, rales, or rhonchi. HEART: Regular rate and rhythm without murmurs, rubs, or gallops. 2+ peripheral pulses. Normal capillary refill. ABDOMEN: Soft, nontender, nondistended. Normoactive bowel sounds. No guarding, no rebound. No masses appreciated. BACK: Normal contour, no midline tenderness. Rectal exam deferred. GENITAL/PELVC: Deferred. EXTREMITIES: Right below the knee amputation is present. Patient has had partial amputation of the left foot with only the fourth and fifth toes remaining. There is a 3 cm ulcerated lesion on the sole of the foot adjacent to the fourth toe, malodorous, mild clear drainage. The entire foot is erythematous with moderate edema that extends up the left leg. No cyanosis and normal capillary refill <2 seconds. NEUROLOGICAL: No focal neurological deficits. Moves all extremities spontaneously and on command. PSYCH: Normal mood, normal affect. No suicidal thoughts/ideations. No homicidal thoughts/ideations. No hallucinations. SKIN: Warm, dry, normal turgor, no rashes or lesions noted. ASSESSMENT AND PLAN: This patient is a 43-year-old female who presents with left foot infection concerning for osteomyelitis. 1. Will obtain labs, urine, x-rays, and reassess after IV morphine for pain control. 2. Will give IV vancomycin and cefepime. TRAVEL OUTSIDE OF THE [place] IN LAST 30 DAYS: No - HPI Patient complains to provider of: Wound infection Occurred: Other - 2 months ago Onset/Duration: Gradual Quality of pain: Achy, Throbbing Severity: Moderate Pain Level: 3 Context: Spontaneous Skin Temperature: Warm Skin Color: Flushed, Erythema Sensations intact: Yes Distal pulses present: Yes Associated Symptoms: Odor, Redness, Swelling - Related Data Allergies/Adverse Reactions: adhesive [Adhesive] Allergy (Mild, Verified 11/28/18 15:10) skin breakdown, red, itching Past Medical History - General Information source: Patient - Social History Smoking Status: Never Smoker Chew tobacco use (# tins/day): No Frequency of alcohol use: None Drug Abuse: None Lives with: Family Family History: DM, Hypertension Patient has suicidal ideation: No Patient has homicidal ideation: No - Past Medical History Cardiac Medical History: Reports: Hx Hypercholesterolemia Denies: Hx Heart Attack, Hx Hypertension Pulmonary Medical History: Reports: Hx Bronchitis, Hx COPD Denies: Hx Asthma EENT Medical History: Reports: None Neurological Medical History: Reports: None. Denies: Hx Cerebrovascular Accident, Hx Seizures Endocrine Medical History: Reports: Hx Diabetes Mellitus Type 1, Hx Diabetes Mellitus Type 2 Renal/ Medical History: Reports: None. Denies: Hx Peritoneal Dialysis Malignancy Medical History: Reports: None GI Medical History: Reports: Hx Gastroesophageal Reflux Disease, Hx Ulcer. Denies: Hx Hepatitis, Hx Hiatal Hernia Musculoskeletal Medical History: Reports None Skin Medical History: Reports None Psychiatric Medical History: Reports: Hx Anxiety, Hx Bipolar Disorder, Hx Depression - anxiety, Hx Post Traumatic Stress Disorder Traumatic Medical History: Reports: None Infectious Medical History: Reports: None. Denies: Hx Hepatitis Past Surgical History: Reports: Hx Abdominal Surgery, Hx Appendectomy, Hx Section, Hx Cholecystectomy, Hx Orthopedic Surgery - right foot 5 toes amputation, 3 toes amputation left foot. Denies: Hx Mastectomy, Hx Open Heart Surgery, Hx Pacemaker - Immunizations Hx Diphtheria, Pertussis, Tetanus Vaccination: Yes Review of Systems - Review of Systems Constitutional: No symptoms reported EENT: No symptoms reported Cardiovascular: No symptoms reported Respiratory: No symptoms reported Gastrointestinal: No symptoms reported Genitourinary: No symptoms reported Female Genitourinary: No symptoms reported Musculoskeletal: See HPI, Joint pain, Leg swelling, Other - Foot infection Skin: No symptoms reported Hematologic/Lymphatic: No symptoms reported Neurological/Psychological: No symptoms reported -: Yes All other systems reviewed and negative Physical Exam - Vital signs Vitals: Temp Pulse Resp BP Pulse Ox 99.1 F 102 H 20 118/60 96 11/28/18 15:21 11/28/18 15:21 11/28/18 15:21 11/28/18 15:21 11/28/18 15:21 Interpretation: Normal - General General appearance: Appears well, Alert - HEENT Head: Normocephalic, Atraumatic Eyes: Normal Pupils: PERRL - Respiratory Respiratory status: No respiratory distress Chest status: Nontender Breath sounds: Normal Chest palpation: Normal - Cardiovascular Rhythm: Regular Heart sounds: Normal auscultation Murmur: No - Abdominal Inspection: Normal Distension: No distension Bowel sounds: Normal Tenderness: Nontender Organomegaly: No organomegaly - Back Back: Normal, Nontender - Extremities General upper extremity: Normal inspection, Nontender, Normal color, Normal ROM, Normal temperature General lower extremity: Normal inspection, Nontender, Normal color, Normal ROM, Normal temperature, Normal weight bearing. No: Elizabeth's sign - Neurological Neuro grossly intact: Yes Cognition: Normal Orientation: AAOx4 [place] Coma Scale Eye Opening: Spontaneous [place] Coma Scale Verbal: Oriented [place] Coma Scale Motor: Obeys Commands [place] Coma Scale Total: 15 Speech: Normal Motor strength normal: LUE, RUE, LLE, RLE Sensory: Normal - Psychological Associated symptoms: Normal affect, Normal mood - Skin Skin Temperature: Warm Skin Moisture: Dry Skin Color: Normal Course - Re-evaluation Re-evalutation: 11/29/18 00:20 Patient has elevated white blood cell count, CRP, and sedimentation rate. X- rays show no evidence of acute osteomyelitis. Patient is admitted to the hospital. - Vital Signs Vital signs: Temp Pulse Resp BP Pulse Ox 99.1 F 102 H 20 118/60 96 11/28/18 15:21 11/28/18 15:21 11/28/18 15:21 11/28/18 15:21 11/28/18 15:21 - Laboratory Result Diagrams: 11/28/18 16:51 11/28/18 16:51 Laboratory results interpreted by me: 11/28/18 11/28/18 11/28/18 16:38 16:51 16:51 WBC 18.6 H Absolute Neuts (auto) 14.7 H Seg Neutrophils % 79.3 H ESR Sodium 135.5 L Chloride 96 L Creatinine 0.51 L Glucose 191 H POC Glucose 186 H AST 43 H C-Reactive Protein Urine Glucose (UA) Ur Leukocyte Esterase 11/28/18 11/28/18 11/28/18 16:51 16:51 20:03 WBC Absolute Neuts (auto) Seg Neutrophils % ESR 77 H Sodium Chloride Creatinine Glucose POC Glucose 215 H AST C-Reactive Protein 166.3 H Urine Glucose (UA) Ur Leukocyte Esterase 11/28/18 20:06 WBC Absolute Neuts (auto) Seg Neutrophils % ESR Sodium Chloride Creatinine Glucose POC Glucose AST C-Reactive Protein Urine Glucose (UA) >=500 H Ur Leukocyte Esterase TRACE H - Consults Dr. Martinez Time consulted: 00:30 - will admit Consulted provider: will come to ER Discharge - Discharge Clinical Impression: Cellulitis Qualifiers: Site of cellulitis: extremity Site of cellulitis of extremity: lower extremity Laterality: left Qualified Code(s): L03.116 - Cellulitis of left lower limb Condition: Stable Disposition: ADMITTED INPATIENT Admitting Provider: Michelle (Hospitalist) Unit Admitted: Medical Floor
[2018-11-28] MEDS ORDERED: CEFEPIME 2 GM/D5W RTU 2 GM/50 ML RTUPB IV SCH (22:00)
[2018-11-29] MEDS ORDERED: VANCOMYCIN HCL INJ 1000 MG VIAL IV ONE (00:30)
[2018-11-29] MEDS ORDERED: MORPHINE SULFATE 10 MG/ML INJ IV ONE (02:44)
[2018-11-29] MEDS ORDERED: MAG HYDROX/AL HYDROX/SIMETH SUSP 30 ML UDCUP PO PRN (03:07)
[2018-11-29] MEDS ORDERED: MAGNESIUM HYDROXIDE SUSP 30 ML UDCUP PO PRN (03:07)
[2018-11-29] MEDS ORDERED: ZOLPIDEM TARTRATE 5 MG TABLET PO PRN (03:07)
[2018-11-29] MEDS ORDERED: ONDANSETRON 4 MG TAB.RAPDIS PO PRN (03:07)
[2018-11-29] MEDS ORDERED: ONDANSETRON HCL INJ/PF 4 MG/2 ML SDV IV PRN (03:07)
[2018-11-29] MEDS ORDERED: PIPERACILLIN/TAZOBACTAM 3.375 GM VIAL IV PRN (03:15)
[2018-11-29] MEDS ORDERED: HYDRALAZINE HCL INJ/PF 20 MG/1 ML SDV IV PRN (03:15)
[2018-11-29] MEDS ORDERED: MORPHINE SULFATE 10 MG/ML INJ IV PRN ×2 (03:15→03:36)
[2018-11-29] MEDS ORDERED: LEVALBUTEROL HCL NEB 0.63 MG/3 ML AMPUL NEB PRN (03:15)
[2018-11-29] MEDS ORDERED: VANCOMYCIN HCL INJ 1000 MG VIAL IV SCH (03:15)
[2018-11-29] MEDS ORDERED: DEXTROSE 50%-WATER 25 GM/50 ML DISP.SYRIN IV PRN ×2 (03:16)
[2018-11-29] MEDS ORDERED: DEXTROSE 40% GEL 15 GM TUBE PO PRN ×2 (03:16)
[2018-11-29] MEDS ORDERED: GLUCAGON,HUMAN RECOMB 1 MG INJ IM PRN (03:16)
[2018-11-29] MEDS ORDERED: DIAZEPAM 5 MG TABLET PO PRN (03:20)
[2018-11-29 05:18] LABS: FREE T3 2.43 pg/mL (2.77-5.27); FREE T4 (FREE THYROXINE) 0.52 ng/dL (0.78-2.19)
[2018-11-29 05:32] LABS: THYROID STIMULATING HORMONE 0.9 uIU/mL (0.47-4.68)
[2018-11-29] MEDS: GABAPENTIN 300 MG CAPSULE PO SCH ×3 (05:39→21:31)
[2018-11-29] MEDS: HEPARIN SOD (PORCINE) 5,000 UNIT/ML 1 ML VIAL SUBCUT SCH ×3 (05:40→21:31)
--- NOTE | 2018-11-29 06:05 | PDOC H&P ---
History of Present Illness Admission Date/PCP: 11/29/18 00:32 NIKUNJ THURSTON MD Patient complains of: Left foot ulcer History of Present Illness: ALMITA WILLARD is a 43 year old female who presented to the emergency room with a 2-month history of a left foot ulcer. Patient admits that she is currently being treated at the wound care clinic who referred her to the emergency room today after debridement of her left foot diabetic ulcer. She indicates that the ulcer began approximately 2 months ago and has gradually worsened and has not been healing despite active treatment by the wound care clinic. The doctor at the wound care clinic told her that the infection in her foot was close to the bone and she needed to come to the hospital for admission. She admits associated constant severe throbbing and aching in her left foot radiating up the left leg. She also reports redness and swelling in the left foot and left lower leg. She denies other associated or accompanying signs and symptoms. She admits numerous prior similar episodes related to diabetic ulcers of her lower extremities. She has not identified any aggravating or ameliorating factors for her left foot ulcer. In the emergency room she was found to have a recently debrided left foot ulcer with local erythema and edema, and x-ray of the foot showed no obvious osteomyelitis but significant soft tissue edema of the distal foot. Patient was subsequently admitted to the hospital for further evaluation and treatment. Past Medical History Cardiac Medical History: Reports: Hyperlipidema Denies: Atrial Fibrillation, Congestive Heart Failure, Coronary Artery Disease, Myocardial Infarction, Hypertension Pulmonary Medical History: Reports: Bronchitis, Chronic Obstructive Pulmonary Disease (COPD) Denies: Asthma EENT Medical History: Denies: Cataracts, Eyes - Dry eyes, Ears - Hearing aids Neurological Medical History: Denies: Hemorrhagic CVA, Ischemic CVA, Seizures Endocrine Medical History: Reports: Diabetes Mellitus Type 2, Obesity Denies: Diabetes Mellitus Type 1, Hyperthyroidism, Hypothyroidism Renal/ Medical History: Denies: Chronic Kidney Disease, Nephrolithiasis Malignancy Medical History: Reports: None GI Medical History: Reports: Gastroesophageal Reflux Disease Denies: Cirrhosis, Crohn's Disease, Hepatitis, Hiatal Hernia, Peptic Ulcer Disease, Ulcerative Colitis Musculoskeltal Medical History: Denies: Arthritis, Fibromyalgia, Gout Skin Medical History: Denies: Eczema, Psoriasis Psychiatric Medical History: Reports: Bipolar Disorder, Depression - anxiety, Post Traumatic Stress Disorder Denies: Alcohol Dependency, Substance Abuse, Tobacco Dependency Traumatic Medical History: Reports: None Hematology: Denies: Anemia, Bleeding Tendencies Infectious Medical History: Reports: None Past Surgical History Past Surgical History: Reports: Amputation - TOES ON RT FEET, 3 ON LEFT FOOT, Appendectomy, Section, Cholecystectomy, Orthopedic Surgery - right foot 5 toes amputation, 3 toes amputation left foot Social History Information Source: Patient Lives with: Family Smoking Status: Former Smoker Frequency of Alcohol Use: None Hx Recreational Drug Use: Yes Drugs: Marijuana Hx Prescription Drug Abuse: No - Advance Directive Resuscitation Status: Full Code Surrogate healthcare decision maker:: Refuses to provide Family History Family History: CAD, DM, Hypertension, Malignancy Parental Family History Reviewed: Yes Children Family History Reviewed: No Sibling(s) Family History Reviewed.: Yes Medication/Allergy Home Medications: Albuterol Sulfate [Proair HFA] 2 puff IH Q6HP PRN 11/19/17 Insulin Aspart [Novolog Flexpen] 6 unit SUBCUT AC 30 Days #2 insuln.pen 11/26/17 Gabapentin [Neurontin 300 mg Capsule] 900 mg PO Q8 06/17/18 Aripiprazole [Abilify 15 mg Tablet] 15 mg PO BID 07/19/18 Benztropine Mesylate [Cogentin 1 mg Tablet] 1 tab PO BID 07/19/18 Doxepin HCl 1 - 2 cap PO QHS 07/19/18 Insulin Glargine,Hum.rec.anlog [Lantus Solostar] 45 unit SQ QHS 07/19/18 Oxcarbazepine [Trileptal] 600 mg PO BID 07/19/18 Prazosin HCl [Minipress] 2 mg PO QHS 07/19/18 Diazepam [Valium 5 mg Tablet] 5 mg PO Q8HP PRN #14 tablet 07/29/18 Oxycodone HCl/Acetaminophen [Percocet 5-325 mg Tablet] 1 tab PO Q4HP PRN #14 tablet 07/29/18 Allergies/Adverse Reactions: adhesive [Adhesive] Allergy (Mild, Verified 11/28/18 15:10) skin breakdown, red, itching Review of Systems Constitutional: ABSENT: chills, fever(s) Eyes: ABSENT: visual disturbances, other - Eye pain Ears: ABSENT: hearing changes, other - Ear pain Nose, Mouth, and Throat: ABSENT: mouth pain, sore throat Cardiovascular: ABSENT: chest pain, palpitations Respiratory: ABSENT: cough, dyspnea Gastrointestinal: ABSENT: abdominal pain, constipation, diarrhea, nausea, vo miting Genitourinary: ABSENT: dysuria, hematuria Integumentary: PRESENT: as per HPI, wounds - Diabetic ulcer left foot. ABSENT: pruritus, rash Neurological: ABSENT: confusion, convulsions, focal weakness, memory loss, syncope Psychiatric: ABSENT: anxiety, depression Endocrine: ABSENT: cold intolerance, heat intolerance Hematologic/Lymphatic: ABSENT: easy bleeding, easy bruising Allergic/Immunologic: ABSENT: seasonal rhinorrhea Physical Exam Vital Signs: Temp Pulse Resp BP Pulse Ox 99.1 F 102 H 20 118/60 96 11/28/18 15:21 11/28/18 15:21 11/28/18 15:21 11/28/18 15:21 11/28/18 15:21 Intake & Output 11/27/18 11/28/18 11/29/18 23:59 23:59 23:59 Intake Total 50 Balance 50 Weight 93.4 kg General appearance: PRESENT: no acute distress, cooperative Head exam: PRESENT: atraumatic, normocephalic Eye exam: PRESENT: conjunctiva pink. ABSENT: conjunctival injection, scleral icterus Ear exam: PRESENT: normal external ear exam. ABSENT: bleeding, drainage Mouth exam: PRESENT: dry mucosa, neck supple Neck exam: ABSENT: thyromegaly, tracheal deviation Respiratory exam: PRESENT: clear to auscultation too, symmetrical, unlabored Cardiovascular exam: PRESENT: RRR. ABSENT: clicks, gallop, rubs Pulses: PRESENT: normal carotid pulses, normal radial pulses Vascular exam: PRESENT: normal capillary refill. ABSENT: pallor GI/Abdominal exam: PRESENT: [place] - [id number], soft Rectal exam: PRESENT: deferred Extremities exam: PRESENT: pedal edema - Left foot with erythema and foot ulceration, tenderness - 2cm diameter ulcer of the plantar aspect of the 2nd MP joint with local erythema edema induration and tenderness., +1 edema - Left lower extremity with erythema, other - Left foot S/P amputation of 3rd, 4th and 5th toes. ABSENT: joint swelling Musculoskeletal exam: PRESENT: other - Status post right BKA, status post left multiple toe amputations. ABSENT: dislocation Neurological exam: PRESENT: alert, oriented to person, oriented to place, oriented to time, oriented to situation, CN II-XII grossly intact, motor sensory deficit - Decreased sensation left foot and lower leg Psychiatric exam: PRESENT: appropriate affect, normal mood Skin exam: PRESENT: dry, erythema - Mild erythema and edema of the left foot and lower extremity with an erythematous surrounded ulceration of the left foot which appears to been recently debrided., warm. ABSENT: jaundice, rash, urtica avelino Results Laboratory Results: 11/28/18 16:51 11/28/18 16:51 11/28/18 11/28/18 11/28/18 16:51 16:51 16:51 WBC 18.6 H RBC 4.19 Hgb 12.3 Hct 36.3 MCV 87 MCH 29.4 MCHC 33.9 RDW 13.1 Plt Count 228 Seg Neutrophils % 79.3 H Sodium 135.5 L Potassium 4.1 Chloride 96 L Carbon Dioxide 30 Anion Gap 10 BUN 8 Creatinine 0.51 L Est GFR ( Amer) > 60 Glucose 191 H Lactic Acid 1.3 Calcium 9.4 Total Bilirubin 0.5 AST 43 H Alkaline Phosphatase 111 C-Reactive Protein Total Protein 7.0 Albumin 3.9 Serum HCG, Qual Urine Color Urine Appearance Urine pH Ur Specific [place] Urine Protein Urine Glucose (UA) Urine Ketones Urine Blood Urine Nitrite Ur Leukocyte Esterase Urine WBC (Auto) Urine RBC (Auto) 11/28/18 11/28/18 11/28/18 16:51 16:51 20:06 WBC RBC Hgb Hct MCV MCH MCHC RDW Plt Count Seg Neutrophils % Sodium Potassium Chloride Carbon Dioxide Anion Gap BUN Creatinine Est GFR ( Amer) Glucose Lactic Acid Calcium Total Bilirubin AST Alkaline Phosphatase C-Reactive Protein 166.3 H Total Protein Albumin Serum HCG, Qual NEGATIVE Urine Color YELLOW Urine Appearance CLEAR Urine pH 7.0 Ur Specific [place] 1.007 Urine Protein NEGATIVE Urine Glucose (UA) >=500 H Urine Ketones NEGATIVE Urine Blood NEGATIVE Urine Nitrite NEGATIVE Ur Leukocyte Esterase TRACE H Urine WBC (Auto) 14 Urine RBC (Auto) 0 Impressions: Foot X-Ray 11/28/18 15:39 IMPRESSION: There has been interval fracture of the proximal phalanx of the left 5th digit, chronic appearing. Similar medial dislocation of the 4th digit MTP joint. No definite acute osseous finding. Distal soft tissue swelling. No radiopaque foreign body. Assessment and Plan - Diagnosis (1) Diabetic ulcer of left foot Qualifiers: Diabetic foot ulcer location: unspecified part of foot Diabetes mellitus type: type 2 Non-pressure ulcer stage: unspecified non-pressure ulcer stage Qualified Code(s): E11.621 - Type 2 diabetes mellitus with foot ulcer; L97.529 - Non-pressure chronic ulcer of other part of left foot with unspecified severity Is this a current diagnosis for this admission?: Yes Plan: Patient be treated with IV antibiotics including vancomycin and Zosyn. Daily CBCs metabolic profiles and magnesium levels will be obtained. A surgical consultation or a consultation for the wound clinic will be obtained if needed. (2) Diabetes mellitus type 2 in nonobese Is this a current diagnosis for this admission?: Yes Plan: Patient will be continued on her usual diabetic regiment and diabetic diet. Hemoglobin A1c will be obtained to evaluate the efficacy of her current therapy. Before meals and at bedtime Accu-Cheks will be performed with hyperglycemia being treated with sliding scale insulin and a hypoglycemic protocol in place for potential hypoglycemic readings. (3) Hypertension Qualifiers: Hypertension type: essential hypertension Qualified Code(s): I10 - Ess ential (primary) hypertension Is this a current diagnosis for this admission?: Yes Plan: Patient be continued on her usual antihypertensive regimen. Patient's blood pressure be checked frequently throughout her hospital course. (4) Hyperlipidemia Qualifiers: Hyperlipidemia type: unspecified Qualified Code(s): E78.5 - Hyperlipidemia, unspecified Is this a current diagnosis for this admission?: Yes Plan: Patient be continued on her current hyperlipidemia therapy. A lipid profile will be obtained to assess the efficacy of her current treatment. She will be continued on her cardiac diet. - Time Time Spent with patient: 25-34 minutes Medications reviewed and adjusted accordingly: Yes Anticipated discharge: Home - Inpatient Certification Based on my medical assessment, after consideration of the patient's comorbidities, presenting symptoms, or acuity I expect that the services needed warrant INPATIENT care.: Yes I certify that my determination is in accordance with my understanding of Medicare's requirements for reasonable and necessary INPATIENT services [42 CFR 412.3e].: Yes Medical Necessity: Failure to Improve With Outpatient Therapy, Significant Comorbidiites Make Outpatient Treatment Too Risky, Need Close Monitoring Due to Risk of Patient Decompensation, Need for IV Antibiotics, Need for Surgery, Risk of Complication if Not Cared For in Hospital
[2018-11-29] MEDS: MORPHINE SULFATE 10 MG/ML INJ IV PRN ×4 (07:06→22:25)
[2018-11-29] MEDS: PIPERACILLIN SODIUM/TAZOBACTAM 3.375 GM in NORMAL SALINE 100 ML IV SCH ×3 (07:17→17:06)
[2018-11-29] MEDS: INSULIN REG, HUMAN 100 UNIT/ML 3 ML VIAL (PYX) SUBCUT SCH ×7 (08:55→21:33)
[2018-11-29] MEDS: BUDESONIDE NEB 0.5 MG/2 ML AMPUL NEB SCH ×2 (08:57→20:00)
[2018-11-29] MEDS: IPRATROPIUM BROMIDE 0.02% NEB 0.5 MG/2.5 ML AMPUL NEB SCH ×2 (08:57→15:31)
[2018-11-29] MEDS: LEVALBUTEROL HCL NEB 1.25 MG/3 ML AMPUL NEB SCH ×2 (08:57→15:31)
[2018-11-29] MEDS: FAMOTIDINE 20 MG TABLET PO SCH ×2 (10:03→21:31)
[2018-11-29] MEDS: BENZTROPINE MESYLATE 1 MG TABLET PO SCH ×2 (10:03→17:05)
[2018-11-29] MEDS: INSULIN GLARGINE,HUM.REC.ANLOG 1,000 UNIT/10 ML VIAL SUBCUT SCH (10:05)
[2018-11-29] MEDS: DOCUSATE SODIUM 100 MG CAPSULE PO SCH ×2 (10:05→17:05)
[2018-11-29] MEDS: ARIPIPRAZOLE 5 MG TABLET PO SCH ×2 (11:05→21:31)
[2018-11-29] MEDS: DOXEPIN HCL 25 MG CAPSULE PO SCH (21:31)
[2018-11-29] MEDS: DOXAZOSIN MESYLATE 2 MG TABLET PO SCH (21:32)
[2018-11-29] MEDS: VANCOMYCIN HCL 1,250 MG in DEXTROSE 5%-WATER 250 ML IV SCH (22:26)
[2018-11-30] MEDS: IPRATROPIUM BROMIDE 0.02% NEB 0.5 MG/2.5 ML AMPUL NEB SCH ×2 (00:18→08:21)
[2018-11-30] MEDS: LEVALBUTEROL HCL NEB 1.25 MG/3 ML AMPUL NEB SCH ×2 (00:18→08:21)
[2018-11-30] MEDS: PIPERACILLIN SODIUM/TAZOBACTAM 3.375 GM in NORMAL SALINE 100 ML IV SCH ×4 (00:55→17:58)
[2018-11-30 05:58] LABS: ANION GAP 8 (5-19); BLOOD UREA NITROGEN 9 mg/dL (7-20); CARBON DIOXIDE 30 mmol/L (22-30); CHLORIDE 100 mmol/L (98-107); CHOLESTEROL 132.96 mg/dL (0-200); DIRECT LDL 90 mg/dL (<100); GLUCOSE 297 mg/dL (75-110); POTASSIUM 4.1 mmol/L (3.6-5.0); TRIGLYCERIDES 220 mg/dL (<150)
[2018-11-30] MEDS: HEPARIN SOD (PORCINE) 5,000 UNIT/ML 1 ML VIAL SUBCUT SCH ×3 (06:19→21:21)
[2018-11-30] MEDS: VANCOMYCIN HCL 1,250 MG in DEXTROSE 5%-WATER 250 ML IV SCH ×3 (06:21→21:26)
[2018-11-30] MEDS: GABAPENTIN 300 MG CAPSULE PO SCH ×3 (06:21→21:24)
[2018-11-30 07:01] LABS: HEMOGLOBIN 11.2 g/dL (12.0-15.5); MEAN CORPUSCULAR HEMOGLOBIN 29.8 pg (27.0-33.4); MEAN CORPUSCULAR HGB CONC 33.9 g/dL (32.0-36.0); MEAN CORPUSCULAR VOLUME 88 fl (80-97); PLATELET COUNT 229 10^3/uL (150-450); RED BLOOD COUNT 3.75 10^6/uL (3.72-5.28); RED CELL DISTRIBUTION WIDTH 12.9 % (11.5-14.0); WHITE BLOOD COUNT 11.4 10^3/uL (4.0-10.5)
[2018-11-30] MEDS: BUDESONIDE NEB 0.5 MG/2 ML AMPUL NEB SCH (08:21)
[2018-11-30] MEDS: IBUPROFEN 800 MG TABLET PO PRN ×2 (08:39→14:56)
[2018-11-30] MEDS: DOCUSATE SODIUM 100 MG CAPSULE PO SCH ×2 (09:55→17:25)
[2018-11-30] MEDS: ARIPIPRAZOLE 5 MG TABLET PO SCH ×2 (10:07→21:24)
[2018-11-30] MEDS: FAMOTIDINE 20 MG TABLET PO SCH ×2 (10:07→21:23)
[2018-11-30] MEDS: INSULIN GLARGINE,HUM.REC.ANLOG 1,000 UNIT/10 ML VIAL SUBCUT SCH (10:07)
[2018-11-30] MEDS: BENZTROPINE MESYLATE 1 MG TABLET PO SCH ×2 (10:07→17:25)
[2018-11-30] MEDS: INSULIN REG, HUMAN 100 UNIT/ML 3 ML VIAL (PYX) SUBCUT SCH ×7 (10:08→21:58)
--- NOTE | 2018-11-30 14:59 | RADIOLOGY REPORT (SQ) ---
EXAM DESCRIPTION: MRI LT LOWER EXTREMITY WITHOUT COMPLETED DATE/TIME: 11/30/2018 2:32 pm REASON FOR STUDY: R/O LEFT FOOT OSTEOMYELITIS COMPARISON: Radiographs of the left foot, 11/28/2018, MR left foot, 10/27/2011 TECHNIQUE: T1-weighted, T2-weighted, and gradient echo noncontrast multiplanar imaging of the left f oot. LIMITATIONS: None. FINDINGS: MARROW SIGNAL: There is a subtle marrow edema and T1 hypointensity of the head of the left 4th metatarsal and proximal phalanx of the left 4th digit, which is subluxed. No occult fracture. Status post transmetatarsal amputations of the left 1st through 3rd digits. JOINT EFFUSION: Fluid signal about the subluxed left 4th metatarsophalangeal joint. PLANTAR FASCIA: Normal as visualized. TARSOMETATARSAL AND TOE ARTICULATIONS: Anatomic. Mild degenerative changes first metatarsal phalange al joint. INTERMETATARSAL SPACES AND PLANTAR PLATES: Intact. No soft tissue mass to suggest a neuroma. SOFT TISSUES: Plantar wound about the the left 4th metatarsal. Diffuse soft tissue edema about the l eft foot. No masses. No fibrosis. OTHER: No other significant finding. IMPRESSION: 1. There is a subtle marrow edema and T1 hypointensity of the head of the left 4th metat arsal and proximal phalanx of the left 4th digit, which is subluxed and underlying a plantar wound. Findings are suspicious for osteomyelitis. Diffuse soft tissue edema about the left foot. 2. 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 TECHNICAL DOCUMENTATION: JOB ID: [id number] [employer]- All Rights Reserved Reading location - IP/workstation name: [email or web address]
--- NOTE | 2018-11-30 15:29 | PDOC PROGRESS REPORT ---
Subjective Progress Note for:: 11/30/18 Subjective:: This is a 43 year old female who presented to the emergency room with a 2-month history of a left foot ulcer. Patient admits that she is currently being treated at the wound care clinic who referred her to the emergency room today after debridement of her left foot diabetic ulcer. She reports increasing swelling and redness around the left foot ulcer. No acute event overnight. She says the pain is improved today. No fever or chills overnight. MRI showed changes suspicious for osteomyelitis. Will consult surgery was for further recommendations. Reason For Visit: DIABETIC FOOT ULCER,LEFT FOOT Physical Exam Vital Signs: Temp Pulse Resp BP Pulse Ox 98.2 F 87 16 101/41 L 97 11/30/18 07:34 11/30/18 08:21 11/30/18 08:21 11/30/18 07:34 11/30/18 08:21 Intake & Output 11/29/18 11/30/18 12/01/18 06:59 06:59 06:59 Intake Total 50 1106 Output Total 900 Balance 50 206 Weight 205 lb 14.588 oz 205 lb 4.006 oz General appearance: PRESENT: no acute distress, well-developed, well-nourished Head exam: PRESENT: atraumatic, normocephalic Eye exam: PRESENT: conjunctiva pink, EOMI, PERRLA. ABSENT: scleral icterus Ear exam: PRESENT: normal external ear exam Mouth exam: PRESENT: moist, tongue midline Neck exam: ABSENT: carotid bruit, JVD, lymphadenopathy, thyromegaly Respiratory exam: PRESENT: clear to auscultation too. ABSENT: rales, rhonchi, wheezes Cardiovascular exam: PRESENT: RRR. ABSENT: diastolic murmur, rubs, systolic murmur Pulses: PRESENT: normal dorsalis pedis pul GI/Abdominal exam: PRESENT: normal bowel sounds, soft. ABSENT: distended, guarding, mass, organolmegaly, rebound, tenderness Rectal exam: PRESENT: deferred Extremities exam: PRESENT: other - left foot ulcer Neurological exam: PRESENT: alert, awake, oriented to person, oriented to place, oriented to time, oriented to situation, CN II-XII grossly intact. ABSENT: motor sensory deficit Results Laboratory Results: 11/30/18 03:58 11/30/18 03:58 11/30/18 11/30/18 03:58 03:58 WBC 11.4 H RBC 3.75 Hgb 11.2 L Hct 33.0 L MCV 88 MCH 29.8 MCHC 33.9 RDW 12.9 Plt Count 229 Sodium 138.3 Potassium 4.1 Chloride 100 Carbon Dioxide 30 Anion Gap 8 BUN 9 Creatinine 0.54 Est GFR ( Amer) > 60 Glucose 297 H Calcium 9.0 Magnesium 2.0 Triglycerides 220 H Cholesterol 132.96 LDL Cholesterol Direct 90 VLDL Cholesterol 44.0 H HDL Cholesterol 24 L Impressions: Foot X-Ray 11/28/18 15:39 IMPRESSION: There has been interval fracture of the proximal phalanx of the left 5th digit, chronic appearing. Similar medial dislocation of the 4th digit MTP joint. No definite acute osseous finding. Distal soft tissue swelling. No radiopaque foreign body. Assessment and Plan - Diagnosis (1) Osteomyelitis Qualifiers: Osteomyelitis location: foot Laterality: left Is this a current diagnosis for this admission?: Yes Plan: MRI showed changes suspicious for osteomyelitis. Continue IV antibiotics. Will consult surgery for further recommendations. (2) Diabetic ulcer of left foot Qualifiers: Diabetic foot ulcer location: unspecified part of foot Diabetes mellitus type: type 2 Non-pressure ulcer stage: unspecified non-pressure ulcer stage Qualified Code(s): E11.621 - Type 2 diabetes mellitus with foot ulcer; L97.529 - Non-pressure chronic ulcer of other part of left foot with unspecified severity Is this a current diagnosis for this admission?: Yes Plan: As per number 1. (3) Hypertension Qualifiers: Hypertension type: essential hypertension Qualified Code(s): I10 - Essential (primary) hypertension Is this a current diagnosis for this admission?: Yes Plan: Controlled. (4) COPD (chronic obstructive pulmonary disease) Is this a current diagnosis for this admission?: Yes Plan: Not in exacerbation. Breathing treatments as needed. (5) Type 2 diabetes mellitus Is this a current diagnosis for this admission?: Yes Plan: Continue Lantus. - Time Time Spent with patient: 25-34 minutes
--- NOTE | 2018-11-30 18:53 | PDOC CONSULTATION ---
Consultation Consult Date: 11/30/18 Provider Consulted: PIERRE LEONARD Consult reason:: toe infection History of Present Illness Admission Date/PCP: 11/29/18 00:32 NIKUNJ THURSTON MD History of Present Illness: ALMITA WILLARD is a 43 year old female who presented to the emergency room with a 2-month history of a left foot ulcer. Patient admits that she is currently being treated at the wound care clinic who referred her to the emergency room today after debridement of her left foot diabetic ulcer. She indicates that the ulcer began approximately 2 months ago and has gradually worsened and has not been healing despite active treatment by the wound care clinic. The doctor at the wound care clinic told her that the infection in her foot was close to the bone and she needed to come to the hospital for admission. She admits associated constant severe throbbing and aching in her left foot radiating up the left leg. She also reports redness and swelling in the left foot and left lower leg. She denies other associated or accompanying signs and symptoms. She admits numerous prior similar episodes related to diabetic ulcers of her lower extremities. She has not identified any aggravating or ameliorating factors for her left foot ulcer. In the emergency room she was found to have a recently debrided left foot ulcer with local erythema and edema, and x-ray of the foot showed no obvious osteomyelitis but significant soft tissue edema of the distal foot. Patient was subsequently admitted to the hospital for further evaluation and treatmen Past Medical History Cardiac Medical History: Reports: Hyperlipidema Denies: Atrial Fibrillation, Congestive Heart Failure, Coronary Artery Disease, Myocardial Infarction, Hypertension Pulmonary Medical History: Reports: Bronchitis, Chronic Obstructive Pulmonary Disease (COPD) Denies: Asthma EENT Medical History: Reports: None Denies: Cataracts, Eyes - Dry eyes, Ears - Hearing aids Neurological Medical History: Reports: None Denies: Hemorrhagic CVA, Ischemic CVA, Seizures Endocrine Medical History: Reports: Diabetes Mellitus Type 2, Obesity Denies: Diabetes Mellitus Type 1, Hyperthyroidism, Hypothyroidism Renal/ Medical History: Reports: None Denies: Chronic Kidney Disease, Nephrolithiasis Malignancy Medical History: Reports: None GI Medical History: Reports: Gastroesophageal Reflux Disease Denies: Cirrhosis, Crohn's Disease, Hepatitis, Hiatal Hernia, Peptic Ulcer Disease, Ulcerative Colitis Musculoskeltal Medical History: Reports: None Denies: Arthritis, Fibromyalgia, Gout Skin Medical History: Reports: None Denies: Eczema, Psoriasis Psychiatric Medical History: Reports: Bipolar Disorder, Depression, Post Traumatic Stress Disorder Denies: Alcohol Dependency, Substance Abuse, Tobacco Dependency Traumatic Medical History: Reports: None Hematology: Denies: Anemia, Sickle Cell Disease, Bleeding Tendencies Infectious Medical History: Reports: None Past Surgical History Past Surgical History: Reports: Amputation - TOES ON RT FEET, 3 ON LEFT FOOT, Appendectomy, Section, Cholecystectomy, Orthopedic Surgery - right foot 5 toes amputation, 3 toes amputation left foot, Other - s/p rt bka Denies: Mastectomy, Pacemaker Social History Lives with: Family Smoking Status: Former Smoker Frequency of Alcohol Use: None Hx Recreational Drug Use: No Drugs: None Hx Prescription Drug Abuse: No - Advance Directive Resuscitation Status: Full Code Family History Family History: CAD, DM, Hypertension, Malignancy Parental Family History Reviewed: Yes Children Family History Reviewed: NA Sibling(s) Family History Reviewed.: NA Medication/Allergy Home Medications: Acetaminophen [Tylenol 325 mg Tablet] 650 mg PO Q4HP PRN 11/29/18 Albuterol Sulfate [Proair HFA Inhalation Aerosol 8.5 gm MDI] 2 puff IH Q4HP PRN 11/29/18 Aripiprazole [Abilify 15 mg Tablet] 15 mg PO BID 11/29/18 Benztropine Mesylate [Cogentin 1 mg Tablet] 1 mg PO BID 11/29/18 Diazepam [Valium 5 mg Tablet] 5 mg PO Q8HP PRN 11/29/18 Doxepin HCl [Sinequan 10 mg Capsule] 10 mg PO QHS 11/29/18 Gabapentin [Neurontin 300 mg Capsule] 900 mg PO Q8 11/29/18 Insulin Glargine,Hum.rec.anlog [Lantus Insulin 100 Unit/1 ml 10 ml] 50 units SQ QHS 11/29/18 Multivitamin [Multiple Vitamins] 1 tab PO QAM 11/29/18 Oxcarbazepine [Trileptal] 600 mg PO BID 11/29/18 Oxycodone HCl/Acetaminophen [Percocet 5-325 mg Tablet] 1 tab PO Q4HP PRN 11/29/18 Prazosin HCl [Minipress] 2 mg PO QHS 11/29/18 Varenicline Tartrate [Chantix 1 mg Tablet] 1 mg PO BID 11/29/18 Allergies/Adverse Reactions: adhesive [Adhesive] Allergy (Mild, Verified 11/28/18 15:10) skin breakdown, red, itching Review of Systems Constitutional: ABSENT: chills, fever(s), headache(s), weight gain, weight loss Eyes: ABSENT: visual disturbances Ears: ABSENT: as per HPI, hearing changes, other Nose, Mouth, and Throat: ABSENT: as per HPI, headache(s), mouth pain, sore throat, vertigo, other Breasts: ABSENT: as per HPI, other Cardiovascular: ABSENT: as per HPI, chest pain, dyspnea on exertion, edema, orthropnea, palpitations, other Respiratory: ABSENT: as per HPI, cough, dyspnea, hemoptysis, sputum, other Neurological: ABSENT: abnormal gait, abnormal speech, confusion, dizziness, focal weakness, syncope Psychiatric: ABSENT: as per HPI, anxiety, depression, hallucinations, homidical ideation, suicidal ideation, other Endocrine: ABSENT: as per HPI, cold intolerance, flushing, heat intolerance, menstrual abnormalities, polydipsia, polyphagia, polyuria, other Hematologic/Lymphatic: ABSENT: as per HPI, easy bleeding, easy bruising, lymphadenopathy, other Allergic/Immunologic: ABSENT: as per HPI, seasonal rhinorrhea, other Physical Exam Vital Signs: Temp Pulse Resp BP Pulse Ox 97.3 F 71 17 133/65 H 97 11/30/18 17:02 11/30/18 17:02 11/30/18 17:02 11/30/18 17:02 11/30/18 17:02 Intake & Output 11/29/18 11/30/18 12/01/18 06:59 06:59 06:59 Intake Total 50 1106 1292 Output Total 900 Balance 50 206 1292 Weight 93.4 kg 93.1 kg General appearance: PRESENT: no acute distress Head exam: PRESENT: normocephalic Eye exam: PRESENT: EOMI Ear exam: PRESENT: normal external ear exam Mouth exam: PRESENT: moist Teeth exam: PRESENT: poor dentation Neck exam: PRESENT: full ROM Respiratory exam: PRESENT: clear to auscultation too Cardiovascular exam: PRESENT: RRR Pulses: PRESENT: +2 pedal pulses bilateral Vascular exam: PRESENT: normal capillary refill GI/Abdominal exam: PRESENT: soft Rectal exam: PRESENT: deferred Extremities exam: PRESENT: other - left foot s/p 1,2,3 toe amputation 4,5th toe swollen with erythema and 3cm plantar ulcer. no pus, no cellulitis extending up forefoot Neurological exam: PRESENT: alert, awake, oriented to person, oriented to place Psychiatric exam: PRESENT: appropriate affect Skin exam: PRESENT: dry Results Laboratory Results: 11/30/18 03:58 11/30/18 03:58 11/30/18 11/30/18 03:58 03:58 WBC 11.4 H RBC 3.75 Hgb 11.2 L Hct 33.0 L MCV 88 MCH 29.8 MCHC 33.9 RDW 12.9 Plt Count 229 Sodium 138.3 Potassium 4.1 Chloride 100 Carbon Dioxide 30 Anion Gap 8 BUN 9 Creatinine 0.54 Est GFR ( Amer) > 60 Glucose 297 H Calcium 9.0 Magnesium 2.0 Triglycerides 220 H Cholesterol 132.96 LDL Cholesterol Direct 90 VLDL Cholesterol 44.0 H HDL Cholesterol 24 L Impressions: Foot X-Ray 11/28/18 15:39 IMPRESSION: There has been interval fracture of the proximal phalanx of the left 5th digit, chronic appearing. Similar medial dislocation of the 4th digit MTP joint. No definite acute osseous finding. Distal soft tissue swelling. No radiopaque foreign body. Lower Extremity MRI 11/30/18 11:00 IMPRESSION: 1. There is a subtle marrow edema and T1 hypointensity of the head of the left 4th metatarsal and proximal phalanx of the left 4th digit, which is subluxed and underlying a plantar wound. Findings are suspicious for osteomyelitis. Diffuse soft tissue edema about the left foot. 2. 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 Assessment & Plan - Plan Summary Plan Summary: left forefoot diabetic ulcer of left 4,5 toe metatarsal with underlying osteomylitis recommend, transmetatarsal amputation explained, risk, benifits iwth pt including possible need for additional surgery which may include a left bka she understands and agrees to proceed.
[2018-11-30] MEDS: DOXAZOSIN MESYLATE 2 MG TABLET PO SCH (21:23)
[2018-11-30] MEDS: DOXEPIN HCL 25 MG CAPSULE PO SCH (21:24)
[2018-11-30] MEDS: KETOROLAC TROMETHAMINE INJ/PF 30 MG/1 ML SDV IV PRN (21:25)
[2018-12-01] MEDS: PIPERACILLIN SODIUM/TAZOBACTAM 3.375 GM in NORMAL SALINE 100 ML IV SCH ×3 (00:15→15:18)
[2018-12-01] MEDS: MORPHINE SULFATE 10 MG/ML INJ IV PRN ×3 (00:21→19:50)
[2018-12-01] MEDS: HEPARIN SOD (PORCINE) 5,000 UNIT/ML 1 ML VIAL SUBCUT SCH ×3 (05:03→22:15)
[2018-12-01] MEDS: GABAPENTIN 300 MG CAPSULE PO SCH ×3 (05:03→22:16)
[2018-12-01 06:20] LABS: HEMATOCRIT 33.3 % (36.0-47.0); HEMOGLOBIN 11.4 g/dL (12.0-15.5); MEAN CORPUSCULAR HGB CONC 34.3 g/dL (32.0-36.0); MEAN CORPUSCULAR VOLUME 87 fl (80-97); PLATELET COUNT 236 10^3/uL (150-450); RED BLOOD COUNT 3.81 10^6/uL (3.72-5.28); RED CELL DISTRIBUTION WIDTH 12.8 % (11.5-14.0); WHITE BLOOD COUNT 7.8 10^3/uL (4.0-10.5)
[2018-12-01] MEDS: VANCOMYCIN HCL 1,250 MG in DEXTROSE 5%-WATER 250 ML IV SCH ×2 (06:35→16:51)
[2018-12-01] MEDS: KETOROLAC TROMETHAMINE INJ/PF 30 MG/1 ML SDV IV PRN ×2 (06:39→22:30)
[2018-12-01 06:51] LABS: ANION GAP 7 (5-19); BLOOD UREA NITROGEN 9 mg/dL (7-20); CALCIUM 9.1 mg/dL (8.4-10.2); CARBON DIOXIDE 30 mmol/L (22-30); CHLORIDE 105 mmol/L (98-107); GLUCOSE 177 mg/dL (75-110); POTASSIUM 4.1 mmol/L (3.6-5.0)
[2018-12-01] MEDS ORDERED: ONDANSETRON HCL INJ/PF 4 MG/2 ML SDV IV PRN ×2 (07:30→16:26)
[2018-12-01] MEDS ORDERED: ONDANSETRON 4 MG TAB.RAPDIS PO PRN (07:30)
[2018-12-01] MEDS: INSULIN REG, HUMAN 100 UNIT/ML 3 ML VIAL (PYX) SUBCUT SCH ×7 (09:07→22:20)
[2018-12-01] MEDS: ARIPIPRAZOLE 5 MG TABLET PO SCH ×2 (11:01→22:16)
[2018-12-01] MEDS: FAMOTIDINE 20 MG TABLET PO SCH ×2 (11:01→22:15)
[2018-12-01] MEDS: BENZTROPINE MESYLATE 1 MG TABLET PO SCH ×2 (11:01→18:45)
[2018-12-01] MEDS: DOCUSATE SODIUM 100 MG CAPSULE PO SCH ×2 (11:20→18:53)
[2018-12-01] MEDS ORDERED: KETOROLAC TROMETHAMINE 60 MG/2 ML SDV ONE (12:35)
[2018-12-01] MEDS ORDERED: ONDANSETRON HCL INJ/PF 4 MG/2 ML SDV ONE (12:35)
[2018-12-01] MEDS ORDERED: DEXAMETHASONE SOD PHOSPHATE INJ 4 MG/1 ML VIAL ONE (12:35)
[2018-12-01] MEDS ORDERED: METOCLOPRAMIDE HCL INJ/PF 10 MG/2 ML SDV ONE (12:35)
[2018-12-01] MEDS: INSULIN GLARGINE,HUM.REC.ANLOG 1,000 UNIT/10 ML VIAL SUBCUT SCH (14:21)
[2018-12-01] MEDS ORDERED: FENTANYL CITRATE INJ/PF 100 MCG/2 ML AMPUL ONE (15:20)
[2018-12-01] MEDS ORDERED: PROPOFOL INJ 200 MG/20 ML VIAL IV ONE (15:21)
[2018-12-01] MEDS ORDERED: MIDAZOLAM 2 MG/2 ML INJ ONE ×2 (15:21→16:08)
[2018-12-01] MEDS ORDERED: LIDOCAINE 1% INJ-PF (10 MG/ML) 30 ML SDV ONE (16:15)
[2018-12-01] MEDS ORDERED: PROMETHAZINE HCL INJ 25 MG/1 ML VIAL IV PRN ×2 (16:26)
[2018-12-01] MEDS ORDERED: FENTANYL CITRATE INJ/PF 100 MCG/2 ML AMPUL IV PRN ×3 (16:26)
[2018-12-01] MEDS ORDERED: DIPHENHYDRAMINE HCL 50 MG/ML VIAL IV PRN (16:26)
--- NOTE | 2018-12-01 16:38 | RADIOLOGY REPORT (SQ) ---
EXAM DESCRIPTION: PICC INSERTION; U/S GUIDE FOR VASCULAR ACCESS; FLUORO/CV PLACEMENT COMPLETED DATE/TIME: 12/01/2018 4:25 pm REASON FOR STUDY: place prior to surgery; IV ACCESS COMPARISON: PICC LINE 07/22/2018 FLUOROSCOPY TIME: 8 minutes 7 seconds The heart digital fluoroscopic series of images, 1 ultrasound image saved to PACS. TECHNIQUE: Fluoroscopic and ultrasound guided PICC placement. LIMITATIONS: None. PROCEDURE: After written consent and assessment were obtained, the patient was brought into the fluo roscopy room and placed supine on the table. Ultrasound evaluation of potential access sites were per formed. After successfully identifying a patent left basilic vein, the left arm was prepped and drape d in a sterile fashion along with the ultrasound probe. The entry site was anesthetized with 1% lidoc janet. A 21 gauge 7 cm needle was advanced through the skin and into the basilic vein under live ultra sound guidance. An ultrasound image was saved to PACS confirming access site. A .018 guide wire was then inserted through the needle and into the venous system. The needle was then removed and an 11 b lade scalpel was used to make a 1cm skin incision. A 5 fr peel-away sheath was advanced over the wir e and into the venous system. A measurement was then made using the existing wire and live fluoroscop ic guidance. The wire was then removed and the catheter trimmed. The PICC was advanced through the pe el-away sheath and into the venous system. We were able to manipulate the catheter through a venous stenosis along the basilic vein near its junction with the axillary vein. The peel-away sheath was r emoved and the catheter was adhered to the patients arm with a stat lock. The catheter was then aspir ated and flushed and a sterile bandage was placed over the access site. A fluoroscopic spot image wa s saved to PACS confirming the catheter tip within the superior vena cava. IMPRESSION: SUCCESSFUL PLACEMENT OF A 5 FR DUAL LUMEN 40 CM PICC IN THE LEFT BASILIC VEIN. COMMENT: Patient medication list reviewed: Yes- Quality ID# 130:Eligible professional attests to doc umenting in the medical record they obtained, updated, or reviewed the patient's current medications. . Quality ID 145: Final reports for procedures using fluoroscopy that document radiation exposure lalo maureen, or exposure time and number of fluorographic images (if radiation exposure indices are not avail able) Quality ID #76: The patient was prepped and draped using maximum sterile barrier technique including cap, mask, sterile gown, sterile gloves, a large sterile sheet, hand hygiene, and 2% Chlorhexidine fo r cutaneous antisepsis. When ultrasound is used, sterile ultrasound techniques are followed requiring sterile gel and sterile probes. TECHNICAL DOCUMENTATION: JOB ID: [id number] [employer]- All Rights Reserved rev-08/06 Reading location - IP/workstation name: [email or web address]
--- NOTE | 2018-12-01 17:38 | PDOC PROGRESS REPORT ---
Subjective Progress Note for:: 12/01/18 Subjective:: This is a 43 year old female who presented to the emergency room with a 2-month history of a left foot ulcer. Patient admits that she is currently being treated at the wound care clinic who referred her to the emergency room today after debridement of her left foot diabetic ulcer. She reports increasing swelling and redness around the left foot ulcer. 11/30: She says the pain is improved today. No fever or chills overnight. MRI showed changes suspicious for osteomyelitis. Will consult surgery for further recommendations. 12/01: No acute event overnight. She denies acute complaints. She is going for left foot amputation later today with surgery. Reason For Visit: DIABETIC FOOT ULCER,LEFT FOOT Physical Exam Vital Signs: Temp Pulse Resp BP Pulse Ox 97.4 F 80 16 102/61 97 11/30/18 23:32 12/01/18 08:45 12/01/18 08:45 11/30/18 23:32 12/01/18 08:45 Intake & Output 11/30/18 12/01/18 12/02/18 06:59 06:59 06:59 Intake Total 1106 2092 Output Total 900 Balance 206 2092 Weight 205 lb 4.006 oz 205 lb 4.006 oz General appearance: PRESENT: no acute distress, well-developed, well-nourished Head exam: PRESENT: atraumatic, normocephalic Eye exam: PRESENT: conjunctiva pink, EOMI, PERRLA. ABSENT: scleral icterus Ear exam: PRESENT: normal external ear exam Mouth exam: PRESENT: moist, tongue midline Neck exam: ABSENT: carotid bruit, JVD, lymphadenopathy, thyromegaly Respiratory exam: PRESENT: clear to auscultation too. ABSENT: rales, rhonchi, wheezes Cardiovascular exam: PRESENT: RRR. ABSENT: diastolic murmur, rubs, systolic murmur Pulses: PRESENT: normal dorsalis pedis pul GI/Abdominal exam: PRESENT: normal bowel sounds, soft. ABSENT: distended, guarding, mass, organolmegaly, rebound, tenderness Rectal exam: PRESENT: deferred Extremities exam: PRESENT: other - ulcer on left foot Neurological exam: PRESENT: alert, awake, oriented to person, oriented to place, oriented to time, oriented to situation, CN II-XII grossly intact. ABSENT: motor sensory deficit Results Laboratory Results: 12/01/18 05:07 12/01/18 05:07 12/01/18 12/01/18 05:07 05:07 WBC 7.8 RBC 3.81 Hgb 11.4 L Hct 33.3 L MCV 87 MCH 30.0 MCHC 34.3 RDW 12.8 Plt Count 236 Sodium 142.0 Potassium 4.1 Chloride 105 Carbon Dioxide 30 Anion Gap 7 BUN 9 Creatinine 0.53 Est GFR ( Amer) > 60 Glucose 177 H Calcium 9.1 Magnesium 1.9 Impressions: Foot X-Ray 11/28/18 15:39 IMPRESSION: There has been interval fracture of the proximal phalanx of the left 5th digit, chronic appearing. Similar medial dislocation of the 4th digit MTP joint. No definite acute osseous finding. Distal soft tissue swelling. No radiopaque foreign body. Lower Extremity MRI 11/30/18 11:00 IMPRESSION: 1. There is a subtle marrow edema and T1 hypointensity of the head of the left 4th metatarsal and proximal phalanx of the left 4th digit, which is subluxed and underlying a plantar wound. Findings are suspicious for osteomyelitis. Diffuse soft tissue edema about the left foot. 2. 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 Assessment and Plan - Diagnosis (1) Osteomyelitis Qualifiers: Osteomyelitis location: foot Laterality: left Is this a current diagnosis for this admission?: Yes Plan: 11/30: MRI showed changes suspicious for osteomyelitis. Continue IV antibiotics. Will consult surgery for further recommendations. 12/01: She is going for left foot amputation later today with surgery. Discontinue vancomycin and Zosyn and switch to IV cefazolin. (2) Diabetic ulcer of left foot Qualifiers: Diabetic foot ulcer location: unspecified part of foot Diabetes mellitus type: type 2 Non-pressure ulcer stage: unspecified non-pressure ulcer stage Qualified Code(s): E11.621 - Type 2 diabetes mellitus with foot ulcer; L97.529 - Non-pressure chronic ulcer of other part of left foot with unspecified severity Is this a current diagnosis for this admission?: Yes Plan: As per number 1. (3) Hypertension Qualifiers: Hypertension type: essential hypertension Qualified Code(s): I10 - Essential (primary) hypertension Is this a current diagnosis for this admission?: Yes Plan: Controlled. (4) COPD (chronic obstructive pulmonary disease) Is this a current diagnosis for this admission?: Yes Plan: Not in exacerbation. Breathing treatments as needed. (5) Type 2 diabetes mellitus Is this a current diagnosis for this admission?: Yes Plan: Continue Lantus. - Time Time Spent with patient: 25-34 minutes
--- NOTE | 2018-12-01 19:22 | Operative Report ---
Operative Report DATE OF SURGERY: 12/01/18 PREOPERATIVE DIAGNOSIS: Osteomyelitis of the left fourth metatarsal with a manufacturing electrician gabriel plantar wound POSTOPERATIVE DIAGNOSIS: Same OPERATION: Transmetatarsal amputation of the left fourth and fifth toes and part of the left third metatarsal area SURGEON: JAS NULL ANESTHESIA: LMAC TISSUE REMOVED OR ALTERED: Left fourth and fifth toes and metatarsal heads as well as part of the left third metatarsal COMPLICATIONS: None ESTIMATED BLOOD LOSS: 40 cc INTRAOPERATIVE FINDINGS: Left fourth metatarsal head relatively soft compatible with osteomyelitis PROCEDURE: Patient was placed in supine position after adequate IV sedation the left foot was then prepped and draped in the usual sterile fashion. Appropriate timeout was then called. Next circumferential circumferential incision was made along the remaining left fourth and fifth toes. This incision and incorporated chronic ulcer on the plantar area and to the base of the dorsum of the left toes. Patient had a previous transmetatarsal amputation of the first second and third toes which appeared to be healing well. Next the fourth and fifth toes were then disarticulated and the specimen was then sent for culture since appears to be quite inflamed. No further amputation of the left fourth and fifth metatarsal heads were then done with the use of a rondure and some of the bone specimen was sent also for culture. Part of the third metatarsal bone was also reinjured for better closure of the transmetatarsal amputation being done. There was some bleeding that were clamped and ligated with 2-0 Vicryl ties. The some of the tendons were also pulled out and divided. The subcu and fascia were then reapproximated with simple sutures using 2-0 Vicryl. This skin and subcu was then closed with interrupted suture using 3-0 nylon. The wound edges appeared to be viable. The skin were approximated snug but not very tight. Prior to closure of the subcu the wound was irrigated copiously with saline solution. After the skin was partially closed it was then dressed with a layer of Xeroform gauze covered with 4 x 4 ABD Bassam and Javier bandage. Patient tolerated procedure well. Estimated blood loss was 40 cc. Needle and instruments counts were all correct. Sponge count also was correct patient then brought to the recovery room in satisfactory condition
[2018-12-01] MEDS ORDERED: CEFAZOLIN 2 GM/D5W RTU 2 GM/50 ML RTUPB IV SCH (22:00)
[2018-12-01] MEDS: DOXAZOSIN MESYLATE 2 MG TABLET PO SCH (22:16)
[2018-12-01] MEDS: DOXEPIN HCL 25 MG CAPSULE PO SCH (22:17)
[2018-12-01] MEDS: CEFAZOLIN SODIUM 2 GM in DEXTROSE 5%-WATER 100 ML IV SCH (22:19)
[2018-12-01] MEDS: NORMAL SALINE 10 ML SDV (SCHEDULED) IV SCH (22:19)
[2018-12-02] MEDS: GABAPENTIN 300 MG CAPSULE PO SCH ×3 (05:19→21:24)
[2018-12-02] MEDS: CEFAZOLIN SODIUM 2 GM in DEXTROSE 5%-WATER 100 ML IV SCH ×3 (05:20→21:17)
[2018-12-02] MEDS: HEPARIN SOD (PORCINE) 5,000 UNIT/ML 1 ML VIAL SUBCUT SCH ×3 (05:25→21:29)
[2018-12-02] MEDS: MORPHINE SULFATE 10 MG/ML INJ IV PRN ×3 (05:49→20:11)
[2018-12-02 05:53] LABS: HEMATOCRIT 33.7 % (36.0-47.0); HEMOGLOBIN 11.5 g/dL (12.0-15.5); MEAN CORPUSCULAR HEMOGLOBIN 29.5 pg (27.0-33.4); MEAN CORPUSCULAR HGB CONC 34.1 g/dL (32.0-36.0); MEAN CORPUSCULAR VOLUME 87 fl (80-97); PLATELET COUNT 299 10^3/uL (150-450); RED BLOOD COUNT 3.89 10^6/uL (3.72-5.28); RED CELL DISTRIBUTION WIDTH 12.7 % (11.5-14.0); WHITE BLOOD COUNT 9.3 10^3/uL (4.0-10.5)
[2018-12-02 06:13] LABS: ANION GAP 9 (5-19); BLOOD UREA NITROGEN 12 mg/dL (7-20); CALCIUM 9.1 mg/dL (8.4-10.2); CARBON DIOXIDE 30 mmol/L (22-30); CHLORIDE 100 mmol/L (98-107); GLUCOSE 337 mg/dL (75-110); POTASSIUM 4.3 mmol/L (3.6-5.0)
--- NOTE | 2018-12-02 06:26 | Progress Note ---
Provider Note Provider Note: ID Consult/Antimicrobial Stewardship Note Asked to review patient's chart by Pharmacy. Pt not seen or examined. Pt is a 43 year old obese diabetic woman with prior amputation of 1st, 2nd and 3rd toes on the L foot and 2 month hx of L foot plantar ulcer that has not healed despite wound care. She complained of pain, redness and swelling of the L foot on hospital admission on 11/29/18. The 4th and 5th toes were noted to be swollen and erythematous and a 3 cm plantar ulcer. Plain films did not show definite acute osseous changes. MRI was read as showing findings suspicious for osteomyelitis involving the head of the L 4th metatarsal and proximal phalanx. Pt was taken to the OR on 12/01/18 for transmetatarsal amputation of the L 4th and 5th toes. Per operative note, the L 4th metatarsal head was relatively soft, compatible with osteomyelitis, and cultures were sent. A nonoperative culture from the wound was sent on 11/29/18 that grew MSSA and Group A Streptococcus. No bacteremia is present. Pt hemodynamically stable. Afebrile. Has normalized WBC count. Impression/Recommendations Diabetic foot osteomyelitis, s/p transmetatarsal amputation. - Predictive value of superficial swab is limited but may be helpful in the present case. Pt is not septic, and if any additional organisms are isolated, therapy can be broadened again accordingly. With some preliminary information to guide treatment, it is appropriate to avoid the increased risk for nephrotoxicity with continuing broad spectrum empiric combination of vancomycin and Zosyn. - Deep tissue or bone culture results are best to guide therapy, and cultures of intraoperative specimens were ordered yesterday 12/01. Agree that de-escalation to cefazolin 2 grams q8h would be appropriate to address both the Group A Strep and MSSA while awaiting these operative culture results. Blair Gonzalez MD [facility] Infectious Diseases pager [phone]
[2018-12-02] MEDS: INSULIN REG, HUMAN 100 UNIT/ML 3 ML VIAL (PYX) SUBCUT SCH ×7 (08:34→21:21)
[2018-12-02] MEDS: BENZTROPINE MESYLATE 1 MG TABLET PO SCH ×2 (09:40→18:14)
[2018-12-02] MEDS: FAMOTIDINE 20 MG TABLET PO SCH ×2 (09:40→21:26)
[2018-12-02] MEDS: INSULIN GLARGINE,HUM.REC.ANLOG 1,000 UNIT/10 ML VIAL SUBCUT SCH (09:41)
[2018-12-02] MEDS: ARIPIPRAZOLE 5 MG TABLET PO SCH ×2 (09:41→21:24)
[2018-12-02] MEDS: DOCUSATE SODIUM 100 MG CAPSULE PO SCH ×2 (09:48→18:13)
[2018-12-02] MEDS: NORMAL SALINE 10 ML SDV (SCHEDULED) IV SCH ×2 (09:56→21:29)
--- NOTE | 2018-12-02 12:00 | PDOC PROGRESS REPORT ---
Subjective Progress Note for:: 12/02/18 Subjective:: Post amputation pains of the left foot Reason For Visit: DIABETIC FOOT ULCER,LEFT FOOT Physical Exam Vital Signs: Temp Pulse Resp BP Pulse Ox 97.8 F 81 17 102/50 L 95 12/02/18 08:02 12/02/18 08:02 12/02/18 08:02 12/02/18 08:02 12/02/18 08:02 Intake & Output 12/01/18 12/02/18 12/03/18 06:59 06:59 06:59 Intake Total 2091 1670 Output Total 610 Balance 2091 1060 Weight 93.1 kg 94.4 kg Exam: Dressing change amputation stump looks good with with a small amount of bleeding from the incision site. Redressed with Xeroform gauze 4 x 4 and Kerlix. Results Laboratory Results: 12/02/18 05:15 12/02/18 05:15 12/02/18 12/02/18 05:15 05:15 WBC 9.3 RBC 3.89 Hgb 11.5 L Hct 33.7 L MCV 87 MCH 29.5 MCHC 34.1 RDW 12.7 Plt Count 299 Sodium 138.9 Potassium 4.3 Chloride 100 Carbon Dioxide 30 Anion Gap 9 BUN 12 Creatinine 0.59 Est GFR ( Amer) > 60 Glucose 337 H Calcium 9.1 Magnesium 1.8 12/01/18 16:45 Foot - Tissue (Surgical) Gram Stain - Final 12/01/18 16:45 Toe - Left Fourth Gram Stain - Final 11/29/18 13:25 Foot - Diabetic Ulcer Gram Stain - Final 11/29/18 13:25 Foot - Diabetic Ulcer Wound Culture - Final Staphylococcus Aureus Group A Beta Streptococcus Impressions: Foot X-Ray 11/28/18 15:39 IMPRESSION: There has been interval fracture of the proximal phalanx of the left 5th digit, chronic appearing. Similar medial dislocation of the 4th digit MTP joint. No definite acute osseous finding. Distal soft tissue swelling. No radiopaque foreign body. Lower Extremity MRI 11/30/18 11:00 IMPRESSION: 1. There is a subtle marrow edema and T1 hypointensity of the head of the left 4th metatarsal and proximal phalanx of the left 4th digit, which is subluxed and underlying a plantar wound. Findings are suspicious for osteomyelitis. Diffuse soft tissue edema about the left foot. 2. 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 Guidance Fluoroscopy 12/01/18 00:00 IMPRESSION: SUCCESSFUL PLACEMENT OF A 5 FR DUAL LUMEN 40 CM PICC IN THE LEFT BASILIC VEIN. Interventional Vascular Procedure 12/01/18 00:00 IMPRESSION: SUCCESSFUL PLACEMENT OF A 5 FR DUAL LUMEN 40 CM PICC IN THE LEFT BASILIC VEIN. PICC Line Insertion 12/01/18 00:00 IMPRESSION: SUCCESSFUL PLACEMENT OF A 5 FR DUAL LUMEN 40 CM PICC IN THE LEFT BASILIC VEIN. Assessment & Plan - Diagnosis (1) Diabetes mellitus type 2 in nonobese Is this a current diagnosis for this admission?: Yes (2) Diabetic ulcer of left foot Qualifiers: Diabetic foot ulcer location: unspecified part of foot Diabetes mellitus type: type 2 Non-pressure ulcer stage: unspecified non-pressure ulcer stage Qualified Code(s): E11.621 - Type 2 diabetes mellitus with foot ulcer; L97.529 - Non-pressure chronic ulcer of other part of left foot with unspecified severity Is this a current diagnosis for this admission?: Yes (4) Osteomyelitis Qualifiers: Osteomyelitis location: foot Laterality: left Is this a current diagnosis for this admission?: Yes - Time Time Spent with patient: 15-24 minutes - Inpatient Certification Medical Necessity: Need for IV Antibiotics - Plan Summary Plan Summary: Postop day 1 post left TMA The amputation stump looks good. Plans: 1 continue with IV antibiotics 2 await final culture results 3 will likely need at least 48 to 72 hours of IV antibiotic therapy but depending on the final culture results
--- NOTE | 2018-12-02 15:04 | PDOC PROGRESS REPORT ---
Subjective Progress Note for:: 12/02/18 Subjective:: This is a 43 year old female who presented to the emergency room with a 2-month history of a left foot ulcer. Patient admits that she is currently being treated at the wound care clinic who referred her to the emergency room today after debridement of her left foot diabetic ulcer. She reports increasing swelling and redness around the left foot ulcer. 11/30: She says the pain is improved today. No fever or chills overnight. MRI showed changes suspicious for osteomyelitis. Will consult surgery for further recommendations. 12/01: She denies acute complaints. She is going for left foot amputation later today with surgery. 12/02: No acute event overnight. She underwent left TMA yesterday which was uneventful. She denies acute complaints. Pain is well controlled. Reason For Visit: DIABETIC FOOT ULCER,LEFT FOOT Physical Exam Vital Signs: Temp Pulse Resp BP Pulse Ox 97.9 F 82 18 127/49 H 96 12/02/18 11:05 12/02/18 11:05 12/02/18 11:05 12/02/18 11:05 12/02/18 11:05 Intake & Output 12/01/18 12/02/18 12/03/18 06:59 06:59 06:59 Intake Total 2092 1670 826 Output Total 610 3000 Balance 2092 1060 -2174 Weight 205 lb 4.006 oz 208 lb 1.862 oz General appearance: PRESENT: no acute distress, well-developed, well-nourished Head exam: PRESENT: atraumatic, normocephalic Eye exam: PRESENT: conjunctiva pink, EOMI, PERRLA. ABSENT: scleral icterus Ear exam: PRESENT: normal external ear exam Mouth exam: PRESENT: moist, tongue midline Neck exam: ABSENT: carotid bruit, JVD, lymphadenopathy, thyromegaly Respiratory exam: PRESENT: clear to auscultation too. ABSENT: rales, rhonchi, wheezes Cardiovascular exam: PRESENT: RRR. ABSENT: diastolic murmur, rubs, systolic murmur Pulses: PRESENT: normal dorsalis pedis pul GI/Abdominal exam: PRESENT: normal bowel sounds, soft. ABSENT: distended, guarding, mass, organolmegaly, rebound, tenderness Rectal exam: PRESENT: deferred Musculoskeletal exam: PRESENT: other - right AKA stump, left TMA Neurological exam: PRESENT: alert, awake, oriented to person, oriented to place, oriented to time, oriented to situation, CN II-XII grossly intact. ABSENT: mo tor sensory deficit Results Laboratory Results: 12/02/18 05:15 12/02/18 05:15 12/02/18 12/02/18 05:15 05:15 WBC 9.3 RBC 3.89 Hgb 11.5 L Hct 33.7 L MCV 87 MCH 29.5 MCHC 34.1 RDW 12.7 Plt Count 299 Sodium 138.9 Potassium 4.3 Chloride 100 Carbon Dioxide 30 Anion Gap 9 BUN 12 Creatinine 0.59 Est GFR ( Amer) > 60 Glucose 337 H Calcium 9.1 Magnesium 1.8 12/01/18 16:45 Foot - Tissue (Surgical) Gram Stain - Final 11/29/18 13:25 Foot - Diabetic Ulcer Gram Stain - Final 11/29/18 13:25 Foot - Diabetic Ulcer Wound Culture - Final Staphylococcus Aureus Group A Beta Streptococcus Impressions: Foot X-Ray 11/28/18 15:39 IMPRESSION: There has been interval fracture of the proximal phalanx of the left 5th digit, chronic appearing. Similar medial dislocation of the 4th digit MTP joint. No definite acute osseous finding. Distal soft tissue swelling. No radiopaque foreign body. Lower Extremity MRI 11/30/18 11:00 IMPRESSION: 1. There is a subtle marrow edema and T1 hypointensity of the head of the left 4th metatarsal and proximal phalanx of the left 4th digit, which is subluxed and underlying a plantar wound. Findings are suspicious for osteomyelitis. Diffuse soft tissue edema about the left foot. 2. 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 Guidance Fluoroscopy 12/01/18 00:00 IMPRESSION: SUCCESSFUL PLACEMENT OF A 5 FR DUAL LUMEN 40 CM PICC IN THE LEFT BASILIC VEIN. Interventional Vascular Procedure 12/01/18 00:00 IMPRESSION: SUCCESSFUL PLACEMENT OF A 5 FR DUAL LUMEN 40 CM PICC IN THE LEFT BASILIC VEIN. PICC Line Insertion 12/01/18 00:00 IMPRESSION: SUCCESSFUL PLACEMENT OF A 5 FR DUAL LUMEN 40 CM PICC IN THE LEFT BASILIC VEIN. Assessment and Plan - Diagnosis (1) Osteomyelitis Qualifiers: Osteomyelitis location: foot Laterality: left Is this a current diagnosis for this admission?: Yes Plan: 11/30: MRI showed changes suspicious for osteomyelitis. Continue IV antibiotics. Will consult surgery for further recommendations. 12/01: She is going for left foot amputation later today with surgery. Disc ontinue vancomycin and Zosyn and switch to IV cefazolin. 12/02: She underwent left TMA yesterday which was uneventful. Blood cultures grew MSSA and group A beta Streptococcus. Surgery recommends 48 hours of IV antibiotics. Continue Ancef. (2) Diabetic ulcer of left foot Qualifiers: Diabetic foot ulcer location: unspecified part of foot Diabetes mellitus type: type 2 Non-pressure ulcer stage: unspecified non-pressure ulcer stage Qualified Code(s): E11.621 - Type 2 diabetes mellitus with foot ulcer; L97.529 - Non-pressure chronic ulcer of other part of left foot with unspecified severity Is this a current diagnosis for this admission?: Yes Plan: As per number 1. (3) Hypertension Qualifiers: Hypertension type: essential hypertension Qualified Code(s): I10 - Essential (primary) hypertension Is this a current diagnosis for this admission?: Yes Plan: Controlled. (4) COPD (chronic obstructive pulmonary disease) Is this a current diagnosis for this admission?: Yes Plan: Not in exacerbation. Breathing treatments as needed. (5) Type 2 diabetes mellitus Is this a current diagnosis for this admission?: Yes Plan: Continue Lantus. - Time Time Spent with patient: 25-34 minutes
[2018-12-02] MEDS: IBUPROFEN 800 MG TABLET PO PRN (15:58)
[2018-12-02] MEDS: DOXEPIN HCL 25 MG CAPSULE PO SCH (21:25)
[2018-12-02] MEDS: DOXAZOSIN MESYLATE 2 MG TABLET PO SCH (21:27)
[2018-12-02] MEDS: KETOROLAC TROMETHAMINE INJ/PF 30 MG/1 ML SDV IV PRN (21:35)
[2018-12-03] MEDS: HEPARIN SOD (PORCINE) 5,000 UNIT/ML 1 ML VIAL SUBCUT SCH ×3 (06:19→22:59)
[2018-12-03] MEDS: GABAPENTIN 300 MG CAPSULE PO SCH ×3 (06:20→22:14)
[2018-12-03] MEDS: CEFAZOLIN SODIUM 2 GM in DEXTROSE 5%-WATER 100 ML IV SCH ×3 (06:21→22:15)
--- NOTE | 2018-12-03 07:04 | PDOC PROGRESS REPORT ---
Subjective Progress Note for:: 12/03/18 Subjective:: pains at the TMA stump Reason For Visit: DIABETIC FOOT ULCER,LEFT FOOT Physical Exam Vital Signs: Temp Pulse Resp BP Pulse Ox 97.7 F 63 18 121/55 L 96 12/02/18 23:52 12/02/18 23:52 12/02/18 23:52 12/02/18 23:52 12/02/18 23:52 Intake & Output 12/01/18 12/02/18 12/03/18 06:59 06:59 06:59 Intake Total 2092 1670 2218 Output Total 610 4000 Balance 2091 1060 -1782 Weight 93.1 kg 94.4 kg 94.9 kg Exam: Dressings changed. Stump looks good with small amount of bloody drainage Results Laboratory Results: 12/02/18 05:15 12/02/18 05:15 12/01/18 16:45 Foot - Tissue (Surgical) Gram Stain - Final Impressions: Foot X-Ray 11/28/18 15:39 IMPRESSION: There has been interval fracture of the proximal phalanx of the left 5th digit, chronic appearing. Similar medial dislocation of the 4th digit MTP joint. No definite acute osseous finding. Distal soft tissue swelling. No radiopaque foreign body. Lower Extremity MRI 11/30/18 11:00 IMPRESSION: 1. There is a subtle marrow edema and T1 hypointensity of the head of the left 4th metatarsal and proximal phalanx of the left 4th digit, which is subluxed and underlying a plantar wound. Findings are suspicious for osteomyelitis. Diffuse soft tissue edema about the left foot. 2. 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 Guidance Fluoroscopy 12/01/18 00:00 IMPRESSION: SUCCESSFUL PLACEMENT OF A 5 FR DUAL LUMEN 40 CM PICC IN THE LEFT BASILIC VEIN. Interventional Vascular Procedure 12/01/18 00:00 IMPRESSION: SUCCESSFUL PLACEMENT OF A 5 FR DUAL LUMEN 40 CM PICC IN THE LEFT BASILIC VEIN. PICC Line Insertion 12/01/18 00:00 IMPRESSION: SUCCESSFUL PLACEMENT OF A 5 FR DUAL LUMEN 40 CM PICC IN THE LEFT BASILIC VEIN. Assessment & Plan - Diagnosis (1) Diabetes mellitus type 2 in nonobese Is this a current diagnosis for this admission?: Yes (2) Diabetic ulcer of left foot Qualifiers: Diabetic foot ulcer location: unspecified part of foot Diabetes mellitus type: type 2 Non-pressure ulcer stage: unspecified non-pressure ulcer stage Qualified Code(s): E11.621 - Type 2 diabetes mellitus with foot ulcer; L97.529 - Non-pressure chronic ulcer of other part of left foot with unspecified severity Is this a current diagnosis for this admission?: Yes (4) Osteomyelitis Qualifiers: Osteomyelitis location: foot Laterality: left Is this a current diagnosis for this admission?: Yes - Time Time Spent with patient: 15-24 minutes - Inpatient Certification Medical Necessity: Need for IV Antibiotics - Plan Summary Plan Summary: Continue IV antibiotics. Await C/S studies Continue daily dressing changes. Showed nurses how to do it Arrange [facility]NA for wound dressing changes at home q other day for 1-2 weeks Arrange follow up with surgical clinic for suture removal in 2-3 weeks Will sign off. Call for questions.
[2018-12-03] MEDS: INSULIN REG, HUMAN 100 UNIT/ML 3 ML VIAL (PYX) SUBCUT SCH ×7 (07:40→22:09)
[2018-12-03] MEDS: ARIPIPRAZOLE 5 MG TABLET PO SCH ×2 (09:25→22:14)
[2018-12-03] MEDS: FAMOTIDINE 20 MG TABLET PO SCH ×2 (09:25→22:14)
[2018-12-03] MEDS: KETOROLAC TROMETHAMINE INJ/PF 30 MG/1 ML SDV IV PRN (09:25)
[2018-12-03] MEDS: BENZTROPINE MESYLATE 1 MG TABLET PO SCH ×2 (09:25→17:49)
[2018-12-03] MEDS: NORMAL SALINE 10 ML SDV (SCHEDULED) IV SCH ×2 (09:25→22:15)
[2018-12-03] MEDS: DOCUSATE SODIUM 100 MG CAPSULE PO SCH ×2 (09:26→17:57)
[2018-12-03] MEDS: MORPHINE SULFATE 10 MG/ML INJ IV PRN ×2 (12:50→22:04)
--- NOTE | 2018-12-03 13:48 | PDOC PROGRESS REPORT ---
Subjective Progress Note for:: 12/03/18 Subjective:: This is a 43 year old female who presented to the emergency room with a 2-month history of a left foot ulcer. Patient admits that she is currently being treated at the wound care clinic who referred her to the emergency room today after debridement of her left foot diabetic ulcer. She reports increasing swelling and redness around the left foot ulcer. 11/30: She says the pain is improved today. No fever or chills overnight. MRI showed changes suspicious for osteomyelitis. Will consult surgery for further recommendations. 12/01: She denies acute complaints. She is going for left foot amputation later today with surgery. 12/02: She underwent left TMA yesterday which was uneventful. She denies acute complaints. Pain is well controlled. 12/03: No acute event overnight. Denies chest pain or shortness of breath. Pain is fairly controlled. Reason For Visit: DIABETIC FOOT ULCER,LEFT FOOT Physical Exam Vital Signs: Temp Pulse Resp BP Pulse Ox 98.1 F 57 L 18 137/51 H 98 12/03/18 12:00 12/03/18 12:00 12/03/18 12:00 12/03/18 12:00 12/03/18 12:00 Intake & Output 12/02/18 12/03/18 12/04/18 06:59 06:59 06:59 Intake Total 1670 2218 480 Output Total 610 4000 Balance 1060 -1782 480 Weight 208 lb 1.862 oz 209 lb 3.499 oz General appearance: PRESENT: no acute distress, well-developed, well-nourished Head exam: PRESENT: atraumatic, normocephalic Eye exam: PRESENT: conjunctiva pink, EOMI, PERRLA. ABSENT: scleral icterus Ear exam: PRESENT: normal external ear exam Mouth exam: PRESENT: moist, tongue midline Neck exam: ABSENT: carotid bruit, JVD, lymphadenopathy, thyromegaly Respiratory exam: PRESENT: clear to auscultation too. ABSENT: rales, rhonchi, wheezes Cardiovascular exam: PRESENT: RRR. ABSENT: diastolic murmur, rubs, systolic murmur Pulses: PRESENT: normal dorsalis pedis pul GI/Abdominal exam: PRESENT: normal bowel sounds, soft. ABSENT: distended, gua rding, mass, organolmegaly, rebound, tenderness Rectal exam: PRESENT: deferred Extremities exam: PRESENT: other - right BKA stump, left TMA. ABSENT: calf tenderness, clubbing, pedal edema Neurological exam: PRESENT: alert, awake, oriented to person, oriented to place, oriented to time, oriented to situation, CN II-XII grossly intact. ABSENT: motor sensory deficit Results Laboratory Results: 12/02/18 05:15 12/02/18 05:15 12/01/18 16:45 Foot - Tissue (Surgical) Gram Stain - Final Impressions: Foot X-Ray 11/28/18 15:39 IMPRESSION: There has been interval fracture of the proximal phalanx of the left 5th digit, chronic appearing. Similar medial dislocation of the 4th digit MTP joint. No definite acute osseous finding. Distal soft tissue swelling. No radiopaque foreign body. Lower Extremity MRI 11/30/18 11:00 IMPRESSION: 1. There is a subtle marrow edema and T1 hypointensity of the head of the left 4th metatarsal and proximal phalanx of the left 4th digit, which is subluxed and underlying a plantar wound. Findings are suspicious for osteomyelitis. Diffuse soft tissue edema about the left foot. 2. 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 Guidance Fluoroscopy 12/01/18 00:00 IMPRESSION: SUCCESSFUL PLACEMENT OF A 5 FR DUAL LUMEN 40 CM PICC IN THE LEFT BASILIC VEIN. Interventional Vascular Procedure 12/01/18 00:00 IMPRESSION: SUCCESSFUL PLACEMENT OF A 5 FR DUAL LUMEN 40 CM PICC IN THE LEFT BASILIC VEIN. PICC Line Insertion 12/01/18 00:00 IMPRESSION: SUCCESSFUL PLACEMENT OF A 5 FR DUAL LUMEN 40 CM PICC IN THE LEFT BASILIC VEIN. Assessment and Plan - Diagnosis (1) Osteomyelitis Qualifiers: Osteomyelitis location: foot Laterality: left Is this a current diagnosis for this admission?: Yes Plan: 11/30: MRI showed changes suspicious for osteomyelitis. Continue IV antibiotics. Will consult surgery for further recommendations. 12/01: She is going for left foot amputation later today with surgery. Disco ntinue vancomycin and Zosyn and switch to IV cefazolin. 12/02: She underwent left TMA yesterday which was uneventful. Blood cultures grew MSSA and group A beta Streptococcus. Surgery recommends 48 hours of IV antibiotics. : Continue Ancef. (2) Diabetic ulcer of left foot Qualifiers: Diabetic foot ulcer location: unspecified part of foot Diabetes mellitus type: type 2 Non-pressure ulcer stage: unspecified non-pressure ulcer stage Qualified Code(s): E11.621 - Type 2 diabetes mellitus with foot ulcer; L97.529 - Non-pressure chronic ulcer of other part of left foot with unspecified severity Is this a current diagnosis for this admission?: Yes Plan: As per number 1. (3) Hypertension Qualifiers: Hypertension type: essential hypertension Qualified Code(s): I10 - Essential (primary) hypertension Is this a current diagnosis for this admission?: Yes Plan: Controlled. (4) COPD (chronic obstructive pulmonary disease) Is this a current diagnosis for this admission?: Yes Plan: Not in exacerbation. Breathing treatments as needed. (5) Type 2 diabetes mellitus Is this a current diagnosis for this admission?: Yes Plan: Continue Lantus. - Time Time Spent with patient: 15-24 minutes
[2018-12-03] MEDS: INSULIN GLARGINE,HUM.REC.ANLOG 1,000 UNIT/10 ML VIAL SUBCUT SCH (22:08)
[2018-12-03] MEDS: DOXAZOSIN MESYLATE 2 MG TABLET PO SCH (22:12)
[2018-12-03] MEDS: DOXEPIN HCL 25 MG CAPSULE PO SCH (22:12)
[2018-12-04] MEDS: GABAPENTIN 300 MG CAPSULE PO SCH ×3 (05:30→22:14)
[2018-12-04] MEDS: CEFAZOLIN SODIUM 2 GM in DEXTROSE 5%-WATER 100 ML IV SCH ×3 (05:31→22:17)
[2018-12-04] MEDS: HEPARIN SOD (PORCINE) 5,000 UNIT/ML 1 ML VIAL SUBCUT SCH ×3 (05:38→22:01)
[2018-12-04] MEDS: INSULIN REG, HUMAN 100 UNIT/ML 3 ML VIAL (PYX) SUBCUT SCH ×7 (07:43→22:16)
[2018-12-04] MEDS: MORPHINE SULFATE 10 MG/ML INJ IV PRN ×3 (08:20→23:22)
[2018-12-04] MEDS: ARIPIPRAZOLE 5 MG TABLET PO SCH ×2 (09:57→22:15)
[2018-12-04] MEDS: BENZTROPINE MESYLATE 1 MG TABLET PO SCH ×2 (09:57→17:04)
[2018-12-04] MEDS: FAMOTIDINE 20 MG TABLET PO SCH ×2 (09:57→22:15)
[2018-12-04] MEDS: NORMAL SALINE 10 ML SDV (SCHEDULED) IV SCH ×2 (10:02→22:16)
[2018-12-04] MEDS: DOCUSATE SODIUM 100 MG CAPSULE PO SCH ×2 (10:02→17:07)
[2018-12-04] MEDS: IBUPROFEN 800 MG TABLET PO PRN (14:24)
--- NOTE | 2018-12-04 14:26 | PDOC PROGRESS REPORT ---
Subjective Progress Note for:: 12/04/18 Subjective:: This is a 43 year old female who presented to the emergency room with a 2-month history of a left foot ulcer. Patient admits that she is currently being treated at the wound care clinic who referred her to the emergency room today after debridement of her left foot diabetic ulcer. She reports increasing swelling and redness around the left foot ulcer. 11/30: She says the pain is improved today. No fever or chills overnight. MRI showed changes suspicious for osteomyelitis. Will consult surgery for further recommendations. 12/01: She denies acute complaints. She is going for left foot amputation later today with surgery. 12/02: She underwent left TMA yesterday which was uneventful. She denies acute complaints. Pain is well controlled. 12/03: Denies chest pain or shortness of breath. Pain is fairly controlled. 12/04: No acute event overnight. Denies pain on one side. Surgical incision appears to be healing well with no drainage. Reason For Visit: DIABETIC FOOT ULCER,LEFT FOOT Physical Exam Vital Signs: Temp Pulse Resp BP Pulse Ox 97.4 F 65 18 132/53 H 96 12/04/18 12:54 12/04/18 12:54 12/04/18 12:54 12/04/18 12:54 12/04/18 12:54 Intake & Output 12/03/18 12/04/18 12/05/18 06:59 06:59 06:59 Intake Total 2218 2000 100 Output Total 4000 600 Balance -1782 1400 100 Weight 209 lb 3.499 oz 211 lb 13.828 oz General appearance: PRESENT: no acute distress, well-developed, well-nourished Head exam: PRESENT: atraumatic, normocephalic Eye exam: PRESENT: conjunctiva pink, EOMI, PERRLA. ABSENT: scleral icterus Ear exam: PRESENT: normal external ear exam Mouth exam: PRESENT: moist, tongue midline Neck exam: ABSENT: carotid bruit, JVD, lymphadenopathy, thyromegaly Respiratory exam: PRESENT: clear to auscultation too. ABSENT: rales, rhonchi, wheezes Cardiovascular exam: PRESENT: RRR. ABSENT: diastolic murmur, rubs, systolic murmur Pulses: PRESENT: normal dorsalis pedis pul GI/Abdominal exam: PRESENT: normal bowel sounds, soft. ABSENT: distended, guarding, mass, organolmegaly, rebound, tenderness Rectal exam: PRESENT: deferred Extremities exam: PRESENT: other Neurological exam: PRESENT: alert, awake, oriented to person, oriented to place, oriented to time, oriented to situation, CN II-XII grossly intact. ABSENT: motor sensory deficit Results Laboratory Results: 12/02/18 05:15 12/02/18 05:15 12/01/18 16:45 Foot - Tissue (Surgical) Gram Stain - Final 11/28/18 18:07 Blood Blood Culture - Final NO GROWTH IN 5 DAYS 11/28/18 16:51 Blood Blood Culture - Final NO GROWTH IN 5 DAYS Impressions: Foot X-Ray 11/28/18 15:39 IMPRESSION: There has been interval fracture of the proximal phalanx of the left 5th digit, chronic appearing. Similar medial dislocation of the 4th digit MTP joint. No definite acute osseous finding. Distal soft tissue swelling. No radiopaque foreign body. Lower Extremity MRI 11/30/18 11:00 IMPRESSION: 1. There is a subtle marrow edema and T1 hypointensity of the head of the left 4th metatarsal and proximal phalanx of the left 4th digit, which is subluxed and underlying a plantar wound. Findings are suspicious for osteomyelitis. Diffuse soft tissue edema about the left foot. 2. 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 Guidance Fluoroscopy 12/01/18 00:00 IMPRESSION: SUCCESSFUL PLACEMENT OF A 5 FR DUAL LUMEN 40 CM PICC IN THE LEFT BASILIC VEIN. Interventional Vascular Procedure 12/01/18 00:00 IMPRESSION: SUCCESSFUL PLACEMENT OF A 5 FR DUAL LUMEN 40 CM PICC IN THE LEFT BASILIC VEIN. PICC Line Insertion 12/01/18 00:00 IMPRESSION: SUCCESSFUL PLACEMENT OF A 5 FR DUAL LUMEN 40 CM PICC IN THE LEFT BASILIC VEIN. Assessment and Plan - Diagnosis (1) Osteomyelitis Qualifiers: Osteomyelitis location: foot Laterality: left Is this a current diagnosis for this admission?: Yes Plan: 11/30: MRI showed changes suspicious for osteomyelitis. Continue IV antibiotics. Will consult surgery for further recommendations. 12/01: She is going for left foot amputation later today with surgery. Discontinue vancomycin and Zosyn and switch to IV cefazolin. 12/02: She underwent left TMA yesterday which was uneventful. Blood cultures grew MSSA and group A beta Streptococcus. Surgery recommends 48-72 hours of IV antibiotics. : Continue Ancef. (2) Diabetic ulcer of left foot Qualifiers: Diabetic foot ulcer location: unspecified part of foot Diabetes mellitus type: type 2 Non-pressure ulcer stage: unspecified non-pressure ulcer stage Qualified Code(s): E11.621 - Type 2 diabetes mellitus with foot ulcer; L97.529 - Non-pressure chronic ulcer of other part of left foot with unspecified severity Is this a current diagnosis for this admission?: Yes Plan: As per number 1. (3) Hypertension Qualifiers: Hypertension type: essential hypertension Qualified Code(s): I10 - Essential (primary) hypertension Is this a current diagnosis for this admission?: Yes Plan: Controlled. (4) COPD (chronic obstructive pulmonary disease) Is this a current diagnosis for this admission?: Yes Plan: Not in exacerbation. Breathing treatments as needed. (5) Type 2 diabetes mellitus Is this a current diagnosis for this admission?: Yes Plan: Continue Lantus. - Time Time Spent with patient: 15-24 minutes
[2018-12-04 16:03] LABS: ANION GAP 7 (5-19); BLOOD UREA NITROGEN 12 mg/dL (7-20); CARBON DIOXIDE 33 mmol/L (22-30); CHLORIDE 100 mmol/L (98-107); GLUCOSE 166 mg/dL (75-110)
[2018-12-04] MEDS: DOXEPIN HCL 25 MG CAPSULE PO SCH (22:14)
[2018-12-04] MEDS: DOXAZOSIN MESYLATE 2 MG TABLET PO SCH (22:15)
[2018-12-04] MEDS: INSULIN GLARGINE,HUM.REC.ANLOG 1,000 UNIT/10 ML VIAL SUBCUT SCH (22:16)
[2018-12-04] MEDS: KETOROLAC TROMETHAMINE INJ/PF 30 MG/1 ML SDV IV PRN (22:25)
[2018-12-05] MEDS: HEPARIN SOD (PORCINE) 5,000 UNIT/ML 1 ML VIAL SUBCUT SCH ×3 (05:16→21:11)
[2018-12-05] MEDS: CEFAZOLIN SODIUM 2 GM in DEXTROSE 5%-WATER 100 ML IV SCH ×3 (05:18→21:30)
[2018-12-05] MEDS: GABAPENTIN 300 MG CAPSULE PO SCH ×3 (05:18→21:28)
[2018-12-05] MEDS: INSULIN REG, HUMAN 100 UNIT/ML 3 ML VIAL (PYX) SUBCUT SCH ×7 (07:34→21:29)
[2018-12-05] MEDS: MORPHINE SULFATE 10 MG/ML INJ IV PRN ×3 (08:35→20:44)
[2018-12-05] MEDS: BENZTROPINE MESYLATE 1 MG TABLET PO SCH ×2 (09:43→17:18)
[2018-12-05] MEDS: FAMOTIDINE 20 MG TABLET PO SCH ×2 (09:43→21:28)
[2018-12-05] MEDS: ARIPIPRAZOLE 5 MG TABLET PO SCH ×2 (09:43→21:28)
[2018-12-05] MEDS: DOCUSATE SODIUM 100 MG CAPSULE PO SCH ×2 (09:45→17:41)
[2018-12-05] MEDS: NORMAL SALINE 10 ML SDV (SCHEDULED) IV SCH ×2 (09:45→21:29)
--- NOTE | 2018-12-05 14:47 | PDOC PROGRESS REPORT ---
Subjective Progress Note for:: 12/05/18 Subjective:: This is a 43 year old female who presented to the emergency room with a 2-month history of a left foot ulcer. Patient admits that she is currently being treated at the wound care clinic who referred her to the emergency room today after debridement of her left foot diabetic ulcer. She reports increasing swelling and redness around the left foot ulcer. 11/30: She says the pain is improved today. No fever or chills overnight. MRI showed changes suspicious for osteomyelitis. Will consult surgery for further recommendations. 12/01: She denies acute complaints. She is going for left foot amputation later today with surgery. 12/02: She underwent left TMA yesterday which was uneventful. She denies acute complaints. Pain is well controlled. 12/03: Denies chest pain or shortness of breath. Pain is fairly controlled. 12/04: Denies pain on one side. Surgical incision appears to be healing well with no drainage. 12/05: No acute event overnight. Denies acute complaints. She is close to being discharge but bone culture is now growing gram-positive cocci. Anticipate discharge pending final identification of bacteria and sensitivity from the bone culture. Reason For Visit: DIABETIC FOOT ULCER,LEFT FOOT Physical Exam Vital Signs: Temp Pulse Resp BP Pulse Ox 97.5 F 64 17 138/70 H 98 12/05/18 11:57 12/05/18 11:57 12/05/18 11:57 12/05/18 11:57 12/05/18 11:57 Intake & Output 12/04/18 12/05/18 12/06/18 06:59 06:59 06:59 Intake Total 19992 1246 Output Total 600 1300 Balance 8544 691 8382 Weight 211 lb 13.828 oz 210 lb 1.608 oz General appearance: PRESENT: no acute distress, well-developed, well-nourished Head exam: PRESENT: atraumatic, normocephalic Eye exam: PRESENT: conjunctiva pink, EOMI, PERRLA. ABSENT: scleral icterus Ear exam: PRESENT: normal external ear exam Mouth exam: PRESENT: moist, tongue midline Neck exam: ABSENT: carotid bruit, JVD, lymphadenopathy, thyromegaly Respiratory exam: PRESENT: clear to auscultation too. ABSENT: rales, rhonchi, wheezes Cardiovascular exam: PRESENT: RRR. ABSENT: diastolic murmur, rubs, systolic murmur Pulses: PRESENT: normal dorsalis pedis pul GI/Abdominal exam: PRESENT: normal bowel sounds, soft. ABSENT: distended, guarding, mass, organolmegaly, rebound, tenderness Rectal exam: PRESENT: deferred Extremities exam: PRESENT: full ROM. ABSENT: calf tenderness, clubbing, pedal edema Musculoskeletal exam: PRESENT: other Neurological exam: PRESENT: alert, awake, oriented to person, oriented to place, oriented to time, oriented to situation, CN II-XII grossly intact. ABSENT: motor sensory deficit Results Laboratory Results: 12/02/18 05:15 12/04/18 15:35 12/04/18 15:35 Sodium 139.6 Potassium 4.0 Chloride 100 Carbon Dioxide 33 H Anion Gap 7 BUN 12 Creatinine 0.67 Est GFR ( Amer) > 60 Glucose 166 H Calcium 9.0 12/01/18 16:45 Foot - Tissue (Surgical) Gram Stain - Final Impressions: Foot X-Ray 11/28/18 15:39 IMPRESSION: There has been interval fracture of the proximal phalanx of the left 5th digit, chronic appearing. Similar medial dislocation of the 4th digit MTP joint. No definite acute osseous finding. Distal soft tissue swelling. No radiopaque foreign body. Lower Extremity MRI 11/30/18 11:00 IMPRESSION: 1. There is a subtle marrow edema and T1 hypointensity of the head of the left 4th metatarsal and proximal phalanx of the left 4th digit, which is subluxed and underlying a plantar wound. Findings are suspicious for osteomyelitis. Diffuse soft tissue edema about the left foot. 2. 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 Guidance Fluoroscopy 12/01/18 00:00 IMPRESSION: SUCCESSFUL PLACEMENT OF A 5 FR DUAL LUMEN 40 CM PICC IN THE LEFT BASILIC VEIN. Interventional Vascular Procedure 12/01/18 00:00 IMPRESSION: SUCCESSFUL PLACEMENT OF A 5 FR DUAL LUMEN 40 CM PICC IN THE LEFT BASILIC VEIN. PICC Line Insertion 12/01/18 00:00 IMPRESSION: SUCCESSFUL PLACEMENT OF A 5 FR DUAL LUMEN 40 CM PICC IN THE LEFT BASILIC VEIN. Assessment and Plan - Diagnosis (1) Osteomyelitis Qualifiers: Osteomyelitis location: foot Laterality: left Is this a current diagnosis for this admission?: Yes Plan: 11/30: MRI showed changes suspicious for osteomyelitis. Continue IV antibiotics. Will consult surgery for further recommendations. 12/01: She is going for left foot amputation later today with surgery. Discontinue vancomycin and Zosyn and switch to IV cefazolin. 12/02: She underwent left TMA yesterday which was uneventful. Blood cultures grew MSSA and group A beta Streptococcus. Surgery recommends 48-72 hours of IV antibiotics. : Continue Ancef. She is close to being discharge but bone culture is now growing gram-positive cocci. Anticipate discharge pending final identification of bacteria and sensitivity from the bone culture. (2) Diabetic ulcer of left foot Qualifiers: Diabetic foot ulcer location: unspecified part of foot Diabetes mellitus t ype: type 2 Non-pressure ulcer stage: unspecified non-pressure ulcer stage Qualified Code(s): E11.621 - Type 2 diabetes mellitus with foot ulcer; L97.529 - Non-pressure chronic ulcer of other part of left foot with unspecified severity Is this a current diagnosis for this admission?: Yes Plan: As per number 1. (3) Hypertension Qualifiers: Hypertension type: essential hypertension Qualified Code(s): I10 - Essential (primary) hypertension Is this a current diagnosis for this admission?: Yes Plan: Controlled. (4) COPD (chronic obstructive pulmonary disease) Is this a current diagnosis for this admission?: Yes Plan: Not in exacerbation. Breathing treatments as needed. (5) Type 2 diabetes mellitus Is this a current diagnosis for this admission?: Yes Plan: Continue Lantus. - Time Time Spent with patient: 15-24 minutes
--- NOTE | 2018-12-05 18:12 | Progress Note ---
Provider Note Provider Note: ID Telephone Consultation/Antibiotic Stewardship - Brief Note Cultures from bone preliminarily reported as showing GPCs in chains and also in clusters. Likely the MSSA and Group A Strep isolated from the superficial culture. Ancef 2 grams q8h IV is appropriate - narrow spectrum and effective against both isolates. If a once daily IV regimen is required, with no concurrent bacteremia present, Rocephin 2 grams IV daily is a reasonable alternative that might be more practical as an outpatient. If the patient is a poor candidate for IV antibiotic administration, PO Levaquin 750 mg daily plus PO rifampin 600 mg daily can be considered instead. Would anticipate that patient is at high risk for residual osteomyelitis being present and would benefit from being treated for 6 weeks with one of the above regimens. Blair Gonzalez MD [facility] Infectious Diseases pager [phone]
[2018-12-05] MEDS: DOXEPIN HCL 25 MG CAPSULE PO SCH (21:27)
[2018-12-05] MEDS: DOXAZOSIN MESYLATE 2 MG TABLET PO SCH (21:28)
[2018-12-05] MEDS: INSULIN GLARGINE,HUM.REC.ANLOG 1,000 UNIT/10 ML VIAL SUBCUT SCH (21:30)
[2018-12-06] MEDS: HEPARIN SOD (PORCINE) 5,000 UNIT/ML 1 ML VIAL SUBCUT SCH ×3 (05:24→21:08)
[2018-12-06] MEDS: CEFAZOLIN SODIUM 2 GM in DEXTROSE 5%-WATER 100 ML IV SCH ×3 (05:28→21:08)
[2018-12-06] MEDS: GABAPENTIN 300 MG CAPSULE PO SCH ×3 (05:28→21:07)
[2018-12-06] MEDS: INSULIN REG, HUMAN 100 UNIT/ML 3 ML VIAL (PYX) SUBCUT SCH ×7 (08:01→21:08)
[2018-12-06] MEDS: ACETAMINOPHEN 325 MG TABLET PO PRN (08:28)
--- NOTE | 2018-12-06 10:05 | Progress Note Acknowledgement ---
Progress Note Acknowledgement Progess Note Acknowledgement: I, the undersigned member of the medical staff with appropriate privileges and with supervisory authority over [ PAC ], a dependent practice allied health professional, acknowledge that I have reviewed the progress notes entered on this patient, and in my professional judgment believe that the assessment made and/or any care evidenced was appropriate
--- NOTE | 2018-12-06 10:17 | PDOC PROGRESS REPORT ---
Subjective Progress Note for:: 12/06/18 Subjective:: Patient is a 83-year-old female who came from [facility] infection of the left foot. 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 Reason For Visit: DIABETIC FOOT ULCER,LEFT FOOT Physical Exam Vital Signs: Temp Pulse Resp BP Pulse Ox 97.4 F 68 17 112/59 L 97 12/06/18 07:54 12/06/18 07:54 12/06/18 07:54 12/06/18 07:54 12/06/18 07:54 Intake & Output 12/05/18 12/06/18 12/07/18 06:59 06:59 06:59 Intake Total 2032 2508 Output Total 1300 1300 Balance 732 1208 Weight 95.3 kg 97.7 kg General appearance: PRESENT: no acute distress, other - She is lying in bed in no distress voices no complaints Respiratory exam: PRESENT: clear to auscultation too. ABSENT: rales, rhonchi, wheezes Cardiovascular exam: PRESENT: RRR. ABSENT: diastolic murmur, rubs, systolic murmur Extremities exam: PRESENT: other - She has a right below the knee amputation patient has a dressing on the left foot. Neurological exam: PRESENT: alert, awake, oriented to person, oriented to place, oriented to time, oriented to situation, CN II-XII grossly intact. ABSENT: motor sensory deficit Psychiatric exam: PRESENT: appropriate affect, flat affect, normal mood. ABSENT: homicidal ideation, suicidal ideation Results Laboratory Results: 12/02/18 05:15 12/04/18 15:35 12/01/18 16:45 Foot - Tissue (Surgical) Gram Stain - Final Impressions: Foot X-Ray 11/28/18 15:39 IMPRESSION: There has been interval fracture of the proximal phalanx of the left 5th digit, chronic appearing. Similar medial dislocation of the 4th digit MTP joint. No definite acute osseous finding. Distal soft tissue swelling. No radiopaque foreign body. Lower Extremity MRI 11/30/18 11:00 IMPRESSION: 1. There is a subtle marrow edema and T1 hypointensity of the head of the left 4th metatarsal and proximal phalanx of the left 4th digit, which is subluxed and underlying a plantar wound. Findings are suspicious for osteomyelitis. Diffuse soft tissue edema about the left foot. 2. 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 Guidance Fluoroscopy 12/01/18 00:00 IMPRESSION: SUCCESSFUL PLACEMENT OF A 5 FR DUAL LUMEN 40 CM PICC IN THE LEFT BASILIC VEIN. Interventional Vascular Procedure 12/01/18 00:00 IMPRESSION: SUCCESSFUL PLACEMENT OF A 5 FR DUAL LUMEN 40 CM PICC IN THE LEFT BASILIC VEIN. PICC Line Insertion 12/01/18 00:00 IMPRESSION: SUCCESSFUL PLACEMENT OF A 5 FR DUAL LUMEN 40 CM PICC IN THE LEFT BASILIC VEIN. Assessment and Plan - Diagnosis (1) Diabetic ulcer of left foot Qualifiers: Diabetic foot ulcer location: unspecified part of foot Diabetes mellitus type: type 2 Non-pressure ulcer stage: unspecified non-pressure ulcer stage Qualified Code(s): E11.621 - Type 2 diabetes mellitus with foot ulcer; L97.529 - Non-pressure chronic ulcer of other part of left foot with unspecified severity Is this a current diagnosis for this admission?: Yes Plan: As per number 1. 12/06/2018 patient had surgery on 12/01/2018 [place] to osteomyelitis patient had a transmetatarsal amputation of the left fourth and fifth toes and part of the left third metatarsal area. She is currently taking Ancef 1 g IV every 8 hours. Patient will need wound dressing changes every other day for 1 to 2 weeks follow-up in surgery clinic in 2 to 3 weeks (2) Osteomyelitis Qualifiers: Osteomyelitis location: foot Laterality: left Is this a current diagnosis for this admission?: Yes Plan: 11/30: MRI showed changes suspicious for osteomyelitis. Continue IV antibiotics. Will consult surgery for further recommendations. 12/01: She is going for left foot amputation later today with surgery. Discontinue vancomycin and Zosyn and switch to IV cefazolin. 12/02: She underwent left TMA yesterday which was uneventful. Blood cultures grew MSSA and group A beta Streptococcus. Surgery recommends 48-72 hours of IV antibiotics. : Continue Ancef. She is close to being discharge but bone culture is now growing gram-positive cocci. Anticipate discharge pending final identification of bacteria and sensitivity from the bone culture. 12/06/2018 till waiting on culture results from the bone. 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 Is this a current diagnosis for this admission?: Yes Plan: 12/06/2018 patient is currently on a sliding scale as well as taking Lantus 85 units nightly patient's glucose levels are running anywhere from 66 up to 337 Hemoglobin A1c 10 she came in was 6.2 (4) Osteomyelitis Qualifiers: Osteomyelitis type: subacute Osteomyelitis location: foot Is this a current diagnosis for this admission?: Yes Plan: 12/06/2018 she has had amputation of several toes on the left foot patient is currently on IV Ancef every 8 hours patient has not had a CBC done in 4 days and we will repeat this looking at the WBCs Patient does have a PICC line in place, per infectious disease will need IV antibiotics for 6 weeks - Time Time Spent with patient: 35 or more minutes - Patient is also taken Neurontin 900 mg every 8 hours, Abilify 15 mg every 12 hours Cogentin 1 mg twice daily, and Sinequan 100 mg nightly
[2018-12-06] MEDS: ARIPIPRAZOLE 5 MG TABLET PO SCH ×2 (10:29→21:07)
[2018-12-06] MEDS: FAMOTIDINE 20 MG TABLET PO SCH ×2 (10:29→21:07)
[2018-12-06] MEDS: DOCUSATE SODIUM 100 MG CAPSULE PO SCH ×2 (10:29→18:07)
[2018-12-06] MEDS: NORMAL SALINE 10 ML SDV (SCHEDULED) IV SCH ×2 (10:30→21:05)
[2018-12-06] MEDS: BENZTROPINE MESYLATE 1 MG TABLET PO SCH ×2 (10:30→18:06)
[2018-12-06 11:04] LABS: ABSOLUTE BASOPHILS # (AUTO) 0.1 10^3/uL (0.0-0.2); ABSOLUTE EOSINOPHILS # (AUTO) 0.3 10^3/uL (0.0-0.6); ABSOLUTE LYMPHOCYTES (AUTO) 3.4 10^3/uL (0.5-4.7); ABSOLUTE MONOCYTES (AUTO) 0.7 10^3/uL (0.1-1.4); BASOPHILS % (AUTO) 0.8 % (0-2); EOSINOPHILS % (AUTO) 2.6 % (0-6); LYMPHOCYTES % (AUTO) 25.1 % (13-45); MEAN CORPUSCULAR HEMOGLOBIN 29.7 pg (27.0-33.4); MEAN CORPUSCULAR HGB CONC 34.2 g/dL (32.0-36.0); MEAN CORPUSCULAR VOLUME 87 fl (80-97); MONOCYTES % (AUTO) 5.1 % (3-13); PLATELET COUNT 274 10^3/uL (150-450); RED BLOOD COUNT 4.03 10^6/uL (3.72-5.28); RED CELL DISTRIBUTION WIDTH 12.8 % (11.5-14.0); SEGMENTED NEUTROPHILS % (AUTO) 66.4 % (42-78); TOTAL CELLS COUNTED % (AUTO) 100 %; WHITE BLOOD COUNT 13.6 10^3/uL (4.0-10.5)
[2018-12-06 11:27] LABS: ANION GAP 8 (5-19); BLOOD UREA NITROGEN 13 mg/dL (7-20); CALCIUM 9.1 mg/dL (8.4-10.2); CARBON DIOXIDE 28 mmol/L (22-30); CHLORIDE 103 mmol/L (98-107); GLUCOSE 149 mg/dL (75-110); POTASSIUM 4.4 mmol/L (3.6-5.0)
[2018-12-06] MEDS: KETOROLAC TROMETHAMINE INJ/PF 30 MG/1 ML SDV IV PRN (15:17)
[2018-12-06] MEDS: MORPHINE SULFATE 10 MG/ML INJ IV PRN (21:03)
[2018-12-06] MEDS: DOXAZOSIN MESYLATE 2 MG TABLET PO SCH (21:05)
[2018-12-06] MEDS: DOXEPIN HCL 25 MG CAPSULE PO SCH (21:06)
[2018-12-06] MEDS: INSULIN GLARGINE,HUM.REC.ANLOG 1,000 UNIT/10 ML VIAL SUBCUT SCH (21:08)
[2018-12-07] MEDS: HEPARIN SOD (PORCINE) 5,000 UNIT/ML 1 ML VIAL SUBCUT SCH ×3 (06:10→22:15)
[2018-12-07] MEDS: CEFAZOLIN SODIUM 2 GM in DEXTROSE 5%-WATER 100 ML IV SCH ×3 (06:14→22:04)
[2018-12-07] MEDS: GABAPENTIN 300 MG CAPSULE PO SCH ×3 (06:14→22:05)
[2018-12-07] MEDS: INSULIN REG, HUMAN 100 UNIT/ML 3 ML VIAL (PYX) SUBCUT SCH ×7 (08:20→22:15)
[2018-12-07] MEDS: NORMAL SALINE 10 ML SDV (AFTER EACH USE) IV PRN ×3 (09:07→22:57)
[2018-12-07] MEDS: NORMAL SALINE 10 ML SDV (SCHEDULED) IV SCH ×2 (09:07→22:06)
[2018-12-07] MEDS: DOCUSATE SODIUM 100 MG CAPSULE PO SCH ×2 (09:08→17:12)
[2018-12-07] MEDS: ARIPIPRAZOLE 5 MG TABLET PO SCH ×2 (09:08→22:05)
[2018-12-07] MEDS: BENZTROPINE MESYLATE 1 MG TABLET PO SCH ×2 (09:08→17:15)
[2018-12-07] MEDS: FAMOTIDINE 20 MG TABLET PO SCH ×2 (09:08→22:06)
[2018-12-07] MEDS: KETOROLAC TROMETHAMINE INJ/PF 30 MG/1 ML SDV IV PRN ×2 (11:59→19:43)
--- NOTE | 2018-12-07 15:59 | PDOC PROGRESS REPORT ---
Subjective Progress Note for:: 12/07/18 Subjective:: Patient is a 43-year-old female who came from [facility] infection of the left foot. 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 12/07/2018 patient appears to be growing out staph aureus as well as group A beta Streptococcus as well as enterococcus faecalis. Patient is currently on Ancef 1 g IV every 8 hours. We will switch this to Rocephin 2 g IV daily at time of discharge. Patient is to go back to [facility] discharge Reason For Visit: DIABETIC FOOT ULCER,LEFT FOOT Physical Exam Vital Signs: Temp Pulse Resp BP Pulse Ox 97.7 F 65 16 133/59 H 97 12/07/18 11:08 12/07/18 11:08 12/07/18 11:08 12/07/18 11:08 12/07/18 11:08 Intake & Output 12/06/18 12/07/18 12/08/18 06:59 06:59 06:59 Intake Total 2508 2210 1024 Output Total 1300 6000 Balance 1208 -3790 1024 Weight 97.7 kg 95.4 kg General appearance: PRESENT: no acute distress Respiratory exam: PRESENT: clear to auscultation too. ABSENT: rales, rhonchi, wheezes Cardiovascular exam: PRESENT: RRR. ABSENT: diastolic murmur, rubs, systolic murmur Neurological exam: PRESENT: alert, awake, oriented to person, oriented to place, oriented to time, oriented to situation, CN II-XII grossly intact. ABSENT: motor sensory deficit Psychiatric exam: PRESENT: appropriate affect, normal mood. ABSENT: homicidal ideation, suicidal ideation Results Laboratory Results: 12/06/18 10:40 12/06/18 10:40 12/01/18 16:45 Foot - Tissue (Surgical) Gram Stain - Final 12/01/18 16:45 Foot - Tissue (Surgical) Wound Culture - Final Enterococcus Faecalis(Group D) Staphylococcus Aureus No Anaerobic Organisms 12/01/18 16:45 Toe - Left Fourth Gram Stain - Final 12/01/18 16:45 Toe - Left Fourth Wound Culture - Final NO AEROBIC OR ANAEROBIC ORGANISMS RECOVERED Impressions: Foot X-Ray 11/28/18 15:39 IMPRESSION: There has been interval fracture of the proximal phalanx of the left 5th digit, chronic appearing. Similar medial dislocation of the 4th digit MTP joint. No definite acute osseous finding. Distal soft tissue swelling. No radiopaque foreign body. Lower Extremity MRI 11/30/18 11:00 IMPRESSION: 1. There is a subtle marrow edema and T1 hypointensity of the head of the left 4th metatarsal and proximal phalanx of the left 4th digit, which is subluxed and underlying a plantar wound. Findings are suspicious for osteomyeli tis. Diffuse soft tissue edema about the left foot. 2. 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 Guidance Fluoroscopy 12/01/18 00:00 IMPRESSION: SUCCESSFUL PLACEMENT OF A 5 FR DUAL LUMEN 40 CM PICC IN THE LEFT BASILIC VEIN. Interventional Vascular Procedure 12/01/18 00:00 IMPRESSION: SUCCESSFUL PLACEMENT OF A 5 FR DUAL LUMEN 40 CM PICC IN THE LEFT BASILIC VEIN. PICC Line Insertion 12/01/18 00:00 IMPRESSION: SUCCESSFUL PLACEMENT OF A 5 FR DUAL LUMEN 40 CM PICC IN THE LEFT BASILIC VEIN. Assessment and Plan - Diagnosis (1) Diabetic ulcer of left foot Qualifiers: Diabetic foot ulcer location: unspecified part of foot Diabetes mellitus type: type 2 Non-pressure ulcer stage: unspecified non-pressure ulcer stage Qualified Code(s): E11.621 - Type 2 diabetes mellitus with foot ulcer; L97.529 - Non-pressure chronic ulcer of other part of left foot with unspecified severity Is this a current diagnosis for this admission?: Yes Plan: As per number 1. 12/06/2018 patient had surgery on 12/01/2018 as it relates to osteomyelitis patient had a transmetatarsal amputation of the left fourth and fifth toes and part of the left third metatarsal area. She is currently taking Ancef 1 g IV every 8 hours. Patient will need wound dressing changes every other day for 1 to 2 weeks follow-up in surgery clinic in 2 to 3 weeks 12/07/2018. I do not think will be getting any cultures back from the bone therefore I am going to discharge her tomorrow on Rocephin 2 g IV daily for the next 2 weeks. Patient will be going back to [facility]. (2) Osteomyelitis Qualifiers: Osteomyelitis location: foot Laterality: left Is this a current diagnosis for this admission?: Yes Plan: 11/30: MRI showed changes suspicious for osteomyelitis. Continue IV antibiotics. Will consult surgery for further recommendations. 12/01: She is going for left foot amputation later today with surgery. Discontinue vancomycin and Zosyn and switch to IV cefazolin. 12/02: She underwent left TMA yesterday which was uneventful. Blood cultures grew MSSA and group A beta Streptococcus. Surgery recommends 48-72 hours of IV antibiotics. : Continue Ancef. She is close to being discharge but bone culture is now growing gram-positive cocci. Anticipate discharge pending final identification of bacteria and sensitivity from the bone culture. 12/06/2018 till waiting on culture results from the bone. Patient on Ancef 1 g IV every 8 hours 12/07/2018 she appears to be hemodynamically stable, afebrile, and will continue IV antibiotics for the next 4 weeks. (3) Diabetes Qualifiers: Diabetes mellitus type: type 1 Diabetes mellitus complication status: with circulatory complication Diabetes mellitus complication detail: with peripheral angiopathy with gangrene Qualified Code(s): E10.52 - Type 1 diabetes mellitus with diabetic peripheral angiopathy with gangrene Is this a current diagnosis for this admission?: Yes Plan: 12/06/2018 patient is currently on a sliding scale as well as taking Lantus 45 units nightly patient's glucose levels are running anywhere from 66 up to 337 Hemoglobin A1c 10 she came in was 6.2 12/07/2018 but sugars are well controlled anywhere from 150-300 his recent fingersticks today was 152. Patient is currently taking Lantus 45 units nightly (4) Osteomyelitis Qualifiers: Osteomyelitis type: subacute Osteomyelitis location: foot Is this a current diagnosis for this admission?: Yes Plan: 12/06/2018 she has had amputation of several toes on the left foot patient is currently on IV Ancef every 8 hours patient has not had a CBC done in 4 days and we will repeat this looking at the WBCs Patient does have a PICC line in place, per infectious disease will need IV antibiotics for 6 weeks Will DC the patient tomorrow on Rocephin 2 g IV daily for 6 weeks - Time Time Spent with patient: 35 or more minutes
[2018-12-07] MEDS: DOXAZOSIN MESYLATE 2 MG TABLET PO SCH (22:05)
[2018-12-07] MEDS: DOXEPIN HCL 25 MG CAPSULE PO SCH (22:05)
[2018-12-07] MEDS: INSULIN GLARGINE,HUM.REC.ANLOG 1,000 UNIT/10 ML VIAL SUBCUT SCH (22:08)
[2018-12-08] MEDS: HEPARIN SOD (PORCINE) 5,000 UNIT/ML 1 ML VIAL SUBCUT SCH ×2 (05:15→15:18)
[2018-12-08] MEDS: NORMAL SALINE 10 ML SDV (AFTER EACH USE) IV PRN ×3 (05:15→09:23)
[2018-12-08] MEDS: CEFAZOLIN SODIUM 2 GM in DEXTROSE 5%-WATER 100 ML IV SCH ×2 (05:15→15:11)
[2018-12-08] MEDS: GABAPENTIN 300 MG CAPSULE PO SCH ×2 (05:16→15:10)
[2018-12-08] MEDS: KETOROLAC TROMETHAMINE INJ/PF 30 MG/1 ML SDV IV PRN ×2 (06:44→12:53)
[2018-12-08] MEDS: INSULIN REG, HUMAN 100 UNIT/ML 3 ML VIAL (PYX) SUBCUT SCH ×6 (08:07→16:18)
--- NOTE | 2018-12-08 08:56 | PDOC TRANSFER SUMMARY ---
General - Admit/Disc Date/PCP Admission Date/Primary Care Provider: 11/29/18 00:32 NIKUNJ THURSTON MD Patient was admitted on 11/29/2018 with a 2-month history of a left foot ulcer Discharge Date: 12/08/18 - Discharge Diagnosis (1) Diabetic ulcer of left foot Is this a current diagnosis for this admission?: Yes Summary: According to the chart patient has had a left foot ulcer for 2 months patient was being seen at the wound care clinic for this problem but was referred to the emergency room for debridement she is having pain in the left foot started to notice redness and swelling ,x-ray showed osteomyelitis and the patient was admitted to the hospital (2) Osteomyelitis Is this a current diagnosis for this admission?: Yes Summary: X-ray on 11/28/2018 interval fracture of the proximal phalanx of the left fifth digit with chronic appearance similar medial dislocation of the fourth digit MTP joint no definite acute osseous finding it MRI on 911 showed subtle marrow edema patient is for osteomyelitis as well as diffuse soft tissue edema (3) Diabetes Is this a current diagnosis for this admission?: Yes Summary: Patient's diabetes she was admitted being treated with Lantus insulin 50 units subcu nightly while in the hospital she was on a sliding scale as well as Lantus 45 units subcu nightly (4) Osteomyelitis Is this a current diagnosis for this admission?: Yes - Additional Information Resuscitation Status: Full Code Discharge Diet: Diabetic Discharge Activity: Activity As Tolerated Prescriptions: Cephalexin Monohydrate [Keflex 500 mg Capsule] 500 mg PO QID 7 Days #28 capsule Oxycodone HCl/Acetaminophen [Percocet 5-325 mg Tablet] 1 tab PO Q4HP PRN #12 PRN Reason: For Pain Home Medications: Acetaminophen [Tylenol 325 mg Tablet] 650 mg PO Q4HP PRN 11/29/18 Albuterol Sulfate [Proair HFA Inhalation Aerosol 8.5 gm MDI] 2 puff IH Q4HP PRN 11/29/18 Aripiprazole [Abilify 15 mg Tablet] 15 mg PO BID 11/29/18 Benztropine Mesylate [Cogentin 1 mg Tablet] 1 mg PO BID 11/29/18 Diazepam [Valium 5 mg Tablet] 5 mg PO Q8HP PRN 11/29/18 Doxepin HCl [Sinequan 10 mg Capsule] 10 mg PO QHS 11/29/18 Gabapentin [Neurontin 300 mg Capsule] 900 mg PO Q8 11/29/18 Insulin Glargine,Hum.rec.anlog [Lantus Insulin 100 Unit/1 ml 10 ml] 50 units SQ QHS 11/29/18 Multivitamin [Multiple Vitamins] 1 tab PO QAM 11/29/18 Oxcarbazepine [Trileptal] 600 mg PO BID 11/29/18 Prazosin HCl [Minipress] 2 mg PO QHS 11/29/18 Varenicline Tartrate [Chantix 1 mg Tablet] 1 mg PO BID 11/29/18 Cephalexin Monohydrate [Keflex 500 mg Capsule] 500 mg PO QID 7 Days #28 capsule 12/05/18 Oxycodone HCl/Acetaminophen [Percocet 5-325 mg Tablet] 1 tab PO Q4HP PRN #12 12/05/18 History of Present Illness Admission Date/PCP: 11/29/18 00:32 NIKUNJ THURSTON MD History of Present Illness: ALMITA WILLARD is a 43 year old female omitted through the emergency room for osteomyelitis of the left foot, 2-month in duration Hospital Course Hospital Course: Patient was admitted to the hospital and following x-rays and MRI scans general surgery consultation felt that amputation of the transmetatarsal needed to be performed, and possibly even a left below the knee amputation. A PICC line was inserted on 12/01/2018 On 12/01/2018 a transmetatarsal amputation of the left fourth and fifth toes and part of the left third metatarsal was performed patient tolerated procedure well. Patient was seen in consultation by infectious disease recommended Ancef 2 g to 8 hours. Final recommendation by infectious disease Rocephin 2 g IV daily for the next 6 weeks. Patient will be discharged back to [facility] with PICC line in place and Rocephin as mentioned above. patient will have daily dressing changes next 1 to 2 weeks and return to the surgery clinic in 2 to 3 weeks for suture removal. On admission white count was 18,600 on discharge white count is 13,600. On admission serum glucose is 199 on discharge serum glucose is 149 She is micro biology cultures grew out enterococcus farcalis, Streptococcus aureus, Staphylococcus aureus, group A beta Streptococcus Physical Exam Vital Signs: Temp Pulse Resp BP Pulse Ox 97.7 F 58 L 16 131/65 H 98 12/07/18 23:58 12/07/18 23:58 12/07/18 23:58 12/07/18 23:58 12/07/18 23:58 Intake & Output 12/07/18 12/08/18 12/09/18 06:59 06:59 06:59 Intake Total 2210 2166 Output Total 6000 Balance -3790 2166 Weight 95.4 kg 96.5 kg General appearance: PRESENT: no acute distress Respiratory exam: PRESENT: clear to auscultation too. ABSENT: rales, rhonchi, wheezes Cardiovascular exam: PRESENT: RRR. ABSENT: diastolic murmur, rubs, systolic murmur Musculoskeletal exam: PRESENT: other - Surgical site appears to be clean with no sign of infection, slight serous drainage Neurological exam: PRESENT: alert, awake, oriented to person, oriented to place, oriented to time, oriented to situation, CN II-XII grossly intact. ABSENT: motor sensory deficit Psychiatric exam: PRESENT: appropriate affect, normal mood, other - She has no complaints. ABSENT: homicidal ideation, suicidal ideation Results Laboratory Results: 12/06/18 10:40 12/06/18 10:40 12/01/18 16:45 Foot - Tissue (Surgical) Gram Stain - Final 12/01/18 16:45 Foot - Tissue (Surgical) Wound Culture - Final Enterococcus Faecalis(Group D) Staphylococcus Aureus No Anaerobic Organisms Impressions: Foot X-Ray 11/28/18 15:39 IMPRESSION: There has been interval fracture of the proximal phalanx of the left 5th digit, chronic appearing. Similar medial dislocation of the 4th digit MTP joint. No definite acute osseous finding. Distal soft tissue swelling. No radiopaque foreign body. Lower Extremity MRI 11/30/18 11:00 IMPRESSION: 1. There is a subtle marrow edema and T1 hypointensity of the head of the left 4th metatarsal and proximal phalanx of the left 4th digit, which is subluxed and underlying a plantar wound. Findings are suspicious for osteomyelitis. Diffuse soft tissue edema about the left foot. 2. 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 Guidance Fluoroscopy 12/01/18 00:00 IMPRESSION: SUCCESSFUL PLACEMENT OF A 5 FR DUAL LUMEN 40 CM PICC IN THE LEFT BASILIC VEIN. Interventional Vascular Procedure 12/01/18 00:00 IMPRESSION: SUCCESSFUL PLACEMENT OF A 5 FR DUAL LUMEN 40 CM PICC IN THE LEFT BASILIC VEIN. PICC Line Insertion 12/01/18 00:00 IMPRESSION: SUCCESSFUL PLACEMENT OF A 5 FR DUAL LUMEN 40 CM PICC IN THE LEFT BASILIC VEIN. Transfer Plan - Disposition Transfer Plan: Will need to continue IV Rocephin 2 g daily for the next 6 weeks Patient will need daily dressing changes and need to be seen in the surgery clinic in approximately 2 weeks for suture removal - Time Spent with Patient Time spent with patient: Greater than 30 Minutes Qualifiers - * PATIENT BEING DISCHARGED WITH ANY OF THE FOLLOWING DIAGNOSIS: No Acute Heart Failure - Is this a Heart Failure Patient?: No Plan Time Spent: Greater than 30 Minutes - Medications at the time of discharge include Neurontin 900 mg 3 times daily Abilify 15 mg every 12 hours Cogentin 1 mg twice daily Colace 100 mg's twice daily Pepcid 20 mg twice daily Cardura 2 mg nightly Sinequan 100 mg nightly Lantus 45 its nightly
[2018-12-08] MEDS: FAMOTIDINE 20 MG TABLET PO SCH (09:16)
[2018-12-08] MEDS: ARIPIPRAZOLE 5 MG TABLET PO SCH (09:16)
[2018-12-08] MEDS: BENZTROPINE MESYLATE 1 MG TABLET PO SCH (09:16)
[2018-12-08] MEDS: DOCUSATE SODIUM 100 MG CAPSULE PO SCH (09:19)
[2018-12-08] MEDS: NORMAL SALINE 10 ML SDV (SCHEDULED) IV SCH (09:22)
[2018-12-08] MEDS: ACETAMINOPHEN 325 MG TABLET PO PRN (12:00)
[2018-12-08 16:22] VITALS: BP 147/54
== END 2018-12-08 16:41 | DRG 617 ==
LOC: ER 15:10 → EH 11-29 00:32 → 4N 11-29 11:54
PROVIDERS: ADMIT Emergency Medicine; ATTEND Emergency Medicine
PROC: 0Y6N0ZD Detachment at Left Foot, Partial 4th Ray, Open Approach (ICD-10-PCS; 2018-12-01)
PROC: 0Y6N0ZF Detachment at Left Foot, Partial 5th Ray, Open Approach (ICD-10-PCS; 2018-12-01)
PROC: 02HV33Z Insertion of Infusion Device into Superior Vena Cava, Percutaneous Approach (ICD-10-PCS; 2018-12-01)
PROC: B518YZA Fluoroscopy of Superior Vena Cava using Other Contrast, Guidance (ICD-10-PCS; 2018-12-01)
PROC: B548ZZA Ultrasonography of Superior Vena Cava, Guidance (ICD-10-PCS; 2018-12-01)
PROC: 0Y6N0ZC Detachment at Left Foot, Partial 3rd Ray, Open Approach (ICD-10-PCS; principal; 2018-12-01 15:30)
DX: E11.621 Type 2 diabetes mellitus with foot ulcer (principal); L03.116 Cellulitis of left lower limb; L97.528 Non-pressure chronic ulcer of other part of left foot with other specified severity; M86.9 Osteomyelitis, unspecified; E11.69 Type 2 diabetes mellitus with other specified complication; E11.40 Type 2 diabetes mellitus with diabetic neuropathy, unspecified; I10 Essential (primary) hypertension; J44.9 Chronic obstructive pulmonary disease, unspecified; E78.5 Hyperlipidemia, unspecified; B95.2 Enterococcus as the cause of diseases classified elsewhere; B95.0 Streptococcus, group A, as the cause of diseases classified elsewhere; B95.61 Methicillin susceptible Staphylococcus aureus infection as the cause of diseases classified elsewhere; K21.9 Gastro-esophageal reflux disease without esophagitis; F41.8 Other specified anxiety disorders; F31.9 Bipolar disorder, unspecified; Z89.511 Acquired absence of right leg below knee; Z89.412 Acquired absence of left great toe; Z89.422 Acquired absence of other left toe(s); Z79.4 Long term (current) use of insulin; Z79.891 Long term (current) use of opiate analgesic; Z79.51 Long term (current) use of inhaled steroids; Z79.899 Other long term (current) drug therapy
CPT/HCPCS: 01480; 36415; 36569; 76937; 77001; 80048; 80053; 80061; 81001; 82962; 83036; 83605; 83735; 84439; 84443; 84481; 84703; 85025; 85027; 85652; 86140; 87040; 87070; 87075; 87077; 87186; 87205; 94640; 96365; 96366; 96375; 99285; C1769; C1887; J0690; J0692; J1100; J1642; J1644; J1815; J1885; J2250; J2270; J2405; J2543; J2704; J2765; J3010; J3370; J3490; J7050; J7060; S0119

== ENCOUNTER 2020-01-23 11:00 | Emergency (ER) | payer MEDICAID ==
--- NOTE | 2020-01-23 11:39 | ER Document Report ---
ED Medical Screen (RME) - General Chief Complaint: Abscess Stated Complaint: RIGHT LEG PAIN,ABSCESS Time Seen by Provider: 01/23/20 11:31 Primary Care Provider: DES MUNGUIA DPM [Primary Care Provider] - Follow up as needed Mode of Arrival: Wheelchair Information source: Patient Notes: 44-year-old female presented to ED for abscess to the lateral aspect of her BKA stump. She states she has had multiple surgeries to this leg taken off more for each diabetic ulcer wound that she had. She is also had history of diabetes COPD cholecystectomy appendectomy and is absent multiple surgeries to the toes and then feet and then leg on the right side for diabetes. Patient is alert oriented respirations regular nonlabored speaking in full sentences. She states she does not smoke drink or use any illicit drugs at this time. I have greeted and performed a rapid initial assessment of this patient. A comprehensive ED assessment and evaluation of the patient, analysis of test results and completion of medical decision making process will be conducted by an additional ED providers. TRAVEL OUTSIDE OF THE [place] IN LAST 30 DAYS: No - Related Data Allergies/Adverse Reactions: adhesive [Adhesive] Allergy (Mild, Verified 01/23/20 11:30) skin breakdown, red, itching Past Medical History - Past Medical History Cardiac Medical History: Reports: Hx Hypercholesterolemia Denies: Hx Atrial Fibrillation, Hx Congestive Heart Failure, Hx Coronary Artery Disease, Hx Heart Attack, Hx Hypertension Pulmonary Medical History: Reports: Hx Bronchitis, Hx COPD Denies: Hx Asthma Neurological Medical History: Denies: Hx Cerebrovascular Accident, Hx Seizures Endocrine Medical History: Reports: Hx Diabetes Mellitus Type 2. Denies: Hx Diabetes Mellitus Type 1, Hx Hyperthyroidism, Hx Hypothyroidism Renal/ Medical History: Denies: Hx Peritoneal Dialysis GI Medical History: Reports: Hx Gastroesophageal Reflux Disease, Hx Ulcer. Denies: Hx Cirrhosis, Hx Crohn's Disease, Hx Hepatitis, Hx Hiatal Hernia, Hx Ulcerative Colitis Musculoskeltal Medical History: Denies Hx Arthritis, Denies Hx Fibromyalgia, Denies Hx Gout Skin Medical History: Denies Hx Eczema, Denies Hx Psoriasis Psychiatric Medical History: Reports: Hx Anxiety, Hx Bipolar Disorder, Hx Depression - anxiety, Hx Post Traumatic Stress Disorder Infectious Medical History: Denies: Hx Hepatitis Past Surgical History: Reports: Hx Abdominal Surgery, Hx Appendectomy, Hx Section, Hx Cholecystectomy, Hx Orthopedic Surgery - right foot 5 toes amputation, 3 toes amputation left foot. Denies: Hx Mastectomy, Hx Open Heart Surgery, Hx Pacemaker - Immunizations Hx Diphtheria, Pertussis, Tetanus Vaccination: Yes Physical Exam - Vital signs Vitals: Temp Pulse Resp BP Pulse Ox 98.5 F 92 16 149/79 H 96 01/23/20 11:11 01/23/20 11:11 01/23/20 11:11 01/23/20 11:11 01/23/20 11:11 Course - Vital Signs Vital signs: Temp Pulse Resp BP Pulse Ox 98.5 F 92 16 149/79 H 96 01/23/20 11:11 01/23/20 11:11 01/23/20 11:11 01/23/20 11:11 01/23/20 11:11 Doctor's Discharge - Discharge Referrals: DES MUNGUIA DPM [Primary Care Provider] - Follow up as needed
--- NOTE | 2020-01-23 12:23 | RADIOLOGY REPORT (SQ) ---
EXAM DESCRIPTION: TIBIA FIBULA RIGHT IMAGES COMPLETED DATE/TIME: 01/23/2020 12:05 pm REASON FOR STUDY: infection to stump BKA COMPARISON: None. NUMBER OF VIEWS: Two views. TECHNIQUE: Two radiographic images acquired of the right tibia and fibula to include the knee and an kle in at least one projection. LIMITATIONS: None. FINDINGS: MINERALIZATION: Normal. BONES: [id number] amputation. No acute fracture or dislocation. No worrisome bone lesions. SOFT TISSUES: Soft tissue swelling. No foreign body. OTHER: No other significant finding. IMPRESSION: SOFT TISSUE SWELLING. NO ACUTE BONY FINDINGS. TECHNICAL DOCUMENTATION: JOB ID: [id number] 2010 [employer]- All Rights Reserved Reading location - IP/workstation name: [email or web address]
[2020-01-23 12:37] LABS: ABSOLUTE BASOPHILS # (AUTO) 0.1 10^3/uL (0.0-0.2); ABSOLUTE EOSINOPHILS # (AUTO) 0.1 10^3/uL (0.0-0.6); ABSOLUTE LYMPHOCYTES (AUTO) 4.5 10^3/uL (0.5-4.7); ABSOLUTE MONOCYTES (AUTO) 0.5 10^3/uL (0.1-1.4); ABSOLUTE NEUT (AUTO) 10.4 10^3/uL (1.7-8.2); BASOPHILS % (AUTO) 0.9 % (0-2); EOSINOPHILS % (AUTO) 0.9 % (0-6); HEMATOCRIT 49.1 % (36.0-47.0); HEMOGLOBIN 16.8 g/dL (12.0-15.5); LYMPHOCYTES % (AUTO) 28.9 % (13-45); MEAN CORPUSCULAR HEMOGLOBIN 30.5 pg (27.0-33.4); MEAN CORPUSCULAR HGB CONC 34.2 g/dL (32.0-36.0); MEAN CORPUSCULAR VOLUME 89 fl (80-97); MONOCYTES % (AUTO) 2.9 % (3-13); PLATELET COUNT 220 10^3/uL (150-450); RED CELL DISTRIBUTION WIDTH 13.3 % (11.5-14.0); SEGMENTED NEUTROPHILS % (AUTO) 66.4 % (42-78); TOTAL CELLS COUNTED % (AUTO) 100 %; WHITE BLOOD COUNT 15.7 10^3/uL (4.0-10.5)
[2020-01-23 12:58] LABS: ALBUMIN 4.4 g/dL (3.5-5.0); ALKALINE PHOSPHATASE 105 U/L (38-126); ANION GAP 12 (5-19); ASPARTATE AMINO TRANSFERASE 20 U/L (14-36); BILIRUBIN,DIRECT 0.1 mg/dL (0.0-0.4); BILIRUBIN,TOTAL 0.4 mg/dL (0.2-1.3); BLOOD UREA NITROGEN 8 mg/dL (7-20); CALCIUM 9.4 mg/dL (8.4-10.2); CARBON DIOXIDE 24 mmol/L (22-30); CHLORIDE 102 mmol/L (98-107); GLUCOSE 181 mg/dL (75-110); POTASSIUM 3.9 mmol/L (3.6-5.0); TOTAL PROTEIN 7.8 g/dL (6.3-8.2)
--- NOTE | 2020-01-23 17:04 | ER Document Report ---
ED General - General Chief Complaint: Abscess Stated Complaint: RIGHT LEG PAIN,ABSCESS Time Seen by Provider: 01/23/20 11:31 Primary Care Provider: DES MUNGUIA DPM [ACTIVE STAFF] - Follow up as needed Mode of Arrival: Wheelchair Information source: Patient TRAVEL OUTSIDE OF THE [place] IN LAST 30 DAYS: No - HPI Notes: Patient complains of pain and drainage from the right stump where she has had an amputation. She states this is been going on for several days. And that she cannot wear her prosthesis. No fever sweats or chills. The pain is constant. Is worse with touch and better if left alone. Does radiate up her right leg. It is a sharp pain. - Related Data Allergies/Adverse Reactions: adhesive [Adhesive] Allergy (Mild, Verified 01/23/20 11:30) skin breakdown, red, itching Past Medical History - General Information source: Patient - Social History Smoking Status: Former Smoker Chew tobacco use (# tins/day): No Frequency of alcohol use: None Drug Abuse: Marijuana Family History: CAD, DM, Hypertension, Malignancy Patient has homicidal ideation: No - Past Medical History Cardiac Medical History: Reports: Hx Hypercholesterolemia Denies: Hx Atrial Fibrillation, Hx Congestive Heart Failure, Hx Coronary Artery Disease, Hx Heart Attack, Hx Hypertension Pulmonary Medical History: Reports: Hx Bronchitis, Hx COPD Denies: Hx Asthma Neurological Medical History: Denies: Hx Cerebrovascular Accident, Hx Seizures Endocrine Medical History: Reports: Hx Diabetes Mellitus Type 2. Denies: Hx Diabetes Mellitus Type 1, Hx Hyperthyroidism, Hx Hypothyroidism Renal/ Medical History: Denies: Hx Peritoneal Dialysis GI Medical History: Reports: Hx Gastroesophageal Reflux Disease, Hx Ulcer. Denies: Hx Cirrhosis, Hx Crohn's Disease, Hx Hepatitis, Hx Hiatal Hernia, Hx Ulcerative Colitis Musculoskeletal Medical History: Denies Hx Arthritis, Denies Hx Fibromyalgia, Denies Hx Gout Skin Medical History: Denies Hx Eczema, Denies Hx Psoriasis Psychiatric Medical History: Reports: Hx Anxiety, Hx Bipolar Disorder, Hx Depression - anxiety, Hx Post Traumatic Stress Disorder Infectious Medical History: Denies: Hx Hepatitis Past Surgical History: Reports: Hx Abdominal Surgery, Hx Appendectomy, Hx Section, Hx Cholecystectomy, Hx Orthopedic Surgery - right foot 5 toes amputation, 3 toes amputation left foot. Denies: Hx Mastectomy, Hx Open Heart Surgery, Hx Pacemaker - Immunizations Hx Diphtheria, Pertussis, Tetanus Vaccination: Yes Review of Systems - Review of Systems Constitutional: denies: Chills, Fever Cardiovascular: denies: Chest pain, Palpitations Respiratory: denies: Cough, Short of breath -: Yes All other systems reviewed and negative Physical Exam - Vital signs Vitals: Temp Pulse Resp BP Pulse Ox 98.5 F 92 16 149/79 H 96 01/23/20 11:11 01/23/20 11:11 01/23/20 11:11 01/23/20 11:11 01/23/20 11:11 Interpretation: Normal - General General appearance: Appears well, Alert - HEENT Head: Normocephalic, Atraumatic Eyes: Normal Pupils: PERRL - Respiratory Respiratory status: No respiratory distress Chest status: Nontender Breath sounds: Normal Chest palpation: Normal - Cardiovascular Rhythm: Regular Heart sounds: Normal auscultation Murmur: No - Abdominal Inspection: Normal Distension: No distension Bowel sounds: Normal Tenderness: Nontender Organomegaly: No organomegaly - Back Back: Normal, Nontender - Extremities General upper extremity: Normal inspection, Nontender, Normal color, Normal ROM, Normal temperature General lower extremity: Normal inspection, Normal color, Normal ROM, Normal temperature, Other - Visual inspection of the right stump does not show any abnormalities. However it is diffusely tender to palpation. She points to a small red spot where she says pus has been draining from however I do not appreciate any drainage at this time.. No: Elizabeth's sign - Neurological Neuro grossly intact: Yes Cognition: Normal Orientation: AAOx4 Kareen Coma Scale Eye Opening: Spontaneous K[place]en Coma Scale Verbal: Oriented [place] Coma Scale Motor: Obeys Commands [place] Coma Scale Total: 15 Speech: Normal Motor strength normal: LUE, RUE, LLE, RLE Sensory: Normal - Psychological Associated symptoms: Normal affect, Normal mood - Skin Skin Temperature: Warm Skin Moisture: Dry Skin Color: Normal Course - Re-evaluation Re-evalutation: 01/23/20 17:[address] pt turned over to Dr[address] Grimaldo - Vital Signs Vital signs: Temp Pulse Resp BP Pulse Ox 98.5 F 92 16 149/79 H 96 01/23/20 11:11 01/23/20 11:11 01/23/20 11:11 01/23/20 11:11 01/23/20 11:11 - Laboratory Result Diagrams: 01/23/20 12:05 01/23/20 12:05 Laboratory results interpreted by me: 01/23/20 01/23/20 12:05 12:05 WBC 15.7 H RBC 5.50 H Hgb 16.8 H Hct 49.1 H [place] % (Auto) 2.9 L Absolute Neuts (auto) 10.4 H Creatinine 0.43 L Glucose 181 H - Diagnostic Test Radiology reviewed: Image reviewed, Reports reviewed Discharge - Discharge Clinical Impression: Right leg pain Condition: Stable Disposition: OTHER Referrals: DES MUNGUIA DPM [ACTIVE STAFF] - Follow up as needed
[2020-01-23] MEDS ORDERED: KETOROLAC TROMETHAMINE 60 MG/2 ML SDV IM ONE (17:40)
--- NOTE | 2020-01-23 18:59 | RADIOLOGY REPORT (SQ) ---
EXAM DESCRIPTION: CT RT LOWER EXTREMITY WITH IMAGES COMPLETED DATE/TIME: 01/23/2020 6:34 pm REASON FOR STUDY: pain to stump/draining pus COMPARISON: 2007 TECHNIQUE: CT scan of the right knee and stump with intravenous contrast. 50 mL Omnipaque 350 low o smolar contrast was administered. BUN 8 creatinine 0.43 Images reviewed with soft tissue and bone wi ndows. Reconstructed coronal and sagittal MPR images reviewed. All images stored on PACS. All CT scanners at this facility use dose modulation, iterative reconstruction, and/or weight based d osing when appropriate to reduce radiation dose to as low as reasonably achievable (ALARA). [facility]: Dose Right [facility]: CareDose [facility]: Dose Right [facility]: Teradose 4D [facility]: [employer] RADIATION DOSE: CT Rad equipment meets quality standard of care and radiation dose reduction techniq ues were employed. CTDIvol: 4.1 mGy. DLP: 125 mGy-cm. mGy. LIMITATIONS: None. FINDINGS: Heterogeneous mineralization is seen in the distal femur and proximal tibia. No bone dest ruction is appreciated in the tibial or fibular stump. There is no abnormal enhancement. There does appear to be some soft tissue swelling around the distal most portion of the fibula. IMPRESSION: There appears to be some soft tissue swelling over the distal most portion of the fibula . There is no bone destruction to suggest osteomyelitis. Osteoporosis is suggested. TECHNICAL DOCUMENTATION: JOB ID: [id number] Quality ID # [id number]: Final reports with documentation of one or more dose reduction techniques (e.g., Au tomated exposure control, adjustment of the mA and/or kV according to patient size, use of iterative reconstruction technique) 2010 [employer]- All Rights Reserved Reading location - IP/workstation name: [email or web address]
[2020-01-23] MEDS ORDERED: SULFAMETHOXAZOLE/TRIMETHOPRIM 800-160 MG TABLET PO ONE (19:33)
[2020-01-23] MEDS ORDERED: CEPHALEXIN 500 MG CAPSULE PO ONE (19:33)
--- NOTE | 2020-01-23 19:53 | ER Document Report ---
Doctor's Note Notes: 01/23/20 19:52 Patient was signed out to me. Her CT scan shows likely cellulitis with soft tissue swelling. There is no drainable abscess. On my exam, patient is alert and oriented. She is in no acute distress. She is resting comfortably. She appears nontoxic. The right leg stump is not erythemic and there is no palpable area of fluctuance. Patient does have a history of MRSA. She will be given Keflex and Bactrim. She will be given her first dose in the ER. I instructed her to follow-up with her PCP and gave her strict return precautions. Patient is very agreeable to this plan.
[2020-01-23 20:14] VITALS: BP 121/55
== END 2020-01-23 20:14 | disposition other institution (70) ==
LOC: ER 11:00
DX: M79.604 Pain in right leg (principal); L02.415 Cutaneous abscess of right lower limb; Z89.511 Acquired absence of right leg below knee
CPT/HCPCS: 99285; 96372; 36415; 87040; 82962; 85025; 80053; 73590; 73701; J1885; J3490